=== PATIENT | male | born 1950 | race Caucasian/White ===

== ENCOUNTER 2017-11-14 14:53 | Emergency (ER) | payer OTHER ==
[~2017-11-14] VITALS: Ht 175.3 cm; Wt 51.0 kg
[~2017-11-14 14:53] MED LIST: ASCO500C PO; B COTAB3 PO; FOLI1; OMEG600C2 PO; TAB-TAB PO
[2017-11-14 15:22] VITALS: BP 149/67; PULSE 61; RESP 25; TEMP 96.7; O2SAT 100
[2017-11-14] MEDS ORDERED: SODIUM CHLORIDE 0.9% FLUSH 10 ML FLUSH IVF PRN (15:30)
--- NOTE | 2017-11-14 15:37 | PD ---
HPI Chief Complaint: Respiratory Symptoms Time Seen by Provider: 15:10 Travel History International Travel<30 days: No Contact w/Intl Traveler<30days: No Traveled to known affect area: No History of Present Illness HPI 67-year-old male patient presents emergency department via EMS for evaluation after having a syncopal episode shopping today at [id number]. EMS states witnesses describe the patient as becoming weak and sitting down on the ground, not falling. Patient does not remember the event at all. Patient denies any injuries or pain. Upon arrival of EMS patient denies any chest pain, shortness breath, lightheadedness, dizziness, headache, abdominal pain, nausea, vomiting, diarrhea. EMS had a very difficult time auscultating breath sounds. They gave the patient albuterol neb x 3 and 125mg Solu-Medrol on transport. Patient smokes a pack cigarettes a day and drinks approximately 7 beers a day. Patient denies any drug use. Patient states she has no major medical history does not take any daily medication. However he does not have a PCP and he has not been evaluated by a physician since 2009. Patient looks disheveled, unkempt, very thin with ribs visible through skin and hair matted to his head and yellow tint to his skin. Patient has no focal neurological deficit. PFSH Past Medical History Cancer: No Cardiovascular Problems: No Cirrhosis: Yes Diabetes: No Diminished Hearing: No Endocrine: No Gastrointestinal Disorders: Yes Genitourinary: No Hepatitis: No Hiatal Hernia: No Immune Disorder: No Implanted Vascular Access Dvce: No Musculoskeletal: No Neurologic: No Psychiatric: No Reproductive: No Respiratory: No Immunizations Current: No Thyroid Disease: No Past Surgical History Abdominal Surgery: No Cardiac Surgery: No Ear Surgery: No Endocrine Surgery: No Eye Surgery: No Genitourinary Surgery: No Gynecologic Surgery: No Oral Surgery: Yes (TONSILLECTOMY) Pacemaker: No Thoracic Surgery: No Tonsillectomy: Yes Other Surgery: Yes (PARACENTHESIS ) Social History Alcohol Use: Yes (2-3 BEERS A WEEK) Tobacco Use: No Substance Use: No Allergies-Medications (Allergen,Severity, Reaction): Coded Allergies: No Known Allergies (Unverified , 12/08/12) Reported Meds & Prescriptions Reported Meds & Active Scripts Active Reported Vitamin C (Ascorbic Acid) 500 Mg Cap 500 Mg PO DAILY Folate 1 Mg Tab (Folic Acid) 1 Mg Tab 1 Mg .XX B Complex (Vitamin B Complex) Tab 1 Cap PO DAILY Fish Oil ([facility]-3 Fatty Acids) 600 Mg Cap 600 Mg PO DAILY Multivitamin (Multivitamins) 1 Tab Tab 1 Tab PO DAILY Review of Systems Except as stated in HPI: all other systems reviewed are Neg Physical Exam Narrative GENERAL: Disheveled, unkempt, thin with ribs showing through skin and yellowing tint to the skin. Patient appears chronically ill. Patient's hair is matted to his head. No acute respiratory distress noted. SKIN: Bilateral lower extremities have thinning to the skin with extremely dry flaky skin noted. HEAD: Atraumatic. Normocephalic. EYES: Pupils equal and round. Pupils 3 mm and demonstrated PERRLA bilaterally. No injection or drainage. ENT: No nasal bleeding or discharge. Mucous membranes pink and dry. NECK: Trachea midline. No JVD. CARDIOVASCULAR: Regular rate and rhythm. No murmur appreciated. RESPIRATORY: No accessory muscle use. Breath sounds extremely diminished bilaterally. GASTROINTESTINAL: Abdomen soft, non-tender, nondistended. MUSCULOSKELETAL: No obvious deformities. No clubbing. No cyanosis. No edema. NEUROLOGICAL: Awake and alert. No obvious cranial nerve deficits. Motor grossly within normal limits. Normal speech. Data Data Last Documented VS Vital Signs Date Time Temp Pulse Resp B/P (MAP) Pulse Ox O2 Delivery O2 Flow Rate FiO2 11/14/17 19:01 92 20 115/59 (77) 95 Nasal Cannula 2.00 11/14/17 15:22 96.7 Orders Orders Electrocardiogram (11/14/17 15:22) Complete Blood Count With Diff (11/14/17 15:22) Comprehensive Metabolic Panel (11/14/17 15:22) Magnesium (Mg) (11/14/17 15:22) Ckmb (Isoenzyme) Profile (11/14/17 15:22) Troponin I (11/14/17 15:22) Urinalysis - C+S If Indicated (11/14/17 15:22) Chest, Single Ap (11/14/17 15:22) Ct Brain W/O Iv Contrast(Rout) (11/14/17 15:22) Ecg Monitoring (11/14/17 15:22) Iv Access Insert/Monitor (11/14/17 15:22) Oximetry (11/14/17 15:22) Sodium Chloride 0.9% Flush (Ns Flush) (11/14/17 15:30) Sodium Chlor 0.9% 1000 Ml Inj (Ns 1000 M (11/14/17 16:30) Potassium Chloride (Kcl) (11/14/17 16:30) Sodium Chlor 0.9% 1000 Ml Inj (Ns 1000 M (11/14/17 17:15) Labs Laboratory Tests Test 11/14/17 15:30 11/14/17 17:35 White Blood Count 9.1 TH/MM3 Red Blood Count 4.56 MIL/MM3 Hemoglobin 16.5 GM/DL Hematocrit 47.5 % Mean Corpuscular Volume 104.1 FL Mean Corpuscular Hemoglobin 36.3 PG Mean Corpuscular Hemoglobin Concent 34.8 % Red Cell Distribution Width 12.2 % Platelet Count 277 TH/MM3 Mean Platelet Volume 7.0 FL Neutrophils (%) (Auto) 84.3 % Lymphocytes (%) (Auto) 5.3 % Monocytes (%) (Auto) 9.9 % Eosinophils (%) (Auto) 0.1 % Basophils (%) (Auto) 0.4 % Neutrophils # (Auto) 7.7 TH/MM3 Lymphocytes # (Auto) 0.5 TH/MM3 Monocytes # (Auto) 0.9 TH/MM3 Eosinophils # (Auto) 0.0 TH/MM3 Basophils # (Auto) 0.0 TH/MM3 CBC Comment DIFF FINAL Differential Comment Blood Urea Nitrogen 8 MG/DL Creatinine 0.56 MG/DL Random Glucose 194 MG/DL Total Protein 8.2 GM/DL Albumin 4.0 GM/DL Calcium Level 8.7 MG/DL Magnesium Level 1.7 MG/DL Alkaline Phosphatase 104 U/L Aspartate Amino Transf (AST/SGOT) 37 U/L Alanine Aminotransferase (ALT/SGPT) 37 U/L Total Bilirubin 0.6 MG/DL Sodium Level 132 MEQ/L Potassium Level 3.2 MEQ/L Chloride Level 90 MEQ/L Carbon Dioxide Level 37.2 MEQ/L Anion Gap 5 MEQ/L Estimat Glomerular Filtration Rate 145 ML/MIN Total Creatine Kinase 75 U/L Troponin I LESS THAN 0.02 NG/ML Urine Color LIGHT-YELLOW Urine Turbidity CLEAR Urine pH 5.5 Urine Specific [place] 1.009 Urine Protein 30 mg/dL Urine Glucose (UA) 150 mg/dL Urine Ketones TRACE mg/dL Urine Occult Blood TRACE Urine Nitrite NEG Urine Bilirubin NEG Urine Urobilinogen LESS THAN 2.0 MG/DL Urine Leukocyte Esterase NEG Urine RBC 1 /hpf Urine WBC 1 /hpf Urine Hyaline Casts 1 /lpf Urine Mucus FEW /lpf Microscopic Urinalysis Comment CULT NOT INDICATED MDM Medical Decision Making Medical Screen Exam Complete: Yes Emergency Medical Condition: Yes Differential Diagnosis Differential diagnosis include but not limited to electrolyte abnormality, pneumonia, malignancy, coronary event, arrhythmia Narrative Course Patient placed on monitor and IV obtained. Blood work sent to the lab. CBC, CMP , Magnesium, Trop, CK-MB, UA ordered and pending. Chest x-ray ordered and pending. EKG ordered and interpreted. EKG shows sinus tachycardiac with HR 112. Chest x-ray shows moderate COPD with small bilateral effusions. Head CT shows no acute disease. CBC shows no acute abnormality. CMP shows sodium 132, potassium 3.2, chloride 90, glucose 194, creatinine 0.56, carbon dioxide 37.2. Mag 1.7 Trop less than 0.02 CK-MB is 75 UA 1 L normal saline bolus, 40 mEq KCl by mouth ordered. Patient remains tachycardic in the lower 100s. The waiting on the patient to void. 2nd Liter normal saline bolus ordered. Cardiac: NSR with HR 98 at this time. It was recommended that patient stay in the hospital for further evaluation and diagnostic work up due to his social risk factors of smoking and alcohol use and him not being followed by a PCP and his 1st syncopal episode. Risk factors discussed with patient and he still decided to sign out AMA. Patient given instructions to return to the emergency department with any worsening or emergent conditions or additional syncopal episodes. Diagnosis Primary Impression: Syncope Qualified Codes: R55 - Syncope and collapse Admitting Information Admitting Physician Requests: Kristen Rodgers Nov 14, 2017 15:37
[2017-11-14 15:49] LABS: AUTOMATED NEUTROPHIL # 7.7 TH/MM3 (1.8-7.7); BASOPHIL % 0.4 % (0.0-2.0); EOSINOPHIL % 0.1 % (0.0-4.0); HEMATOCRIT 47.5 % (39.0-51.0); HEMOGLOBIN 16.5 GM/DL (13.0-17.0); LYMPH % 5.3 % (9.0-44.0); LYMPHOCYTE # 0.5 TH/MM3 (1.0-4.8); MEAN CELL VOLUME 104.1 FL (80.0-100.0); MEAN CORPUSCULAR HEMOGLOBIN 36.3 PG (27.0-34.0); MEAN CORPUSCULAR HGB CONC 34.8 % (32.0-36.0); MONO % 9.9 % (0.0-8.0); MONOCYTE # 0.9 TH/MM3 (0-0.9); NEUT % 84.3 % (16.0-70.0); PLATELET COUNT 277 TH/MM3 (150-450); RED BLOOD COUNT 4.56 MIL/MM3 (4.50-5.90); RED CELL DISTRIBUTION WIDTH 12.2 % (11.6-17.2); WHITE BLOOD COUNT 9.1 TH/MM3 (4.0-11.0)
--- NOTE | 2017-11-14 16:09 | RADRPT ---
EXAM DATE/TIME: 11/14/2017 15:34 [facility] COMPARISON: No previous studies available for comparison. INDICATIONS : Shortness of breath. MEDICAL HISTORY : None. SURGICAL HISTORY : None. ENCOUNTER: Initial ACUITY: 1 day PAIN SCORE: 0/10 LOCATION: Bilateral chest FINDINGS: There are advanced COPD changes. There are minimal bilateral effusions. The heart is normal in size. The osseous structures are grossly intact. A CONCLUSION: 1. Moderate COPD with small bilateral effusions. Haile Londono MD on November 14, 2017 at 15:50 Board Certified Radiologist. This report was verified electronically.
[2017-11-14 16:11] LABS: ALT (GPT) 37 U/L (12-78); AST (GOT) 37 U/L (15-37); BICARBONATE 37.2 MEQ/L (21.0-32.0); BLOOD UREA NITROGEN 8 MG/DL (7-18); CALCIUM 8.7 MG/DL (8.5-10.1); CHLORIDE 90 MEQ/L (98-107); CREATININE 0.56 MG/DL (0.60-1.30); GLOMERULAR FILTRATION RATE 145 ML/MIN (>89); GLUCOSE,RANDOM 194 MG/DL (74-106); MAGNESIUM 1.7 MG/DL (1.5-2.5); SODIUM (NA) 132 MEQ/L (136-145)
--- NOTE | 2017-11-14 16:12 | RADRPT ---
EXAM DATE/TIME: 11/14/2017 15:53 [facility] COMPARISON: No previous studies available for comparison. INDICATIONS : Syncope. RADIATION DOSE: 37.41 CTDIvol (mGy) MEDICAL HISTORY : None SURGICAL HISTORY : None. ENCOUNTER: Initial ACUITY: 1 day PAIN SCALE: 0/10 LOCATION: cranial TECHNIQUE: Multiple contiguous axial images were obtained of the head. Using automated exposure control and adj ustment of the mA and/or kV according to patient size, radiation dose was kept as low as reasonably a chievable to obtain optimal diagnostic quality images. DICOM format image data is available electro nically for review and comparison. FINDINGS: CEREBRUM: The ventricles are normal for age. No evidence of midline shift, mass lesion, hemorrhage or acute in farction. No extra-axial fluid collections are seen. POSTERIOR FOSSA: The cerebellum and brainstem are intact. The 4th ventricle is midline. The cerebellopontine angle i s unremarkable. EXTRACRANIAL: The visualized portion of the orbits is intact. SKULL: The calvaria is intact. No evidence of skull fracture. CONCLUSION: No acute disease. Anuel Dueñas MD on November 14, 2017 at 16:09 Board Certified Radiologist. This report was verified electronically.
[2017-11-14 16:15] LABS: ALKALINE PHOSPHATASE 104 U/L (45-117); TOTAL BILIRUBIN ADULT 0.6 MG/DL (0.2-1.0); TOTAL PROTEIN 8.2 GM/DL (6.4-8.2); TROPONIN I LESS THAN 0.02 NG/ML (0.02-0.05)
[2017-11-14] MEDS ORDERED: POTASSIUM CHLORIDE 20 MEQ CONTROLLED RELEASE TAB PO ONE (16:30)
[2017-11-14] MEDS ORDERED: SODIUM CHLOR 0.9% 1000 ML INJ 1,000 ML IV ONE ×2 (16:30→17:15)
[2017-11-14 17:45] VITALS: BP 138/62; PULSE 103; RESP 15; O2SAT 99
[2017-11-14 18:29] LABS: BILIRUBIN, URINE NEG (NEG); BLOOD, URINE TRACE (NEG); GLUCOSE,URINE 150 mg/dL (NEG); HYALINE CAST, URINE 1 /lpf (RARE); KETONE, URINE TRACE mg/dL (NEG); MUCUS URINE FEW /lpf (OCC); NITRITE,URINE NEG (NEG); PH, URINE 5.5 (5.0-8.5); URINE COLOR LIGHT-YELLOW (YELLW/STRAW); URINE LEUKOCYTE ESTERASE NEG (NEG)
[2017-11-14 19:01] VITALS: BP 115/59; PULSE 92; RESP 20; O2SAT 95
--- NOTE | 2017-11-15 23:00 | EKG ---
Date Performed: 11/14/2017 Time Performed: 15:36:22 PTAGE: 67 years EKG: SINUS TACHYCARDIA POSSIBLE RIGHT ATRIAL ENLARGEMENT POSSIBLE LEFT ATRIAL ENLARGEMENT MARKED LEFT AXIS DEVIATION POSSIBLE RIGHT VENTRICULAR CONDUCTION DELAY ANTEROSEPTAL MYOCARDIAL INFARCTION A BNORMAL ECG PREVIOUS TRACING : 11/17/2012 13.00 Compared to prior tracing no significant change DOCTOR: Parish Agrawal Interpretating Date/Time 11/15/2017 22:58:45
== END 2017-11-14 19:44 | disposition left against medical advice (07) ==
LOC: NEPC 14:53
DX: R55 Syncope and collapse (principal); J44.9 Chronic obstructive pulmonary disease, unspecified; K74.60 Unspecified cirrhosis of liver; F17.210 Nicotine dependence, cigarettes, uncomplicated; J90 Pleural effusion, not elsewhere classified; K92.9 Disease of digestive system, unspecified; R00.0 Tachycardia, unspecified
CPT/HCPCS: 70450; 71045; 80053; 81001; 82550; 83735; 84484; 85025; 93005; 96360; 99285; J7030

== ENCOUNTER 2017-11-23 20:15 | Emergency (ER) | payer OTHER ==
[~2017-11-23] VITALS: Ht 177.8 cm; Wt 46.8 kg
[2017-11-23 20:23] VITALS: PULSE 88; RESP 18; TEMP 97.2
--- NOTE | 2017-11-23 20:36 | PD ---
HPI Chief Complaint: FOREHEAD LAC Time Seen by Provider: 20:31 Travel History International Travel<30 days: No Contact w/Intl Traveler<30days: No Traveled to known affect area: No History of Present Illness HPI WHILE SHOPPING HE TRIPPED AND FELL HITTING HIS FOREHEAD AND POSSIBLE LOC, PATIENT IS NOT TOO CLEAR ON WHAT OCCURRED AFTER HE HIT HIS HEAD. DENIES TAKING ANY BLOOD THINNERS PFSH Past Medical History Cancer: No Cardiovascular Problems: No Cirrhosis: Yes Diabetes: No Diminished Hearing: No Endocrine: No Gastrointestinal Disorders: Yes Genitourinary: No Hepatitis: No Hiatal Hernia: No Immune Disorder: No Implanted Vascular Access Dvce: No Musculoskeletal: No Neurologic: No Psychiatric: No Reproductive: No Respiratory: No Immunizations Current: No Thyroid Disease: No Past Surgical History Abdominal Surgery: No Cardiac Surgery: No Ear Surgery: No Endocrine Surgery: No Eye Surgery: No Genitourinary Surgery: No Gynecologic Surgery: No Oral Surgery: Yes (TONSILLECTOMY) Pacemaker: No Thoracic Surgery: No Tonsillectomy: Yes Other Surgery: Yes (PARACENTHESIS ) Social History Alcohol Use: Yes (2-3 BEERS A WEEK) Tobacco Use: Yes Substance Use: No Allergies-Medications (Allergen,Severity, Reaction): Coded Allergies: No Known Allergies (Unverified Adverse Reaction, Unknown, 11/23/17) Reported Meds & Prescriptions Reported Meds & Active Scripts Active Reported Vitamin C (Ascorbic Acid) 500 Mg Cap 500 Mg PO DAILY Folate 1 Mg Tab (Folic Acid) 1 Mg Tab 1 Mg .XX B Complex (Vitamin B Complex) Tab 1 Cap PO DAILY Fish Oil ([employer]-3 Fatty Acids) 600 Mg Cap 600 Mg PO DAILY Multivitamin (Multivitamins) 1 Tab Tab 1 Tab PO DAILY Review of Systems Skin: Positive Other (FOREHEAD LAC) Physical Exam Narrative GENERAL: SKIN: Warm and dry. HEAD: Atraumatic. Normocephalic. Y SHAPED FOREHEAD LAC 2.5CM EACH LENGTH.. EYES: Pupils equal and round. No scleral icterus. No injection or drainage. ENT: No nasal bleeding or discharge. Mucous membranes pink and moist. NECK: Trachea midline. No JVD. CARDIOVASCULAR: Regular rate and rhythm. RESPIRATORY: No accessory muscle use. Clear to auscultation. Breath sounds equal bilaterally. GASTROINTESTINAL: Abdomen soft, non-tender, nondistended. MUSCULOSKELETAL: Extremities without clubbing, cyanosis, or edema. No obvious deformities. NEUROLOGICAL: Awake and alert. No obvious cranial nerve deficits. Motor grossly within normal limits. Five out of 5 muscle strength in the arms and legs. Normal speech. PSYCHIATRIC: Appropriate mood and affect; insight and judgment normal. Data Data Last Documented VS Vital Signs Date Time Temp Pulse Resp B/P (MAP) Pulse Ox O2 Delivery O2 Flow Rate FiO2 11/23/17 20:23 97.[address] Brain W/O Iv Contrast(Rout) (11/23/17 20:38) Lidocaine 1% Inj (50 Ml) (Xylocaine 1% I (11/23/17 20:45) Lidocaine 1% Inj (Xylocaine 1% Inj) (11/23/17 20:45) MDM Medical Decision Making Medical Screen Exam Complete: Yes Emergency Medical Condition: Yes Medical Record Reviewed: Yes Differential Diagnosis ICH V SKULL FX V SCALP LAC Narrative Course CT NEG FOR ICH OR SKULL FX Procedures Procedure Narrative LACERATION LOCATION: [FOREHEAD] LENGTH: [7 CM TOTAL Y SHAPED 2.5CM/2.5CM/2CM] NUMBER OF STITCHES/KARL: [4 HORIZONTAL MATTRESS AND 2 SINGLE INTERRUPTED-] REPAIR: The area of the laceration was prepped with Betadine and sterilely draped. The laceration was infiltrated with [1% LIDOCAINE, 6 ML]. The wound was copiously irrigated and explored without evidence of foreign body, tendon injury or neurovascular injury. The wound was closed using [3-0 PROLENE]. This was a [SINGLE] layer repair. A sterile dressing was applied. The patient was advised to keep the dressing clean and dry. Patient tolerated the procedure well. Diagnosis Primary Impression: SCALP LACERATION S/P SUTURE REPAIR Patient Instructions: Laceration (ED) Additional Instructions: SEE YOUR DOCTOR OR RETURN IN 7 DAYS TO HAVE YOUR SUTURES REMOVED Disposition: 01 DISCHARGE HOME Condition: Stable Barrington Banks MD Nov 23, 2017 20:35
[2017-11-23 20:40] VITALS: BP 157/73; PULSE 84; RESP 18; O2SAT 97
[2017-11-23] MEDS ORDERED: LIDOCAINE HCL 1% 50 ML VIAL INFIL ONE (20:45)
[2017-11-23] MEDS ORDERED: LIDOCAINE HCL 1% 20 ML VIAL INFIL ONE (20:45)
[2017-11-23 21:50] VITALS: BP 159/70; PULSE 83; RESP 18; O2SAT 97
--- NOTE | 2017-11-23 22:08 | RADRPT ---
EXAM DATE/TIME: 11/23/2017 21:34 [facility] COMPARISON: No previous studies available for comparison. INDICATIONS : Fall. Forehead laceration. RADIATION DOSE: 63.63 CTDIvol (mGy) MEDICAL HISTORY : Cirrhosis. SURGICAL HISTORY : Tonsillectomy. ENCOUNTER: Initial ACUITY: 1 day PAIN SCALE: 3/10 LOCATION: Bilateral frontal TECHNIQUE: Multiple contiguous axial images were obtained of the head. Using automated exposure control and adj ustment of the mA and/or kV according to patient size, radiation dose was kept as low as reasonably a chievable to obtain optimal diagnostic quality images. DICOM format image data is available electro nically for review and comparison. FINDINGS: CEREBRUM: The ventricles are normal for age. No evidence of midline shift, mass lesion, hemorrhage or acute in farction. No extra-axial fluid collections are seen. POSTERIOR FOSSA: The cerebellum and brainstem are intact. The 4th ventricle is midline. The cerebellopontine angle i s unremarkable. EXTRACRANIAL: Contusion and gas seen in the soft tissues left frontal scalp. SKULL: The calvaria is intact. No evidence of skull fracture. CONCLUSION: No bleed or other acute intracranial abnormality. Left frontal scalp contusion/laceration. Basim Morataya MD on November 23, 2017 at 22:05 Board Certified Radiologist. This report was verified electronically.
[2017-11-23 22:13] VITALS: BP 147/62
== END 2017-11-23 22:23 | disposition home or self-care (01) ==
LOC: PHED 20:15
DX: S01.81XA Laceration without foreign body of other part of head, initial encounter (principal); W01.10XA Fall on same level from slipping, tripping and stumbling with subsequent striking against unspecified object, initial encounter; Z72.0 Tobacco use
CPT/HCPCS: 12014; 70450

== ENCOUNTER 2017-12-01 18:46 | Emergency (ER) | payer OTHER ==
[~2017-12-01] VITALS: Ht 177.8 cm; Wt 47.0 kg
[2017-12-01 19:15] VITALS: BP 146/67; PULSE 79; RESP 16; TEMP 97.3; O2SAT 94
--- NOTE | 2017-12-01 19:36 | PD ---
HPI Chief Complaint: Wound/Suture/Staple Re-Check Time Seen by Provider: 19:25 Travel History International Travel<30 days: No Contact w/Intl Traveler<30days: No Traveled to known affect area: No History of Present Illness HPI 67-year-old male here for suture removal to forehead laceration 8 days ago. He denies fever or chills. No drainage from the site. He has no medical complaint. PFSH Past Medical History Cancer: No Cardiovascular Problems: No Cirrhosis: Yes Diabetes: No Diminished Hearing: No Endocrine: No Gastrointestinal Disorders: Yes Genitourinary: No Hepatitis: No Hiatal Hernia: Yes Immune Disorder: No Implanted Vascular Access Dvce: No Medical other: Yes (LIVER CIRRHOSIS) Musculoskeletal: No Neurologic: No Psychiatric: No Reproductive: No Respiratory: No Immunizations Current: No Thyroid Disease: No Tetanus Vaccination: < 5 Years Influenza Vaccination: No ?: Not Past Surgical History Abdominal Surgery: No Cardiac Surgery: No Ear Surgery: No Endocrine Surgery: No Eye Surgery: No Genitourinary Surgery: No Gynecologic Surgery: No Oral Surgery: Yes (TONSILLECTOMY) Pacemaker: No Thoracic Surgery: No Tonsillectomy: Yes Other Surgery: Yes (PARACENTHESIS ) Social History Alcohol Use: Yes (2-3 BEERS A WEEK) Tobacco Use: Yes Substance Use: No Allergies-Medications (Allergen,Severity, Reaction): Coded Allergies: No Known Allergies (Unverified Adverse Reaction, Unknown, 11/23/17) Reported Meds & Prescriptions Reported Meds & Active Scripts Active No Active Prescriptions or Reported Medications Review of Systems Except as stated in HPI: all other systems reviewed are Neg General / Constitutional: No: Fever Eyes: No: Visual changes HENT: No: Headaches Cardiovascular: No: Chest Pain or Discomfort Respiratory: No: Shortness of Breath Gastrointestinal: No: Abdominal Pain Genitourinary: No: Dysuria Physical Exam Narrative GENERAL: Alert male. Disheveled appearance. SKIN: Warm and dry. Large scab to the left forehead with sutures present. no evidence of infection HEAD: Normocephalic. EYES: No scleral icterus. No injection or drainage. NECK: Supple, trachea midline. No JVD Data Data Last Documented VS Vital Signs Date Time Temp Pulse Resp B/P (MAP) Pulse Ox O2 Delivery O2 Flow Rate FiO2 12/01/17 19:15 97.3 79 16 146/67 (93) 94 [facility] Medical Decision Making Medical Screen Exam Complete: Yes Emergency Medical Condition: Yes Differential Diagnosis Suture removal, Wound recheck, wound infection Narrative Course 67-year-old male here for suture removal. The patient has a large scab to the forehead making suture visualization near impossible. One mattress suture was removed causing wound dehiscence and bleeding. The sutures are not ready to be removed today. He was instructed to return in one week Diagnosis Primary Impression: Visit for suture removal Referrals: Primary Care Physician Additional Instructions: Watch the area daily with soap and water. Apply thin layer of antibiotic ointment to the area. Fraternities one week for suture removal. Scripts No Active Prescriptions or Reported Meds Disposition: 01 DISCHARGE HOME Condition: Stable Siobhan Ogden Dec 01, 2017 19:36
== END 2017-12-01 19:55 | disposition home or self-care (01) ==
LOC: PHEFT 18:46
DX: S01.81XD Laceration without foreign body of other part of head, subsequent encounter (principal); K74.60 Unspecified cirrhosis of liver; Z72.0 Tobacco use; X58.XXXD Exposure to other specified factors, subsequent encounter
CPT/HCPCS: 99281

== ENCOUNTER 2017-12-07 19:04 | Emergency (ER) | payer OTHER ==
[~2017-12-07] VITALS: Ht 177.8 cm; Wt 46.2 kg
[2017-12-07 19:14] VITALS: BP 151/72; PULSE 99; RESP 18; TEMP 96.9; O2SAT 98
[2017-12-07 19:23] VITALS: BP 151/72; PULSE 99; RESP 16; TEMP 96.9; O2SAT 98
--- NOTE | 2017-12-07 19:41 | PD ---
HPI Chief Complaint: Laceration/Skin Injury Time Seen by Provider: 19:34 Travel History International Travel<30 days: No Contact w/Intl Traveler<30days: No Traveled to known affect area: No History of Present Illness HPI 67-year-old male presents emergency department for suture removal of his forehead. States that he was here approximately 6 days ago and the sutures were supposed to be removed but the wound opened. Patient was asked to come back today for removal. Patient denies any issues. Denies fever, chills. He has no other complaints today PFSH Past Medical History Cancer: No Cardiovascular Problems: No Cirrhosis: Yes Diabetes: No Diminished Hearing: No Endocrine: No Gastrointestinal Disorders: Yes Genitourinary: No Hepatitis: No Hiatal Hernia: Yes Immune Disorder: No Implanted Vascular Access Dvce: No Medical other: Yes (LIVER CIRRHOSIS) Musculoskeletal: No Neurologic: No Psychiatric: No Reproductive: No Respiratory: No Immunizations Current: No Thyroid Disease: No Tetanus Vaccination: Unknown Influenza Vaccination: No Past Surgical History Abdominal Surgery: No Cardiac Surgery: No Ear Surgery: No Endocrine Surgery: No Eye Surgery: No Genitourinary Surgery: No Gynecologic Surgery: No Oral Surgery: Yes (TONSILLECTOMY) Pacemaker: No Thoracic Surgery: No Tonsillectomy: Yes Other Surgery: Yes (PARACENTHESIS ) Social History Alcohol Use: Yes (2-3 BEERS A WEEK) Tobacco Use: Yes Substance Use: No Allergies-Medications (Allergen,Severity, Reaction): Coded Allergies: No Known Allergies (Unverified Adverse Reaction, Unknown, 11/23/17) Reported Meds & Prescriptions Reported Meds & Active Scripts Active No Active Prescriptions or Reported Medications Review of Systems Except as stated in HPI: all other systems reviewed are Neg Physical Exam Narrative GENERAL: Well-nourished, well-developed patient. SKIN: Focused skin assessment warm/dry. Forehead- scabs in place with 4 apparent sutures, no exudate, discharge, redness , swelling HEAD: Normocephalic. EYES: No scleral icterus. No injection or drainage. NECK: Supple, trachea midline. No JVD or lymphadenopathy. CARDIOVASCULAR: Regular rate and rhythm without murmurs, gallops, or rubs. RESPIRATORY: Breath sounds equal bilaterally. No accessory muscle use. GASTROINTESTINAL: Abdomen soft, non-tender, nondistended. BACK: Nontender without obvious deformity. No CVA tenderness. Data Data Last Documented VS Vital Signs Date Time Temp Pulse Resp B/P (MAP) Pulse Ox O2 Delivery O2 Flow Rate FiO2 12/07/17 20:16 12/07/17 19:23 96.9 99 16 98 Orders Orders Ed Discharge Order (12/07/17 20:07) MDM Medical Decision Making Medical Screen Exam Complete: Yes Emergency Medical Condition: Yes Differential Diagnosis Suture removal, cellulitis, erysipelas Narrative Course 67-year-old male presents emergency department for suture removal of his forehead. States that he was here approximately 6 days ago and the sutures were supposed to be removed but the wound opened. Patient was asked to come back today for removal. Patient denies any issues. Denies fever, chills. He has no other complaints today. Vital signs stable. Physical exam findings consistent with sutures in place on for head, No dehiscence of the wound site with suture removal. Patient advised to follow-up with his primary care physician Return for signs of infection or worsening of the site. Procedures Procedure Narrative Suture removal Diagnosis Primary Impression: Encounter for removal of sutures Referrals: [facility] Additional Instructions: Follow up with your primary care physician within 2-3 days. If your symptoms persist or worsen, return to the emergency department. Keep area clean and dry. You may bathe as normal. You may use [id number] triple antibiotic ointments for your injury daily. Change dressings daily. If he developed increased redness, swelling, or pain return to the emergency department. Scripts No Active Prescriptions or Reported Meds Disposition: 01 DISCHARGE HOME Condition: Stable Alejandrina Orozco Dec 07, 2017 19:41
== END 2017-12-07 20:17 | disposition home or self-care (01) ==
LOC: PHEFT 19:04
DX: Z48.02 Encounter for removal of sutures (principal)
CPT/HCPCS: 99281

== ENCOUNTER 2018-01-09 16:17 | Inpatient (IN) | payer OTHER, MEDICARE ==
[~2018-01-09] VITALS: Ht 177.8 cm; Wt 44.4 kg
[2018-01-09] VITALS (8 sets, daily range): BP systolic 112–128; BP diastolic 56–66; PULSE 96–109; RESP 14–22; TEMP 97.5; O2SAT 93–100
--- NOTE | 2018-01-09 16:41 | PD ---
HPI Chief Complaint: Altered Mental Status Time Seen by Provider: 16:34 Travel History International Travel<30 days: No Contact w/Intl Traveler<30days: No Traveled to known affect area: No History of Present Illness HPI 67-year-old male patient with history of alcohol use, liver disease, presents to the ER today more disoriented than usual, fell at the store today according to his brother. Patient is fairly thin and has been losing weight according to the brother. He currently is fairly disoriented, not able to tell me much about what happened. He states he feels fine. Modifying Factors: None Associated Signs & Symptoms: Fall, disorientation Risk Factors: Alcohol use, liver disease PFSH Past Medical History Cancer: No Cardiovascular Problems: No Cirrhosis: Yes Diabetes: No Diminished Hearing: No Endocrine: No Gastrointestinal Disorders: Yes Genitourinary: No Hepatitis: No Hiatal Hernia: Yes Immune Disorder: No Implanted Vascular Access Dvce: No Musculoskeletal: No Neurologic: No Psychiatric: No Reproductive: No Respiratory: No Immunizations Current: No Thyroid Disease: No Past Surgical History Abdominal Surgery: No Cardiac Surgery: No Ear Surgery: No Endocrine Surgery: No Eye Surgery: No Genitourinary Surgery: No Gynecologic Surgery: No Oral Surgery: Yes (TONSILLECTOMY) Pacemaker: No Thoracic Surgery: No Tonsillectomy: Yes Other Surgery: Yes (PARACENTHESIS ) Social History Alcohol Use: Yes (2-3 BEERS A WEEK) Tobacco Use: Yes Substance Use: No Allergies-Medications (Allergen,Severity, Reaction): Coded Allergies: No Known Allergies (Unverified Adverse Reaction, Unknown, 01/09/18) Reported Meds & Prescriptions Reported Meds & Active Scripts Active No Active Prescriptions or Reported Medications Review of Systems ROS Limitations: Altered Mental Status Physical Exam Narrative GENERAL: Well-developed elderly male patient currently in mild respiratory distress, awake, alert, disoriented. He appears fairly disheveled, hair appears to be matted with sticky substance. SKIN: Focused skin assessment warm/dry. HEAD: Atraumatic. Normocephalic. EYES: Pupils equal and round. No scleral icterus. No injection or drainage. ENT: No nasal bleeding or discharge. Mucous membranes pink and moist. NECK: Trachea midline. No JVD. Supple. CARDIOVASCULAR: Regular rate and rhythm. No murmur appreciated. RESPIRATORY: Moderate accessory muscle use. Clear to auscultation. Breath sounds equal bilaterally. GASTROINTESTINAL: Abdomen scaphoid, soft, non-tender, nondistended. Hepatic and splenic margins not palpable. MUSCULOSKELETAL: No obvious deformities. No clubbing. No cyanosis. No edema. NEUROLOGICAL: Awake and alert. No obvious cranial nerve deficits. Motor grossly within normal limits. Normal speech. PSYCHIATRIC: Appropriate mood and affect; insight and judgment normal. Data Data Last Documented VS Vital Signs Date Time Temp Pulse Resp B/P (MAP) Pulse Ox O2 Delivery O2 Flow Rate FiO2 01/09/18 18:06 99 20 115/56 (75) 99 Nasal Cannula 2.00 01/09/18 16:22 97.5 Orders Orders Complete Blood Count With Diff (01/09/18 16:34) Comprehensive Metabolic Panel (01/09/18 16:34) B-Type Natriuretic Peptide (01/09/18 16:34) Act Partial Throm Time (Ptt) (01/09/18 16:34) Prothrombin Time / Inr (Pt) (01/09/18 16:34) Ckmb (Isoenzyme) Profile (01/09/18 16:34) Troponin I (01/09/18 16:34) Arterial Blood Gas (Abg) (01/09/18 16:34) Urinalysis - C+S If Indicated (01/09/18 16:34) Blood Culture (01/09/18 16:34) Iv Access Insert/Monitor (01/09/18 16:34) Electrocardiogram (01/09/18 16:34) Ecg Monitoring (01/09/18 16:34) Oximetry (01/09/18 16:34) Oxygen Administration (01/09/18 16:34) Chest, Single Ap (01/09/18 16:34) Sodium Chloride 0.9% Flush (Ns Flush) (01/09/18 16:45) Ct Brain W/O Iv Contrast(Rout) (01/09/18 16:34) Alcohol (Ethanol) (01/09/18 16:46) Ammonia (01/09/18 16:46) Albuterol-Ipratropium Neb (Duoneb Neb) (01/09/18 17:15) Methylprednisolone So Succ Inj (Solumedr (01/09/18 17:45) CKMB (01/09/18 17:00) CKMB% (01/09/18 17:00) Sodium Chlor 0.9% 1000 Ml Inj (Ns 1000 M (01/09/18 18:00) Admit Order (Ed Use Only) (01/09/18 18:30) Labs Laboratory Tests Test 01/09/18 16:44 01/09/18 17:00 Blood Gas Puncture Site RT RADIAL Blood Gas Patient Temperature 98.6 Blood Gas HCO3 34 mmol/L Blood Gas Base Excess 7.2 mmol/L Blood Gas Oxygen Saturation 91 % Arterial Blood pH 7.29 Arterial Blood Partial Pressure CO2 72 mmHG Arterial Blood Partial Pressure O2 130 mmHG Arterial Blood Oxygen Content 20.7 Vol % Arterial Blood Carboxyhemoglobin 6.6 % Arterial Blood Methemoglobin 1.3 % Blood Gas Hemoglobin 16.1 G/DL Oxygen Delivery Device NASAL CANNULA Blood Gas Liter Flow 2 L/M White Blood Count 9.7 TH/MM3 Red Blood Count 5.03 MIL/MM3 Hemoglobin 16.9 GM/DL Hematocrit 50.3 % Mean Corpuscular Volume 100.0 FL Mean Corpuscular Hemoglobin 33.6 PG Mean Corpuscular Hemoglobin Concent 33.6 % Red Cell Distribution Width 12.3 % Platelet Count 234 TH/MM3 Mean Platelet Volume 7.3 FL Neutrophils (%) (Auto) 87.3 % Lymphocytes (%) (Auto) 4.1 % Monocytes (%) (Auto) 7.2 % Eosinophils (%) (Auto) 0.1 % Basophils (%) (Auto) 1.3 % Neutrophils # (Auto) 8.5 TH/MM3 Lymphocytes # (Auto) 0.4 TH/MM3 Monocytes # (Auto) 0.7 TH/MM3 Eosinophils # (Auto) 0.0 TH/MM3 Basophils # (Auto) 0.1 TH/MM3 CBC Comment DIFF FINAL Differential Comment Prothrombin Time 12.7 SEC Prothromb Time International Ratio 1.3 RATIO Activated Partial Thromboplast Time 22.9 SEC Blood Urea Nitrogen 14 MG/DL Creatinine 0.65 MG/DL Random Glucose 136 MG/DL Total Protein 8.7 GM/DL Albumin 3.8 GM/DL Calcium Level 9.1 MG/DL Alkaline Phosphatase 119 U/L Aspartate Amino Transf (AST/SGOT) 62 U/L Alanine Aminotransferase (ALT/SGPT) 52 U/L Total Bilirubin 0.8 MG/DL Sodium Level 125 MEQ/L Potassium Level 4.6 MEQ/L Chloride Level 86 MEQ/L Carbon Dioxide Level 26.2 MEQ/L Anion Gap 13 MEQ/L Estimat Glomerular Filtration Rate 122 ML/MIN Ammonia 21 MCMOL/L Total Creatine Kinase 124 U/L Creatine Kinase MB 5.0 NG/ML Troponin I LESS THAN 0.02 NG/ML B-Type Natriuretic Peptide 31 PG/ML Ethyl Alcohol Level LESS THAN 3 MG/DL MDM Medical Decision Making Medical Screen Exam Complete: Yes Emergency Medical Condition: Yes Medical Record Reviewed: Yes Interpretation(s) EKG shows sinus tachycardia rate of 100 bpm with no signs of acute ST elevations or depressions. Laboratory Tests Test 01/09/18 16:44 01/09/18 17:00 Blood Gas HCO3 34 mmol/L (22-26) Blood Gas Base Excess 7.2 mmol/L (-2-2) Arterial Blood pH 7.29 (7.380-7.420) Arterial Blood Partial Pressure CO2 72 mmHG (38-42) Arterial Blood Partial Pressure O2 130 mmHG (61-120) Arterial Blood Oxygen Content 20.7 Vol % (12.0-20.0) Arterial Blood Carboxyhemoglobin 6.6 % (0-4) Blood Gas Hemoglobin 16.1 G/DL (12.0-16.0) Neutrophils (%) (Auto) 87.3 % (16.0-70.0) Lymphocytes (%) (Auto) 4.1 % (9.0-44.0) Neutrophils # (Auto) 8.5 TH/MM3 (1.8-7.7) Lymphocytes # (Auto) 0.4 TH/MM3 (1.0-4.8) Prothrombin Time 12.7 SEC (9.8-11.6) Activated Partial Thromboplast Time 22.9 SEC (24.3-30.1) Random Glucose 136 MG/DL (74-106) Total Protein 8.7 GM/DL (6.4-8.2) Alkaline Phosphatase 119 U/L (45-117) Aspartate Amino Transf (AST/SGOT) 62 U/L (15-37) Sodium Level 125 MEQ/L (136-145) Chloride Level 86 MEQ/L (98-107) Creatine Kinase MB 5.0 NG/ML (0.5-3.6) Troponin I LESS THAN 0.02 NG/ML Last [address] 01/09/18 1704 Signed Impressions: Service Date/Time: January 17:06 - CONCLUSION: Normal examination. Cody Randhawa MD Chest X-Ray 01/09/18 1634 Signed Impressions: Service Date/Time: January 16:37 - CONCLUSION: Basically stable chest appearance with severe emphysema. Possible small effusions versus chronic blunting Basim Busch MD Differential Diagnosis Weight loss, shortness of breath, altered mental status: Dehydration versus sepsis versus acute intracranial processes versus pneumonia versus COPD exacerbation Narrative Course Patient was started on nebulizers and Solu-Medrol in the ER and was put on oxygen with improvement in saturations. His mentation improved in the ER. His ABG shows respiratory acidosis with CO2 of 70. CT the brain did not show any signs of acute intracranial processes. Patient did not have any other obvious injuries on exam. He also has a low sodium of 125 which could also be contributing to his mental status. IV fluids were initiated in the ER. It appears on conversation with his brother, who lives with him, that the patient has not been doing well at home, has been having some intermittent disorientation, and the brother has noticed a respiratory distress as well today. At this point, on reevaluation at 6 PM, his breathing is improved and his saturations are improved. My plan however with his current acute issues, will be to admit the patient for further treatment. Case was discussed with Dr. Goddard, who would like the patient to be admitted to ICU as a precaution especially with respiratory issues. He is thinking that he may need to put the patient on BiPAP as well if respiratory symptoms continue. Aggregate critical care time was 30 minutes. Time to perform other separately billable procedures was not included in the critical care time. My time did not include minutes spent treating any other patients simultaneously or on activities that did not directly contribute to the patient's treatment. The services I provided to this patient were to treat and/or prevent clinically significant deterioration that could result in: Worsening respiratory distress, respiratory failure, dysrhythmias, I provided critical care services requiring my management, as noted below: Chart data review, documentation time, medication orders and management, vital sign assessments/reviewing monitor data, ordering and reviewing lab tests, ordering and interpreting/reviewing x-rays and diagnostic studies, care of the patient and discussion of the patient with the admitting physicians. Diagnosis Primary Impression: Hypercapnia Additional Impressions: Altered mental status Hyponatremia Admitting Information Admitting Physician Requests: Admit Scripts No Active Prescriptions or Reported Meds El Jean-Baptiste MD Jan 09, 2018 16:41
[2018-01-09] MEDS ORDERED: SODIUM CHLORIDE 0.9% FLUSH 10 ML FLUSH IVF PRN (16:45)
--- NOTE | 2018-01-09 17:12 | RADRPT ---
EXAM DATE/TIME: 01/09/2018 16:37 [facility] COMPARISON: CHEST SINGLE AP, November 14, 2017, 15:34. INDICATIONS : Dizziness and short of breath. MEDICAL HISTORY : None. SURGICAL HISTORY : None. ENCOUNTER: Initial ACUITY: 1 day PAIN SCORE: 0/10 LOCATION: Bilateral chest FINDINGS: Lungs are hyperinflated without significant focal consolidation. There is blunting of the costophreni c angles which appears stable and slight scarring at the left lung base. Cardiomediastinal contours a re stable. CONCLUSION: Basically stable chest appearance with severe emphysema. Possible small effusions versus chronic blun ting Basim Busch MD on January 09, 2018 at 17:09 Board Certified Radiologist. This report was verified electronically.
[2018-01-09] MEDS ORDERED: RESP: ALBUTEROL 2.5 MG/IPRATROPIUM 0.5 MG NEB (SCH) INH ONE (17:15)
[2018-01-09 17:17] LABS: AUTOMATED NEUTROPHIL # 8.5 TH/MM3 (1.8-7.7); BASOPHIL # 0.1 TH/MM3 (0-0.2); BASOPHIL % 1.3 % (0.0-2.0); EOSINOPHIL % 0.1 % (0.0-4.0); HEMATOCRIT 50.3 % (39.0-51.0); HEMOGLOBIN 16.9 GM/DL (13.0-17.0); LYMPH % 4.1 % (9.0-44.0); LYMPHOCYTE # 0.4 TH/MM3 (1.0-4.8); MEAN CORPUSCULAR HEMOGLOBIN 33.6 PG (27.0-34.0); MEAN CORPUSCULAR HGB CONC 33.6 % (32.0-36.0); MEAN PLATELET VOLUME 7.3 FL (7.0-11.0); MONO % 7.2 % (0.0-8.0); MONOCYTE # 0.7 TH/MM3 (0-0.9); NEUT % 87.3 % (16.0-70.0); PLATELET COUNT 234 TH/MM3 (150-450); RED BLOOD COUNT 5.03 MIL/MM3 (4.50-5.90); RED CELL DISTRIBUTION WIDTH 12.3 % (11.6-17.2); WHITE BLOOD COUNT 9.7 TH/MM3 (4.0-11.0)
--- NOTE | 2018-01-09 17:18 | RADRPT ---
EXAM DATE/TIME: 01/09/2018 17:06 [facility] COMPARISON: CT BRAIN W/O CONTRAST, November 23, 2017, 21:34. INDICATIONS : Altered mental status. RADIATION DOSE: 62.94 CTDIvol (mGy) MEDICAL HISTORY : Cirrhosis. Hernia, hiatal. SURGICAL HISTORY : None. ENCOUNTER: Initial ACUITY: 1 day PAIN SCALE: 0/10 LOCATION: cranial TECHNIQUE: Multiple contiguous axial images were obtained of the head. Using automated exposure control and adj ustment of the mA and/or kV according to patient size, radiation dose was kept as low as reasonably a chievable to obtain optimal diagnostic quality images. DICOM format image data is available electro nically for review and comparison. FINDINGS: CEREBRUM: The ventricles are normal for age. No evidence of midline shift, mass lesion, hemorrhage or acute in farction. No extra-axial fluid collections are seen. POSTERIOR FOSSA: The cerebellum and brainstem are intact. The 4th ventricle is midline. The cerebellopontine angle i s unremarkable. EXTRACRANIAL: The visualized portion of the orbits is intact. SKULL: The calvaria is intact. No evidence of skull fracture. CONCLUSION: Normal examination. Cody Randhawa MD on January 09, 2018 at 17:17 Board Certified Radiologist. This report was verified electronically.
[2018-01-09 17:30] LABS: INTERNATIONAL NORMALIZED RATIO 1.3 RATIO; PROTHROMBIN TIME - PATIENT 12.7 SEC (9.8-11.6)
[2018-01-09 17:35] LABS: CHLORIDE 86 MEQ/L (98-107); SODIUM (NA) 125 MEQ/L (136-145)
[2018-01-09 17:40] LABS: ALBUMIN 3.8 GM/DL (3.4-5.0); CALCIUM 9.1 MG/DL (8.5-10.1); GLUCOSE,RANDOM 136 MG/DL (74-106)
[2018-01-09 17:41] LABS: BICARBONATE 26.2 MEQ/L (21.0-32.0); BLOOD UREA NITROGEN 14 MG/DL (7-18)
[2018-01-09 17:43] LABS: ALT (GPT) 52 U/L (12-78); AST (GOT) 62 U/L (15-37); CREATININE 0.65 MG/DL (0.60-1.30); GLOMERULAR FILTRATION RATE 122 ML/MIN (>89)
[2018-01-09 17:44] LABS: TOTAL BILIRUBIN ADULT 0.8 MG/DL (0.2-1.0)
[2018-01-09 17:45] LABS: ALKALINE PHOSPHATASE 119 U/L (45-117); TOTAL PROTEIN 8.7 GM/DL (6.4-8.2); TROPONIN I LESS THAN 0.02 NG/ML (0.02-0.05)
[2018-01-09] MEDS ORDERED: methylPREDNISolone SOD SUCC 125 MG/2 ML VIAL IV PUSH ONE (17:45)
[2018-01-09] MEDS ORDERED: SODIUM CHLOR 0.9% 1000 ML INJ 1,000 ML IV ONE (18:00)
[2018-01-09] MEDS ORDERED: LORazepam 2 MG TAB PO PRN (19:45)
[2018-01-09] MEDS ORDERED: LORazepam 1 MG TAB PO PRN (19:45)
[2018-01-09] MEDS ORDERED: LORazepam 2 MG/ML VIAL IV PUSH PRN ×4 (19:45)
[2018-01-09] MEDS ORDERED: FLUMAZENIL 0.5 MG/5 ML VIAL IV PUSH PRN (19:45)
--- NOTE | 2018-01-09 19:50 | HHI.HP ---
[facility] Primary Care Physician Admission Diagnosis Respiratory acidosis/altered mental status/hyponatremia Diagnoses: Chief Complaint: disorientation Travel History International Travel<30 Days: No Contact w/Intl Traveler <30 Da: No Traveled to Known Affected Are: No History of Present Illness 67-year-old white male being admitted for encephalopathy. History is limited as patient is a poor historian given his medical state, largely otherwise obtained from emergency room physician. Patient was in his usual state of health until within the past few days his brother thought he was getting more disoriented than usual. Patient himself says he tripped and fell at [facility] and that is the reason why he thinks he was brought to the emergency department. Upon arrival to the ER he was found to be confused and was labored respiratory efforts. He was given DuoNeb treatments and his respiratory distress had improved. Chest x-ray was obtained which I independently reviewed and shows no acute infiltrates. Patient had a blood gas done on 2 L which showed a pH of 7.29 and a CO2 of 70 with a bicarb of 34. Patient was also found to be hyponatremic at 125. He was given steroids and duonebs. Patient himself speaks with very poor confidence, says that he is short of breath intermittently. Denies any chest pain nausea vomiting fevers or chills or diarrhea. Review of Systems Except as stated in HPI: all other systems reviewed are Neg Past Family Social History Allergies: Coded Allergies: No Known Allergies (Unverified Adverse Reaction, Unknown, 01/09/18) Family History Patient unable to contribute due to medical condition Social History Lifelong smoking history, says he drinks 3-4 beers a day Physical Exam Vital Signs Vital Signs Date Time Temp Pulse Resp B/P (MAP) Pulse Ox O2 Delivery O2 Flow Rate FiO2 01/09/18 18:06 99 20 115/56 (75) 99 Nasal Cannula 2.00 01/09/18 17:01 102 22 128/57 (80) 99 Nasal Cannula 2.00 01/09/18 17:00 99 Nasal Cannula 2.00 01/09/18 16:35 113 3/1/18 16:22 97.5 109 16 128/66 (86) 93 Physical Exam VS: afebrile GENERAL: Patient seen in bed, awake, alert, no acute distress; thin for his habitus SKIN: Warm and dry. EYES: No scleral icterus. No injection or drainage. ENT: No nasal bleeding or discharge. Mucous membranes pink and moist. CARDIOVASCULAR: Regular rate and rhythm. no murmurs RESPIRATORY: No accessory muscle use. Clear to auscultation. Breath sounds equal bilaterally. GASTROINTESTINAL: Abdomen soft, non-tender, nondistended. Extremities: No clubbing, cyanosis, or edema. No obvious deformities. MUSCULOSKELETAL: grossly intact ROM with 5/5 strength in upper and lower extremities proximally; adequate muscle bulk and tone for age and habitus NEUROLOGICAL: Awake and alert. No obvious cranial nerve deficits. No facial droop nor slurred speech noted. No nuchal rigidity PSYCHIATRIC: Slowed responses yet awake, mood seems to be quite blunted, insight is questionable Laboratory Laboratory Tests Test 01/09/18 16:44 01/09/18 17:00 01/09/18 19:14 Blood Gas Puncture Site RT RADIAL RT BRACHIAL Blood Gas Patient Temperature 98.6 98.6 Blood Gas HCO3 34 33 Blood Gas Base Excess 7.2 6.7 Blood Gas Oxygen Saturation 91 92 Arterial Blood pH 7.29 7.29 Arterial Blood Partial Pressure CO2 72 70 Arterial Blood Partial Pressure O2 130 148 Arterial Blood Oxygen Content 20.7 20.2 Arterial Blood Carboxyhemoglobin 6.6 5.3 Arterial Blood Methemoglobin 1.3 1.5 Blood Gas Hemoglobin 16.1 15.4 Oxygen Delivery Device NASAL CANNULA NASAL CANNULA Blood Gas Liter Flow 2 2 White Blood Count 9.7 Red Blood Count 5.03 Hemoglobin 16.9 Hematocrit 50.3 Mean Corpuscular Volume 100.0 Mean Corpuscular Hemoglobin 33.6 Mean Corpuscular Hemoglobin Concent 33.6 Red Cell Distribution Width 12.3 Platelet Count 234 Mean Platelet Volume 7.3 Neutrophils (%) (Auto) 87.3 Lymphocytes (%) (Auto) 4.1 Monocytes (%) (Auto) 7.2 Eosinophils (%) (Auto) 0.1 Basophils (%) (Auto) 1.3 Neutrophils # (Auto) 8.5 Lymphocytes # (Auto) 0.4 Monocytes # (Auto) 0.7 Eosinophils # (Auto) 0.0 Basophils # (Auto) 0.1 CBC Comment DIFF FINAL Differential Comment Prothrombin Time 12.7 Prothromb Time International Ratio 1.3 Activated Partial Thromboplast Time 22.9 Blood Urea Nitrogen 14 Creatinine 0.65 Random Glucose 136 Total Protein 8.7 Albumin 3.8 Calcium Level 9.1 Alkaline Phosphatase 119 Aspartate Amino Transf (AST/SGOT) 62 Alanine Aminotransferase (ALT/SGPT) 52 Total Bilirubin 0.8 Sodium Level 125 Potassium Level 4.6 Chloride Level 86 Carbon Dioxide Level 26.2 Anion Gap 13 Estimat Glomerular Filtration Rate 122 Ammonia 21 Total Creatine Kinase 124 Creatine Kinase MB 5.0 Troponin I LESS THAN 0.02 B-Type Natriuretic Peptide 31 Ethyl Alcohol Level LESS THAN 3 Date/Time Source Procedure Growth Status 01/09/18 17:00 Blood Peripheral Aerobic Blood Culture Pending Received 01/09/18 17:00 Blood Peripheral Anaerobic Blood Culture Pending Received Result Diagram: 01/09/18 1700 01/09/18 1700 Imaging Last Impressions Head CT 01/09/18 1634 Signed Impressions: Service Date/Time: January 17:06 - CONCLUSION: Normal examination. Cody Randhawa MD Chest X-Ray 01/09/18 1634 Signed Impressions: Service Date/Time: January 16:37 - CONCLUSION: Basically stable chest appearance with severe emphysema. Possible small effusions versus chronic blunting MD Tu Colon VTE Risk Assessment Capruddy VTE Risk Assessment: Mod/High Risk (score >= 2) VTE Pharm Contraindication: High risk for bleeding Caprini Risk Assessment Model Point Value = 1 Point Value = 2 Point Value = 3 Point Value = 5 Age 41-60 Minor surgery BMI > 25 kg/m2 Swollen legs Varicose veins or History of unexplained or recurrent spontaneous Oral contraceptives or hormone replacement Sepsis (< 1 month) Serious lung disease, including pneumonia (< 1 month) Abnormal pulmonary function Acute myocardial infarction Congestive heart failure (< 1 month) History of inflammatory bowel disease Medical patient at bed rest Age 61-74 Arthroscopic surgery Major open surgery (> 45 min) Laparoscopic surgery (> 45 min) Malignancy Confined to bed (> 72 hours) Immobilizing plaster cast Central venous access Age >= 75 History of VTE Family history of VTE Factor V Leiden Prothrombin [id number] Lupus anticoagulant Anticardiolipin antibodies Elevated serum homocysteine Heparin-induced thrombocytopenia Other congenital or acquired thrombophilia Stroke (< 1 month) Elective arthroplasty Hip, pelvis, or leg fracture Acute spinal cord injury (< 1 month) Prophylaxis Regimen Total Risk Factor Score Risk Level Prophylaxis Regimen 0-1 Low Early ambulation 2 Moderate Order ONE of the following: *Sequential Compression Device (SCD) *Heparin 5000 units SQ BID 3-4 Higher Order ONE of the following medications: *Heparin 5000 units SQ TID *Enoxaparin/Lovenox 40 mg SQ daily (WT < 150 kg, CrCl > 30 mL/min) *Enoxaparin/Lovenox 30 mg SQ daily (WT < 150 kg, CrCl > 10-29 mL/min) *Enoxaparin/Lovenox 30 mg SQ BID (WT < 150 kg, CrCl > 30 mL/min) AND/OR *Sequential Compression Device (SCD) 5 or more Highest Order ONE of the following medications: *Heparin 5000 units SQ TID (Preferred with Epidurals) *Enoxaparin/Lovenox 40 mg SQ daily (WT < 150 kg, CrCl > 30 mL/min) *Enoxaparin/Lovenox 30 mg SQ daily (WT < 150 kg, CrCl > 10-29 mL/min) *Enoxaparin/Lovenox 30 mg SQ BID (WT < 150 kg, CrCl > 30 mL/min) AND *Sequential Compression Device (SCD) Assessment and Plan Assessment and Plan 67-year-old white male being admitted for encephalopathy. there is no robbie SOB on my exam nor wheezing. Will hold off on further duonebs or steroids at this time. Encephalopathy - unsure exactly what is patient's baseline mentation for patient - Workup shows what appears to be acute on chronic hyponatremia as well as respiratory acidosis which could also be chronic; CT head is negative and chest x-ray is negative for any signs of acute infection; - Fall precautions - ordering TSH, b12, phosp, and mg resp acidosis - repeat ABG to see if this more chronic vs acute in nature. DC O2 if sats 90% or higher Hyponatremia -Most likely secondary to beer potomania, fluid restriction -High-protein diet -trend in AM Blunted affect -worth a psychiatric consultation ETOH use - CIWA protocol/thiamine hepatic insufficiency - likely from ETOH w/ INR 1.3 SCDs Physician Certification 2 Midnight Certification Type: Admission for Inpatient Services Order for Inpatient Services The services are ordered in accordance with Medicare regulations or non- Medicare payer requirements, as applicable. In the case of services not specified as inpatient-only, they are appropriately provided as inpatient services in accordance with the 2-midnight benchmark. Estimated LOS (days): 2 2 days is the estimated time the patient will need to remain in the hospital, assuming treatment plan goals are met and no additional complications. Post-Hospital Plan: Not yet determined Willy Dotson MD Jan 09, 2018 19:50
[2018-01-09] MEDS ORDERED: RESP: ALBUTEROL 2.5 MG/IPRATROPIUM 0.5 MG NEB (PRN) NEB (20:00)
[2018-01-09 21:11] LABS: BILIRUBIN, URINE NEG (NEG); BLOOD, URINE TRACE (NEG); GLUCOSE,URINE NEG (NEG); KETONE, URINE 15 mg/dL (NEG); NITRITE,URINE NEG (NEG); PH, URINE 5.5 (5.0-8.5); URINE COLOR YELLOW (YELLW/STRAW); URINE LEUKOCYTE ESTERASE NEG (NEG)
[2018-01-09 21:17] LABS: RBC, URINE 0-3 /hpf (0-3); SQUAMOUS EPITHELIAL CELL URINE 0-5 /hpf (0-5); WBC, URINE 0-2 /hpf (0-5)
[2018-01-09] MEDS ORDERED: THIAMINE INJ 100 MG in SODIUM CHLORIDE 0.9% INJ 100 ML IV ONE (22:00)
[2018-01-10] VITALS (11 sets, daily range): BP systolic 92–112; BP diastolic 50–64; PULSE 79–105; RESP 16–20; TEMP 97.5–98.4; O2SAT 91–99
[2018-01-10] MEDS ORDERED: CHLORHEXIDINE GLUCONATE 2 % 1 PACK (2 CLOTHS)(extra cloths) TOPICAL PRN (01:30)
[2018-01-10] MEDS ORDERED: CHLORHEXIDINE GLUCONATE 2 % 1 PACK (2 CLOTHS)(taper/protocol) TOPICAL SCH (04:00)
[2018-01-10 06:43] LABS: BICARBONATE 35.7 MEQ/L (21.0-32.0); BLOOD UREA NITROGEN 10 MG/DL (7-18); CALCIUM 8.9 MG/DL (8.5-10.1); CHLORIDE 89 MEQ/L (98-107); CREATININE 0.48 MG/DL (0.60-1.30); GLOMERULAR FILTRATION RATE 173 ML/MIN (>89); GLUCOSE,RANDOM 113 MG/DL (74-106); MAGNESIUM 1.8 MG/DL (1.5-2.5); SODIUM (NA) 131 MEQ/L (136-145)
[2018-01-10 06:44] LABS: PHOSPHORUS 4.2 MG/DL (2.5-4.9)
--- NOTE | 2018-01-10 08:58 | EKG ---
Date Performed: 01/09/2018 Time Performed: 16:53:37 PTAGE: 67 years EKG: SINUS TACHYCARDIA RIGHT ATRIAL ENLARGEMENT MARKED LEFT AXIS DEVIATION SEPTAL MYOCARDIAL INF ARCTION ABNORMAL ECG PREVIOUS TRACING : 11/14/2017 15.36 Since the prior tracing, there has been no significant wayne DOCTOR: Honey Ferrell Interpretating Date/Time 01/10/2018 08:55:10
[2018-01-10] MEDS ORDERED: THIAMINE HCL 100 MG TAB PO SCH (09:00)
--- NOTE | 2018-01-10 11:56 | HHI.PR ---
Subjective Remarks Follow-up metabolic encephalopathy/respiratory acidosis 01/10/18-patient seen and examined, alert and oriented 2, denies any significant shortness of breath. Sodium improved Objective Vitals Vital Signs Date Time Temp Pulse Resp B/P (MAP) Pulse Ox O2 Delivery O2 Flow Rate FiO2 01/10/18 08:00 79 01/10/18 08:00 98.4 82 16 112/53 (72) 94 01/10/18 07:42 91 21 01/10/18 06:00 83 01/10/18 04:00 90 01/10/18 04:00 97.7 90 20 103/58 (73) 99 01/10/18 02:00 96 01/10/18 00:50 97.5 97 20 97/50 (66) 100 01/10/18 00:00 92 20 108/64 (79) 99 01/09/18 23:02 95 18 97 01/09/18 23:00 97 20 118/61 (80) 98 01/09/18 22:00 96 20 112/62 (79) 97 01/09/18 21:07 98 20 121/57 (78) 99 01/09/18 19:52 97.5 96 14 113/62 (79) 100 Nasal Cannula 2.00 01/09/18 19:15 99 Nasal Cannula 2.00 01/09/18 18:06 99 20 115/56 (75) 99 Nasal Cannula 2.00 01/09/18 17:01 102 22 128/57 (80) 99 Nasal Cannula 2.00 01/09/18 17:00 99 Nasal Cannula 2.00 01/09/18 16:35 113 01/09/18 16:22 97.5 109 16 128/66 (86) 93 I/O 01/09/18 01/09/18 01/09/18 01/10/18 01/10/18 01/10/18 06:59 14:59 22:59 06:59 14:59 22:59 Intake Total 50 ml Output Total 600 ml Balance -550 ml Intake Oral 50 ml Output Urine Total 600 ml Stool Total 0 ml # Voids 3 # Bowel Movements 0 Result Diagram: 01/09/18 1700 01/10/18 0550 Imaging Last Impressions Head CT 01/09/18 1634 Signed Impressions: Service Date/Time: January 17:06 - CONCLUSION: Normal examination. Cody Randhawa MD Chest X-Ray 01/09/18 1634 Signed Impressions: Service Date/Time: January 16:37 - CONCLUSION: Basically stable chest appearance with severe emphysema. Possible small effusions versus chronic blunting Basim Busch MD Objective Remarks GENERAL: NAD SKIN: Warm and dry. HEAD: Normocephalic. EYES: No scleral icterus. No injection or drainage. NECK: Supple, trachea midline. No JVD or lymphadenopathy. CARDIOVASCULAR: Regular rate and rhythm without murmurs, gallops, or rubs. RESPIRATORY: Breath sounds equal bilaterally. No accessory muscle use. GASTROINTESTINAL: Abdomen soft, non-tender, nondistended. MUSCULOSKELETAL: No cyanosis, or edema. BACK: Nontender without obvious deformity. No CVA tenderness. A/P Problem List: (1) Acute metabolic encephalopathy ICD Code: G93.41 - Metabolic encephalopathy (2) Acute respiratory acidosis ICD Code: E87.2 - Acidosis Assessment and Plan 67 years old man with Acute metabolic encephalopathy Head CT unremarkable Ammonia negative Check brain MRI to rule out CVA Acute respiratory acidosis Resolved Hyponatremia Likely 2/2 Beer [place] Improving H/o Of ETOH Rally Pack, CIWA protocol Blunted affect/depression with adjustment disorder Psychiatric consultation pending Hepatic insufficiency likely from ETOH w/ INR 1.3 Elevated TSH Check Free T4 and treat accordingly SCDs Transfer to med/surg Amaury Calderon MD Jan 10, 2018 11:56
--- NOTE | 2018-01-10 13:02 | PD.PSY.CON ---
Provisional Diagnosis Admission Date Jan 09, 2018 at 18:31 [place]. Delirium due to another medical condition History of Present Illness Service Psychiatry Consult Requested By critical care Reason for Consult Agitation, disorganization Primary Care Physician No Primary Care Physician HPI The patient is a 67-year-old white male being admitted for encephalopathy. History is limited as patient is a poor historian given his medical state, largely otherwise obtained from emergency room physician.Patient was in his usual state of health until within the past few days his brother thought he was getting more disoriented than usual. Patient himself says he tripped and fell at [facility] and that is the reason why he thinks he was brought to the emergency department. Upon arrival to the ER he was found to be confused and was labored respiratory efforts. He was given DuoNeb treatments and his respiratory distress had improved. Chest x-ray was obtained which I independently reviewed and shows no acute infiltrates. Patient had a blood gas done on 2 L which showed a pH of 7.29 and a CO2 of 70 with a bicarb of 34. Patient was also found to be hyponatremic at 125. He was given steroids and duonebs. Patient himself speaks with very poor confidence, says that he is short of breath intermittently. Denies any chest pain nausea vomiting fevers or chills or diarrhea. So to psychiatry due to agitation and disorganization. However in the psychiatric admission the patient is very sedated, known cooperative, unable to write any meaningful information due to the level of sedation. Past Family Social History Coded Allergies: No Known Allergies (Unverified Adverse Reaction, Unknown, 01/09/18) No Active Prescriptions or Reported Meds Current Medications Medications (Trade) Dose Ordered Sig/Kassandra Route Start Time Stop Time Status Last Admin (NS Flush) 2 ml UNSCH PRN IVF 01/09/18 16:45 01/10/18 09:01 (Vitamin B1) 100 mg DAILY PO 01/10/18 09:00 01/10/18 09:01 (Romazicon Inj) 0.2 mg Q1M PRN IV PUSH 01/09/18 19:45 (Ativan) 1 mg Q4H PRN PO 01/09/18 19:45 (Ativan Inj) 1 mg Q4H PRN IV PUSH 01/09/18 19:45 01/10/18 02:11 (Ativan) 2 mg Q2H PRN PO 01/09/18 19:45 (Ativan Inj) 2 mg Q2H PRN IV PUSH 01/09/18 19:45 (Ativan Inj) 2 mg Q1H PRN IV PUSH 01/09/18 19:45 (Ativan Inj) 2 mg Q15M PRN IV PUSH 01/09/18 19:45 (Duoneb Neb) 1 ampule Q6HR NEB PRN NEB 01/09/18 20:00 Miscellaneous Information Patient in critical care unit? Ass... [id number] .XX 01/10/18 01:30 01/10/18 01:30 (Chlorhexidine 2% Cloth) 3 pack DAILY@04 TOPICAL 01/10/18 04:00 01/14/18 04:01 01/10/18 04:00 (Chlorhexidine 2% Cloth) 3 pack UNSCH PRN TOPICAL 01/10/18 01:30 01/15/18 01:23 Physical Exam Vital Signs Vital Signs Date Time Temp Pulse Resp B/P (MAP) Pulse Ox O2 Delivery O2 Flow Rate FiO2 01/10/18 08:00 79 01/10/18 08:00 98.4 16 112/53 (72) 94 01/10/18 07:42 21 01/09/18 19:52 Nasal Cannula 2.00 I/O 01/10/18 01/10/18 01/11/18 08:00 16:00 00:00 Intake Total 50 ml Output Total 200 ml Balance -150 ml Lab Results Test 01/09/18 16:44 01/09/18 17:00 01/09/18 19:14 01/09/18 21:00 Blood Gas Puncture Site RT RADIAL RT BRACHIAL Blood Gas Patient Temperature 98.6 98.6 Blood Gas HCO3 34 mmol/L 33 mmol/L Blood Gas Base Excess 7.2 mmol/L 6.7 mmol/L Blood Gas Oxygen Saturation 91 % 92 % Arterial Blood pH 7.29 7.29 Arterial Blood Partial Pressure CO2 72 mmHG 70 mmHG Arterial Blood Partial Pressure O2 130 mmHG 148 mmHG Arterial Blood Oxygen Content 20.7 Vol % 20.2 Vol % Arterial Blood Carboxyhemoglobin 6.6 % 5.3 % Arterial Blood Methemoglobin 1.3 % 1.5 % Blood Gas Hemoglobin 16.1 G/DL 15.4 G/DL Oxygen Delivery Device NASAL CANNULA NASAL CANNULA Blood Gas Liter Flow 2 L/M 2 L/M White Blood Count 9.7 TH/MM3 Red Blood Count 5.03 MIL/MM3 Hemoglobin 16.9 GM/DL Hematocrit 50.3 % Mean Corpuscular Volume 100.0 FL Mean Corpuscular Hemoglobin 33.6 PG Mean Corpuscular Hemoglobin Concent 33.6 % Red Cell Distribution Width 12.3 % Platelet Count 234 TH/MM3 Mean Platelet Volume 7.3 FL Neutrophils (%) (Auto) 87.3 % Lymphocytes (%) (Auto) 4.1 % Monocytes (%) (Auto) 7.2 % Eosinophils (%) (Auto) 0.1 % Basophils (%) (Auto) 1.3 % Neutrophils # (Auto) 8.5 TH/MM3 Lymphocytes # (Auto) 0.4 TH/MM3 Monocytes # (Auto) 0.7 TH/MM3 Eosinophils # (Auto) 0.0 TH/MM3 Basophils # (Auto) 0.1 TH/MM3 CBC Comment DIFF FINAL Differential Comment Prothrombin Time 12.7 SEC Prothromb Time International Ratio 1.3 RATIO Activated Partial Thromboplast Time 22.9 SEC Blood Urea Nitrogen 14 MG/DL Creatinine 0.65 MG/DL Random Glucose 136 MG/DL Total Protein 8.7 GM/DL Albumin 3.8 GM/DL Calcium Level 9.1 MG/DL Alkaline Phosphatase 119 U/L Aspartate Amino Transf (AST/SGOT) 62 U/L Alanine Aminotransferase (ALT/SGPT) 52 U/L Total Bilirubin 0.8 MG/DL Sodium Level 125 MEQ/L Potassium Level 4.6 MEQ/L Chloride Level 86 MEQ/L Carbon Dioxide Level 26.2 MEQ/L Anion Gap 13 MEQ/L Estimat Glomerular Filtration Rate 122 ML/MIN Ammonia 21 MCMOL/L Total Creatine Kinase 124 U/L Creatine Kinase MB 5.0 NG/ML Troponin I LESS THAN 0.02 NG/ML B-Type Natriuretic Peptide 31 PG/ML Ethyl Alcohol Level LESS THAN 3 MG/DL Urine Color YELLOW Urine Turbidity CLEAR Urine pH 5.5 Urine Specific [place] GREATER/EQUAL 1.030 Urine Protein 30 mg/dL Urine Glucose (UA) NEG mg/dL Urine Ketones 15 mg/dL Urine Occult Blood TRACE Urine Nitrite NEG Urine Bilirubin NEG Urine Urobilinogen 0.2 MG/DL Urine Leukocyte Esterase NEG Urine RBC 0-3 /hpf Urine WBC 0-2 /hpf Urine Squamous Epithelial Cells 0-5 /hpf Urine Bacteria NONE /hpf Microscopic Urinalysis Comment CULT NOT INDICATED Test 01/10/18 01:20 01/10/18 05:50 Nasal Screen MRSA (PCR) MRSA NOT DETECTED Blood Urea Nitrogen 10 MG/DL Creatinine 0.48 MG/DL Random Glucose 113 MG/DL Calcium Level 8.9 MG/DL Phosphorus Level 4.2 MG/DL Magnesium Level 1.8 MG/DL Sodium Level 131 MEQ/L Potassium Level 5.0 MEQ/L Chloride Level 89 MEQ/L Carbon Dioxide Level 35.7 MEQ/L Anion Gap 6 MEQ/L Estimat Glomerular Filtration Rate 173 ML/MIN Vitamin B12 Level GREATER THAN 2000 PG/ML Thyroid Stimulating Hormone 3rd Gen 9.150 uIU/ML Date/Time Source Procedure Growth Status 01/09/18 17:00 Blood Peripheral Aerobic Blood Culture - Preliminary NO GROWTH IN 1 DAY Resulted 01/09/18 17:00 Blood Peripheral Anaerobic Blood Culture - Preliminary NO GROWTH IN 1 DAY Resulted Assessment & Plan Problem List: (1) Delirium due to another medical condition ICD Codes: F05 - Delirium due to known physiological condition Assessment & Plan: The patient is very sedated, with hypoactive delirium, he has been reportedly agitated, disorganized, but now he is unable to provide any meaningful information cooperate with a psychiatric evaluation. I will revisit the patient is a later time to complete the psychiatric assessment. Continue CIWa protocol. Haldol 2 mg IM every 8 hours when necessary aggressive behavior and agitation can be order. We'll follow-up. (2) Acute respiratory acidosis ICD Codes: E87.2 - Acidosis Assessment & Plan Estimated LOS: Nick Qiu MD Jan 10, 2018 13:02
[2018-01-10 13:15] LABS: FREE T3 1.46 PG/ML (2.18-3.98); FREE T4 0.9 NG/DL (0.76-1.46)
== END 2018-01-10 15:25 | disposition left against medical advice (07) | DRG 640 ==
LOC: PHED 16:17 → PHEDA 18:31 → HIME 01-10 01:05
PROVIDERS: ADMIT Hospitalist; ATTEND Hospitalist
DX: E87.1 Hypo-osmolality and hyponatremia (principal); G93.41 Metabolic encephalopathy; E87.2 Acidosis; F05 Delirium due to known physiological condition; Z68.1 Body mass index [BMI] 19.9 or less, adult; K74.60 Unspecified cirrhosis of liver; K70.40 Alcoholic hepatic failure without coma; R63.4 Abnormal weight loss; R06.03 Acute respiratory distress; R45.1 Restlessness and agitation; F17.210 Nicotine dependence, cigarettes, uncomplicated; Z91.81 History of falling
CPT/HCPCS: 36600; 70450; 71045; 80048; 80053; 80307; 81001; 82140; 82550; 82552; 82607; 82805; 83735; 83880; 84100; 84439; 84443; 84481; 84484; 85025; 85610; 85730; 87040; 87641; 93005; 96374; J2060; J2930; J3411; J7030

== ENCOUNTER 2018-01-19 12:04 | Observation (INO) | payer MEDICARE, OTHER ==
[2018-01-19] VITALS (8 sets, daily range): BP systolic 116–156; BP diastolic 57–77; PULSE 82–108; RESP 16–20; TEMP 97.4–97.7; O2SAT 96–100
[~2018-01-19] VITALS: Ht 177.8 cm; Wt 47.1 kg
[2018-01-19] MEDS ORDERED: SODIUM CHLOR 0.9% 1000 ML INJ 1,000 ML IV SCH (12:13)
[2018-01-19] MEDS ORDERED: SODIUM CHLORIDE 0.9% FLUSH 10 ML FLUSH IV FLUSH PRN ×2 (12:15→15:30)
--- NOTE | 2018-01-19 12:18 | PD ---
HPI Chief Complaint: Syncope Time Seen by Provider: 12:08 Travel History International Travel<30 days: No Contact w/Intl Traveler<30days: No Traveled to known affect area: No History of Present Illness HPI 67-year-old male brought in by ambulance after a witnessed syncopal episode at a gas station today. Patient is awake and alert, however he is a poor historian , and a lot of his history was obtained by reviewing past visits. According to previous charts, the patient has history of alcohol abuse with cirrhosis. He has been seen in the emergency department several times for syncopal episodes recently. He was recently admitted at the beginning of this month for respiratory acidosis and left AMA the next day. Patient tells me that he tripped and fell today. He denies losing consciousness. He denies head injury. He is denying pain anywhere. No head or neck pain. No chest pain or dyspnea. States that he had 1 alcoholic beverage today. PFSH Past Medical History Cancer: No Cardiovascular Problems: No Cirrhosis: Yes Diabetes: No Diminished Hearing: No Endocrine: No Gastrointestinal Disorders: Yes Genitourinary: No Hepatitis: No Hiatal Hernia: Yes Immune Disorder: No Implanted Vascular Access Dvce: No Musculoskeletal: No Neurologic: No Psychiatric: No Reproductive: No Respiratory: No Immunizations Current: No Thyroid Disease: No Past Surgical History Abdominal Surgery: Yes (hernia) Cardiac Surgery: No Ear Surgery: No Endocrine Surgery: No Eye Surgery: No Genitourinary Surgery: No Gynecologic Surgery: No Oral Surgery: Yes (TONSILLECTOMY) Pacemaker: No Thoracic Surgery: No Tonsillectomy: Yes Other Surgery: Yes (PARACENTHESIS ) Social History Alcohol Use: Yes (2-3 BEERS A WEEK) Tobacco Use: Yes Substance Use: No Allergies-Medications (Allergen,Severity, Reaction): Coded Allergies: No Known Allergies (Unverified Adverse Reaction, Unknown, 01/09/18) Reported Meds & Prescriptions Reported Meds & Active Scripts Active No Active Prescriptions or Reported Medications Review of Systems Except as stated in HPI: all other systems reviewed are Neg Physical Exam Narrative GENERAL: Well-developed, cachectic appearing, disheveled SKIN: Focused skin assessment warm/dry. HEAD: Atraumatic. Normocephalic. Matted hair with dirt throughout. EYES: Pupils equal and round. No scleral icterus. No injection or drainage. ENT: Mucous membranes pink and dry. NECK: Trachea midline. No JVD. No midline vertebral step-off or tenderness. No nuchal rigidity. CARDIOVASCULAR: Regular rate and rhythm. RESPIRATORY: No accessory muscle use. Poor air movement bilaterally with slight pursed lip breathing. GASTROINTESTINAL: Abdomen soft, non-tender, nondistended. MUSCULOSKELETAL: No obvious deformities. No clubbing. No cyanosis. No edema. NEUROLOGICAL: Awake and alert. No obvious cranial nerve deficits. Motor grossly within normal limits. Normal speech. PSYCHIATRIC: Appears somewhat confused/intoxicated. Data Data Last Documented VS Vital Signs Date Time Temp Pulse Resp B/P (MAP) Pulse Ox O2 Delivery O2 Flow Rate FiO2 01/19/18 14:44 98 16 121/62 (81) 100 Nasal Cannula 3.00 01/19/18 12:08 97.4 Orders Orders Complete Blood Count With Diff (01/19/18 12:13) Comprehensive Metabolic Panel (01/19/18 12:13) Lipase (01/19/18 12:13) Prothrombin Time / Inr (Pt) (01/19/18 12:13) Act Partial Throm Time (Ptt) (01/19/18 12:13) Iv Access Insert/Monitor (01/19/18 12:13) Ecg Monitoring (01/19/18 12:13) Oximetry (01/19/18 12:13) Sodium Chlor 0.9% 1000 Ml Inj (Ns 1000 M (01/19/18 12:13) Sodium Chloride 0.9% Flush (Ns Flush) (01/19/18 12:15) Electrocardiogram (01/19/18 12:13) Ct Brain W/O Iv Contrast(Rout) (01/19/18 ) Ammonia (01/19/18 12:13) Alcohol (Ethanol) (01/19/18 12:13) Chest, Single Ap (01/19/18 ) Arterial Blood Gas (Abg) (01/19/18 ) Albuterol-Ipratropium Neb (Duoneb Neb) (01/19/18 12:45) Labs Laboratory Tests Test 01/19/18 12:19 01/19/18 12:48 01/19/18 13:33 Blood Gas Puncture Site LT BRACHIAL Blood Gas Patient Temperature 98.6 Blood Gas HCO3 40 mmol/L Blood Gas Base Excess 14.2 mmol/L Blood Gas Oxygen Saturation 81 % Arterial Blood pH 7.42 Arterial Blood Partial Pressure CO2 62 mmHG Arterial Blood Partial Pressure O2 60 mmHG Arterial Blood Oxygen Content 17.1 Vol % Arterial Blood Carboxyhemoglobin 10.0 % Arterial Blood Methemoglobin 1.4 % Blood Gas Hemoglobin 15.0 G/DL Oxygen Delivery Device NONE Blood Gas Inspired Oxygen 21 % White Blood Count 6.9 TH/MM3 Red Blood Count 4.61 MIL/MM3 Hemoglobin 15.4 GM/DL Hematocrit 46.7 % Mean Corpuscular Volume 101.3 FL Mean Corpuscular Hemoglobin 33.3 PG Mean Corpuscular Hemoglobin Concent 32.9 % Red Cell Distribution Width 12.4 % Platelet Count 265 TH/MM3 Mean Platelet Volume 6.9 FL Neutrophils (%) (Auto) 83.6 % Lymphocytes (%) (Auto) 5.4 % Monocytes (%) (Auto) 8.0 % Eosinophils (%) (Auto) 0.1 % Basophils (%) (Auto) 2.9 % Neutrophils # (Auto) 5.8 TH/MM3 Lymphocytes # (Auto) 0.4 TH/MM3 Monocytes # (Auto) 0.6 TH/MM3 Eosinophils # (Auto) 0.0 TH/MM3 Basophils # (Auto) 0.2 TH/MM3 CBC Comment AUTO DIFF Differential Comment AUTO DIFF CONFIRMED Blood Urea Nitrogen 15 MG/DL Creatinine 0.47 MG/DL Random Glucose 130 MG/DL Total Protein 7.9 GM/DL Albumin 3.6 GM/DL Calcium Level 9.0 MG/DL Alkaline Phosphatase 116 U/L Aspartate Amino Transf (AST/SGOT) 52 U/L Alanine Aminotransferase (ALT/SGPT) 51 U/L Total Bilirubin 0.4 MG/DL Sodium Level 133 MEQ/L Potassium Level 3.5 MEQ/L Chloride Level 90 MEQ/L Carbon Dioxide Level 38.5 MEQ/L Anion Gap 5 MEQ/L Estimat Glomerular Filtration Rate 177 ML/MIN Ammonia LESS THAN 10 MCMOL/L Lipase 314 U/L Ethyl Alcohol Level LESS THAN 3 MG/DL Prothrombin Time 12.3 SEC Prothromb Time International Ratio 1.2 RATIO Activated Partial Thromboplast Time 24.3 SEC [facility] Medical Decision Making Medical Screen Exam Complete: Yes Emergency Medical Condition: Yes Medical Record Reviewed: Yes Interpretation(s) EKG: Sinus, rate 101, indeterminate axis, occasional supraventricular premature complexes, septal Q waves, unchanged from prior, no acute ischemic abnormality. Differential Diagnosis Syncope, dysrhythmia, metabolic abnormality, intracranial trauma, hypercarbia, encephalopathy. Narrative Course Initial vital signs show heart rate 108, blood pressure 156/74, pulse ox 90% on 2 L nasal cannula, oral temperature 97.4F. ABG on room air: PH 7.42, PCO2 62, PO2 60, bicarb 40. CBC: WBC 6.9, hemoglobin 15.4, hematocrit 46.7, platelets 265, MCV 101.3, neutrophils 84%. CMP is remarkable for sodium 133, chloride 90, bicarb 38.5, otherwise essentially unremarkable. Ammonia level is less than 10. Alcohol level is negative. Chest x-ray: COPD without evidence of acute process or significant change. Chronic blunting of costophrenic angles. CT head: No acute intracranial abnormalities. Patient's blood gas shows a respiratory acidosis with compensated metabolic alkalosis. Chart was reviewed from the patient's previous admission on 01/09/18 when he was admitted for respiratory acidosis. He was evaluated by psychiatry during that visit, however during their evaluation the patient was unable to be assessed secondary to his bizarre affect and unwilling to cooperate. He eventually left A. Patient is very disheveled. Previous chart shows that the patient has very poor living conditions, living with his brother. He does not have a primary care physician. Not only do I not believe that this patient is safe to discharge home at this time, but I believe he should be further evaluated for syncope, therefore he will be admitted for further treatment and evaluation. Case discussed with hospitalist Dr. Galvan who will admit the patient to his service. Diagnosis Primary Impression: Syncope Qualified Codes: R55 - Syncope and collapse Admitting Information Admitting Physician Requests: Observation Scripts No Active Prescriptions or Reported Meds Colin Williamson MD Jan 19, 2018 12:17
[2018-01-19] MEDS: RESP: ALBUTEROL 2.5 MG/IPRATROPIUM 0.5 MG NEB (SCH) INH (12:48)
--- NOTE | 2018-01-19 12:49 | RADRPT ---
EXAM DATE/TIME: 01/19/2018 12:29 [facility] COMPARISON: CHEST PA & LAT, November 17, 2012, 13:36. CHEST SINGLE AP, January 09, 2018, 16:37. INDICATIONS : Syncope MEDICAL HISTORY : None. SURGICAL HISTORY : None. ENCOUNTER: Initial ACUITY: 1 day PAIN SCORE: 0/10 LOCATION: Bilateral chest FINDINGS: The lungs are hyperinflated and demonstrate chronic interstitial changes. Costophrenic angles remain blunted. There is no evidence of consolidating airspace disease or significant congestion. Heart and mediastinal structures are stable. CONCLUSION: 1. COPD without evidence of acute process or significant change. 2. Chronic blunting of the costophrenic angles. Tariq Wheeler MD on January 19, 2018 at 12:46 Board Certified Radiologist. This report was verified electronically.
[2018-01-19 12:56] LABS: AUTOMATED NEUTROPHIL # 5.8 TH/MM3 (1.8-7.7); BASOPHIL # 0.2 TH/MM3 (0-0.2); BASOPHIL % 2.9 % (0.0-2.0); EOSINOPHIL % 0.1 % (0.0-4.0); HEMATOCRIT 46.7 % (39.0-51.0); HEMOGLOBIN 15.4 GM/DL (13.0-17.0); LYMPH % 5.4 % (9.0-44.0); LYMPHOCYTE # 0.4 TH/MM3 (1.0-4.8); MEAN CELL VOLUME 101.3 FL (80.0-100.0); MEAN CORPUSCULAR HEMOGLOBIN 33.3 PG (27.0-34.0); MEAN CORPUSCULAR HGB CONC 32.9 % (32.0-36.0); MEAN PLATELET VOLUME 6.9 FL (7.0-11.0); MONOCYTE # 0.6 TH/MM3 (0-0.9); NEUT % 83.6 % (16.0-70.0); PLATELET COUNT 265 TH/MM3 (150-450); RED BLOOD COUNT 4.61 MIL/MM3 (4.50-5.90); RED CELL DISTRIBUTION WIDTH 12.4 % (11.6-17.2); WHITE BLOOD COUNT 6.9 TH/MM3 (4.0-11.0)
--- NOTE | 2018-01-19 13:26 | RADRPT ---
EXAM DATE/TIME: 01/19/2018 13:14 [facility] COMPARISON: No previous studies available for comparison. INDICATIONS : Syncope. RADIATION DOSE: 61.40 CTDIvol (mGy) MEDICAL HISTORY : Hernia, hiatal. SURGICAL HISTORY : Tonsillectomy. ENCOUNTER: Initial ACUITY: 1 day PAIN SCALE: 0/10 LOCATION: cranial TECHNIQUE: Multiple contiguous axial images were obtained of the head. Using automated exposure control and adj ustment of the mA and/or kV according to patient size, radiation dose was kept as low as reasonably a chievable to obtain optimal diagnostic quality images. DICOM format image data is available electro nically for review and comparison. FINDINGS: CEREBRUM: The ventricles are normal for age. No evidence of midline shift, mass lesion, hemorrhage or acute in farction. No extra-axial fluid collections are seen. POSTERIOR FOSSA: The cerebellum and brainstem are intact. The 4th ventricle is midline. The cerebellopontine angle i s unremarkable. EXTRACRANIAL: The visualized portion of the orbits is intact. SKULL: The calvaria is intact. No evidence of skull fracture. CONCLUSION: 1. No acute intracranial abnormalities. Igor Lewis MD on January 19, 2018 at 13:22 Board Certified Radiologist. This report was verified electronically.
[2018-01-19 14:26] LABS: INTERNATIONAL NORMALIZED RATIO 1.2 RATIO; PROTHROMBIN TIME - PATIENT 12.3 SEC (9.8-11.6)
[2018-01-19 14:28] LABS: ALBUMIN 3.6 GM/DL (3.4-5.0); BLOOD UREA NITROGEN 15 MG/DL (7-18); CREATININE 0.47 MG/DL (0.60-1.30); GLOMERULAR FILTRATION RATE 177 ML/MIN (>89); GLUCOSE,RANDOM 130 MG/DL (74-106)
[2018-01-19 14:29] LABS: ALT (GPT) 51 U/L (12-78); AST (GOT) 52 U/L (15-37); BICARBONATE 38.5 MEQ/L (21.0-32.0); CHLORIDE 90 MEQ/L (98-107); SODIUM (NA) 133 MEQ/L (136-145)
[2018-01-19 14:40] LABS: TOTAL PROTEIN 7.9 GM/DL (6.4-8.2)
[2018-01-19 14:41] LABS: ALKALINE PHOSPHATASE 116 U/L (45-117); TOTAL BILIRUBIN ADULT 0.4 MG/DL (0.2-1.0)
[2018-01-19] MEDS ORDERED: ONDANSETRON HCL 4 MG/2 ML VIAL IVP PRN (15:30)
[2018-01-19] MEDS ORDERED: MAGNESIUM HYDROXIDE SUSP 30 ML CUP PO PRN (15:30)
[2018-01-19] MEDS ORDERED: NALOXONE HCL 0.4 MG/ML AMP IV PUSH PRN (15:30)
[2018-01-19] MEDS: SODIUM CHLOR 0.9% 1000 ML INJ 1,000 ML IV SCH (15:46)
--- NOTE | 2018-01-19 17:32 | HHI.HP ---
[facility] Primary Care Physician No Primary Care Physician Admission Diagnosis Syncope Diagnoses: Travel History International Travel<30 Days: No Contact w/Intl Traveler <30 Da: No Traveled to Known Affected Are: No History of Present Illness Mr. Lizarraga is a 67 year old male. He lives with his brother. He and his brother were shopping today and the patient reports that he lost consciousness. He has had syncopal episodes before approximately 2 times in the past year. Etiology is uncertain. No respiratory distress is present, however patient does have hypoxia based on ABG. COPD is likely present but not formally diagnosed. He has an extensive past history of smoking. COPD changes are seen on chest x-ray without evidence for pneumonia or pulmonary edema. He denies any chest pain. Currently she feels at baseline and denies any pain or headache. He has a history of going AMA, but says he's willing to stay during this visit for further workup. Review of Systems Constitutional: DENIES: Fatigue, Fever, Chills, Night Sweats Eyes: DENIES: Blurred vision, Diplopia, Eye inflammation, Eye pain Ears, nose, mouth, throat: DENIES: Tinnitus, Hearing loss, Vertigo, Nasal discharge Respiratory: DENIES: Apneas, Cough, Wheezing, Shortness of breath Cardiovascular: COMPLAINS OF: Syncope, DENIES: Chest pain, Palpitations Gastrointestinal: DENIES: Abdominal pain, Black stools, Bloody stools, Constipation Musculoskeletal: DENIES: Joint pain, Muscle aches, Stiffness, Joint Swelling, Back pain, Neck pain Integumentary: DENIES: Abnormal pigmentation, Nail changes, Pruritus, Rash Hematologic/lymphatic: DENIES: Bruising, Lymphadenopathy Immunologic/allergic: DENIES: Eczema, Urticaria Neurologic: DENIES: Abnormal gait, Headache, Paresthesias Psychiatric: DENIES: Anxiety, Confusion, Hallucinations Past Family Social History Past Medical History Cirrhosis Hiatal hernia Possible COPD Past Surgical History Hernia repair Tonsillectomy Paracentesis Reported Medications Reported Meds & Active Scripts Active No Active Prescriptions or Reported Medications Allergies: Coded Allergies: No Known Allergies (Unverified Adverse Reaction, Unknown, 01/09/18) Active Ordered Medications Administered Medications Medications (Trade) Dose Ordered Sig/Kassandra Route PRN Reason Start Time Stop Time Status Last Admin Dose Admin Sodium Chloride 1,000 ml @ 100 mls/hr Q10H IV 01/19/18 15:18 01/19/18 15:46 Social History Patient drinks 3-4 beers per week Active smoker No illicit drug abuse reported Physical Exam Vital Signs Vital Signs Date Time Temp Pulse Resp B/P (MAP) Pulse Ox O2 Delivery O2 Flow Rate FiO2 01/19/18 16:05 01/19/18 16:00 97.7 93 16 123/57 (79) 100 01/19/18 16:00 98 16 116/59 (78) 97 Nasal Cannula 3.00 01/19/18 14:44 98 16 121/62 (81) 100 Nasal Cannula 3.00 01/19/18 13:51 98 18 138/77 (97) 100 Nasal Cannula 3.00 01/19/18 13:18 90 20 120/64 (82) 100 Nasal Cannula 3.00 01/19/18 12:48 98 Nasal Cannula 3.00 01/19/18 12:23 Nasal Cannula 3.00 01/19/18 12:15 96 Room Air 01/19/18 12:08 97.4 108 20 156/74 (101) 98 Physical Exam GENERAL: NAD, A&Ox3 HEAD: Normocephalic. NECK: Supple, trachea midline. No lymphadenopathy. EYES: No scleral icterus. No injection or drainage. CARDIOVASCULAR: Regular rate and rhythm without murmurs, gallops, or rubs. RESPIRATORY: Breath sounds equal bilaterally. No accessory muscle use. GASTROINTESTINAL: Abdomen soft, non-tender, nondistended. MUSCULOSKELETAL: No cyanosis, or edema. SKIN: Warm and dry. NEURO: No focal neurological deficitis. Laboratory Laboratory Tests Test 01/19/18 12:19 01/19/18 12:48 01/19/18 13:33 Blood Gas Puncture Site LT BRACHIAL Blood Gas Patient Temperature 98.6 Blood Gas HCO3 40 Blood Gas Base Excess 14.2 Blood Gas Oxygen Saturation 81 Arterial Blood pH 7.42 Arterial Blood Partial Pressure CO2 62 Arterial Blood Partial Pressure O2 60 Arterial Blood Oxygen Content 17.1 Arterial Blood Carboxyhemoglobin 10.0 Arterial Blood Methemoglobin 1.4 Blood Gas Hemoglobin 15.0 Oxygen Delivery Device NONE Blood Gas Inspired Oxygen 21 White Blood Count 6.9 Red Blood Count 4.61 Hemoglobin 15.4 Hematocrit 46.7 Mean Corpuscular Volume 101.3 Mean Corpuscular Hemoglobin 33.3 Mean Corpuscular Hemoglobin Concent 32.9 Red Cell Distribution Width 12.4 Platelet Count 265 Mean Platelet Volume 6.9 Neutrophils (%) (Auto) 83.6 Lymphocytes (%) (Auto) 5.4 Monocytes (%) (Auto) 8.0 Eosinophils (%) (Auto) 0.1 Basophils (%) (Auto) 2.9 Neutrophils # (Auto) 5.8 Lymphocytes # (Auto) 0.4 Monocytes # (Auto) 0.6 Eosinophils # (Auto) 0.0 Basophils # (Auto) 0.2 CBC Comment AUTO DIFF Differential Comment AUTO DIFF CONFIRMED Blood Urea Nitrogen 15 Creatinine 0.47 Random Glucose 130 Total Protein 7.9 Albumin 3.6 Calcium Level 9.0 Alkaline Phosphatase 116 Aspartate Amino Transf (AST/SGOT) 52 Alanine Aminotransferase (ALT/SGPT) 51 Total Bilirubin 0.4 Sodium Level 133 Potassium Level 3.5 Chloride Level 90 Carbon Dioxide Level 38.5 Anion Gap 5 Estimat Glomerular Filtration Rate 177 Ammonia LESS THAN 10 Lipase 314 Ethyl Alcohol Level LESS THAN 3 Prothrombin Time 12.3 Prothromb Time International Ratio 1.2 Activated Partial Thromboplast Time 24.3 Result Diagram: 01/19/18 1248 01/19/18 1248 Caprini VTE Risk Assessment Caprini VTE Risk Assessment: No/Low Risk (score <= 1) Caprini Risk Assessment Model Point Value = 1 Point Value = 2 Point Value = 3 Point Value = 5 Age 41-60 Minor surgery BMI > 25 kg/m2 Swollen legs Varicose veins or History of unexplained or recurrent spontaneous Oral contraceptives or hormone replacement Sepsis (< 1 month) Serious lung disease, including pneumonia (< 1 month) Abnormal pulmonary function Acute myocardial infarction Congestive heart failure (< 1 month) History of inflammatory bowel disease Medical patient at bed rest Age 61-74 Arthroscopic surgery Major open surgery (> 45 min) Laparoscopic surgery (> 45 min) Malignancy Confined to bed (> 72 hours) Immobilizing plaster cast Central venous access Age >= 75 History of VTE Family history of VTE Factor V Leiden Prothrombin [id number] Lupus anticoagulant Anticardiolipin antibodies Elevated serum homocysteine Heparin-induced thrombocytopenia Other congenital or acquired thrombophilia Stroke (< 1 month) Elective arthroplasty Hip, pelvis, or leg fracture Acute spinal cord injury (< 1 month) Prophylaxis Regimen Total Risk Factor Score Risk Level Prophylaxis Regimen 0-1 Low Early ambulation 2 Moderate Order ONE of the following: *Sequential Compression Device (SCD) *Heparin 5000 units SQ BID 3-4 Higher Order ONE of the following medications: *Heparin 5000 units SQ TID *Enoxaparin/Lovenox 40 mg SQ daily (WT < 150 kg, CrCl > 30 mL/min) *Enoxaparin/Lovenox 30 mg SQ daily (WT < 150 kg, CrCl > 10-29 mL/min) *Enoxaparin/Lovenox 30 mg SQ BID (WT < 150 kg, CrCl > 30 mL/min) AND/OR *Sequential Compression Device (SCD) 5 or more Highest Order ONE of the following medications: *Heparin 5000 units SQ TID (Preferred with Epidurals) *Enoxaparin/Lovenox 40 mg SQ daily (WT < 150 kg, CrCl > 30 mL/min) *Enoxaparin/Lovenox 30 mg SQ daily (WT < 150 kg, CrCl > 10-29 mL/min) *Enoxaparin/Lovenox 30 mg SQ BID (WT < 150 kg, CrCl > 30 mL/min) AND *Sequential Compression Device (SCD) Assessment and Plan Problem List: (1) Syncope ICD Code: R55 - Syncope and collapse Status: Acute (2) Delirium due to another medical condition ICD Code: F05 - Delirium due to known physiological condition Assessment and Plan 67-year-old male admitted secondary to syncope Syncope Check carotid ultrasound Follow on telemetry Check cortisol level Check thyroid levels Orthostatic blood pressure checks Physical therapy evaluation in morning Hypoxia Suspected COPD Improved with oxygen No evidence of exacerbation Cirrhosis Hiatal hernia Continue baseline treatments DVT prophylaxis SCDs given recent fall Problem Qualifiers (1) Syncope: Qualified Codes: R55 - Syncope and collapse Haile Galvan MD Jan 19, 2018 17:32
[2018-01-19] MEDS: SODIUM CHLORIDE 0.9% FLUSH 10 ML FLUSH IV FLUSH SCH (21:00)
[2018-01-20] VITALS: BP 109/58; PULSE 72; RESP 18; TEMP 96.4; O2SAT 95
[2018-01-20] MEDS: SODIUM CHLOR 0.9% 1000 ML INJ 1,000 ML IV SCH ×2 (01:18→11:18)
[2018-01-20 07:50] VITALS: BP 100/55; PULSE 67; RESP 20; TEMP 97.1; O2SAT 93
--- NOTE | 2018-01-20 08:07 | RADRPT ---
EXAM DATE/TIME: 01/20/2018 07:39 [facility] COMPARISON: No previous studies available for comparison. INDICATIONS : Syncope. MEDICAL HISTORY : Syncope. Cirrhosis. SURGICAL HISTORY : Tonsillectomy. Hernia repair. Paracentesis. ENCOUNTER: Initial ACUITY: 1 day PAIN SCORE: 0/10 LOCATION: Bilateral neck PEAK SYSTOLIC VELOCITIES (cm/sec): ICA/CCA RATIO: Right: 0.9 Left: 1.2 ICA: Right: 58 Left: 90 CCA: Right: 68 Left: 77 ECA: Right: 70 Left: 67 VERTEBRAL: Right: 45 antegrade Left: 54 antegrade Elevated flow velocities and ICA/CCA ratios have been found to correlate with increased degrees of vessel stenosis, calculated as percentage of diameter relative to a normal segment of distal ICA/CCA FINDINGS: RIGHT CAROTID: Moderate calcified plaque throughout the carotid arteries. No significant stenosis is visualized. Th e waveforms are within normal limits. LEFT CAROTID: Moderate calcified plaque throughout the carotid arteries. No significant stenosis is visualized. Th e waveforms are within normal limits. VERTEBRAL ARTERIES: Antegrade flow is seen in both vertebral arteries. MISCELLANEOUS: None. CONCLUSION: 1. Moderate calcified plaque throughout the carotid arteries bilaterally without significant flow-pizano iting stenosis. 2. Antegrade vertebral artery flow bilaterally. Kun Zimmerman MD on January 20, 2018 at 8:01 Board Certified Radiologist. This report was verified electronically.
[2018-01-20 08:25] LABS: AUTOMATED NEUTROPHIL # 3.1 TH/MM3 (1.8-7.7); EOSINOPHIL % 0.7 % (0.0-4.0); HEMATOCRIT 43.8 % (39.0-51.0); HEMOGLOBIN 14.6 GM/DL (13.0-17.0); LYMPH % 21.4 % (9.0-44.0); LYMPHOCYTE # 1.1 TH/MM3 (1.0-4.8); MEAN CELL VOLUME 101.6 FL (80.0-100.0); MEAN CORPUSCULAR HEMOGLOBIN 33.8 PG (27.0-34.0); MEAN CORPUSCULAR HGB CONC 33.3 % (32.0-36.0); MEAN PLATELET VOLUME 7.1 FL (7.0-11.0); MONO % 13.7 % (0.0-8.0); MONOCYTE # 0.7 TH/MM3 (0-0.9); NEUT % 63.2 % (16.0-70.0); PLATELET COUNT 293 TH/MM3 (150-450); RED BLOOD COUNT 4.31 MIL/MM3 (4.50-5.90); RED CELL DISTRIBUTION WIDTH 12.6 % (11.6-17.2); WHITE BLOOD COUNT 4.9 TH/MM3 (4.0-11.0)
[2018-01-20 08:50] LABS: CHLORIDE 92 MEQ/L (98-107); SODIUM (NA) 136 MEQ/L (136-145)
[2018-01-20 08:54] LABS: CALCIUM 8.2 MG/DL (8.5-10.1)
[2018-01-20 08:55] LABS: ALBUMIN 2.9 GM/DL (3.4-5.0); BICARBONATE 38.7 MEQ/L (21.0-32.0); BLOOD UREA NITROGEN 7 MG/DL (7-18); GLUCOSE,RANDOM 87 MG/DL (74-106)
[2018-01-20 08:58] LABS: ALT (GPT) 40 U/L (12-78); AST (GOT) 36 U/L (15-37); CREATININE 0.39 MG/DL (0.60-1.30); GLOMERULAR FILTRATION RATE 220 ML/MIN (>89)
[2018-01-20 08:59] LABS: TOTAL BILIRUBIN ADULT 0.7 MG/DL (0.2-1.0); TOTAL PROTEIN 6.4 GM/DL (6.4-8.2)
[2018-01-20] MEDS: SODIUM CHLORIDE 0.9% FLUSH 10 ML FLUSH IV FLUSH SCH (09:00)
[2018-01-20 09:01] LABS: ALKALINE PHOSPHATASE 81 U/L (45-117)
[2018-01-20] MEDS ORDERED: POTASSIUM CHLORIDE 20 MEQ PWD PACKET PO ONE ×2 (10:00→14:00)
[2018-01-20 11:50] VITALS: BP_SYST 103; BP_SYST 88; BP_SYST 96; BP_DIAS 54; BP_DIAS 55; BP_DIAS 59; PULSE 80; RESP 20; TEMP 98.4; O2SAT 93
[2018-01-20 15:19] VITALS: O2SAT 95
[2018-01-20 15:50] VITALS: BP 119/59; PULSE 68; RESP 20; TEMP 99.4; O2SAT 95
[2018-01-20 16:16] LABS: FREE T3 1.61 PG/ML (2.18-3.98); THYROXINE (T4) 7.7 MCG/DL (4.5-12.1)
[2018-01-20] MEDS ORDERED: LEVO75TA3 PO (16:19)
--- NOTE | 2018-01-20 16:23 | HHI.DS ---
Discharge Summary Admission Date Jan 19, 2018 at 15:06 Discharge Date: Jan 20, 2018 Admitting Diagnosis Syncope (1) Syncope ICD Code: R55 - Syncope and collapse Diagnosis: Principal Status: Acute (2) Delirium due to another medical condition ICD Code: F05 - Delirium due to known physiological condition Diagnosis: Principal Procedures None Brief History - From Admission Mr. Lizarraga is a 67 year old male. He lives with his brother. He and his brother were shopping today and the patient reports that he lost consciousness. He has had syncopal episodes before approximately 2 times in the past year. Etiology is uncertain. No respiratory distress is present, however patient does have hypoxia based on ABG. COPD is likely present but not formally diagnosed. He has an extensive past history of smoking. COPD changes are seen on chest x-ray without evidence for pneumonia or pulmonary edema. He denies any chest pain. Currently she feels at baseline and denies any pain or headache. He has a history of going AMA, but says he's willing to stay during this visit for further workup. CBC/BMP: 01/20/18 0810 01/20/18 1120 Significant Findings Laboratory Tests Test 01/19/18 12:19 01/19/18 12:48 01/19/18 13:33 01/20/18 08:10 Blood Gas HCO3 40 mmol/L (22-26) Blood Gas Base Excess 14.2 mmol/L (-2-2) Blood Gas Oxygen Saturation 81 % (90-100) Arterial Blood Partial Pressure CO2 62 mmHG (38-42) Arterial Blood Partial Pressure O2 60 mmHG (61-120) Arterial Blood Carboxyhemoglobin 10.0 % (0-4) Mean Corpuscular Volume 101.3 FL (80.0-100.0) 101.6 FL (80.0-100.0) Mean Platelet Volume 6.9 FL (7.0-11.0) Neutrophils (%) (Auto) 83.6 % (16.0-70.0) Lymphocytes (%) (Auto) 5.4 % (9.0-44.0) Basophils (%) (Auto) 2.9 % (0.0-2.0) Lymphocytes # (Auto) 0.4 TH/MM3 (1.0-4.8) Creatinine 0.47 MG/DL (0.60-1.30) 0.39 MG/DL (0.60-1.30) Random Glucose 130 MG/DL (74-106) Aspartate Amino Transf (AST/SGOT) 52 U/L (15-37) Sodium Level 133 MEQ/L (136-145) Chloride Level 90 MEQ/L (98-107) 92 MEQ/L (98-107) Carbon Dioxide Level 38.5 MEQ/L (21.0-32.0) 38.7 MEQ/L (21.0-32.0) Ammonia LESS THAN 10 MCMOL/L Prothrombin Time 12.3 SEC (9.8-11.6) Red Blood Count 4.31 MIL/MM3 (4.50-5.90) Monocytes (%) (Auto) 13.7 % (0.0-8.0) Albumin 2.9 GM/DL (3.4-5.0) Calcium Level 8.2 MG/DL (8.5-10.1) Potassium Level 3.0 MEQ/L (3.5-5.1) Test 01/20/18 11:20 Potassium Level 3.4 MEQ/L (3.5-5.1) Free Triiodothyronine (T3) pg/dL 1.61 PG/ML (2.18-3.98) Thyroid Stimulating Hormone 3rd Gen 16.500 uIU/ML (0.358-3.740) Hospital Course Mr. Lizarraga is a 67 year old male. He was brought into the hospital secondary to a syncopal episode. He had loss of consciousness when he was shopping with his brother. He says that this has occurred previously 2 times within this year. Workup was largely negative. I did find that he has hypothyroidism and treatments are started. Additionally he has orthostatic hypotension. He is not on any blood pressure medications to contribute to this so counseling was provided on slow position changes. At this point patient has not demonstrated any symptoms of carotid artery stenosis abnormal cardiac rhythms for continuation of his hypoxia. He stable on room air. Stable with an ablation with physical therapy. Medically stable for discharge home today. Pt Condition on Discharge: Stable Discharge Disposition: Discharge Home Discharge Time: <= 30 minutes Discharge Instructions DIET: Follow Instructions for: As Tolerated, No Restrictions Activities you can perform: Regular-No Restrictions Other Activity Instructions: Caution with position changes Follow up Referrals: PCP Follow-up - 2 Weeks New Medications: Levothyroxine (Levothyroxine) 75 Mcg Tab 75 MCG PO DAILY for Thyroid, #30 TAB 0 Refills Haile Galvan MD Jan 20, 2018 16:23
[2018-01-20] MEDS ORDERED: LEVOTHYROXINE SODIUM 75 MCG TAB PO ONE (17:00)
--- NOTE | 2018-01-20 18:37 | EKG ---
Date Performed: 01/19/2018 Time Performed: 12:20:02 PTAGE: 67 years EKG: SINUS TACHYCARDIA WITH OCCASIONAL SUPRAVENTRICULAR PREMATURE COMPLEXES INDETERMINATE AXIS S EPTAL MYOCARDIAL INFARCTION ABNORMAL ECG PREVIOUS TRACING : 01/09/2018 16.53 Since the prior tracing, there has been no significant wayne DOCTOR: Sindi Cooper Interpretating Date/Time 01/20/2018 18:36:51
== END 2018-01-20 20:03 | disposition home or self-care (01) ==
LOC: PHED 12:04 → PHEDA 15:06 → PH3B 16:05
PROVIDERS: ADMIT Hospitalist; ATTEND Hospitalist
DX: R55 Syncope and collapse (principal); F05 Delirium due to known physiological condition; R00.0 Tachycardia, unspecified; R94.31 Abnormal electrocardiogram [ECG] [EKG]; R09.02 Hypoxemia; I95.1 Orthostatic hypotension; F10.10 Alcohol abuse, uncomplicated; J44.9 Chronic obstructive pulmonary disease, unspecified; E87.4 Mixed disorder of acid-base balance; E03.9 Hypothyroidism, unspecified; K74.60 Unspecified cirrhosis of liver; K44.9 Diaphragmatic hernia without obstruction or gangrene; F17.200 Nicotine dependence, unspecified, uncomplicated; W01.0XXA Fall on same level from slipping, tripping and stumbling without subsequent striking against object, initial encounter
CPT/HCPCS: 36600; 70450; 71045; 80053; 80307; 82140; 82533; 82805; 83690; 84132; 84436; 84443; 84481; 85025; 85610; 85730; 93005; 93880; 94640; 94664; 96360; 96361; 97162; 99285; G0378; G8987; G8988; J7030

== ENCOUNTER 2018-01-31 17:07 | Emergency (ER) | payer OTHER ==
[~2018-01-31] VITALS: Ht 175.3 cm; Wt 65.0 kg
[~2018-01-31 17:07] MED LIST changes: -ASCO500C PO; -B COTAB3 PO; -FOLI1; +LEVO75TA3 PO; -OMEG600C2 PO; -TAB-TAB PO
[2018-01-31 17:31] VITALS: BP_SYST 127; BP_SYST 150; BP_DIAS 63; BP_DIAS 90; PULSE 104; PULSE 78; RESP 16; TEMP 98.3; O2SAT 96
[2018-01-31 21:34] VITALS: BP 134/60; PULSE 91; RESP 20; TEMP 98; O2SAT 94
--- NOTE | 2018-01-31 22:25 | PD ---
HPI Chief Complaint: Syncope/Near-Syncope Time Seen by Provider: 22:20 Travel History International Travel<30 days: No Contact w/Intl Traveler<30days: No Traveled to known affect area: No History of Present Illness HPI Patient denies that he passed out, he states that he just fell down while walking on his hallway. Patient states that he did not call 911 and that it was his roommate that did that. Patient otherwise feels fine. No repeat activity while here in the department No known drug allergy Past medical history significant for tonsillectomy, hiatal hernia, alcohol use with liver disease, and cirrhosis PFS Past Medical History Cancer: No Cardiovascular Problems: No Cirrhosis: Yes Diabetes: No Diminished Hearing: No Endocrine: No Gastrointestinal Disorders: Yes Genitourinary: No Hepatitis: No Hiatal Hernia: Yes Immune Disorder: No Implanted Vascular Access Dvce: No Medical other: Yes (LIVER CIRRHOSIS) Musculoskeletal: No Neurologic: No Psychiatric: No Reproductive: No Respiratory: No Immunizations Current: No Thyroid Disease: No Tetanus Vaccination: Unknown Influenza Vaccination: No Past Surgical History Surgical History: No Previous Surgery Abdominal Surgery: Yes (hernia) Cardiac Surgery: No Ear Surgery: No Endocrine Surgery: No Eye Surgery: No Genitourinary Surgery: No Gynecologic Surgery: No Oral Surgery: Yes (TONSILLECTOMY) Pacemaker: No Thoracic Surgery: No Tonsillectomy: Yes Other Surgery: Yes (PARACENTHESIS ) Social History Alcohol Use: Yes (4-6 BEERS A DAY) Tobacco Use: Yes (1-9 CIGARETTES DAILY) Substance Use: Yes Allergies-Medications (Allergen,Severity, Reaction): Coded Allergies: No Known Allergies (Unverified Adverse Reaction, Unknown, 01/31/18) Reported Meds & Prescriptions Reported Meds & Active Scripts Active Levothyroxine (Levothyroxine Sodium) 75 Mcg Tab 75 Mcg PO DAILY Review of Systems Except as stated in HPI: all other systems reviewed are Neg Physical Exam Narrative GENERAL: SKIN: Warm and dry. HEAD: Atraumatic. Normocephalic. EYES: Pupils equal and round. No scleral icterus. No injection or drainage. ENT: No nasal bleeding or discharge. Mucous membranes pink and moist. NECK: Trachea midline. No JVD. CARDIOVASCULAR: Regular rate and rhythm. RESPIRATORY: No accessory muscle use. Clear to auscultation. Breath sounds equal bilaterally. GASTROINTESTINAL: Abdomen soft, non-tender, nondistended. MUSCULOSKELETAL: Extremities without clubbing, cyanosis, or edema. No obvious deformities. NEUROLOGICAL: Awake and alert. No obvious cranial nerve deficits. Motor grossly within normal limits. Five out of 5 muscle strength in the arms and legs. Normal speech. PSYCHIATRIC: Appropriate mood and affect; insight and judgment normal. Data Data Last Documented VS Vital Signs Date Time Temp Pulse Resp B/P (MAP) Pulse Ox O2 Delivery O2 Flow Rate FiO2 01/31/18 21:34 98.0 91 20 134/60 (84) 94 Room Air Orders Orders Ct Brain W/O Iv Contrast(Rout) (01/31/18 22:20) MDM Medical Decision Making Medical Screen Exam Complete: Yes Emergency Medical Condition: Yes Medical Record Reviewed: Yes Differential Diagnosis Hypoglycemia versus intracranial hemorrhage versus subdural hemorrhage versus epidural versus possible seizure with history Narrative Course Patient's glucose was within normal limits CT head was negative for intracranial hemorrhage, skull fracture, subdural hematoma or epidural hematoma. Patient was ambulatory without assistance on his own. Patient was also a and O 4 Diagnosis Primary Impression: Medical clear Patient Instructions: General Instructions Disposition: 01 DISCHARGE HOME Condition: Stable Barrington Banks MD Jan 31, 2018 22:25
--- NOTE | 2018-02-01 | RADRPT ---
EXAM DATE/TIME: 01/31/2018 22:55 [facility] COMPARISON: CT BRAIN W/O CONTRAST, January 19, 2018, 13:14. INDICATIONS : Altered mental status. RADIATION DOSE: 38.83 CTDIvol (mGy) MEDICAL HISTORY : Cirrhosis. SURGICAL HISTORY : Hiatal hernia repair ENCOUNTER: Initial ACUITY: 1 day PAIN SCALE: 0/10 LOCATION: cranial TECHNIQUE: Multiple contiguous axial images were obtained of the head. Using automated exposure control and adj ustment of the mA and/or kV according to patient size, radiation dose was kept as low as reasonably a chievable to obtain optimal diagnostic quality images. DICOM format image data is available electro nically for review and comparison. FINDINGS: CEREBRUM: The ventricles are normal for age. No evidence of midline shift, mass lesion, hemorrhage or acute in farction. No extra-axial fluid collections are seen. POSTERIOR FOSSA: The cerebellum and brainstem are intact. The 4th ventricle is midline. The cerebellopontine angle i s unremarkable. EXTRACRANIAL: The visualized portion of the orbits is intact. SKULL: The calvaria is intact. No evidence of skull fracture. CONCLUSION: Study remains unremarkable. Rik Villarreal MD on January 31, 2018 at 23:58 Board Certified Radiologist. This report was verified electronically.
[2018-02-01 02:56] LABS: AUTOMATED NEUTROPHIL # 6.5 TH/MM3 (1.8-7.7); BASOPHIL # 0.1 TH/MM3 (0-0.2); BASOPHIL % 0.7 % (0.0-2.0); EOSINOPHIL % 0.1 % (0.0-4.0); HEMATOCRIT 48.3 % (39.0-51.0); HEMOGLOBIN 16.7 GM/DL (13.0-17.0); LYMPH % 18.1 % (9.0-44.0); LYMPHOCYTE # 1.7 TH/MM3 (1.0-4.8); MEAN CELL VOLUME 102.8 FL (80.0-100.0); MEAN CORPUSCULAR HEMOGLOBIN 35.6 PG (27.0-34.0); MEAN CORPUSCULAR HGB CONC 34.6 % (32.0-36.0); MONO % 12.1 % (0.0-8.0); MONOCYTE # 1.1 TH/MM3 (0-0.9); PLATELET COUNT 348 TH/MM3 (150-450); RED CELL DISTRIBUTION WIDTH 13.2 % (11.6-17.2); WHITE BLOOD COUNT 9.4 TH/MM3 (4.0-11.0)
--- NOTE | 2018-02-05 23:58 | PD ---
Physical Exam Date Seen by Provider: Feb 01, 2018 Time Seen by Provider: 02:12 Narrative Patient is a 67-year-old male seen in the d-pod and discharged after a CAT scan of his head ruled out any cerebral pathology. When he was placed in a wheelchair to the waiting room apparently stood up to walk to the bathroom and was found face down near the bathroom apneic . Pt was turned over and BVM started at which point the patient then pinked up > he had been somewhat ashen and blue lipped prior to BVM ventilation , then he was brought into the main Echo 60 room where he was awake but staring off at ceiling No tonic clonic activeity , vitals where within normal limits , His pressure was normal heart rate was normal > He had urinated his pants, at some point prior to arrival in Exam room .. He was on a non rebreather and satting at 100% . he then rapidly regained normal mentation. There was no tonic-clonic activity. there was no signs of cardiac arrhythmia on the monitor. all his vitals were within normal limits, BP was 109/70 o2 sat 100% oxygen saturation. I asked him about the event he was somewhat vague and still seemed possibly postictal IV is placed labs are drawn patient was left on the nonrebreather. After a short time the patient insisted he wanted to leave. I explained to him that he had an syncopal event in waiting area and that was very dangerous to leave until we fully worked him up, I said dangerous to leave it could occur again. He refused to let us draw blood, We had gotten a CBC out of him but had to redraw for the chemistry to look at his troponin his electrolytes and CPK to look for seizure activity, patient was told it was dangerous to leave as he had passed out and could have been a life-threatening event. He insisted he is leaving and began cursing staff and signed AMA papers and left in spite of the awareness that the event he had in the waiting room could have been life- threatening and it could recur. patient signed AMA and leaves,. patient was placed in a wheelchair and wheelchair out to cab . And left AMA Data Data Orders Orders Ct Brain W/O Iv Contrast(Rout) (01/31/18 22:20) Ed Discharge Order (02/01/18 00:20) Complete Blood Count With Diff (3/24/18 02:18) Labs Laboratory Tests Test 02/01/18 02:10 White Blood Count 9.4 TH/MM3 Red Blood Count 4.70 MIL/MM3 Hemoglobin 16.7 GM/DL Hematocrit 48.3 % Mean Corpuscular Volume 102.8 FL Mean Corpuscular Hemoglobin 35.6 PG Mean Corpuscular Hemoglobin Concent 34.6 % Red Cell Distribution Width 13.2 % Platelet Count 348 TH/MM3 Mean Platelet Volume 8.0 FL Neutrophils (%) (Auto) 69.0 % Lymphocytes (%) (Auto) 18.1 % Monocytes (%) (Auto) 12.1 % Eosinophils (%) (Auto) 0.1 % Basophils (%) (Auto) 0.7 % Neutrophils # (Auto) 6.5 TH/MM3 Lymphocytes # (Auto) 1.7 TH/MM3 Monocytes # (Auto) 1.1 TH/MM3 Eosinophils # (Auto) 0.0 TH/MM3 Basophils # (Auto) 0.1 TH/MM3 CBC Comment DIFF FINAL Differential Comment [facility] Supervised Visit with JET: No Diagnosis Primary Impression: Syncope and collapse Patient Instructions: General Instructions, Syncope (ED) Departure Forms: Tests/Procedures Disposition: 07 AGAINST MEDICAL ADVICE Condition: Stable Sidney Navarro MD Feb 05, 2018 23:58
== END 2018-02-01 03:29 | disposition left against medical advice (07) ==
LOC: NEPD 17:07 → NEPE 02-01 03:29
DX: R55 Syncope and collapse (principal); K74.60 Unspecified cirrhosis of liver; F17.210 Nicotine dependence, cigarettes, uncomplicated; F19.10 Other psychoactive substance abuse, uncomplicated; Z53.20 Procedure and treatment not carried out because of patient's decision for unspecified reasons
CPT/HCPCS: 70450; 85025; 99284

== ENCOUNTER 2018-02-01 04:48 | Inpatient (IN) | payer OTHER, MEDICAID, MEDICARE ==
[~2018-02-01] VITALS: Ht 182.9 cm; Wt 65.5 kg
[2018-02-01] VITALS (31 sets, daily range): BP systolic 62–141; BP diastolic 39–78; PULSE 72–104; RESP 1–24; TEMP 91.2–99.2; O2SAT 92–100
[2018-02-01] MEDS ORDERED: DOPamine 800 MG/500 ML INJ 500 ML IV ONE (05:00)
--- NOTE | 2018-02-01 05:10 | PD ---
HPI Chief Complaint: arrest Time Seen by Provider: 04:53 Travel History International Travel<30 days: No Contact w/Intl Traveler<30days: No Traveled to known affect area: No History of Present Illness HPI 67-year-old male presents to the emergency department by EMS transport with cardiac arrest with return of spontaneous circulation. According to advertising representative report patient had reportedly just been released from the hospital was riding home in a cab after the form setter/driver released team he walked towards his home and then collapsed landing against the wheel of his truck. Reportedly there was no injury according to paramedics. Upon their arrival patient was slumped against the tire of a truck. Patient was unresponsive found to be pulseless without spontaneous respirations was immediately placed in supine position resuscitative measures were initiated patient was intubated IV access was obtained he was placed on hall monitor and found to be and asystole patient received epinephrine 1 amp IV and then converted to a narrow complex tachycardia PEA received an additional dose of 1 amp of epinephrine and then in the ambulance converted to sinus tachycardia with a pulse no spontaneous respirations. Patient reportedly had just been seen in the hospital at [facility] for possible syncopal episode and failure to thrive. Paramedics report that earlier in the evening family had called to have the patient transported to the hospital for failure to thrive and patient refused transport but later in the evening did accept transport to the hospital when his roommate called. Patient was recently hospitalized 01/19/18 for syncope and collapse as well as delirium due to known psychological deposition as well as alcohol use and COPD patient was identified to have hypothyroidism during that visit and was started on levothyroxine 75 mcg daily as a prescription. Patient was discharged 01/20/18. Patient here is unable to provide any history and there is no family available. Review of medical records from 01/31/18 identifies patient did have imaging study of the brain which revealed no acute abnormality patient was medically cleared and allowed to be discharged home. However patient reportedly collapsed in waiting room and was immediately reassessed for syncopal episode but subsequently signed out AGAINST MEDICAL ADVICE and left the hospital reportedly in a taxi. [facility] Past Medical History Narrative Medical COPD syncope failure to thrive alcoholism hypothyroidism Cancer: No Cardiovascular Problems: No Cirrhosis: Yes Diabetes: No Diminished Hearing: No Endocrine: No Gastrointestinal Disorders: Yes Genitourinary: No Hepatitis: No Hiatal Hernia: Yes Immune Disorder: No Implanted Vascular Access Dvce: No Musculoskeletal: No Neurologic: No Psychiatric: No Reproductive: No Respiratory: No Immunizations Current: No Thyroid Disease: No Past Surgical History Abdominal Surgery: Yes (hernia) Cardiac Surgery: No Ear Surgery: No Endocrine Surgery: No Eye Surgery: No Genitourinary Surgery: No Gynecologic Surgery: No Oral Surgery: Yes (TONSILLECTOMY) Pacemaker: No Thoracic Surgery: No Tonsillectomy: Yes Other Surgery: Yes (PARACENTHESIS ) Social History Alcohol Use: Yes (4-6 BEERS A DAY) Tobacco Use: Yes (1-9 CIGARETTES DAILY) Substance Use: Yes Allergies-Medications (Allergen,Severity, Reaction): Coded Allergies: No Known Allergies (Unverified Adverse Reaction, Unknown, 01/31/18) Reported Meds & Prescriptions Reported Meds & Active Scripts Active Levothyroxine (Levothyroxine Sodium) 75 Mcg Tab 75 Mcg PO DAILY Review of Systems ROS Limitations: Clinical Condition, Intubated, Unresponsive Physical Exam Exam Limitations: Clinical Condition Narrative GENERAL: Emaciated male unresponsive with no spontaneous respirations and palpable pulse GCS 3 SKIN: Warm and dry. HEAD: Normocephalic. EYES: No scleral icterus. No injection or drainage. Pupils midline 3mm and nonreactive bilaterally NECK: Supple, trachea midline. No JVD or lymphadenopathy. Cervical collar applied. CARDIOVASCULAR: Increased regular rate and rhythm without murmurs, gallops, or rubs. RESPIRATORY: Breath sounds equal bilaterally with ambit assisted ventilations only GASTROINTESTINAL: Abdomen soft, , nondistended. MUSCULOSKELETAL: No cyanosis, or edema. Abrasion to left forearm. Data Data Last Documented VS Vital Signs Date Time Temp Pulse Resp B/P (MAP) Pulse Ox O2 Delivery O2 Flow Rate FiO2 02/01/18 05:15 72 24 99/66 (77) 95 Ventilator 02/01/18 05:00 100 Orders Orders Electrocardiogram (02/01/18 04:53) Complete Blood Count With Diff (02/01/18 04:53) Comprehensive Metabolic Panel (02/01/18 04:53) Magnesium (Mg) (02/01/18 04:53) Ckmb (Isoenzyme) Profile (02/01/18 04:53) Troponin I (02/01/18 04:53) Act Partial Throm Time (Ptt) (02/01/18 04:53) Prothrombin Time / Inr (Pt) (02/01/18 04:53) Urinalysis - C+S If Indicated (02/01/18 04:53) Chest, Single Ap (02/01/18 04:53) Ct Brain W/O Iv Contrast(Rout) (02/01/18 04:53) Blood Glucose (02/01/18 04:53) Ecg Monitoring (02/01/18 04:53) Iv Access Insert/Monitor (02/01/18 04:53) Oximetry (02/01/18 04:53) Sodium Chloride 0.9% Flush (Ns Flush) (02/01/18 05:00) Ammonia (02/01/18 04:53) Lactic Acid (02/01/18 04:53) Arterial Blood Gas (Abg) (02/01/18 ) Resp Ventilation- Volume (02/01/18 ) Ct Cerv Spine W/O Contrast (02/01/18 ) Apply Cervical Collar (02/01/18 04:59) Drug Screen, Random Urine (02/01/18 05:10) Admit Order (Ed Use Only) (02/01/18 ) Hand Coremaker / Telemetry RADHA.Q8H (02/01/18 05:13) Diet Npo (02/01/18 Breakfast) Activity Bed Rest (02/01/18 05:13) Notify Dr: Other (02/01/18 05:13) CKMB (02/01/18 05:00) CKMB% (02/01/18 05:00) Labs Laboratory Tests Test 02/01/18 05:00 White Blood Count 8.9 TH/MM3 Red Blood Count 4.65 MIL/MM3 Hemoglobin 15.5 GM/DL Hematocrit 47.9 % Mean Corpuscular Volume 103.1 FL Mean Corpuscular Hemoglobin 33.3 PG Mean Corpuscular Hemoglobin Concent 32.4 % Red Cell Distribution Width 12.6 % Platelet Count 336 TH/MM3 Mean Platelet Volume 7.5 FL Neutrophils (%) (Auto) 68.6 % Lymphocytes (%) (Auto) 21.2 % Monocytes (%) (Auto) 9.5 % Eosinophils (%) (Auto) 0.1 % Basophils (%) (Auto) 0.6 % Neutrophils # (Auto) 6.1 TH/MM3 Lymphocytes # (Auto) 1.9 TH/MM3 Monocytes # (Auto) 0.8 TH/MM3 Eosinophils # (Auto) 0.0 TH/MM3 Basophils # (Auto) 0.1 TH/MM3 CBC Comment DIFF FINAL Differential Comment Prothrombin Time 13.4 SEC Prothromb Time International Ratio 1.3 RATIO Activated Partial Thromboplast Time 25.9 SEC Blood Urea Nitrogen 11 MG/DL Creatinine 0.81 MG/DL Random Glucose 100 MG/DL Total Protein 7.0 GM/DL Albumin 3.2 GM/DL Calcium Level 8.8 MG/DL Magnesium Level 2.2 MG/DL Alkaline Phosphatase 115 U/L Aspartate Amino Transf (AST/SGOT) 93 U/L Alanine Aminotransferase (ALT/SGPT) 82 U/L Total Bilirubin 0.5 MG/DL Sodium Level 138 MEQ/L Potassium Level 2.8 MEQ/L Chloride Level 94 MEQ/L Carbon Dioxide Level 32.0 MEQ/L Anion Gap 12 MEQ/L Estimat Glomerular Filtration Rate 94 ML/MIN Lactic Acid Level 9.2 mmol/L Total Creatine Kinase 116 U/L Creatine Kinase MB 7.0 NG/ML Troponin I LESS THAN 0.02 NG/ML MDM Medical Decision Making Medical Screen Exam Complete: Yes Emergency Medical Condition: Yes Medical Record Reviewed: Yes Interpretation(s) CBC & BMP Diagram 02/01/18 05:00 Total Protein 7.0, Albumin 3.2 L, Calcium Level 8.8, Magnesium Level 2.2, Alkaline Phosphatase 115, Aspartate Amino Transf (AST/SGOT) 93 H, Alanine Aminotransferase (ALT/SGPT) 82 H, Total Bilirubin 0.5 abg: ac/100/15/500/5 pH 7.26 with PCO2 of 66 PO2 of 547 with O2 sat of 93/ carboxyhemoglobin 5.1 bicarb is 28 base excess 1.9 EKG: sinus tachycardia left axis deviation QRS septally age-indeterminate Differential Diagnosis Cardiopulmonary arrest, arrhythmia, electrolyte disturbance, seizure, closed head injury, septic shock, ACS, IN, PE, cervical spine fracture, cord injury, hypovolemic shock Narrative Course 67-year-old male status post cardiopulmonary arrest with return of spontaneous circulation unresponsive; patient recently seen and evaluated and left AMA was found after witnessed collapse in front of his home. Patient was found unresponsive and in asystole resuscitative measures were initiated and patient achieved epinephrine rhythm change to PEA with narrow complex tachycardia and additional dose of epinephrine was administered and patient resumed palpable pulse and blood pressure without spontaneous respirations. Upon arrival to the emergency department patient continued to have palpable pulses carotid radial and femoral no spontaneous respirations blood pressure in stable range and ongoing resuscitative measures were initiated. Patient given volume replacement identified to have electrolyte disturbance with hypokalemia potassium replacement and respiratory acidosis by ABG ongoing ventilatory support. Central line placed Patient on review of recent evaluation medical records concerning for possible seizure therefore administered fosphenytoin and in view of soft tissue/ cutaneous injury received tetanus booster and Ancef. Patient's case discussed with food service team member who has agreed to accept patient for admission Critical Care Narrative Aggregate critical care time was 40 minutes. Time to perform other separately billable procedures was not included in the critical care time. My time did not include minutes spent treating any other patients simultaneously or on activities that did not directly contribute to the patient's treatment. The services I provided to this patient were to treat and/or prevent clinically significant deterioration that could result in: Cardiopulmonary arrest, hypovolemic shock neurogenic shock septic shock I provided critical care services requiring my management, as noted below: Chart data review, documentation time, medication orders and management, vital sign assessments/reviewing monitor data, ordering and reviewing lab tests, ordering and interpreting/reviewing x-rays and diagnostic studies, care of the patient and discussion of the patient with the admitting physicians. Procedures Procedure Narrative CENTRAL VENOUS LINE: The site was prepped with Betadine and sterilely draped. It was infiltrated with 1% lidocaine plain. The deep vein was cannulated using normal Seldinger technique. A triple lumen central line was placed in the right femoral vein site and secured with simple interrupted suture. The site was sterilely dressed. The patient tolerated the procedure well. Physician Communication Physician Communication patient discussed with Dr August, food service team member --will accept patient for admission Diagnosis Primary Impression: Cardiopulmonary arrest with successful resuscitation Additional Impressions: Acute metabolic encephalopathy Hypokalemia Lactic acidosis Admitting Information Admitting Physician Requests: Admit Jennifer Tenorio MD Feb 01, 2018 05:10
[2018-02-01 05:49] LABS: AUTOMATED NEUTROPHIL # 6.1 TH/MM3 (1.8-7.7); BASOPHIL # 0.1 TH/MM3 (0-0.2); BASOPHIL % 0.6 % (0.0-2.0); EOSINOPHIL % 0.1 % (0.0-4.0); HEMATOCRIT 47.9 % (39.0-51.0); HEMOGLOBIN 15.5 GM/DL (13.0-17.0); LYMPH % 21.2 % (9.0-44.0); LYMPHOCYTE # 1.9 TH/MM3 (1.0-4.8); MEAN CELL VOLUME 103.1 FL (80.0-100.0); MEAN CORPUSCULAR HEMOGLOBIN 33.3 PG (27.0-34.0); MEAN CORPUSCULAR HGB CONC 32.4 % (32.0-36.0); MEAN PLATELET VOLUME 7.5 FL (7.0-11.0); MONO % 9.5 % (0.0-8.0); MONOCYTE # 0.8 TH/MM3 (0-0.9); NEUT % 68.6 % (16.0-70.0); PLATELET COUNT 336 TH/MM3 (150-450); RED BLOOD COUNT 4.65 MIL/MM3 (4.50-5.90); RED CELL DISTRIBUTION WIDTH 12.6 % (11.6-17.2); WHITE BLOOD COUNT 8.9 TH/MM3 (4.0-11.0)
--- NOTE | 2018-02-01 05:54 | PD ---
Physical Exam Date Seen by Provider: Feb 01, 2018 Time Seen by Provider: 02:15 Narrative Patient is a 7-year-old male seen in the deep and discharged after a CAT scan of his head ruled out any pathology. Wheelchair to the waiting room apparently stood up to walk to the bathroom and was found face down near the bathroom apneic and was turned over and BVM patient then pinked up he had been somewhat ashen and blue lipped and then he was brought into the echo 60 room where he was awake but staring pressure was normal heart rate was normal he had urinated his pants satting 100% he was on a nonrebreather and rapidly regained normal mentation. There was no tonic-clonic activity there was no signs of cardiac arrhythmia on the monitor all his vitals were within normal limits BP was 109/ 70 100% oxygen saturation. I asked him about the event he was somewhat vague and still seemed possibly postictal IV is placed labs are drawn patient was left on the nonrebreather. After a short time the patient insisted he wanted to leave. I explained to him that he had an syncopal event in waiting area and that was very dangerous to leave until we fully worked him up, I said dangerous to leave it could occur again. He refused to let us draw blood, We had gotten a CBC out of him but had to redraw for the chemistry to look at his troponin his electrolytes and CPK to look for seizure activity, patient was told it was dangerous to leave as he had passed out and could have been a life- threatening event. He insisted he is leaving and began cursing staff and signed AMA papers and left in spite of the awareness that the event he had in the waiting room could have been life-threatening and it could recur. patient signed AMA and leaves,. patient was placed in a wheelchair and wheelchair out to cab . And left AMA Data Data Last Documented VS Vital Signs Date Time Temp Pulse Resp B/P (MAP) Pulse Ox O2 Delivery O2 Flow Rate FiO2 02/01/18 05:15 72 24 99/66 (77) 95 Ventilator 02/01/18 05:00 100 Orders Orders Electrocardiogram (02/01/18 04:53) Complete Blood Count With Diff (02/01/18 04:53) Comprehensive Metabolic Panel (02/01/18 04:53) Magnesium (Mg) (02/01/18 04:53) Ckmb (Isoenzyme) Profile (02/01/18 04:53) Troponin I (02/01/18 04:53) Act Partial Throm Time (Ptt) (02/01/18 04:53) Prothrombin Time / Inr (Pt) (02/01/18 04:53) Urinalysis - C+S If Indicated (02/01/18 04:53) Chest, Single Ap (02/01/18 04:53) Ct Brain W/O Iv Contrast(Rout) (02/01/18 04:53) Blood Glucose (02/01/18 04:53) Ecg Monitoring (02/01/18 04:53) Iv Access Insert/Monitor (02/01/18 04:53) Oximetry (02/01/18 04:53) Sodium Chloride 0.9% Flush (Ns Flush) (02/01/18 05:00) Ammonia (02/01/18 04:53) Lactic Acid (02/01/18 04:53) Arterial Blood Gas (Abg) (02/01/18 ) Resp Ventilation- Volume (02/01/18 ) Ct Cerv Spine W/O Contrast (02/01/18 ) Apply Cervical Collar (02/01/18 04:59) Drug Screen, Random Urine (02/01/18 05:10) Admit Order (Ed Use Only) (02/01/18 ) Personal Vehicle Advisor / Telemetry RADHA.Q8H (02/01/18 05:13) Diet Npo (02/01/18 Breakfast) Activity Bed Rest (02/01/18 05:13) Notify Dr: Other (02/01/18 05:13) CKMB (02/01/18 05:00) CKMB% (02/01/18 05:00) Labs Laboratory Tests Test 02/01/18 05:00 White Blood Count 8.9 TH/MM3 Red Blood Count 4.65 MIL/MM3 Hemoglobin 15.5 GM/DL Hematocrit 47.9 % Mean Corpuscular Volume 103.1 FL Mean Corpuscular Hemoglobin 33.3 PG Mean Corpuscular Hemoglobin Concent 32.4 % Red Cell Distribution Width 12.6 % Platelet Count 336 TH/MM3 Mean Platelet Volume 7.5 FL Neutrophils (%) (Auto) 68.6 % Lymphocytes (%) (Auto) 21.2 % Monocytes (%) (Auto) 9.5 % Eosinophils (%) (Auto) 0.1 % Basophils (%) (Auto) 0.6 % Neutrophils # (Auto) 6.1 TH/MM3 Lymphocytes # (Auto) 1.9 TH/MM3 Monocytes # (Auto) 0.8 TH/MM3 Eosinophils # (Auto) 0.0 TH/MM3 Basophils # (Auto) 0.1 TH/MM3 CBC Comment DIFF FINAL Differential Comment Prothrombin Time 13.4 SEC Prothromb Time International Ratio 1.3 RATIO Activated Partial Thromboplast Time 25.9 SEC Blood Urea Nitrogen 11 MG/DL Creatinine 0.81 MG/DL Random Glucose 100 MG/DL Total Protein 7.0 GM/DL Albumin 3.2 GM/DL Calcium Level 8.8 MG/DL Magnesium Level 2.2 MG/DL Alkaline Phosphatase 115 U/L Aspartate Amino Transf (AST/SGOT) 93 U/L Alanine Aminotransferase (ALT/SGPT) 82 U/L Total Bilirubin 0.5 MG/DL Sodium Level 138 MEQ/L Potassium Level 2.8 MEQ/L Chloride Level 94 MEQ/L Carbon Dioxide Level 32.0 MEQ/L Anion Gap 12 MEQ/L Estimat Glomerular Filtration Rate 94 ML/MIN Lactic Acid Level 9.2 mmol/L Total Creatine Kinase 116 U/L Creatine Kinase MB 7.0 NG/ML Troponin I LESS THAN 0.02 NG/ML MDM Supervised Visit with JET: No Diagnosis Primary Impression: Left against medical advice Additional Impression: Syncope and collapse Disposition: 07 AGAINST MEDICAL ADVICE Sidney Navarro MD Feb 01, 2018 05:54
--- NOTE | 2018-02-01 05:55 | RADRPT ---
EXAM DATE/TIME: 02/01/2018 05:04 [facility] COMPARISON: CT THORAX W CONTRAST, November 28, 2012, 13:21. CHEST SINGLE AP, January 19, 2018, 12:29. INDICATIONS : Palpitations. MEDICAL HISTORY : Non-responsive SURGICAL HISTORY : Non-responsive ENCOUNTER: Initial ACUITY: 1 day PAIN SCORE: Non-responsive. LOCATION: Bilateral chest FINDINGS: A single AP supine portable view of the chest was obtained and demonstrates interval intubation with the endotracheal tube tip approximately 5 cm above the ben. There are no confluent infiltrates or effusions. The lungs remain hyperinflated. The heart size is within normal limits with no perihilar e edu. The bony thorax is intact. Overlying retrocardiac leads are present. CONCLUSION : 1. Interval intubation 2. Hyperinflation of lungs. Rik Villarreal MD on February 01, 2018 at 5:50 Board Certified Radiologist. This report was verified electronically.
[2018-02-01 05:58] LABS: CHLORIDE 94 MEQ/L (98-107); SODIUM (NA) 138 MEQ/L (136-145)
[2018-02-01 06:00] LABS: ALBUMIN 3.2 GM/DL (3.4-5.0); BLOOD UREA NITROGEN 11 MG/DL (7-18); CALCIUM 8.8 MG/DL (8.5-10.1); GLUCOSE,RANDOM 100 MG/DL (74-106); INTERNATIONAL NORMALIZED RATIO 1.3 RATIO; MAGNESIUM 2.2 MG/DL (1.5-2.5); PROTHROMBIN TIME - PATIENT 13.4 SEC (9.8-11.6)
[2018-02-01] MEDS ORDERED: TERBUTALINE INJ 1 MG/ML AMP SQ PRN ×2 (06:00)
[2018-02-01] MEDS ORDERED: NOREPINEPHRINE-DEXTROSE DRIP 250 ML IV PRN (06:00)
[2018-02-01] MEDS ORDERED: DOPamine 800 MG/500 ML INJ 500 ML IV PRN (06:00)
[2018-02-01] MEDS ORDERED: SODIUM CHLOR 0.9% 1000 ML INJ 1,000 ML IV ONE (06:00)
[2018-02-01] MEDS ORDERED: NOREPINEPHRINE 4 MG/4 ML AMP ONE (06:02)
[2018-02-01 06:04] LABS: ALT (GPT) 82 U/L (12-78); AST (GOT) 93 U/L (15-37); CREATININE 0.81 MG/DL (0.60-1.30); GLOMERULAR FILTRATION RATE 94 ML/MIN (>89)
[2018-02-01 06:08] LABS: ALKALINE PHOSPHATASE 115 U/L (45-117); TOTAL BILIRUBIN ADULT 0.5 MG/DL (0.2-1.0); TROPONIN I LESS THAN 0.02 NG/ML (0.02-0.05)
[2018-02-01] MEDS: NOREPINEPHRINE 4 MG/D5W 250 ML IV PRN ×3 (06:35→18:13)
--- NOTE | 2018-02-01 07:52 | RADRPT ---
EXAM DATE/TIME: 02/01/2018 07:28 [facility] COMPARISON: CT BRAIN W/O CONTRAST, January 31, 2018, 22:55. INDICATIONS : Fall from cardiac arrest. RADIATION DOSE: 66.46 CTDIvol (mGy) ; Tabletop CT Head MEDICAL HISTORY : Cirrhosis. ETOH SURGICAL HISTORY : Tonsillectomy. Hernia, paracentesis ENCOUNTER: Initial ACUITY: 1 day PAIN SCALE: Non-responsive LOCATION: cranial TECHNIQUE: Multiple contiguous axial images were obtained of the head. Using automated exposure control and adj ustment of the mA and/or kV according to patient size, radiation dose was kept as low as reasonably a chievable to obtain optimal diagnostic quality images. DICOM format image data is available electro nically for review and comparison. FINDINGS: CEREBRUM: The ventricles are normal for age. No evidence of midline shift, mass lesion, hemorrhage or acute in farction. No extra-axial fluid collections are seen. POSTERIOR FOSSA: The cerebellum and brainstem are intact. The 4th ventricle is midline. The cerebellopontine angle i s unremarkable. EXTRACRANIAL: The visualized portion of the orbits is intact. SKULL: The calvaria is intact. No evidence of skull fracture. CONCLUSION: No acute disease. Anuel Dueñas MD on February 01, 2018 at 7:49 Board Certified Radiologist. This report was verified electronically.
[2018-02-01] MEDS ORDERED: FOSPHENYTOIN INJ 1,000 MGPE in SODIUM CHLORIDE 0.9% INJ 50 ML IV ONE (08:00)
--- NOTE | 2018-02-01 08:00 | RADRPT ---
EXAM DATE/TIME: 02/01/2018 07:28 [facility] COMPARISON: No previous studies available for comparison. INDICATIONS : Fall from cardiac arrest. RADIATION DOSE: 26.64 CTDIvol (mGy) MEDICAL HISTORY : Cirrhosis. ETOH SURGICAL HISTORY : Tonsillectomy. Hernia, paracentesis ENCOUNTER: Initial ACUITY: 1 day PAIN SCALE: Non-responsive LOCATION: neck TECHNIQUE: Volumetric scanning of the cervical spine was performed. Multiplanar reconstructions in the sagittal, coronal and oblique axial planes were performed. Using automated exposure control and adjustment o f the mA and/or kV according to patient size, radiation dose was kept as low as reasonably achievable to obtain optimal diagnostic quality images. DICOM format image data is available electronically f or review and comparison. FINDINGS: There is no acute fracture or prevertebral soft tissue swelling. Cervical spondylosis is noted at all levels. The bony relationship and alignment between C1 and C2 is well maintained. No spinal stenosis is noted. No focal disc herniation is noted. Mild bilateral foraminal narrowing is noted at C3-4 and C4-5 and mild left neural foraminal narrowing is noted at C6-7. Mild scoliosis is noted. Biapical em physema and fibrotic scarring are noted. CONCLUSION: 1. No acute fracture or prevertebral soft tissue swelling. 2. Diffuse cervical spondylosis. 3. Mild bilateral foraminal narrowing at C3-4 and C4-5 and mild left neural foraminal narrowing at C6 -7. 4. Mild scoliosis. 5. Biapical emphysema and fibrotic scarring are noted. Anuel Dueñas MD on February 01, 2018 at 7:50 Board Certified Radiologist. This report was verified electronically.
[2018-02-01] MEDS ORDERED: ceFAZolin 2 GM PREMIX 50 ML IV ONE (08:15)
[2018-02-01] MEDS ORDERED: TETANUS/DIPHTHERIA TOXOID ADULT 0.5 ML VIAL IM ONE (08:15)
[2018-02-01 08:58] LABS: BILIRUBIN, URINE NEG (NEG); BLOOD, URINE MOD (NEG); GLUCOSE,URINE NEG (NEG); KETONE, URINE TRACE mg/dL (NEG); NITRITE,URINE NEG (NEG); URINE COLOR YELLOW (YELLW/STRAW); URINE LEUKOCYTE ESTERASE NEG (NEG)
[2018-02-01] MEDS: POTASSIUM CHLOR 20 MEQ PREMIX 100 ML IV SCH ×2 (08:58→11:03)
[2018-02-01 09:09] LABS: RBC, URINE 15-19 /hpf (0-3)
[2018-02-01 09:10] LABS: AMORPHOUS SEDIMENT, URINE MOD
[2018-02-01 09:56] LABS: LACTIC ACID SEPSIS PROTOCOL 3.2 mmol/L (0.4-2.0)
[2018-02-01] MEDS ORDERED: LABETALOL HCL 100 MG/20 ML VIAL IV PUSH PRN (11:00)
[2018-02-01] MEDS ORDERED: POTASSIUM CHLORIDE 25 MEQ EFFERVESCENT TAB PO PRN (11:00)
[2018-02-01] MEDS ORDERED: POTASSIUM CHLOR 40 MEQ PREMIX 100 ML IV PRN (11:00)
[2018-02-01] MEDS ORDERED: POTASSIUM PHOSPHATE MONOBASIC 500 MG TAB PO/TUBE PRN (11:00)
[2018-02-01] MEDS ORDERED: MAGNESIUM SULFATE INJ 4 GM in SODIUM CHLORIDE 0.9% INJ 92 ML IV PRN (11:00)
[2018-02-01] MEDS ORDERED: SODIUM PHOSPHATE INJ 30 MMOL in SODIUM CHLOR 0.9% 250 ML INJ 240 ML IV PRN (11:00)
[2018-02-01] MEDS ORDERED: MISCELLANEOUS NURSING INFORMATION XX SCH (11:00)
[2018-02-01] MEDS ORDERED: MAGNESIUM OXIDE 400 MG TAB PO PRN (11:00)
[2018-02-01] MEDS ORDERED: POTASSIUM PHOSPHATE MONOBASIC 500 MG TAB PO PRN (11:00)
[2018-02-01] MEDS ORDERED: POTASSIUM CHLOR 20 MEQ PREMIX 100 ML IV PRN (11:00)
[2018-02-01] MEDS ORDERED: ONDANSETRON HCL 4 MG/2 ML VIAL IV PUSH PRN (11:00)
[2018-02-01] MEDS ORDERED: hydrALAZINE HCL 20 MG/ML VIAL IV PUSH PRN (11:00)
[2018-02-01] MEDS ORDERED: MAGNESIUM SULFATE INJ 2 GM in SODIUM CHLORIDE 0.9% INJ 96 ML IV PRN (11:00)
[2018-02-01] MEDS ORDERED: POTASSIUM PHOSPHATE INJ 30 MMOL in SODIUM CHLOR 0.9% 250 ML INJ 250 ML IV PRN (11:00)
[2018-02-01] MEDS ORDERED: CHLORHEXIDINE GLUCONATE 2 % 1 PACK (2 CLOTHS) TOP PRN (11:00)
[2018-02-01] MEDS ORDERED: levETIRAcetam INJ 100 ML IV ONE (11:15)
--- NOTE | 2018-02-01 11:34 | HHI.HP ---
[facility] Service Critical Care Medicine Primary Care Physician No Primary Care Physician Admission Diagnosis Post cardiac arrest; coma; arrhythmia; COPD Diagnosis: Chief Complaint: [id number] cardiac arrest Travel History International Travel<30 Days: No Contact w/Intl Traveler <30 Da: No Traveled to Known Affected Are: No History of Present Illness This is 67yM with history per prior records of cirrhosis who presented to the ED with [id number] PEA arrest. Per our documentation, He was seen on complaining of syncope and had a negative head CT at that time. He was discharged home. He represented 02/01 to [facility] with similar complaints of syncope , however the patient himself denied any complaints. In the waiting room, reports state he became unresponsive and cyanotic and was resuscitated with bag- valve-mask. He regained consciousness and refused additional care, signing out AMA before any work-up could be done. Per EMS report, when he was in the cab on the way home, he became unresponsive. presenting rhythm was PEA. ROSC was successfully obtained and he was stabilized in the [facility] ED before being transferred to [facility]. I evaluated the patient immediately upon arrival to the ICU. He is comatose and intubated, and no information can be obtained from him. He is on levophed at 15mcg/min. His pupils are 4mm, sluggishly reactive with roving eye movements. He is extensor posturing in the upper extremities and flexor posturing in the lower extremities. he has +cough but negative gag. + corneals. No additional information is obtainable from the patient and ROS is unobtainable. Laboratory evidence from PO demonstrates lactate of 9, trop 0.02, sodium 138, K 2.8, ammonia 46. Review of Systems ROS Limitations: Clinical Condition, Intubated, Altered Mental Status, Unresponsive Past Family Social History Allergies: Coded Allergies: No Known Allergies (Unverified Adverse Reaction, Unknown, 01/31/18) Past Medical History unobtainable from the patient. per prior records: cirrhosis chronic hyponatremia hypothyroidism Past Surgical History unobtainable from the patient. per prior hospital records: tonsillectomy inguinal hernia repair. Reported Medications unobtainable from the patient. per prior hospital records: Reported Meds & Active Scripts Active Levothyroxine (Levothyroxine Sodium) 75 Mcg Tab 75 Mcg PO DAILY Active Ordered Medications See MAR Family History unobtainable from the patient due to his clinical condition. Social History unobtainable from the patient. per prior hospital records: + etoh 4-6 beers/day + tob 9 cigarettes/day. Physical Exam Vital Signs Vital Signs Date Time Temp Pulse Resp B/P (MAP) Pulse Ox O2 Delivery O2 Flow Rate FiO2 02/01/18 10:18 100 60 02/01/18 09:44 02/01/18 09:32 100 Ventilator 60 02/01/18 09:31 80 106/62 (77) 100 Ventilator 60 02/01/18 08:28 74 108/42 (64) 100 Ventilator 60 02/01/18 08:28 95.5 74 108/43 (64) 100 Ventilator 60 02/01/18 07:53 95.5 98 91/72 (78) 92 Ventilator 60 02/01/18 06:45 91.2 02/01/18 06:35 102 94/73 02/01/18 06:35 102 24 94/73 (80) 95 Ventilator 02/01/18 06:31 105 94/73 02/01/18 06:15 104 24 87/63 (71) 95 Ventilator 02/01/18 06:08 91.2 02/01/18 06:00 94 24 62/50 (54) 94 Ventilator 02/01/18 06:00 24 95 Ventilator 02/01/18 05:45 96 100 02/01/18 05:43 80 24 79/39 (52) 93 Ventilator 02/01/18 05:43 80 79/39 02/01/18 05:30 74 24 99/58 (72) 94 Ventilator 02/01/18 05:15 72 24 99/66 (77) 95 Ventilator 02/01/18 05:00 86 24 109/57 (74) 94 Ventilator 02/01/18 05:00 93 100 02/01/18 04:48 93 127/62 (83) 98 Physical Exam gen: cachetic male, lying in bed, intubated, comatose, appears much older than stated age heent: nc. at. pupils 4mm, slugishly reactive, roving eye movements. inappropriate doll's eyes reflex. mucous membranes moist. neck: trachea midline. neck veins flat. chest: equal chest rise. prvc. 40% fio2. peep 5. spo2 100% cv: normal rate, regular rhythm. norepinephrine at 15 mcg/min abd: scaphoid. soft, nontender, nondistended. no guarding. extr: no peripheral edema. distal pulses 2+. neuro: RASS -5. GCS 4/5 (extensor uppers, flexor lowers) (E1V1M2/3). pupils as above. extensor posturing of the upper extremities. flexor posturing of the lower extremities. +corneals. - gag. + cough. inappropriate doll's eyes reflex. Upgoing Babinski. Bedside critical care echo: grossly preserved biventricular function. decompressed RV. some suggestion in poor subcostal views of tricuspid regurgitation and aortic insufficiency, but difficult to discern based on poor quality study. no pericardial effusion. IVC 1.5cm with minimal respiratory variation. Laboratory Laboratory Tests Test 02/01/18 05:00 02/01/18 05:30 02/01/18 06:00 02/01/18 07:56 White Blood Count 8.9 Red Blood Count 4.65 Hemoglobin 15.5 Hematocrit 47.9 Mean Corpuscular Volume 103.1 Mean Corpuscular Hemoglobin 33.3 Mean Corpuscular Hemoglobin Concent 32.4 Red Cell Distribution Width 12.6 Platelet Count 336 Mean Platelet Volume 7.5 Neutrophils (%) (Auto) 68.6 Lymphocytes (%) (Auto) 21.2 Monocytes (%) (Auto) 9.5 Eosinophils (%) (Auto) 0.1 Basophils (%) (Auto) 0.6 Neutrophils # (Auto) 6.1 Lymphocytes # (Auto) 1.9 Monocytes # (Auto) 0.8 Eosinophils # (Auto) 0.0 Basophils # (Auto) 0.1 CBC Comment DIFF FINAL Differential Comment Prothrombin Time 13.4 Prothromb Time International Ratio 1.3 Activated Partial Thromboplast Time 25.9 Blood Urea Nitrogen 11 Creatinine 0.81 Random Glucose 100 Total Protein 7.0 Albumin 3.2 Calcium Level 8.8 Magnesium Level 2.2 Alkaline Phosphatase 115 Aspartate Amino Transf (AST/SGOT) 93 Alanine Aminotransferase (ALT/SGPT) 82 Total Bilirubin 0.5 Sodium Level 138 Potassium Level 2.8 Chloride Level 94 Carbon Dioxide Level 32.0 Anion Gap 12 Estimat Glomerular Filtration Rate 94 Lactic Acid Level 9.2 Total Creatine Kinase 116 Creatine Kinase MB 7.0 Troponin I LESS THAN 0.02 Blood Gas Puncture Site LT BRACHIAL LT FEMORAL Blood Gas Patient Temperature 98.6 96.0 Blood Gas HCO3 28 30 Blood Gas Base Excess 1.9 4.3 Blood Gas Oxygen Saturation 93 96 Arterial Blood pH 7.26 7.33 Arterial Blood Partial Pressure CO2 66 57 Arterial Blood Partial Pressure O2 547 290 Arterial Blood Oxygen Content 21.1 19.5 Arterial Blood Carboxyhemoglobin 5.1 2.5 Arterial Blood Methemoglobin 1.5 1.5 Blood Gas Hemoglobin 15.0 14.0 Oxygen Delivery Device VENTILATOR VENTILATOR Blood Gas Ventilator Setting AC/15/500/PEEP 5 AC 24/ 500/5PEEP Blood Gas Inspired Oxygen 100 60 Ammonia 46 Test 02/01/18 08:40 Urine Collection Type CLEAN CATCH Urine Color YELLOW Urine Turbidity SL CLOUDY Urine pH 6.0 Urine Specific [place] GREATER/EQUAL 1.030 Urine Protein 300 OR GREATER Urine Glucose (UA) NEG Urine Ketones TRACE Urine Occult Blood MOD Urine Nitrite NEG Urine Bilirubin NEG Urine Urobilinogen 1.0 Urine Leukocyte Esterase NEG Urine RBC 15-19 Urine WBC 3-5 Urine Squamous Epithelial Cells 6-8 Urine Amorphous Sediment MOD Urine Fine Granular Casts 3-5 Urine Oval Fat Bodies Microscopic Urinalysis Comment CULT NOT INDICATED Urine Collection Time 08:40 Lactic Acid Level 3.2 Urine Opiates Screen NEG Urine Barbiturates Screen NEG Urine Amphetamines Screen NEG Urine Benzodiazepines Screen NEG Urine Cocaine Screen NEG Urine Cannabinoids Screen NEG Result Diagram: 02/01/18 0500 02/01/18 0500 Caprini VTE Risk Assessment Caprini VTE Risk Assessment: Mod/High Risk (score >= 2) Caprini Risk Assessment Model Point Value = 1 Point Value = 2 Point Value = 3 Point Value = 5 Age 41-60 Minor surgery BMI > 25 kg/m2 Swollen legs Varicose veins or History of unexplained or recurrent spontaneous Oral contraceptives or hormone replacement Sepsis (< 1 month) Serious lung disease, including pneumonia (< 1 month) Abnormal pulmonary function Acute myocardial infarction Congestive heart failure (< 1 month) History of inflammatory bowel disease Medical patient at bed rest Age 61-74 Arthroscopic surgery Major open surgery (> 45 min) Laparoscopic surgery (> 45 min) Malignancy Confined to bed (> 72 hours) Immobilizing plaster cast Central venous access Age >= 75 History of VTE Family history of VTE Factor V Leiden Prothrombin [id number] Lupus anticoagulant Anticardiolipin antibodies Elevated serum homocysteine Heparin-induced thrombocytopenia Other congenital or acquired thrombophilia Stroke (< 1 month) Elective arthroplasty Hip, pelvis, or leg fracture Acute spinal cord injury (< 1 month) Prophylaxis Regimen Total Risk Factor Score Risk Level Prophylaxis Regimen 0-1 Low Early ambulation 2 Moderate Order ONE of the following: *Sequential Compression Device (SCD) *Heparin 5000 units SQ BID 3-4 Higher Order ONE of the following medications: *Heparin 5000 units SQ TID *Enoxaparin/Lovenox 40 mg SQ daily (WT < 150 kg, CrCl > 30 mL/min) *Enoxaparin/Lovenox 30 mg SQ daily (WT < 150 kg, CrCl > 10-29 mL/min) *Enoxaparin/Lovenox 30 mg SQ BID (WT < 150 kg, CrCl > 30 mL/min) AND/OR *Sequential Compression Device (SCD) 5 or more Highest Order ONE of the following medications: *Heparin 5000 units SQ TID (Preferred with Epidurals) *Enoxaparin/Lovenox 40 mg SQ daily (WT < 150 kg, CrCl > 30 mL/min) *Enoxaparin/Lovenox 30 mg SQ daily (WT < 150 kg, CrCl > 10-29 mL/min) *Enoxaparin/Lovenox 30 mg SQ BID (WT < 150 kg, CrCl > 30 mL/min) AND *Sequential Compression Device (SCD) Assessment and Plan Assessment and Plan Assessment: 67yM with cirrhosis and recent multiple complaints of syncope presents after leaving AMA from a syncopal episode and found in [id number] PEA arrest. Unfortunately, the patient is out of the 6 hour window for therapeutic hypothermia at the time of my evaluation, immediately upon arrival to the ICU, so we will not pursue this. Will prevent hyperthermia. Troponins are negative x 1, and this does not appear ACS in origin and much more like electrophysiologic vs. neurogenic/epileptic cause of syncope. Will obtain EEG/ MRI. continue to wean vasopressors for cardiogenic shock post-arrest. remains very critically ill. Neuro: Hypoxic Ischemic Encephalopathy Recurrent Syncope - frequent neuro checks - avoid sedatives - avoid hyperthermia - out of window for therapeutic hypothermia. - EEG - keppra load with 1gm and 500mg iv q12h. - MRI brain - 2d echo - keep on telemetry. Resp: Acute hypoxic and hypercarbic respiratory failure - wean fio2 for goal spo2 > 90% - no weaning of mechanical ventilation until mental status improves - vent bundle - hob elevated - nebs - serial ABG CV: Cardiogenic Shock Recurrent Syncope Out of hospital PEA arrest - wean levophed for goal map > 65 mmHg - close uop monitoring - trend lactates - trend abg - 2d echo - low suspicion for ACS - trend cardiac enzymes - will not anticoagulate unless troponins are uptrending or other signs of ACS. 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 very critically ill. Will ask palliative care to consult: likely overall poor prognosis given chronic medical problems and likely anoxic brain injury Critical care time: 80 minutes, exclusive of separately billable procedures. Code Status Full Code Curtis Anderson MD Feb 01, 2018 11:34
[2018-02-01] MEDS: SODIUM CHLOR 0.9% 1000 ML INJ 1,000 ML IV SCH ×2 (11:51→23:55)
[2018-02-01] MEDS: INSULIN NovoLIN REGULAR SUPPLEMENTAL SCALE SQ SCH ×2 (12:00→17:55)
[2018-02-01] MEDS: ENOXAPARIN SODIUM 40 MG/0.4 ML SYRINGE SQ SCH (12:05)
[2018-02-01] MEDS ORDERED: ALBUMIN 5% INJ 250 ML IV ONE ×2 (12:09→12:15)
[2018-02-01] MEDS ORDERED: MULTIVITAMIN INJ 10 ML, THIAMINE INJ 100 MG, FOLIC ACID INJ 1 MG in SODIUM CHLOR 0.45% ... IV ONE (13:00)
[2018-02-01] MEDS: LACTULOSE SYRUP 20 GM/30 ML CUP PO SCH ×3 (14:24→21:06)
[2018-02-01] MEDS: RESP: ALBUTEROL 2.5 MG/IPRATROPIUM 0.5 MG NEB (SCH) INH ×2 (15:03→20:46)
[2018-02-01 15:57] LABS: TROPONIN I 0.24 NG/ML (0.02-0.05)
--- NOTE | 2018-02-01 16:43 | PD.PROCEDR ---
Procedure Note Procedure Procedure: Arterial Line Placement Right radial arterial line Diagnosis: Cardiogenic shock Indications: Need for beat to beat hemodynamic monitoring Consent: Emergent Description of the Procedure: The right wrist was prepped and draped sterilely. 1% lidocaine was used for local anesthesia. The pulse was located and a needle was advanced into the artery. A 20 gauge, 12 cm catheter was advanced into the artery using a modified Seldinger technique. The catheter was sutured to the skin and a sterile dressing was applied. The catheter was connected to a pressure transducer and an arterial waveform was noted. There were no immediate complications noted. There was minimal EBL. I personally performed the procedure. Curtis Anderson MD Feb 01, 2018 16:43
[2018-02-01] MEDS ORDERED: HEPARIN-D5W 25,000 U/250 ML 250 ML IV PRN (16:45)
--- NOTE | 2018-02-01 17:06 | ECHRPT ---
Indication: CHEST PAIN CONCLUSIONS The left ventricular systolic function is hyperdynamic with an estimated ejection fraction in the ra nge of 65- 70%. Normal left ventricular size. Wall thickness is normal. No regional wall motion abnormalities are present. Mild thickening of the mitral valve leaflets. Moderate mitral annular calcification. DifFuse calcification of the aortic valve. Moderate aortic valve regurgitation. There is trace tricuspid valve regurgitation. The estimated pulmonary arterial pressure is 33 mmHg. Trivial pulmonary valve regurgitation. BP: 132 / 50 HR: Rhythm: Sinus Technical Quality:Fair FINDINGS LEFT VENTRICLE The left ventricular systolic function is hyperdynamic with an estimated ejection fraction in the ra nge of 65- 70%. Normal left ventricular size. Wall thickness is normal. No regional wall motion abnormalities are present. RIGHT VENTRICLE Normal right ventricular size and systolic function. LEFT ATRIUM The left atrial size is normal. RIGHT ATRIUM The right atrial size is normal. ATRIAL SEPTUM Normal atrial septal thickness without atrial level shunting by limited color doppler interrogation. AORTA The aortic root and proximal ascending aorta are normal in size on limited imaging. MITRAL VALVE Mild thickening of the mitral valve leaflets. Moderate mitral annular calcification. AORTIC VALVE Trileaflet aortic valve. Diffuse calcification of the aortic valve. Moderat aortic valve regurgitation. TRICUSPID VALVE Structurally normal tricuspid valve. There is trace tricuspid valve regurgitation. The estimated pulmonary arterial pressure is 33 mmHg. PULMONARY VALVE Trivial pulmonary valve regurgitation. VESSELS The inferior vena cava is normal in size. PERICARDIUM No pericardial effusion. Fracisco Rawls MD (Electronically Signed) Final Date:01 February 2018 17:04
[2018-02-01 18:18] LABS: INTERNATIONAL NORMALIZED RATIO 1.4 RATIO; PROTHROMBIN TIME - PATIENT 13.7 SEC (9.8-11.6)
[2018-02-01 18:34] LABS: BICARBONATE 27.8 MEQ/L (21.0-32.0); CALCIUM 7.9 MG/DL (8.5-10.1); CREATININE 0.77 MG/DL (0.60-1.30)
--- NOTE | 2018-02-01 19:30 | EKG ---
Date Performed: 02/01/2018 Time Performed: 05:05:02 PTAGE: 67 years EKG: Sinus rhythm RIGHT ATRIAL ENLARGEMENT POSSIBLE LEFT ATRIAL ENLARGEMENT MARKED LEFT AXIS DEVIATION SEPTAL MYOCARDI AL INFARCTION ABNORMAL ECG Since the PREVIOUS TRACING , no significant change noted PREVIOUS TRACIN01/19/2018 12.20 DOCTOR: Salomon Johnson Interpretating Date/Time 02/01/2018 19:28:35
--- NOTE | 2018-02-01 19:50 | MG ---
cc: Joon Duran MD DATE OF EE02/01/2018 REQUESTING PHYSICIAN: Dr. Duran An EEG was obtained on this 67-year-old patient who is intubated. Syncope workup. Limited EEG because of artifact. Nonetheless, there appears to be a mixture of beta rhythms with some theta activity. There was a lack of more distinct alpha rhythms. Intermittently, there are delta rhythms bilaterally. Photic stimulation disclosed no change. INTERPRETATION: Limited EEG study showing some intermixed slowing suggesting a moderately severe diffuse disturbance of cerebral function. No ictal abnormality. Joon Duran MD OFC/cc , 07:10 PM , 07:49 PM
[2018-02-01] MEDS: FAMOTIDINE 20 MG/2 ML VIAL IV PUSH SCH (21:06)
[2018-02-01] MEDS: CHLORHEXIDINE 0.12% (ORAL KIT) 15 ML CUP MT SCH (21:06)
[2018-02-02] VITALS (27 sets, daily range): BP systolic 106–144; BP diastolic 46–63; PULSE 92–106; RESP 19; TEMP 98.1–99.4; O2SAT 100
[2018-02-02] MEDS: levETIRAcetam INJ 500 MG in SODIUM CHLORIDE 0.9% INJ 100 ML IV SCH ×3 (00:06→23:32)
[2018-02-02] MEDS: THIAMINE INJ 100 MG in SODIUM CHLORIDE 0.9% INJ 100 ML IV SCH (03:10)
[2018-02-02] MEDS: CHLORHEXIDINE GLUCONATE 2 % 1 PACK (2 CLOTHS) TOP SCH (03:11)
[2018-02-02] MEDS: RESP: ALBUTEROL 2.5 MG/IPRATROPIUM 0.5 MG NEB (SCH) INH ×4 (03:23→20:25)
[2018-02-02] MEDS: LEVOTHYROXINE SODIUM 75 MCG TAB PO SCH (05:34)
[2018-02-02] MEDS: INSULIN NovoLIN REGULAR SUPPLEMENTAL SCALE SQ SCH ×5 (05:36→23:35)
[2018-02-02 06:01] LABS: HEMATOCRIT 37.8 % (39.0-51.0); HEMOGLOBIN 12.6 GM/DL (13.0-17.0); MEAN CORPUSCULAR HEMOGLOBIN 34.1 PG (27.0-34.0); MEAN CORPUSCULAR HGB CONC 33.4 % (32.0-36.0); MEAN PLATELET VOLUME 7.5 FL (7.0-11.0); PLATELET COUNT 225 TH/MM3 (150-450); RED BLOOD COUNT 3.71 MIL/MM3 (4.50-5.90); RED CELL DISTRIBUTION WIDTH 12.9 % (11.6-17.2); WHITE BLOOD COUNT 12.9 TH/MM3 (4.0-11.0)
[2018-02-02 06:39] LABS: ALBUMIN 2.7 GM/DL (3.4-5.0); AST (GOT) 180 U/L (15-37); BICARBONATE 32.5 MEQ/L (21.0-32.0); BLOOD UREA NITROGEN 14 MG/DL (7-18); CALCIUM 8.2 MG/DL (8.5-10.1); CHLORIDE 99 MEQ/L (98-107); CREATININE 0.61 MG/DL (0.60-1.30); GLOMERULAR FILTRATION RATE 131 ML/MIN (>89); GLUCOSE,RANDOM 117 MG/DL (74-106); SODIUM (NA) 139 MEQ/L (136-145)
[2018-02-02 06:41] LABS: ALT (GPT) 87 U/L (12-78)
[2018-02-02 06:43] LABS: ALKALINE PHOSPHATASE 78 U/L (45-117); TOTAL BILIRUBIN ADULT 0.4 MG/DL (0.2-1.0); TOTAL PROTEIN 5.8 GM/DL (6.4-8.2)
[2018-02-02] MEDS: POTASSIUM CHLOR 20 MEQ PREMIX 100 ML IV PRN ×2 (08:38→12:07)
[2018-02-02] MEDS: LACTULOSE SYRUP 20 GM/30 ML CUP PO SCH ×4 (08:38→21:02)
[2018-02-02] MEDS: FAMOTIDINE 20 MG/2 ML VIAL IV PUSH SCH ×2 (08:38→21:02)
[2018-02-02] MEDS: SODIUM CHLORIDE 0.9% FLUSH 10 ML FLUSH IVF PRN (08:38)
[2018-02-02] MEDS: MULTIVITAMIN TAB PO SCH (08:39)
[2018-02-02] MEDS: CHLORHEXIDINE 0.12% (ORAL KIT) 15 ML CUP MT SCH ×2 (08:39→21:02)
[2018-02-02 10:34] LABS: TROPONIN I 0.14 NG/ML (0.02-0.05)
[2018-02-02] MEDS: SODIUM CHLOR 0.9% 1000 ML INJ 1,000 ML IV SCH ×2 (11:50→23:34)
--- NOTE | 2018-02-02 12:01 | RADRPT ---
EXAM DATE/TIME: 02/02/2018 10:53 [facility] COMPARISON: CT BRAIN W/O CONTRAST, February 01, 2018, 7:28. INDICATIONS : Anoxic brain injury. MEDICAL HISTORY : Chronic obstructive pulmonary disease. Cirrhosis. SURGICAL HISTORY : Tonsillectomy. Inguinal hernia repair. ENCOUNTER: Initial ACUITY: 1 day PAIN SCORE: 0/10 LOCATION: cranial TECHNIQUE: Multiplanar, multisequence MRI of the brain was performed without contrast. FINDINGS: CEREBRUM: The ventricles are normal for age. No evidence of midline shift, mass lesion, hemorrhage or acute in farction. No extraaxial fluid collections are seen. The pituitary gland and suprasellar cistern are normal in configuration. WHITE MATTER: No significant signal abnormalities are seen in the white matter. POSTERIOR FOSSA: The cerebellum and brainstem are intact. The 4th ventricle is midline. The cerebellopontine angle is unremarkable. The cerebellar tonsils are normal in position. DIFFUSION IMAGING: No focal areas of restricted diffusion are seen. No evidence of acute infarction. EXTRACRANIAL: The visualized portions of the orbits are unremarkable. Mucosal thickening is noted involving the lydia ateral ethmoid and sphenoid sinuses. 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 CONCLUSION: No acute intracranial abnormality. Mild mucosal thickening involving bilateral ethmoid and sphenoid s inuses. 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 Anuel Dueñas MD on February 02, 2018 at 11:52 Board Certified Radiologist. This report was verified electronically.
[2018-02-02] MEDS: ENOXAPARIN SODIUM 40 MG/0.4 ML SYRINGE SQ SCH (12:05)
--- NOTE | 2018-02-02 17:25 | HHI.CCPN ---
Subjective Remarks/Hospital Course Hospital Course: This is 67yM with history per prior records of cirrhosis who presented to the [facility] with [id number] PEA arrest. Per our documentation, He was seen on complaining of syncope and had a negative head CT at that time. He was discharged home. He represented 02/01 to [facility] with similar complaints of syncope , however the patient himself denied any complaints. In the waiting room, reports state he became unresponsive and cyanotic and was resuscitated with bag- valve-mask. He regained consciousness and refused additional care, signing out AMA before any work-up could be done. Per EMS report, when he was in the cab on the way home, he became unresponsive. presenting rhythm was PEA. ROSC was successfully obtained and he was stabilized in the [facility] ED before being transferred to [facility]. I evaluated the patient immediately upon arrival to the ICU. He is comatose and intubated, and no information can be obtained from him. He is on levophed at 15mcg/min. His pupils are 4mm, sluggishly reactive with roving eye movements. He is extensor posturing in the upper extremities and flexor posturing in the lower extremities. he has +cough but negative gag. + corneals. No additional information is obtainable from the patient and ROS is unobtainable. Laboratory evidence from PO demonstrates lactate of 9, trop 0.02, sodium 138, K 2.8, ammonia 46. Subjective: 02/02: no significant improvements. GCS remains 4 despite off sedation x 24h. trops downtrending, likely secondary to CPR and not primary ACS. MRI today without overt evidence of anoxia. remains critically ill and comatose. Objective Vital Signs Date Time Temp Pulse Resp B/P (MAP) Pulse Ox O2 Delivery O2 Flow Rate FiO2 02/02/18 16:30 100 40 02/02/18 06:00 97 02/02/18 04:00 98.1 128/58 (81) 130/54 (79) 02/02/18 00:00 19 02/01/18 09:32 Ventilator Intake and Output 02/02/18 02/02/18 02/03/18 08:00 16:00 00:00 Intake Total 3261.2 ml Output Total 325 ml Balance 2936.2 ml Result Diagram: 02/02/18 0541 02/02/18 0541 Other Results Laboratory Tests Test 02/02/18 05:24 Blood Gas Puncture Site ART LINE Blood Gas Patient Temperature 98.6 Blood Gas HCO3 31 mmol/L (22-26) Blood Gas Base Excess 5.9 mmol/L (-2-2) Blood Gas Oxygen Saturation 97 % (90-100) Arterial Blood pH 7.36 (7.380-7.420) Arterial Blood Partial Pressure CO2 56 mmHg (38-42) Arterial Blood Partial Pressure O2 136 mmHg (61-120) Arterial Blood Oxygen Content 17.4 Vol % (12.0-20.0) Arterial Blood Carboxyhemoglobin 0.7 % (0-4) Arterial Blood Methemoglobin 1.4 % (0-2) Blood Gas Hemoglobin 12.6 G/DL (12.0-16.0) Oxygen Delivery Device VENT Blood Gas Ventilator Setting SEE COMMENTS Blood Gas Inspired Oxygen 40 % Objective Remarks gen: cachetic male, lying in bed, intubated, comatose, appears much older than stated age heent: nc. at. pupils 4mm, slugishly reactive, roving eye movements. inappropriate doll's eyes reflex. mucous membranes moist. neck: trachea midline. neck veins flat. chest: equal chest rise. prvc. 40% fio2. peep 5. spo2 100% cv: normal rate, regular rhythm. abd: scaphoid. soft, nontender, nondistended. no guarding. extr: no peripheral edema. distal pulses 2+. neuro: RASS -5. GCS 4 (E1V1M2). pupils as above. +corneals. - gag. + cough. inappropriate doll's eyes reflex. Upgoing Babinski. A/P Assessment and Plan Assessment: 67yM with cirrhosis and recent multiple complaints of syncope presents after leaving AMA from a syncopal episode and found in [id number] PEA arrest. Unfortunately, the patient is out of the 6 hour window for therapeutic hypothermia at the time of my evaluation, immediately upon arrival to the ICU. Will prevent hyperthermia. remains critically ill. prealbumin is 9 on admission: very cachectic likely secondary to chronic etoh use. remain off sedatives and watch neuro exam. supportive care. unlikely to have favorable prognosis. Neuro: Hypoxic Ischemic Encephalopathy Recurrent Syncope - frequent neuro checks - avoid sedatives - avoid hyperthermia - out of window for therapeutic hypothermia. - EEG: genrealized slowing 02/01. - keppra 500mg iv q12h. - MRI brain: no abnormalities 02/02 - 2d echo 02/01: moderate aortic regurgitation. EF 60%. - keep on telemetry. Resp: Acute hypoxic and hypercarbic respiratory failure - wean fio2 for goal spo2 > 90% - no weaning of mechanical ventilation until mental status improves - vent bundle - hob elevated - nebs - serial ABG CV: Cardiogenic Shock Recurrent Syncope Out of hospital PEA arrest - wean levophed for goal map > 65 mmHg - close uop monitoring - trend lactates - trend abg - low suspicion for ACS - cardiac enzymes downtrending. Renal: - continue reed - strict i/o's FEN/GI: Cirrhosis Failure to thrive severe hypokalemia Acute protein calorie malnutrition - severe Hyperammonemia - likely cause of poor nutrition is etoh - trend pre-Ab qweek. - aggressive K replacement - NGT and tube feeds. 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 very critically ill. Will ask palliative care to consult: likely overall poor prognosis given chronic medical problems and likely anoxic brain injury Critical care time: 33 minutes, exclusive of separately billable procedures. Curtis Anderson MD Feb 02, 2018 17:25
[2018-02-03] VITALS (33 sets, daily range): BP systolic 49–131; BP diastolic 32–67; PULSE 97–140; RESP 15; TEMP 98.9–101.8; O2SAT 80–100
[2018-02-03] MEDS: THIAMINE INJ 100 MG in SODIUM CHLORIDE 0.9% INJ 100 ML IV SCH (02:57)
[2018-02-03] MEDS: CHLORHEXIDINE GLUCONATE 2 % 1 PACK (2 CLOTHS) TOP SCH (02:57)
[2018-02-03] MEDS: RESP: ALBUTEROL 2.5 MG/IPRATROPIUM 0.5 MG NEB (SCH) INH ×4 (03:16→20:51)
[2018-02-03 05:42] LABS: ALBUMIN 2.4 GM/DL (3.4-5.0); AST (GOT) 196 U/L (15-37); BICARBONATE 33.2 MEQ/L (21.0-32.0); BLOOD UREA NITROGEN 11 MG/DL (7-18); CALCIUM 8.4 MG/DL (8.5-10.1); CHLORIDE 104 MEQ/L (98-107); CREATININE 0.43 MG/DL (0.60-1.30); GLOMERULAR FILTRATION RATE 196 ML/MIN (>89); GLUCOSE,RANDOM 146 MG/DL (74-106); SODIUM (NA) 142 MEQ/L (136-145)
[2018-02-03 05:47] LABS: ALKALINE PHOSPHATASE 106 U/L (45-117); ALT (GPT) 107 U/L (12-78); TOTAL BILIRUBIN ADULT 0.4 MG/DL (0.2-1.0); TOTAL PROTEIN 5.6 GM/DL (6.4-8.2)
[2018-02-03] MEDS: INSULIN NovoLIN REGULAR SUPPLEMENTAL SCALE SQ SCH ×3 (06:00→18:00)
[2018-02-03] MEDS: LEVOTHYROXINE SODIUM 75 MCG TAB PO SCH (06:01)
[2018-02-03 06:49] LABS: HEMATOCRIT 36.6 % (39.0-51.0); HEMOGLOBIN 12.2 GM/DL (13.0-17.0); MEAN CELL VOLUME 101.7 FL (80.0-100.0); MEAN CORPUSCULAR HGB CONC 33.4 % (32.0-36.0); MEAN PLATELET VOLUME 7.9 FL (7.0-11.0); PLATELET COUNT 179 TH/MM3 (150-450); RED BLOOD COUNT 3.59 MIL/MM3 (4.50-5.90); RED CELL DISTRIBUTION WIDTH 13.3 % (11.6-17.2); WHITE BLOOD COUNT 13.1 TH/MM3 (4.0-11.0)
[2018-02-03] MEDS: CHLORHEXIDINE 0.12% (ORAL KIT) 15 ML CUP MT SCH ×2 (08:00→21:15)
[2018-02-03] MEDS: MULTIVITAMIN TAB PO SCH (08:55)
[2018-02-03] MEDS: FAMOTIDINE 20 MG/2 ML VIAL IV PUSH SCH (08:55)
[2018-02-03] MEDS: LACTULOSE SYRUP 20 GM/30 ML CUP PO SCH ×4 (09:00→21:16)
[2018-02-03] MEDS: levETIRAcetam INJ 500 MG in SODIUM CHLORIDE 0.9% INJ 100 ML IV SCH ×2 (11:00→21:16)
--- NOTE | 2018-02-03 11:04 | PD.CONS ---
Consult Service Palliative Care . Consult Requested By Dr. Anderson . Primary Care Physician No Primary Care Physician Reason for Consultation a. To assist with evaluation and management of symptoms including: Encephalopathy, dyspnea, debility b. To assist medical decision maker(s) with: better understanding of current medical conditions; weighing benefits/burdens of medical treatment options; making medical treatment decisions. (Tamica Akbar) HPI History of Present Illness Mr. Lizarraga is a 67-year-old male who presented to [facility] ED on 2017 via EMS status post cardiac arrest with ROSC. Apparently the patient had been seen in the ED the night before and was discharged after a CAT scan of his head ruled out any pathology. While he was sitting in a wheelchair in the ED waiting for a taxi, the patient stood up to walk to the bathroom and was found face down near the bathroom, apneic and dusky; patient's color improved after BVM. Mr. Lizarraga was taken to echo positive to be reevaluated. He was alert, oxygen saturation 100% on nonrebreather. Patient had urinated his pants. There was no tonic-clonic activity, no signs of cardiac arrhythmia on monitor and the patient was hemodynamically stable. After a short period of time, the patient insisted he was leaving; he began cursing at the staff and signed out AGAINST MEDICAL ADVICE despite awareness that the medical team was concerned that he may have had a life threatening event requiring further evaluation. According to the yard cleaner report, the patient took a cab home after leaving the ED. As he was walking towards his house he collapsed against the wheel of his truck. When EMS arrived, the patient was found unresponsive and in asystole. Resuscitative measures were initiated; patient received 2 amp of epinephrine in route to the hospital. Upon arrival to the emergency department patient continued to have palpable carotid, radial and femoral pulses but no spontaneous respirations; blood pressure was stable and ongoing resuscitative measures were initiated. Mr. Lizarraga was recently hospitalized overnight on 01/19/18 for a syncopal episode as well as delirium; patient was diagnosed with hypothyroidism during this hospitalization and was started on levothyroxine. Review of medical records on 01/31/2018 shows the patient had a CT of the brain which revealed no acute abnormalities. Additional diagnostic findings: * Vital signs: Pulse 93, respirations 24, blood pressure 109/57, oxygen saturation 93% on 100% FiO2 via mechanical vent. * WBC: 8.9, hemoglobin 15.5, hematocrit 47.9, platelets 336, neutrophils 68.6% * Sodium: 138, potassium 2.8, chloride 94, carbon dioxide 32.0, glucose 100, calcium 8.8, magnesium 2.2 * PT: 11, creatinine 0.81, GFR 94 * Lactic acid: 9.2 * Total bilirubin: 0.5, AST 93, ALT 82, alkaline phosphatase 115 * Ammonia: 46 * CK-MB: 7.0 * Troponin: <0.02 * Total protein: 7.0, albumin 3.2 * PT: 13.4, INR 1.3, APTT 25.9 * Toxicology screening was negative * Blood culture negative today * Urinalysis normal * Chest x-ray showed no confluent infiltrates or effusions. The lungs remain hyperinflated. The heart size is within normal limits with no perihilar edema the bony thorax is intact. * CT brain revealed no acute disease. * CT cervical spine revealed no acute fracture or pre-vertebral soft tissue swelling. Patient was stabilized in the [place] emergency room before being transferred to [facility] for admission to critical care services. Upon arrival to the [facility], the patient is intubated on Levophed at 15mcg/min. his pupils were 4 mm , sluggishly reactive with roving eye movements. He had extensor posturing in the upper extremities and flexor posturing in the lower extremities. Patient had positive corneal reflex, + cough, but no gag reflex. Unfortunately, the 6 hour window for therapeutic hypothermia had passed at the time of evaluation. Troponins were negative 1. EEG on 02/01/18 revealed generalized slowing; echocardiogram showed moderate aortic regurgitation and EF of 60%. Patient has made no significant improvement. On 02/02/18, GCS was still 4 despite being off sedation for 24 hours. Troponins trending downward. MRI of the brain showed no acute intracranial abnormalities, no overt evidence of anoxia. Palliative Care was consulted to assist with symptom management and to discuss with the family the benefits and burdens of his current illnesses and the options regarding future care. . (Tamica Akbar) Review of Systems ROS Limitations: Clinical Condition, Intubated, Altered Mental Status Respiratory: COMPLAINS OF: Shortness of breath Cardiovascular: COMPLAINS OF: Syncope (Tamica Akbar) Past Family Social History Coded Allergies: No Known Allergies (Unverified Adverse Reaction, Unknown, 01/31/18) Past Medical History Cirrhosis Chronic hyponatremia Hypothyroidism COPD Past Surgical History Tonsillectomy Hiatal hernia repair Paracentesis . Reported Medications Levothyroxine (Levothyroxine Sodium) 75 Mcg Tab 75 Mcg PO DAILY . Current Medications Medications (Trade) Dose Ordered Sig/Kassandra Route Start Time Stop Time Status Last Admin (NS Flush) 2 ml UNSCH PRN IVF 02/01/18 05:00 02/02/18 08:38 (Brethine Inj) 1 mg UNSCH PRN SQ 02/01/18 06:00 (Brethine Inj) 1 mg UNSCH PRN SQ 02/01/18 06:00 Norepinephrine Bitartrate 250 ml @ 7.5 mls/hr TITRATE PRN IV 02/01/18 06:15 02/01/18 18:13 (Trandate Inj) 20 mg Q15M PRN IV PUSH 02/01/18 11:00 (Apresoline Inj) 10 mg Q30M PRN IV PUSH 02/01/18 11:00 (Peridex 0.12% Liq) 15 ml BID@08,20 MT 02/01/18 20:00 02/03/18 08:00 Potassium Chloride 100 ml @ 50 mls/hr Q2H PRN IV 02/01/18 11:00 Potassium Chloride 100 ml @ 50 mls/hr Q2H PRN IV 02/01/18 11:00 (K-Lyte Cl Eff) 50 meq UNSCH PRN PO 02/01/18 11:00 Potassium Chloride 100 ml @ 25 mls/hr UNSCH PRN IV 02/01/18 11:00 02/02/18 23:59 Potassium Chloride 100 ml @ 50 mls/hr Q2H PRN IV 02/01/18 11:00 02/02/18 12:07 Magnesium Sulfate 4 gm/Sodium Chloride 100 ml @ 50 mls/hr UNSCH PRN IV 02/01/18 11:00 (Mag-Ox) 800 mg UNSCH PRN PO 02/01/18 11:00 Magnesium Sulfate 2 gm/Sodium Chloride 100 ml @ 50 mls/hr UNSCH PRN IV 02/01/18 11:00 (K-Phos) 2,000 mg Q4H PRN PO 02/01/18 11:00 Sodium Phosphate 30 mmol/Sodium Chloride 250 ml @ 42 mls/hr UNSCH PRN IV 02/01/18 11:00 (K-Phos) 2,000 mg UNSCH PRN PO/TUBE 02/01/18 11:00 Potassium Phosphate 30 mmol/ Sodium Chloride 260 ml @ 42 mls/hr UNSCH PRN IV 02/01/18 11:00 (D50w (Vial) Inj) 25 ml UNSCH PRN IV PUSH 02/01/18 11:00 (NovoLIN R SUPPLEMENTAL SCALE) 1 Q6HR SQ 02/01/18 12:00 (Duoneb Neb) 1 ampule Q6HR NEB INH 02/01/18 16:00 02/03/18 07:35 (Duoneb Neb) 1 ampule Q2HR NEB PRN INH 02/01/18 11:00 Sodium Chloride 1,000 ml @ 84 mls/hr [id number] IV 02/01/18 12:00 02/02/18 23:34 (Pepcid Inj) 20 mg Q12HR IV PUSH 02/01/18 21:00 02/03/18 08:55 (Zofran Inj) 4 mg Q6H PRN IV PUSH 02/01/18 11:00 (Lovenox Inj) 40 mg Q24H SQ 02/01/18 12:00 02/02/18 12:05 Miscellaneous Information 1 Q361D XX 02/01/18 11:00 (Chlorhexidine 2% Cloth) 3 pack Taper DAILY@04 TOP 02/02/18 04:00 01/29/19 03:59 02/03/18 02:57 (Chlorhexidine 2% Cloth) 3 pack UNSCH PRN TOP 02/01/18 11:00 (Synthroid) 75 mcg DAILY@0600 PO 02/02/18 06:00 02/03/18 06:01 Levetriacetam 500 mg/Sodium Chloride 105 ml @ 420 mls/hr Q12H IV 02/01/18 23:00 02/02/18 23:32 (Vitamin B1) 100 mg DAILY PO 02/05/18 09:00 (Theragran) 1 tab DAILY PO 02/02/18 09:00 02/03/18 08:55 (Lactulose Liq) 30 ml QID PO 02/01/18 13:00 02/02/18 21:02 . Family History Pending conversations with patient's family. . Substance Use Tobacco: Active smoker, 1-9 cigarettes daily. Alcohol: Drinks 4-6 beers daily Prescription med abuse: None unknown Illicits: None unknown . Psychosocial History Patient lives with his brother. He lost his sister approximately 5 years ago due to complications related to COPD. He has 2 adult daughters. Spiritual/Cultural Factors Sikh honorio . (Tamica Akbar) Health Care Surrogate(s): Per [place] statutes, in the absence of written advanced directives healthcare proxy decision making would fall to the patient's 2 adult daughters. . Documented care wishes: No written advanced directives have been completed. . Today's verbally stated goals: Patient is critically ill, intubated on mechanical ventilation. He is unable to participate in establishment of medical treatment goals. . Family/friends goals: Pending conversation with patient's family. . Ethical and Legal Issues No known ethical or legal issues impacting care at this time. . (Tamica Akbar) Physical Exam Vital Signs Date Time Temp Pulse Resp B/P (MAP) Pulse Ox O2 Delivery O2 Flow Rate FiO2 02/03/18 08:00 40 02/03/18 08:00 97 02/03/18 08:00 99.0 98 15 117/59 (78) 100 02/03/18 07:36 100 30 02/03/18 06:00 98 02/03/18 04:00 40 02/03/18 04:00 99.7 97 114/57 (76) 100 02/03/18 04:00 97 02/03/18 03:16 100 40 02/03/18 02:00 101 02/03/18 00:00 40 02/03/18 00:00 98.9 97 105/56 (72) 100 02/03/18 00:00 97 02/02/18 23:50 100 40 02/02/18 22:00 96 02/02/18 22:00 96 116/57 (76) 100 Arterial Line 02/02/18 20:27 100 40 02/02/18 20:00 40 02/02/18 20:00 93 02/02/18 20:00 98.3 93 106/59 (75) 100 138/48 (78) 02/02/18 19:00 93 02/02/18 18:00 92 02/02/18 17:00 92 02/02/18 16:30 100 40 02/02/18 16:00 40 02/02/18 16:00 98.5 92 116/60 (78) 100 128/46 (73) 02/02/18 16:00 92 02/02/18 15:00 101 02/02/18 14:00 98 02/02/18 13:09 100 40 02/02/18 13:00 93 02/02/18 12:00 95 02/02/18 12:00 98.7 95 120/59 (79) 100 128/46 (73) 02/02/18 12:00 40 02/02/18 10:56 100 40 02/02/18 10:00 95 Exam CONSTITUTIONAL/GENERAL: Patient is a frail, elderly male patient currently intubated on mechanical ventilation. TUBES/LINES/DRAINS: PIV 2, right femoral CVL, ETT, OGT SKIN: No jaundice, rashes, or lesions. Ecchymoses on upper extremities. Tegaderm on left upper extremity, possible skin tear. Skin temperature appropriate. Not diaphoretic. HEAD: Atraumatic. Normocephalic. EYES: Pupils equal and round, sluggish. Extraocular motions intact. No scleral icterus. No injection or drainage. Fundi not examined. ENT: Unable to assess hearing. Nose without bleeding or purulent drainage. NECK: Trachea midline. CARDIOVASCULAR: Regular rate and rhythm without murmurs, gallops, or rubs. No JVD. Peripheral pulses symmetric. RESPIRATORY/CHEST: Intubated on mechanical ventilator. FiO2 40%; PEEP 5 GASTROINTESTINAL: Abdomen soft, flat. Bowel sounds present. GENITOURINARY: Without palpable bladder distension. Trujillo catheter in place. MUSCULOSKELETAL: Extremities without clubbing, cyanosis, or edema. LYMPHATICS: No palpable cervical or supraclavicular adenopathy. NEUROLOGICAL: + Corneal reflex. Opens eyes spontaneously. Withdrew left lower extremity to deep tactile stimuli. PSYCHIATRIC: Unable to assess secondary to clinical condition. . . (Tamica Akbar) Diagnostic Tests Laboratory Laboratory Tests Test 02/01/18 05:00 02/01/18 05:30 02/01/18 06:00 02/01/18 07:56 White Blood Count 8.9 TH/MM3 (4.0-11.0) Red Blood Count 4.65 MIL/MM3 (4.50-5.90) Hemoglobin 15.5 GM/DL (13.0-17.0) Hematocrit 47.9 % (39.0-51.0) Mean Corpuscular Volume 103.1 FL (80.0-100.0) Mean Corpuscular Hemoglobin 33.3 PG (27.0-34.0) Mean Corpuscular Hemoglobin Concent 32.4 % (32.0-36.0) Red Cell Distribution Width 12.6 % (11.6-17.2) Platelet Count 336 TH/MM3 (150-450) Mean Platelet Volume 7.5 FL (7.0-11.0) Neutrophils (%) (Auto) 68.6 % (16.0-70.0) Lymphocytes (%) (Auto) 21.2 % (9.0-44.0) Monocytes (%) (Auto) 9.5 % (0.0-8.0) Eosinophils (%) (Auto) 0.1 % (0.0-4.0) Basophils (%) (Auto) 0.6 % (0.0-2.0) Neutrophils # (Auto) 6.1 TH/MM3 (1.8-7.7) Lymphocytes # (Auto) 1.9 TH/MM3 (1.0-4.8) Monocytes # (Auto) 0.8 TH/MM3 (0-0.9) Eosinophils # (Auto) 0.0 TH/MM3 (0-0.4) Basophils # (Auto) 0.1 TH/MM3 (0-0.2) CBC Comment DIFF FINAL Differential Comment Prothrombin Time 13.4 SEC (9.8-11.6) Prothromb Time International Ratio 1.3 RATIO Activated Partial Thromboplast Time 25.9 SEC (24.3-30.1) Blood Urea Nitrogen 11 MG/DL (7-18) Creatinine 0.81 MG/DL (0.60-1.30) Random Glucose 100 MG/DL (74-106) Total Protein 7.0 GM/DL (6.4-8.2) Albumin 3.2 GM/DL (3.4-5.0) Calcium Level 8.8 MG/DL (8.5-10.1) Magnesium Level 2.2 MG/DL (1.5-2.5) Alkaline Phosphatase 115 U/L (45-117) Aspartate Amino Transf (AST/SGOT) 93 U/L (15-37) Alanine Aminotransferase (ALT/SGPT) 82 U/L (12-78) Total Bilirubin 0.5 MG/DL (0.2-1.0) Sodium Level 138 MEQ/L (136-145) Potassium Level 2.8 MEQ/L (3.5-5.1) Chloride Level 94 MEQ/L (98-107) Carbon Dioxide Level 32.0 MEQ/L (21.0-32.0) Anion Gap 12 MEQ/L (5-15) Estimat Glomerular Filtration Rate 94 ML/MIN (>89) Lactic Acid Level 9.2 mmol/L (0.4-2.0) Total Creatine Kinase 116 U/L (39-308) Creatine Kinase MB 7.0 NG/ML (0.5-3.6) Troponin I LESS THAN 0.02 NG/ML Blood Gas Puncture Site LT BRACHIAL LT FEMORAL Blood Gas Patient Temperature 98.6 96.0 Blood Gas HCO3 28 mmol/L (22-26) 30 mmol/L (22-26) Blood Gas Base Excess 1.9 mmol/L (-2-2) 4.3 mmol/L (-2-2) Blood Gas Oxygen Saturation 93 % (90-100) 96 % (90-100) Arterial Blood pH 7.26 (7.380-7.420) 7.33 (7.380-7.420) Arterial Blood Partial Pressure CO2 66 mmHG (38-42) 57 mmHG (38-42) Arterial Blood Partial Pressure O2 547 mmHG (61-120) 290 mmHG (61-120) Arterial Blood Oxygen Content 21.1 Vol % (12.0-20.0) 19.5 Vol % (12.0-20.0) Arterial Blood Carboxyhemoglobin 5.1 % (0-4) 2.5 % (0-4) Arterial Blood Methemoglobin 1.5 % (0-2) 1.5 % (0-2) Blood Gas Hemoglobin 15.0 G/DL (12.0-16.0) 14.0 G/DL (12.0-16.0) Oxygen Delivery Device VENTILATOR VENTILATOR Blood Gas Ventilator Setting AC/15/500/PEEP 5 AC 24/ 500/5PEEP Blood Gas Inspired Oxygen 100 % 60 % Ammonia 46 MCMOL/L (11-32) Test 02/01/18 08:40 02/01/18 11:42 02/01/18 12:14 02/01/18 14:30 Urine Collection Type CLEAN CATCH Urine Color YELLOW (YELLW/STRAW) Urine Turbidity SL CLOUDY (CLEAR) Urine pH 6.0 (5.0-8.5) Urine Specific [place] GREATER/EQUAL 1.030 Urine Protein 300 OR GREATER mg/dL Urine Glucose (UA) NEG mg/dL (NEG) Urine Ketones TRACE mg/dL (NEG) Urine Occult Blood MOD (NEG) Urine Nitrite NEG (NEG) Urine Bilirubin NEG (NEG) Urine Urobilinogen 1.0 MG/DL (LESS THAN Urine Leukocyte Esterase NEG (NEG) Urine RBC 15-19 /hpf (0-3) Urine WBC 3-5 /hpf (0-5) Urine Squamous Epithelial Cells 6-8 /hpf (0-5) Urine Amorphous Sediment MOD Urine Fine Granular Casts 3-5 /lpf (NONE) Urine Oval Fat Bodies (NONE) Microscopic Urinalysis Comment CULT NOT INDICATED Urine Collection Time 08:40 Lactic Acid Level 3.2 mmol/L (0.4-2.0) 1.6 mmol/L (0.4-2.0) Urine Opiates Screen NEG (NEG) Urine Barbiturates Screen NEG (NEG) Urine Amphetamines Screen NEG (NEG) Urine Benzodiazepines Screen NEG (NEG) Urine Cocaine Screen NEG (NEG) Urine Cannabinoids Screen NEG (NEG) Nasal Screen MRSA (PCR) MRSA NOT DETECTED (NOT Blood Urea Nitrogen 16 MG/DL (7-18) Creatinine 0.77 MG/DL (0.60-1.30) Random Glucose 129 MG/DL (74-106) Calcium Level 7.9 MG/DL (8.5-10.1) Sodium Level 140 MEQ/L (136-145) Potassium Level 4.1 MEQ/L (3.5-5.1) Chloride Level 100 MEQ/L (98-107) Carbon Dioxide Level 27.8 MEQ/L (21.0-32.0) Anion Gap 12 MEQ/L (5-15) Estimat Glomerular Filtration Rate 100 ML/MIN (>89) Gamma Glutamyl Transpeptidase 52 U/L (15-85) Total Creatine Kinase 1224 U/L (39-308) Creatine Kinase MB 17.0 NG/ML (0.5-3.6) Creatine Kinase MB % 1.4 % (0.0-4.0) Troponin I 0.24 NG/ML (0.02-0.05) Prealbumin 9 MG/DL (20-40) Test 02/01/18 15:30 02/02/18 00:08 02/02/18 03:21 02/02/18 05:24 Prothrombin Time 13.7 SEC (9.8-11.6) Prothromb Time International Ratio 1.4 RATIO Activated Partial Thromboplast Time 31.8 SEC (24.3-30.1) 41.1 SEC (24.3-30.1) Troponin I 0.19 NG/ML (0.02-0.05) 0.18 NG/ML (0.02-0.05) Blood Gas Puncture Site ART LINE Blood Gas Patient Temperature 98.6 Blood Gas HCO3 31 mmol/L (22-26) Blood Gas Base Excess 5.9 mmol/L (-2-2) Blood Gas Oxygen Saturation 97 % (90-100) Arterial Blood pH 7.36 (7.380-7.420) Arterial Blood Partial Pressure CO2 56 mmHg (38-42) Arterial Blood Partial Pressure O2 136 mmHg (61-120) Arterial Blood Oxygen Content 17.4 Vol % (12.0-20.0) Arterial Blood Carboxyhemoglobin 0.7 % (0-4) Arterial Blood Methemoglobin 1.4 % (0-2) Blood Gas Hemoglobin 12.6 G/DL (12.0-16.0) Oxygen Delivery Device VENT Blood Gas Ventilator Setting SEE COMMENTS Blood Gas Inspired Oxygen 40 % Test 02/02/18 05:41 02/02/18 07:33 02/02/18 18:45 02/03/18 04:50 White Blood Count 12.9 TH/MM3 (4.0-11.0) 13.1 TH/MM3 (4.0-11.0) Red Blood Count 3.71 MIL/MM3 (4.50-5.90) 3.59 MIL/MM3 (4.50-5.90) Hemoglobin 12.6 GM/DL (13.0-17.0) 12.2 GM/DL (13.0-17.0) Hematocrit 37.8 % (39.0-51.0) 36.6 % (39.0-51.0) Mean Corpuscular Volume 102.0 FL (80.0-100.0) 101.7 FL (80.0-100.0) Mean Corpuscular Hemoglobin 34.1 PG (27.0-34.0) 34.0 PG (27.0-34.0) Mean Corpuscular Hemoglobin Concent 33.4 % (32.0-36.0) 33.4 % (32.0-36.0) Red Cell Distribution Width 12.9 % (11.6-17.2) 13.3 % (11.6-17.2) Platelet Count 225 TH/MM3 (150-450) 179 TH/MM3 (150-450) Mean Platelet Volume 7.5 FL (7.0-11.0) 7.9 FL (7.0-11.0) Activated Partial Thromboplast Time 51.1 SEC (24.3-30.1) 32.8 SEC (24.3-30.1) Blood Urea Nitrogen 14 MG/DL (7-18) 11 MG/DL (7-18) Creatinine 0.61 MG/DL (0.60-1.30) 0.43 MG/DL (0.60-1.30) Random Glucose 117 MG/DL (74-106) 146 MG/DL (74-106) Total Protein 5.8 GM/DL (6.4-8.2) 5.6 GM/DL (6.4-8.2) Albumin 2.7 GM/DL (3.4-5.0) 2.4 GM/DL (3.4-5.0) Calcium Level 8.2 MG/DL (8.5-10.1) 8.4 MG/DL (8.5-10.1) Alkaline Phosphatase 78 U/L (45-117) 106 U/L (45-117) Aspartate Amino Transf (AST/SGOT) 180 U/L (15-37) 196 U/L (15-37) Alanine Aminotransferase (ALT/SGPT) 87 U/L (12-78) 107 U/L (12-78) Total Bilirubin 0.4 MG/DL (0.2-1.0) 0.4 MG/DL (0.2-1.0) Sodium Level 139 MEQ/L (136-145) 142 MEQ/L (136-145) Potassium Level 3.4 MEQ/L (3.5-5.1) 3.4 MEQ/L (3.5-5.1) 3.5 MEQ/L (3.5-5.1) Chloride Level 99 MEQ/L (98-107) 104 MEQ/L (98-107) Carbon Dioxide Level 32.5 MEQ/L (21.0-32.0) 33.2 MEQ/L (21.0-32.0) Anion Gap 8 MEQ/L (5-15) 5 MEQ/L (5-15) Estimat Glomerular Filtration Rate 131 ML/MIN (>89) 196 ML/MIN (>89) Gamma Glutamyl Transpeptidase 46 U/L (15-85) Ammonia 18 MCMOL/L (11-32) 13 MCMOL/L (11-32) Troponin I 0.14 NG/ML (0.02-0.05) Test 02/03/18 07:55 Potassium Level 3.7 MEQ/L (3.5-5.1) . (Tamica Akbar) Result Diagram: 02/03/18 0450 02/03/18 0755 Microbiology Microbiology Date/Time Source Procedure Growth Status 02/01/18 10:45 Blood Peripheral Aerobic Blood Culture - Preliminary NO GROWTH IN 1 DAY Resulted 02/01/18 10:45 Blood Peripheral Anaerobic Blood Culture - Preliminary NO GROWTH IN 1 DAY Resulted . Imaging Last 72 hours Impressions Brain MRI 02/02/18 0000 Signed Impressions: Service Date/Time: Friday, February 02, 2018 10:53 - CONCLUSION: No acute intracranial abnormality. Mild mucosal thickening involving bilateral ethmoid and sphenoid sinuses. 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 Anuel Dueñas MD Head CT 02/01/18452 Signed Impressions: Service Date/Time: Thursday, February 01, 2018 07:28 - CONCLUSION: No acute disease. Anuel Dueñas MD Chest X-Ray 02/01/18452 Signed Impressions: Service Date/Time: Thursday, February 01, 2018 05:04 - CONCLUSION: Cervical Spine CT 02/01/18 0000 Signed Impressions: Service Date/Time: Thursday, February 01, 2018 07:28 - CONCLUSION: 1. No acute fracture or prevertebral soft tissue swelling. 2. Diffuse cervical spondylosis. 3. Mild bilateral foraminal narrowing at C3-4 and C4-5 and mild left neural foraminal narrowing at C6-7. 4. Mild scoliosis. 5. Biapical emphysema and fibrotic scarring are noted. Anuel Dueñas MD . Procedures 02/01/18: Right femoral CVL placed 02/01/18: Intubation 02/01/18: Right radial arterial line placement . (Tamica Akbar) Patient/Family Conference Present at Family Conference: Spoke to patient's daughter, Ambar, via telephone. Message left for a second daughter (Malia) on her voicemail. Tentative family meeting scheduled for tomorrow 02/04/18 at 4 PM. . Family Conference Location: Telephone Issues Discussed: * Palliative care role, purpose, approach * Palliative care contact information provided . (Tamica Akbar) Assessment and Plan Disease Oriented Problem List: (1) Hypoxic ischemic encephalopathy (2) Acute respiratory failure with hypoxia and hypercarbia (3) Cardiogenic shock (4) PEA (Pulseless electrical activity) (5) Cirrhosis (6) Failure to thrive in adult (7) Hyperammonemia (8) Coagulopathy (9) Hypothyroidism Symptom Scale: Pertinent Non-Medical Issues Psychosocial: Spiritual: Sikh honorio Legal: Ethical issues impacting care: Important Contacts Malia Baires, daughter: [phone] Ambar Lizarraga, daughter: [phone] Code Status: Full Code Plan * FULL CODE * Decision-making: Per [place] statutes, in the absence of written advanced directives healthcare proxy decision making falls to the patient's 2 adult daughters * GOALS REMAIN AGGRESSIVE-pending conversation with patient's family. * Palliative care spoke to patient's daughter, Ambar, via telephone. Message left for a second daughter (Malia) on her voicemail. Tentative family meeting scheduled for tomorrow 02/04/18 at 4 PM. * Discussed patient with nurse (Jackeline) and Dr. Varela. * Palliative care contact information provided to the patient's daughters. * Symptom management: = Encephalopathy: Sedation was discontinued >24 hours ago-patient remains minimally responsive s/p cardiac arrest. MRI of the brain on 02/01/18 showed no acute intracranial. abnormalities, no overt evidence of anoxia. EEG shows generalized slowing. We will continue to monitor. * Palliative care will continue to follow this patient throughout his hospitalization to establish trust, assist with symptom management and clarification of medical treatment goals. . (Tamica Akbar) Thank you for the opportunity to participate in the care of Mr. Lizarraga. . (Tamica Akbar) Collaborating MD Comments To help prompt me to consider important information that might be impacting today's encounter and assessment, information from prior notes written by myself or my colleagues may have been "brought forward" into today's note. My signature on this note, however, is an attestation that I personally performed the exam, history, and/or decision-making noted today, and, unless otherwise indicated, the interactions with patient, family, and staff as well as the review of records all occurred today. I also attest that the listed assessment and stated plan reflect my best clinical judgment today based on the combination of historical information, prior notes, and today's exam/ interactions. When time spent is documented, it refers only to time spent today by the signer, or if indicated, combined time spent today by collaborating physician/nurse practitioner. . (Tamica Akbar) Collaborating MD Comments Chart reviewed. Case discussed with palliative care [facility]. Above [facility] note reviewed and I concur. . (Amor Galloway MD) Tamica Akbar Feb 03, 2018 11:01 Amor Galloway MD Feb 16, 2018 14:41
[2018-02-03] MEDS: ENOXAPARIN SODIUM 40 MG/0.4 ML SYRINGE SQ SCH (12:00)
--- NOTE | 2018-02-03 15:21 | HHI.CCPN ---
Subjective Remarks/Hospital Course Hospital Course: This is 67yM with history per prior records of cirrhosis who presented to the [facility] with [id number] PEA arrest. Per our documentation, He was seen on complaining of syncope and had a negative head CT at that time. He was discharged home. He represented 02/01 to [facility] with similar complaints of syncope , however the patient himself denied any complaints. In the waiting room, reports state he became unresponsive and cyanotic and was resuscitated with bag- valve-mask. He regained consciousness and refused additional care, signing out AMA before any work-up could be done. Per EMS report, when he was in the cab on the way home, he became unresponsive. presenting rhythm was PEA. ROSC was successfully obtained and he was stabilized in the [facility] ED before being transferred to [facility]. I evaluated the patient immediately upon arrival to the ICU. He is comatose and intubated, and no information can be obtained from him. He is on levophed at 15mcg/min. His pupils are 4mm, sluggishly reactive with roving eye movements. He is extensor posturing in the upper extremities and flexor posturing in the lower extremities. he has +cough but negative gag. + corneals. No additional information is obtainable from the patient and ROS is unobtainable. Laboratory evidence from [facility] demonstrates lactate of 9, trop 0.02, sodium 138, K 2.8, ammonia 46. Subjective: 02/02: no significant improvements. GCS remains 4 despite off sedation x 24h. trops downtrending, likely secondary to CPR and not primary ACS. MRI today without overt evidence of anoxia. remains critically ill and comatose. 02/03: Opens eyes today to persistent stimulation. Appears to track do not follow commands. MRI done yesterday no acute findings. Too weak to attempt spontaneous breathing trial or extubation Objective Vital Signs Date Time Temp Pulse Resp B/P (MAP) Pulse Ox O2 Delivery O2 Flow Rate FiO2 02/03/18 14:44 96 30 02/03/18 14:00 111 02/03/18 12:00 99.3 15 127/66 (86) 02/01/18 09:32 Ventilator Intake and Output 02/03/18 02/03/18 02/04/18 08:00 16:00 00:00 Intake Total 1272 ml Output Total 625 ml Balance 647 ml Result Diagram: 02/03/18 0450 02/03/18 0755 Objective Remarks gen: cachetic male, lying in bed, intubated, comatose, appears much older than stated age heent: nc. at. pupils 4mm, sluggishly reactive, opens eyes intermittently tracking neck: trachea midline. neck veins flat. chest: equal chest rise. prvc. 40% fio2. peep 5. spo2 100% cv: normal rate, regular rhythm. abd: scaphoid. soft, nontender, nondistended. no guarding. extr: no peripheral edema. distal pulses 2+. neuro: Pupils as above. +corneals. Opens eyes to stimulation appears to be slightly tracking. Intermittently moves right lower extremity Urinary Catheter: Yes Assessment to: Continue A/P Assessment and Plan Assessment: 67yM with cirrhosis and recent multiple complaints of syncope presents after leaving AMA from a syncopal episode and found in [id number] PEA arrest. Unfortunately, the patient is out of the 6 hour window for therapeutic hypothermia at the time of Dr. nAderson's evaluation, immediately upon arrival to the ICU. Will prevent hyperthermia. remains critically ill. prealbumin is 9 on admission: very cachectic likely secondary to chronic etoh use. remain off sedatives and watch neuro exam. supportive care. unlikely to have favorable prognosis. Neuro: Hypoxic Ischemic Encephalopathy Recurrent Syncope - frequent neuro checks - avoid sedatives - avoid hyperthermia - out of window for therapeutic hypothermia. - EEG: generalized slowing 02/01. - keppra 500mg iv q12h. - MRI brain: no abnormalities 02/02 - 2d echo 02/01: moderate aortic regurgitation. EF 60%. Resp: Acute hypoxic and hypercarbic respiratory failure - wean fio2 for goal spo2 > 90% - SBT not tolerated due to low tidal volumes, unable to extubate due to severe encephalopathy - vent bundle, hob elevated, nebs - serial ABG CV: Cardiogenic Shock Recurrent Syncope Out of hospital PEA arrest - wean levophed for goal map > 65 mmHg - close uop monitoring - trend lactates, trend abg - low suspicion for ACS - cardiac enzymes downtrending. Renal: - continue reed - strict i/o's FEN/GI: Cirrhosis Failure to thrive severe hypokalemia Acute protein calorie malnutrition - severe Hyperammonemia - likely cause of poor nutrition is etoh - trend pre-Ab qweek. - aggressive K replacement - NGT and tube feeds. 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 very critically ill. Palliative care to consulted, very slight improvement in neuro exam. Recommend waiting another 24-48 hours to see whether there is any further improvement Critical care time: 33 minutes, exclusive of separately billable procedures. Yue Stallworth MD Feb 03, 2018 15:21
[2018-02-03] MEDS ORDERED: NOREPINEPHRINE 4 MG/4 ML AMP ONE (18:14)
[2018-02-03] MEDS ORDERED: SODIUM CHLOR 0.9% 1000 ML INJ 1,000 ML IV ONE (18:30)
[2018-02-03] MEDS ORDERED: TERBUTALINE INJ 1 MG/ML AMP SQ PRN (18:30)
[2018-02-03] MEDS: PHENYLEPHRINE INJ 40 MG in DEXTROSE 5% IN WATE 500 ML INJ 496 ML IV PRN ×2 (18:33)
--- NOTE | 2018-02-03 18:56 | HHI.HCPN ---
One of the patient's daughters arrived in the [facility] while I was there. She was informed by the nurse that patient was listed as NO CODE. The daughter became very upset and indicated that she never agreed to that order. I reviewed the clinical notes. The two daughters should be equal proxy decision makers. There is a family meeting scheduled for tomorrow. I have changed code status back to FULL CODE pending this family meeting. Amor Galloway MD Feb 03, 2018 18:56
[2018-02-03] MEDS ORDERED: NOREPINEPHRINE 4 MG/D5W 250 ML IV PRN (20:00)
[2018-02-03] MEDS ORDERED: fentaNYL 2,500 MCG/NS 250 ML IV PRN (20:00)
[2018-02-03] MEDS ORDERED: Vancomycin Consult Pharmacy 1 EA OTHER SCH (20:30)
--- NOTE | 2018-02-03 21:10 | RADRPT ---
EXAM DATE/TIME: 02/03/2018 20:28 [facility] COMPARISON: CHEST SINGLE AP, February 01, 2018, 5:04. INDICATIONS : Shortness of breath. Evaluate for pneumonia. MEDICAL HISTORY : Chronic obstructive pulmonary disease. Cirrhosis. SURGICAL HISTORY : Tonsillectomy. Inguinal hernia repair. ENCOUNTER: Initial ACUITY: 1 day PAIN SCORE: Non-responsive. LOCATION: Bilateral chest FINDINGS: Endotracheal tube in good position. NG tube in the stomach with side-port at the GE junction. Increas ing basilar airspace disease since February 01 with bilateral effusions the right and left. CONCLUSION: 1. Increasing basilar airspace disease and pleural effusions, right greater than left since January 28. Placement of NG tube. Endotracheal tube unchanged. Igor Lewis MD on February 03, 2018 at 21:05 Board Certified Radiologist. This report was verified electronically.
[2018-02-03] MEDS: PIPERACIL-TAZO 3.375 GM PREMIX 50 ML IV SCH (21:15)
[2018-02-03] MEDS: FAMOTIDINE 20 MG TAB PO SCH (21:16)
[2018-02-03] MEDS: SODIUM CHLOR 0.9% 1000 ML INJ 1,000 ML IV SCH (21:18)
[2018-02-03 22:15] LABS: AMORPHOUS SEDIMENT, URINE RARE; BACTERIA, URINE FEW /hpf; BILIRUBIN, URINE NEG (NEG); BLOOD, URINE MOD (NEG); GLUCOSE,URINE NEG (NEG); HYALINE CAST, URINE 21 /lpf (RARE); KETONE, URINE NEG (NEG); MUCUS URINE MANY /lpf (OCC); NITRITE,URINE NEG (NEG); PH, URINE 5.5 (5.0-8.5); SQUAMOUS EPITHELIAL CELL URINE 1 /hpf (0-5); URINE COLOR YELLOW (YELLW/STRAW); URINE LEUKOCYTE ESTERASE MOD (NEG)
[2018-02-03] MEDS: VANCOMYCIN 1,000 MG/NS 250 ML IV SCH ×2 (22:17)
[2018-02-03] MEDS ORDERED: LACTATED RINGER'S 1000 ML INJ 1,000 ML IV ONE (22:30)
[2018-02-03] MEDS: NOREPINEPHRINE 4 MG/D5W 250 ML IV PRN (22:40)
[2018-02-04] VITALS (18 sets, daily range): BP systolic 87–134; BP diastolic 53–62; PULSE 87–113; RESP 15–16; TEMP 97.8–98.2; O2SAT 94–100
[2018-02-04] MEDS: RESP: ALBUTEROL 2.5 MG/IPRATROPIUM 0.5 MG NEB (SCH) INH ×4 (02:13→20:12)
[2018-02-04] MEDS: CHLORHEXIDINE GLUCONATE 2 % 1 PACK (2 CLOTHS) TOP SCH (03:19)
[2018-02-04] MEDS: PIPERACIL-TAZO 3.375 GM PREMIX 50 ML IV SCH ×4 (03:19→20:45)
[2018-02-04] MEDS: NOREPINEPHRINE 4 MG/D5W 250 ML IV PRN ×4 (03:20→22:25)
[2018-02-04] MEDS: PHENYLEPHRINE INJ 40 MG in DEXTROSE 5% IN WATE 500 ML INJ 496 ML IV PRN ×6 (03:20→20:34)
[2018-02-04 05:03] LABS: HEMATOCRIT 37.7 % (39.0-51.0); HEMOGLOBIN 12.7 GM/DL (13.0-17.0); MEAN CELL VOLUME 102.7 FL (80.0-100.0); MEAN CORPUSCULAR HEMOGLOBIN 34.5 PG (27.0-34.0); MEAN CORPUSCULAR HGB CONC 33.6 % (32.0-36.0); MEAN PLATELET VOLUME 8.3 FL (7.0-11.0); PLATELET COUNT 126 TH/MM3 (150-450); RED BLOOD COUNT 3.67 MIL/MM3 (4.50-5.90); RED CELL DISTRIBUTION WIDTH 13.1 % (11.6-17.2); WHITE BLOOD COUNT 4.4 TH/MM3 (4.0-11.0)
[2018-02-04 05:36] LABS: ALBUMIN 1.8 GM/DL (3.4-5.0); AST (GOT) 118 U/L (15-37); BICARBONATE 30.4 MEQ/L (21.0-32.0); BLOOD UREA NITROGEN 18 MG/DL (7-18); CALCIUM 7.9 MG/DL (8.5-10.1); CHLORIDE 102 MEQ/L (98-107); GLOMERULAR FILTRATION RATE 96 ML/MIN (>89); GLUCOSE,RANDOM 106 MG/DL (74-106); SODIUM (NA) 139 MEQ/L (136-145)
[2018-02-04 05:37] LABS: ALT (GPT) 85 U/L (12-78)
[2018-02-04 05:39] LABS: ALKALINE PHOSPHATASE 72 U/L (45-117); TOTAL BILIRUBIN ADULT 0.7 MG/DL (0.2-1.0); TOTAL PROTEIN 4.7 GM/DL (6.4-8.2)
[2018-02-04] MEDS: INSULIN NovoLIN REGULAR SUPPLEMENTAL SCALE SQ SCH ×5 (06:00→22:25)
[2018-02-04] MEDS: LEVOTHYROXINE SODIUM 75 MCG TAB PO SCH (06:17)
[2018-02-04] MEDS ORDERED: ROCURONIUM INJ 50 MG/5 ML VIAL ONE (08:34)
[2018-02-04] MEDS: VANCOMYCIN 1,000 MG/NS 250 ML IV SCH ×4 (09:00→20:45)
--- NOTE | 2018-02-04 09:31 | PD.PROCEDR ---
Central Line Procedure REASON FOR PROCEDURE Central venous access PROCEDURE PERFORMED Central line placement: Left subclavian central line placement CONSENT Informed consent for procedure was obtained and time our performed. The risks and benefits of the procedure were discussed to include but limited to bleeding , clot formation, infection, and even . ANESTHESIA Local injection of 1% Lidocaine DESCRIPTION OF THE PROCEDURE The patient was placed in supine, mild Trendelenburg position. The area was exposed and cleansed with ChloraPrep, times two. Large sterile drape was used to cover the patient, with the site exposed, under sterile conditions including cap, face mask, sterile gown, and sterile gloves. On single attempt, the introducer needle was inserted with negative pressure in syringe and venous flash was obtained. The guide wire was then advanced without any restriction and the needle was removed. The dilator was used without any complications. Using Seldinger technique the 20 cm 7f triple lumen catheter was advanced over the guide wire to a depth of 17 centimeters. The guide wire was removed. All ports were aspirated with dark venous blood return and flushed easily with sterile saline. All ports were capped. Antibiotic disc was placed around central line at puncture site. The central line was secured to the skin with two interrupted 2.0 silk sutures. The area was bandaged with sterile see- through central line bandage. A StatLock was not used due to septic shock and diaphoretic skin COMPLICATIONS: No apparent complications ESTIMATED BLOOD LOSS: Less than 1 cc. Yue Stallworth MD Feb 04, 2018 09:31
--- NOTE | 2018-02-04 09:33 | PD.PROCEDR ---
Procedure Note Procedure REASON FOR PROCEDURE Invasive BP monitoring, septic shock PROCEDURE PERFORMED Left femoral art line placement CONSENT Emergency procedure ANESTHESIA Local injection of 1% Lidocaine DESCRIPTION OF THE PROCEDURE The patient was placed in supine, position. The area was exposed and cleansed with ChloraPrep, times two. Large sterile drape was used to cover the patient, with the site exposed, under sterile conditions the introducer needle was inserted and arterial flash was obtained. The guide wire was then advanced without any restriction and the needle was removed. Using Seldinger technique the arterial catheter was advanced over the guide wire. The guide wire was removed. Good arterial wave form obtained. Antibiotic disc was placed around puncture site. The arterial line was secured to the skin with one interrupted 2.0 silk sutures. The area was bandaged with sterile see-through dressing. COMPLICATIONS: No apparent complications Yue Stallworth MD Feb 04, 2018 09:32
[2018-02-04] MEDS: FAMOTIDINE 20 MG TAB PO SCH ×2 (09:57→20:45)
[2018-02-04] MEDS: LACTULOSE SYRUP 20 GM/30 ML CUP PO SCH ×4 (09:57→20:35)
[2018-02-04] MEDS: MULTIVITAMIN TAB PO SCH (09:57)
[2018-02-04] MEDS: levETIRAcetam INJ 500 MG in SODIUM CHLORIDE 0.9% INJ 100 ML IV SCH ×2 (09:58→22:24)
[2018-02-04] MEDS: CHLORHEXIDINE 0.12% (ORAL KIT) 15 ML CUP MT SCH ×2 (10:08→19:35)
--- NOTE | 2018-02-04 10:17 | HHI.CCPN ---
Subjective Remarks/Hospital Course Hospital Course: This is 67yM with history per prior records of cirrhosis who presented to the [facility] ED with [id number] PEA arrest. Per our documentation, He was seen on complaining of syncope and had a negative head CT at that time. He was discharged home. He represented 02/01 to [facility] with similar complaints of syncope , however the patient himself denied any complaints. In the waiting room, reports state he became unresponsive and cyanotic and was resuscitated with bag- valve-mask. He regained consciousness and refused additional care, signing out AMA before any work-up could be done. Per EMS report, when he was in the cab on the way home, he became unresponsive. presenting rhythm was PEA. ROSC was successfully obtained and he was stabilized in the [facility] ED before being transferred to [facility]. I evaluated the patient immediately upon arrival to the ICU. He is comatose and intubated, and no information can be obtained from him. He is on levophed at 15mcg/min. His pupils are 4mm, sluggishly reactive with roving eye movements. He is extensor posturing in the upper extremities and flexor posturing in the lower extremities. he has +cough but negative gag. + corneals. No additional information is obtainable from the patient and ROS is unobtainable. Laboratory evidence from [facility] demonstrates lactate of 9, trop 0.02, sodium 138, K 2.8, ammonia 46. Subjective: 02/02: no significant improvements. GCS remains 4 despite off sedation x 24h. trops downtrending, likely secondary to CPR and not primary ACS. MRI today without overt evidence of anoxia. remains critically ill and comatose. 02/03: Opens eyes today to persistent stimulation. Appears to track do not follow commands. MRI done yesterday no acute findings. Too weak to attempt spontaneous breathing trial or extubation 02/04: Developed severe septic shock yesterday evening. Was placed on Levophed maxed to 20 mcg/min, Aniceto-Synephrine was also added currently at 120 mcg/min. initially was DNR per palliative care, but the daughter rescinded it later. Currently patient remains unresponsive. Source of sepsis appears to be right lower lobe pneumonia, I have placed a new left subclavian central line will discontinue the right femoral central line Objective Vital Signs Date Time Temp Pulse Resp B/P (MAP) Pulse Ox O2 Delivery O2 Flow Rate FiO2 02/04/18 09:57 91 104/44 02/04/18 09:21 100 50 02/04/18 04:00 98.2 02/04/18 00:00 15 02/01/18 09:32 Ventilator Intake and Output 02/04/18 02/04/18 02/05/18 08:00 16:00 00:00 Intake Total 1722 ml Output Total 600 ml Balance 1122 ml Result Diagram: 02/04/18 0445 02/04/18 0445 Other Results Laboratory Tests Test 02/04/18 09:24 Blood Gas Puncture Site ART LINE Blood Gas Patient Temperature 98.6 Blood Gas HCO3 26 mmol/L (22-26) Blood Gas Base Excess -0.3 mmol/L (-2-2) Blood Gas Oxygen Saturation 92 % (90-100) Arterial Blood pH 7.23 (7.380-7.420) Arterial Blood Partial Pressure CO2 65 mmHg (38-42) Arterial Blood Partial Pressure O2 76 mmHg (61-120) Arterial Blood Oxygen Content 15.9 Vol % (12.0-20.0) Arterial Blood Carboxyhemoglobin 1.0 % (0-4) Arterial Blood Methemoglobin 1.4 % (0-2) Blood Gas Hemoglobin 12.4 G/DL (12.0-16.0) Oxygen Delivery Device VENTILATOR Blood Gas Ventilator Setting VC 500, 15 Blood Gas Inspired Oxygen 50 % Objective Remarks gen: cachetic male, lying in bed, intubated, comatose, appears older than stated age, very critical heent: nc. at. pupils 4mm, sluggishly reactive, not opening eyes neck: trachea midline. neck veins flat. chest: equal chest rise. prvc. 50% fio2. peep 5. Air entry diminished right base cv: normal rate, regular rhythm. No murmurs. In severe shock on Levophed and Aniceto-Synephrine abd: scaphoid. soft, nontender, nondistended. no guarding. extr: no peripheral edema. distal pulses 2+. neuro: Pupils as above. +corneals. Slightly grimaces to pain but no eye opening. Unable to get any withdrawal to pain today Urinary Catheter: Yes Assessment to: Continue Vascular Central Line Catheter: Yes Assessment to: Continue A/P Assessment and Plan Assessment: 67yM with cirrhosis and recent multiple complaints of syncope presents after leaving AMA from a syncopal episode and found in [id number] PEA arrest. Unfortunately, the patient was out of the 6 hour window for therapeutic hypothermia at the time of Dr. Anderson's evaluation. Will prevent hyperthermia. remains critically ill. prealbumin is 9 on admission: very cachectic likely secondary to chronic etoh use. remain off sedatives and watch neuro exam. supportive care. unlikely to have favorable prognosis. Neuro: Hypoxic Ischemic Encephalopathy Recurrent Syncope - frequent neuro checks - avoid sedatives, use low-dose fentanyl for ventilator synchrony - avoid hyperthermia - out of window for therapeutic hypothermia. - EEG: generalized slowing 02/01. - keppra 500mg iv q12h. - MRI brain: no abnormalities 02/02 - Persistent encephalopathy may be secondary to anoxia and now with a metabolic component Resp: Acute hypoxic and hypercarbic respiratory failure Right lower lobe pneumonia - wean fio2 for goal spo2 > 90% - SBT not tolerated due to low tidal volumes, severe encephalopathy - vent bundle, hob elevated, nebs - serial ABG -Sputum culture, started on vancomycin and Zosyn yesterday CV: Cardiogenic, septic Shock Lactic acidosis Recurrent Syncope Out of hospital PEA arrest -Currently on Levophed and Aniceto-Synephrine to keep map above 65 -Continue IV fluids received multiple boluses yesterday - 2d echo 02/01: moderate aortic regurgitation. EF 60%. - close uop monitoring, trend lactates, trend abg - low suspicion for ACS - cardiac enzymes downtrending. - Shock appears to be septic and cardiogenic Renal: - continue reed - strict i/o's FEN/GI: Cirrhosis Failure to thrive severe hypokalemia Acute protein calorie malnutrition - severe Hyperammonemia - likely cause of poor nutrition is etoh - trend pre-Ab qweek. - aggressive K replacement - NGT and tube feeds. 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 very critically ill. Palliative care following. Now with profound septic shock. Prognosis very poor due to multiorgan involvement and failure, family wants aggressive care and full code at this time Critical care time: 35 minutes, exclusive of separately billable procedures. Yue Stallworth MD Feb 04, 2018 10:17
--- NOTE | 2018-02-04 10:23 | RADRPT ---
EXAM DATE/TIME: 02/04/2018 09:43 [facility] COMPARISON: No previous studies available for comparison. INDICATIONS : Central line placement. MEDICAL HISTORY : Chronic obstructive pulmonary disease. Cirrhosis. SURGICAL HISTORY : Tonsillectomy. inguinal hernia repair. ENCOUNTER: Initial ACUITY: 4 - 6 days PAIN SCORE: Non-responsive. LOCATION: Bilateral chest FINDINGS: Left central line has been placed with tip in superior vena cava. No pneumothorax. Bilateral mostly b asilar airspace disease, right greater than left with small effusions. No pneumothorax. CONCLUSION: 1. Bilateral mostly basilar airspace disease, right greater than left with small effusions. 2. Left central line in superior vena cava without pneumothorax. Igor Lewis MD on February 04, 2018 at 10:17 Board Certified Radiologist. This report was verified electronically.
[2018-02-04] MEDS: ENOXAPARIN SODIUM 40 MG/0.4 ML SYRINGE SQ SCH (12:00)
[2018-02-04] MEDS: SODIUM CHLOR 0.9% 1000 ML INJ 1,000 ML IV SCH ×2 (13:50→22:25)
--- NOTE | 2018-02-04 15:48 | HHI.HCPN ---
Reason for visit a. To assist with evaluation and management of symptoms including: Encephalopathy, dyspnea, debility b. To assist medical decision maker(s) with: better understanding of current medical conditions; weighing benefits/burdens of medical treatment options; making medical treatment decisions. Subjective/Interval History Mr. Lizarraga is a 67-year-old male with cirrhosis and multiple, recent complaints of syncope who presented to [facility] ED after leaving AMA from a syncopal episode and found an out of hospital PEA arrest. Unfortunately, the patient was out of the 6 hour window for therapeutic hypothermia at the time of Dr. Anderson's evaluation.Follow-up visit for symptom management and clarification of medical treatment goals. Patient remains critically ill and intubated on mechanical ventilation. He developed septic shock last night. Patient was placed on Levophed maxed to 20 mcg/min, Aniceto-Synephrine was also added. Possible source of infection: = Follow-up chest x-ray this morning showing bilateral mostly basilar airspace disease, right greater than left with small effusions = Sputum culture from 02/03/2018: + Gram-negative froilan = Blood culture from 02/03/18: + E. coli. Right femoral central line was discontinued; Dr. Stallworth placed a new left subclavian central line. Patient remains nonresponsive off sedation. He does not arouse to verbal stimuli or withdraw to noxious stimuli today. . Family/friend interactions Met with patient's daughters (Ambar and Malia) at bedside and inpatient conference room. We discussed patient's hospital course as well as his worsening condition today i.e. septic shock. Patient's daughters verbalized frustration stating that "everyone just wants to tell us he's . We need to give him a chance." Questions answered to the best of my ability. Active listening provided. . Advance Directives Advance Directive Specifics Health Care Surrogate(s): Per [place] statutes, in the absence of written advanced directives healthcare proxy decision making would fall to the patient's 2 adult daughters. . Documented care wishes: No written advanced directives have been completed. . Objective Vital Signs Date Time Temp Pulse Resp B/P (MAP) Pulse Ox O2 Delivery O2 Flow Rate FiO2 02/04/18 14:00 93 02/04/18 12:03 95 50 02/04/18 12:00 98.2 89 16 101/56 (71) 96 107/54 (71) 02/04/18 12:00 50 02/04/18 12:00 87 02/04/18 10:00 92 02/04/18 09:57 91 104/44 02/04/18 09:21 100 50 02/04/18 08:00 97 02/04/18 08:00 98.1 97 16 97/58 (71) 95 02/04/18 08:00 50 02/04/18 07:13 98 103/54 02/04/18 06:00 99 02/04/18 06:00 99 106/51 02/04/18 06:00 99 106/51 02/04/18 04:58 93 72/44 02/04/18 04:58 93 72/44 02/04/18 04:00 50 02/04/18 04:00 99 87/54 02/04/18 04:00 99 87/54 02/04/18 04:00 98.2 99 87/54 (65) 95 02/04/18 04:00 100 02/04/18 03:20 101 71/46 02/04/18 03:20 101 71/46 02/04/18 02:00 104 02/04/18 02:00 104 89/51 02/04/18 02:00 104 89/51 02/04/18 00:48 95 50 02/04/18 00:46 94 50 02/04/18 00:00 113 02/04/18 00:00 50 02/04/18 00:00 98.2 113 15 101/53 (69) 96 02/04/18 00:00 113 101/53 02/04/18 00:00 113 101/53 18 23:00 115 107/57 18 23:00 115 107/57 18 22:40 115 88/52 18 22:00 115 02/03/18 22:00 115 96/50 02/03/18 21:00 120 89/54 18 20:49 100 50 18 20:45 119 90/51 18 20:30 121 86/50 18 20:15 122 82/53 18 20:00 123 02/03/18 20:00 101.8 123 15 84/51 (62) 100 02/03/18 20:00 50 02/03/18 20:00 123 84/51 02/03/18 19:45 124 78/46 02/03/18 19:30 127 91/53 02/03/18 19:15 126 81/51 02/03/18 19:00 131 84/46 02/03/18 18:33 137 83/46 02/03/18 18:00 111 02/03/18 16:30 140 124/59 (80) 80 02/03/18 16:15 140 120/61 (80) 81 02/03/18 16:00 99.1 140 15 49/32 (38) 100 02/03/18 16:00 138 111/65 (80) 84 02/03/18 16:00 50 02/03/18 16:00 111 Intake & Output 02/04/18 02/04/18 07:00 19:00 Intake Total 3877 ml 1935 ml Output Total 600 ml Balance 3277 ml 1935 ml Intake IV Total 3205 ml 1935 ml Tube Feeding 672 ml Output Urine Total 600 ml # Bowel Movements 0 . Physical Exam CONSTITUTIONAL/GENERAL: Patient is a frail, elderly male patient currently intubated on mechanical ventilation. TUBES/LINES/DRAINS: PIV 2, CVL, arterial line, ETT, OGT SKIN: No jaundice, rashes, or lesions. Ecchymoses on upper extremities. Tegaderm on left upper extremity, possible skin tear. Skin temperature appropriate. Not diaphoretic. HEAD: Atraumatic. Normocephalic. EYES: Pupils equal and round, sluggish. Extraocular motions intact. + Scleral edema no injection or drainage. Fundi not examined. ENT: Unable to assess hearing. Nose without bleeding or purulent drainage. What appears to be dried blood around mouth NECK: Trachea midline. CARDIOVASCULAR: Regular rate and rhythm without murmurs, gallops, or rubs. No JVD. Peripheral pulses symmetric. RESPIRATORY/CHEST: Intubated on mechanical ventilator. Coarse air exchange GASTROINTESTINAL: Abdomen soft, flat. Bowel sounds present. GENITOURINARY: Without palpable bladder distension. Trujillo catheter in place. MUSCULOSKELETAL: Extremities without clubbing, cyanosis. + Edema in upper and lower extremities bilaterally LYMPHATICS: No palpable cervical or supraclavicular adenopathy. NEUROLOGICAL: Does not arouse to verbal stimuli; does not withdraw to noxious stimuli. PSYCHIATRIC: Unable to assess secondary to clinical condition. . . Diagnostic Tests Laboratory Laboratory Tests Test 02/02/18 00:08 02/02/18 03:21 02/02/18 05:24 02/02/18 05:41 Activated Partial Thromboplast Time 41.1 SEC (24.3-30.1) 51.1 SEC (24.3-30.1) Troponin I 0.19 NG/ML (0.02-0.05) 0.18 NG/ML (0.02-0.05) Blood Gas Puncture Site ART LINE Blood Gas Patient Temperature 98.6 Blood Gas HCO3 31 mmol/L (22-26) Blood Gas Base Excess 5.9 mmol/L (-2-2) Blood Gas Oxygen Saturation 97 % (90-100) Arterial Blood pH 7.36 (7.380-7.420) Arterial Blood Partial Pressure CO2 56 mmHg (38-42) Arterial Blood Partial Pressure O2 136 mmHg (61-120) Arterial Blood Oxygen Content 17.4 Vol % (12.0-20.0) Arterial Blood Carboxyhemoglobin 0.7 % (0-4) Arterial Blood Methemoglobin 1.4 % (0-2) Blood Gas Hemoglobin 12.6 G/DL (12.0-16.0) Oxygen Delivery Device VENT Blood Gas Ventilator Setting SEE COMMENTS Blood Gas Inspired Oxygen 40 % White Blood Count 12.9 TH/MM3 (4.0-11.0) Red Blood Count 3.71 MIL/MM3 (4.50-5.90) Hemoglobin 12.6 GM/DL (13.0-17.0) Hematocrit 37.8 % (39.0-51.0) Mean Corpuscular Volume 102.0 FL (80.0-100.0) Mean Corpuscular Hemoglobin 34.1 PG (27.0-34.0) Mean Corpuscular Hemoglobin Concent 33.4 % (32.0-36.0) Red Cell Distribution Width 12.9 % (11.6-17.2) Platelet Count 225 TH/MM3 (150-450) Mean Platelet Volume 7.5 FL (7.0-11.0) Blood Urea Nitrogen 14 MG/DL (7-18) Creatinine 0.61 MG/DL (0.60-1.30) Random Glucose 117 MG/DL (74-106) Total Protein 5.8 GM/DL (6.4-8.2) Albumin 2.7 GM/DL (3.4-5.0) Calcium Level 8.2 MG/DL (8.5-10.1) Alkaline Phosphatase 78 U/L (45-117) Aspartate Amino Transf (AST/SGOT) 180 U/L (15-37) Alanine Aminotransferase (ALT/SGPT) 87 U/L (12-78) Total Bilirubin 0.4 MG/DL (0.2-1.0) Sodium Level 139 MEQ/L (136-145) Potassium Level 3.4 MEQ/L (3.5-5.1) Chloride Level 99 MEQ/L (98-107) Carbon Dioxide Level 32.5 MEQ/L (21.0-32.0) Anion Gap 8 MEQ/L (5-15) Estimat Glomerular Filtration Rate 131 ML/MIN (>89) Test 02/02/18 07:33 02/02/18 18:45 02/03/18 04:50 02/03/18 07:55 Gamma Glutamyl Transpeptidase 46 U/L (15-85) Ammonia 18 MCMOL/L (11-32) 13 MCMOL/L (11-32) Troponin I 0.14 NG/ML (0.02-0.05) Potassium Level 3.4 MEQ/L (3.5-5.1) 3.5 MEQ/L (3.5-5.1) 3.7 MEQ/L (3.5-5.1) White Blood Count 13.1 TH/MM3 (4.0-11.0) Red Blood Count 3.59 MIL/MM3 (4.50-5.90) Hemoglobin 12.2 GM/DL (13.0-17.0) Hematocrit 36.6 % (39.0-51.0) Mean Corpuscular Volume 101.7 FL (80.0-100.0) Mean Corpuscular Hemoglobin 34.0 PG (27.0-34.0) Mean Corpuscular Hemoglobin Concent 33.4 % (32.0-36.0) Red Cell Distribution Width 13.3 % (11.6-17.2) Platelet Count 179 TH/MM3 (150-450) Mean Platelet Volume 7.9 FL (7.0-11.0) Activated Partial Thromboplast Time 32.8 SEC (24.3-30.1) Blood Urea Nitrogen 11 MG/DL (7-18) Creatinine 0.43 MG/DL (0.60-1.30) Random Glucose 146 MG/DL (74-106) Total Protein 5.6 GM/DL (6.4-8.2) Albumin 2.4 GM/DL (3.4-5.0) Calcium Level 8.4 MG/DL (8.5-10.1) Alkaline Phosphatase 106 U/L (45-117) Aspartate Amino Transf (AST/SGOT) 196 U/L (15-37) Alanine Aminotransferase (ALT/SGPT) 107 U/L (12-78) Total Bilirubin 0.4 MG/DL (0.2-1.0) Sodium Level 142 MEQ/L (136-145) Chloride Level 104 MEQ/L (98-107) Carbon Dioxide Level 33.2 MEQ/L (21.0-32.0) Anion Gap 5 MEQ/L (5-15) Estimat Glomerular Filtration Rate 196 ML/MIN (>89) Test 02/03/18 20:55 02/03/18 21:10 02/04/18 04:45 02/04/18 09:24 Urine Color YELLOW (YELLW/STRAW) Urine Turbidity CLOUDY (CLEAR) Urine pH 5.5 (5.0-8.5) Urine Specific [place] 1.019 (1.002-1.035) Urine Protein 100 mg/dL (NEG-TRACE) Urine Glucose (UA) NEG mg/dL (NEG) Urine Ketones NEG mg/dL (NEG) Urine Occult Blood MOD (NEG) Urine Nitrite NEG (NEG) Urine Bilirubin NEG (NEG) Urine Urobilinogen 2.0 MG/DL (LESS THAN Urine Leukocyte Esterase MOD (NEG) Urine RBC 59 /hpf (0-3) Urine WBC 13 /hpf (0-5) Urine Squamous Epithelial Cells 1 /hpf (0-5) Urine Amorphous Sediment RARE Urine Bacteria FEW /hpf (NONE) Urine Hyaline Casts 21 /lpf (RARE) Urine Mucus MANY /lpf (OCC) Microscopic Urinalysis Comment CATH-CULTURE IND Lactic Acid Level 4.1 mmol/L (0.4-2.0) White Blood Count 4.4 TH/MM3 (4.0-11.0) Red Blood Count 3.67 MIL/MM3 (4.50-5.90) Hemoglobin 12.7 GM/DL (13.0-17.0) Hematocrit 37.7 % (39.0-51.0) Mean Corpuscular Volume 102.7 FL (80.0-100.0) Mean Corpuscular Hemoglobin 34.5 PG (27.0-34.0) Mean Corpuscular Hemoglobin Concent 33.6 % (32.0-36.0) Red Cell Distribution Width 13.1 % (11.6-17.2) Platelet Count 126 TH/MM3 (150-450) Mean Platelet Volume 8.3 FL (7.0-11.0) Blood Urea Nitrogen 18 MG/DL (7-18) Creatinine 0.80 MG/DL (0.60-1.30) Random Glucose 106 MG/DL (74-106) Total Protein 4.7 GM/DL (6.4-8.2) Albumin 1.8 GM/DL (3.4-5.0) Calcium Level 7.9 MG/DL (8.5-10.1) Alkaline Phosphatase 72 U/L (45-117) Aspartate Amino Transf (AST/SGOT) 118 U/L (15-37) Alanine Aminotransferase (ALT/SGPT) 85 U/L (12-78) Total Bilirubin 0.7 MG/DL (0.2-1.0) Sodium Level 139 MEQ/L (136-145) Potassium Level 3.2 MEQ/L (3.5-5.1) Chloride Level 102 MEQ/L (98-107) Carbon Dioxide Level 30.4 MEQ/L (21.0-32.0) Anion Gap 7 MEQ/L (5-15) Estimat Glomerular Filtration Rate 96 ML/MIN (>89) Ammonia 13 MCMOL/L (11-32) Blood Gas Puncture Site ART LINE Blood Gas Patient Temperature 98.6 Blood Gas HCO3 26 mmol/L (22-26) Blood Gas Base Excess -0.3 mmol/L (-2-2) Blood Gas Oxygen Saturation 92 % (90-100) Arterial Blood pH 7.23 (7.380-7.420) Arterial Blood Partial Pressure CO2 65 mmHg (38-42) Arterial Blood Partial Pressure O2 76 mmHg (61-120) Arterial Blood Oxygen Content 15.9 Vol % (12.0-20.0) Arterial Blood Carboxyhemoglobin 1.0 % (0-4) Arterial Blood Methemoglobin 1.4 % (0-2) Blood Gas Hemoglobin 12.4 G/DL (12.0-16.0) Oxygen Delivery Device VENTILATOR Blood Gas Ventilator Setting VC 500, 15 Blood Gas Inspired Oxygen 50 % . Result Diagram: 02/04/18 0445 02/04/18 0445 Microbiology Microbiology Date/Time Source Procedure Growth Status 02/03/18 21:10 Blood Peripheral Aerobic Blood Culture - Preliminary NO GROWTH IN 1 DAY Resulted 02/03/18 21:10 Anaerobic Blood Culture - Preliminary Escherichia Coli Resulted 02/03/18 21:00 Blood Peripheral Aerobic Blood Culture - Preliminary NO GROWTH IN 1 DAY Resulted 02/03/18 21:00 Blood Peripheral Anaerobic Blood Culture - Preliminary NO GROWTH IN 1 DAY Resulted 02/03/18 20:55 Sputum Endotracheal Gram Stain - Final Resulted 02/03/18 20:55 Sputum Culture - Preliminary Gram Negative Froilan Resulted 02/03/18 20:55 Urine Catheterized Urine Urine Culture - Preliminary NO GROWTH IN 24 HOURS. Resulted . Imaging Last 72 hours Impressions Chest X-Ray 02/04/18 0000 Signed Impressions: Service Date/Time: Sunday, February 04, 2018 09:43 - CONCLUSION: 1. Bilateral mostly basilar airspace disease, right greater than left with small effusions. 2. Left central line in superior vena cava without pneumothorax. Igor Lewis MD Chest X-Ray 02/03/18 0000 Signed Impressions: Service Date/Time: Saturday, February 03, 2018 20:28 - CONCLUSION: 1. Increasing basilar airspace disease and pleural effusions, right greater than left since January 28. Placement of NG tube. Endotracheal tube unchanged. Igor Lewis MD Brain MRI 02/02/18 0000 Signed Impressions: Service Date/Time: Friday, February 02, 2018 10:53 - CONCLUSION: No acute intracranial abnormality. Mild mucosal thickening involving bilateral ethmoid and sphenoid sinuses. 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 Anuel Dueñas MD . Procedures 02/01/18: Right femoral CVL placed 02/01/18: Intubation 02/01/18: Right radial arterial line placement 02/04/18: Left subclavian central line placement 02/04/18: Left femoral arterial line placement . Assessment and Plan Disease Oriented Problem List: (1) Hypoxic ischemic encephalopathy (2) Acute respiratory failure with hypoxia and hypercarbia (3) Cardiogenic shock (4) PEA (Pulseless electrical activity) (5) Cirrhosis (6) Failure to thrive in adult (7) Hyperammonemia (8) Coagulopathy (9) Hypothyroidism Symptom Scale: Pertinent Non-Medical Issues Psychosocial: Spiritual: Buddhism honorio Legal: Ethical issues impacting care: Important Contacts Malia Baires, daughter: [phone] Ambar Lizarraga, daughter: [phone] Prognosis Patient is a 67 yo male s/p out of hospital PEA arrest Code Status: Full Code Plan * FULL CODE * Decision-making: Per [place] statutes, in the absence of written advanced directives healthcare proxy decision making falls to the patient's 2 adult daughters * GOALS REMAIN AGGRESSIVE * Met with patient's daughters (Ambar and Malia) at bedside and inpatient conference room. We discussed patient's hospital course as well as his worsening condition today i.e. septic shock. Patient's daughters verbalized frustration stating that "everyone just wants to tell us he's . We need to give him a chance." Questions answered to the best of my ability. Active listening provided. * Discussed patient with nurse (Maddie) and Dr. Varela. * Symptom management: = Encephalopathy: Sedation was discontinued >24 hours ago-patient remains minimally responsive s/p cardiac arrest. MRI of the brain on 02/01/18 showed no acute intracranial. abnormalities, no overt evidence of anoxia. EEG shows generalized slowing. We will continue to monitor. * Palliative care will continue to follow this patient throughout his hospitalization to establish trust, assist with symptom management and clarification of medical treatment goals. . Attestation To help prompt me to consider important information that might be impacting today's encounter and assessment, information from prior notes written by myself or my colleagues may have been "brought forward" into today's note. My signature on this note, however, is an attestation that I personally performed the exam, history, and/or decision-making noted today, and, unless otherwise indicated, the interactions with patient, family, and staff as well as the review of records all occurred today. I also attest that the listed assessment and stated plan reflect my best clinical judgment today based on the combination of historical information, prior notes, and today's exam/ interactions. When time spent is documented, it refers only to time spent today by the signer, or if indicated, combined time spent today by collaborating physician/nurse practitioner. . Tamica Akbar Feb 04, 2018 15:48
[2018-02-04] MEDS: POTASSIUM CHLOR 40 MEQ PREMIX 100 ML IV PRN (17:34)
[2018-02-04] MEDS ORDERED: PHARMACY ORDERED LAB ONE (20:45)
[2018-02-05] VITALS (21 sets, daily range): BP systolic 102–134; BP diastolic 38–69; PULSE 100–119; RESP 16; TEMP 98–98.5; O2SAT 93–100
[2018-02-05] MEDS: PIPERACIL-TAZO 3.375 GM PREMIX 50 ML IV SCH ×3 (01:14→15:36)
[2018-02-05] MEDS: CHLORHEXIDINE GLUCONATE 2 % 1 PACK (2 CLOTHS) TOP SCH (01:14)
[2018-02-05] MEDS: PHENYLEPHRINE INJ 40 MG in DEXTROSE 5% IN WATE 500 ML INJ 496 ML IV PRN ×6 (02:31→17:43)
[2018-02-05] MEDS: NOREPINEPHRINE 4 MG/D5W 250 ML IV PRN ×5 (02:31→23:19)
[2018-02-05] MEDS: RESP: ALBUTEROL 2.5 MG/IPRATROPIUM 0.5 MG NEB (SCH) INH ×3 (04:00→14:22)
[2018-02-05 05:19] LABS: HEMATOCRIT 35.9 % (39.0-51.0); HEMOGLOBIN 12.1 GM/DL (13.0-17.0); MEAN CELL VOLUME 102.6 FL (80.0-100.0); MEAN CORPUSCULAR HEMOGLOBIN 34.5 PG (27.0-34.0); MEAN CORPUSCULAR HGB CONC 33.7 % (32.0-36.0); MEAN PLATELET VOLUME 8.7 FL (7.0-11.0); PLATELET COUNT 118 TH/MM3 (150-450); RED CELL DISTRIBUTION WIDTH 13.1 % (11.6-17.2); WHITE BLOOD COUNT 20.8 TH/MM3 (4.0-11.0)
[2018-02-05] MEDS: INSULIN NovoLIN REGULAR SUPPLEMENTAL SCALE SQ SCH ×3 (05:31→16:54)
[2018-02-05] MEDS: LEVOTHYROXINE SODIUM 75 MCG TAB PO SCH ×2 (05:32→07:36)
[2018-02-05 05:45] LABS: ALBUMIN 1.7 GM/DL (3.4-5.0); ALT (GPT) 105 U/L (12-78); AST (GOT) 152 U/L (15-37); BLOOD UREA NITROGEN 23 MG/DL (7-18); CHLORIDE 98 MEQ/L (98-107); CREATININE 0.98 MG/DL (0.60-1.30); GLOMERULAR FILTRATION RATE 76 ML/MIN (>89); GLUCOSE,RANDOM 108 MG/DL (74-106); SODIUM (NA) 134 MEQ/L (136-145)
[2018-02-05 05:47] LABS: ALKALINE PHOSPHATASE 114 U/L (45-117); TOTAL BILIRUBIN ADULT 0.8 MG/DL (0.2-1.0)
[2018-02-05] MEDS: FAMOTIDINE 20 MG TAB PO SCH (07:37)
[2018-02-05] MEDS: CHLORHEXIDINE 0.12% (ORAL KIT) 15 ML CUP MT SCH ×2 (07:37→20:54)
[2018-02-05] MEDS: THIAMINE HCL 100 MG TAB PO SCH (07:37)
[2018-02-05] MEDS: MULTIVITAMIN TAB PO SCH (07:37)
[2018-02-05] MEDS: VANCOMYCIN 1,000 MG/NS 250 ML IV SCH ×2 (07:37)
[2018-02-05] MEDS: LACTULOSE SYRUP 20 GM/30 ML CUP PO SCH ×4 (07:38→20:53)
--- NOTE | 2018-02-05 10:37 | RADRPT ---
EXAM DATE/TIME: 02/05/2018 10:08 [facility] COMPARISON: No previous studies available for comparison. INDICATIONS : Vomiting. MEDICAL HISTORY : Chronic obstructive pulmonary disease. Cirrhosis. SURGICAL HISTORY : Tonsillectomy. Inguinal hernia repair. ENCOUNTER: Subsequent ACUITY: 1 month PAIN SCORE: Non-responsive. LOCATION: Bilateral Abdomen FINDINGS: Supine view of the abdomen was performed. There is an NG tube in the stomach. There is no significant dilatation of the large or small bowel. There are some air-filled loops of colon which are nondilate d. There is some stool in the rectum. There is diffuse degenerative changes of the lumbar spine. Ther e are parenchymal changes in the right lower lung.. CONCLUSION: 1. Nonspecific bowel gas pattern with no abnormal dilatation of the large or small bowel. 2. NG tube in the stomach. Justin Jorgensen MD on February 05, 2018 at 10:34 Board Certified Radiologist. This report was verified electronically.
[2018-02-05] MEDS: levETIRAcetam INJ 500 MG in SODIUM CHLORIDE 0.9% INJ 100 ML IV SCH ×2 (10:58→23:19)
[2018-02-05] MEDS: SODIUM CHLOR 0.9% 1000 ML INJ 1,000 ML IV SCH ×2 (10:59→23:19)
[2018-02-05] MEDS: ENOXAPARIN SODIUM 40 MG/0.4 ML SYRINGE SQ SCH (10:59)
--- NOTE | 2018-02-05 15:49 | HHI.HCPN ---
Reason for visit a. To assist with evaluation and management of symptoms including: Encephalopathy, dyspnea, debility b. To assist medical decision maker(s) with: better understanding of current medical conditions; weighing benefits/burdens of medical treatment options; making medical treatment decisions. Subjective/Interval History Mr. Lizarraga is a 67-year-old male with cirrhosis and multiple, recent complaints of syncope who presented to [facility] ED after leaving [facility] from a syncopal episode and found an out of hospital PEA arrest. Unfortunately, the patient was out of the 6 hour window for therapeutic hypothermia at the time of Dr. Anderson's evaluation. Follow-up visit for symptom management and clarification of medical treatment goals. Patient remains critically ill and intubated on mechanical ventilation. He developed septic shock earlier this week and was placed on Levophed maxed to 20 mcg/minute and Aniceto-Synephrine at 130 mcg/minute. Attempting to titrate downward today, currently on Levophed 12mcg and Aniceto-Synephrine 100mcg. = Follow-up chest x-ray on 02/04/2018 bilateral mostly basilar airspace disease, right greater than left with small effusions = Sputum culture from 02/03/2018: + Gram-negative froilan = Blood culture from 02/03/18: + E. coli. Afebrile. WBC trending upward at 20.8; platelets 118 KUB today secondary to vomiting showed a nonspecific bowel gas pattern with no abnormal dilatation of the large or small bowel. Patient is slightly more alert today. Patient opened eyes to verbal stimuli and moved bilateral lower extremities to light touch. . Family/friend interactions Attempted to call patient's daughterAmbar. Message left on voicemail. . Advance Directives Advance Directive Specifics Health Care Surrogate(s): Per [place] statutes, in the absence of written advanced directives healthcare proxy decision making would fall to the patient's 2 adult daughters. . Documented care wishes: No written advanced directives have been completed. . Significant change in goals: Ongoing aggressive goals. . Objective Vital Signs Date Time Temp Pulse Resp B/P (MAP) Pulse Ox O2 Delivery O2 Flow Rate FiO2 02/05/18 14:24 93 40 02/05/18 13:24 40 02/05/18 13:24 96 40 02/05/18 12:03 107 104/42 02/05/18 12:00 113 02/05/18 12:00 40 02/05/18 12:00 98.3 107 109/55 (73) 98 102/41 (61) 02/05/18 11:27 98 40 02/05/18 10:00 107 02/05/18 09:26 109 114/47 02/05/18 09:26 106 110/45 02/05/18 08:00 98.2 110 16 119/58 (78) 99 107/44 (65) 02/05/18 08:00 110 02/05/18 08:00 40 02/05/18 07:43 98 40 02/05/18 07:38 109 109/45 02/05/18 06:00 109 02/05/18 06:00 109 110/46 02/05/18 06:00 109 110/46 02/05/18 04:44 98 50 02/05/18 04:00 50 02/05/18 04:00 98.3 118 16 134/67 (89) 100 132/53 (79) 02/05/18 04:00 118 02/05/18 04:00 118 132/53 02/05/18 04:00 118 132/53 02/05/18 03:00 111 125/52 02/05/18 03:00 111 125/52 02/05/18 02:31 114 137/56 02/05/18 02:31 112 132/54 02/05/18 02:00 108 02/05/18 02:00 108 117/48 02/05/18 02:00 108 117/48 02/05/18 01:15 99 50 02/05/18 00:00 114 02/05/18 00:00 98.5 114 16 126/57 (80) 99 122/52 (75) 02/05/18 00:00 50 02/05/18 00:00 114 122/52 02/05/18 00:00 114 122/52 02/04/18 22:45 105 124/52 02/04/18 22:25 106 133/54 02/04/18 22:00 109 02/04/18 22:00 109 127/53 02/04/18 22:00 109 127/53 02/04/18 20:34 107 119/52 02/04/18 20:12 100 50 3/27/18 20:00 103 02/04/18 20:00 50 02/04/18 20:00 103 129/54 02/04/18 20:00 103 129/54 02/04/18 20:00 98.0 103 16 134/62 (86) 98 129/54 (79) 02/04/18 18:04 99 88/40 02/04/18 18:00 99 02/04/18 16:15 98 50 02/04/18 16:00 96 02/04/18 16:00 50 02/04/18 16:00 97.8 94 114/58 (76) 98 124/59 (80) Intake & Output 02/05/18 02/05/18 07:00 19:00 Intake Total 2695 ml 1298 ml Output Total 1150 ml Balance 1545 ml 1298 ml Intake IV Total 2255 ml 1298 ml Tube Feeding 440 ml Output Urine Total 350 ml Gastric Drainage Total 800 ml # Bowel Movements 5 . Physical Exam CONSTITUTIONAL/GENERAL: Patient is a frail, elderly male patient currently intubated on mechanical ventilation. TUBES/LINES/DRAINS: PIV 2, CVL, arterial line, ETT, OGT SKIN: No jaundice, rashes, or lesions. Ecchymoses on upper extremities. Tegaderm on left upper extremity, possible skin tear. Skin temperature appropriate. Not diaphoretic. HEAD: Atraumatic. Normocephalic. EYES: Pupils equal and round, sluggish. Extraocular motions intact. + Scleral edema no injection or drainage. Fundi not examined. ENT: Unable to assess hearing. Nose without bleeding or purulent drainage. NECK: Trachea midline. CARDIOVASCULAR: Regular rate and rhythm without murmurs, gallops, or rubs. No JVD. Peripheral pulses symmetric. RESPIRATORY/CHEST: Intubated on mechanical ventilator. Coarse air exchange GASTROINTESTINAL: Abdomen soft, flat. Bowel sounds present. GENITOURINARY: Without palpable bladder distension. Trujillo catheter in place. MUSCULOSKELETAL: Extremities without clubbing, cyanosis. + Edema in upper and lower extremities bilaterally LYMPHATICS: No palpable cervical or supraclavicular adenopathy. NEUROLOGICAL: Arouses to verbal stimuli; moves bilateral lower extremities to light touch. PSYCHIATRIC: Unable to assess secondary to clinical condition. . . Diagnostic Tests Laboratory Laboratory Tests Test 02/02/18 18:45 02/03/18 04:50 02/03/18 07:55 02/03/18 20:55 Potassium Level 3.4 MEQ/L (3.5-5.1) 3.5 MEQ/L (3.5-5.1) 3.7 MEQ/L (3.5-5.1) White Blood Count 13.1 TH/MM3 (4.0-11.0) Red Blood Count 3.59 MIL/MM3 (4.50-5.90) Hemoglobin 12.2 GM/DL (13.0-17.0) Hematocrit 36.6 % (39.0-51.0) Mean Corpuscular Volume 101.7 FL (80.0-100.0) Mean Corpuscular Hemoglobin 34.0 PG (27.0-34.0) Mean Corpuscular Hemoglobin Concent 33.4 % (32.0-36.0) Red Cell Distribution Width 13.3 % (11.6-17.2) Platelet Count 179 TH/MM3 (150-450) Mean Platelet Volume 7.9 FL (7.0-11.0) Activated Partial Thromboplast Time 32.8 SEC (24.3-30.1) Blood Urea Nitrogen 11 MG/DL (7-18) Creatinine 0.43 MG/DL (0.60-1.30) Random Glucose 146 MG/DL (74-106) Total Protein 5.6 GM/DL (6.4-8.2) Albumin 2.4 GM/DL (3.4-5.0) Calcium Level 8.4 MG/DL (8.5-10.1) Alkaline Phosphatase 106 U/L (45-117) Aspartate Amino Transf (AST/SGOT) 196 U/L (15-37) Alanine Aminotransferase (ALT/SGPT) 107 U/L (12-78) Total Bilirubin 0.4 MG/DL (0.2-1.0) Sodium Level 142 MEQ/L (136-145) Chloride Level 104 MEQ/L (98-107) Carbon Dioxide Level 33.2 MEQ/L (21.0-32.0) Anion Gap 5 MEQ/L (5-15) Estimat Glomerular Filtration Rate 196 ML/MIN (>89) Ammonia 13 MCMOL/L (11-32) Urine Color YELLOW (YELLW/STRAW) Urine Turbidity CLOUDY (CLEAR) Urine pH 5.5 (5.0-8.5) Urine Specific [place] 1.019 (1.002-1.035) Urine Protein 100 mg/dL (NEG-TRACE) Urine Glucose (UA) NEG mg/dL (NEG) Urine Ketones NEG mg/dL (NEG) Urine Occult Blood MOD (NEG) Urine Nitrite NEG (NEG) Urine Bilirubin NEG (NEG) Urine Urobilinogen 2.0 MG/DL (LESS THAN Urine Leukocyte Esterase MOD (NEG) Urine RBC 59 /hpf (0-3) Urine WBC 13 /hpf (0-5) Urine Squamous Epithelial Cells 1 /hpf (0-5) Urine Amorphous Sediment RARE Urine Bacteria FEW /hpf (NONE) Urine Hyaline Casts 21 /lpf (RARE) Urine Mucus MANY /lpf (OCC) Microscopic Urinalysis Comment CATH-CULTURE IND Test 02/03/18 21:10 02/04/18 04:45 02/04/18 09:24 02/04/18 20:25 Lactic Acid Level 4.1 mmol/L (0.4-2.0) White Blood Count 4.4 TH/MM3 (4.0-11.0) Red Blood Count 3.67 MIL/MM3 (4.50-5.90) Hemoglobin 12.7 GM/DL (13.0-17.0) Hematocrit 37.7 % (39.0-51.0) Mean Corpuscular Volume 102.7 FL (80.0-100.0) Mean Corpuscular Hemoglobin 34.5 PG (27.0-34.0) Mean Corpuscular Hemoglobin Concent 33.6 % (32.0-36.0) Red Cell Distribution Width 13.1 % (11.6-17.2) Platelet Count 126 TH/MM3 (150-450) Mean Platelet Volume 8.3 FL (7.0-11.0) Blood Urea Nitrogen 18 MG/DL (7-18) Creatinine 0.80 MG/DL (0.60-1.30) Random Glucose 106 MG/DL (74-106) Total Protein 4.7 GM/DL (6.4-8.2) Albumin 1.8 GM/DL (3.4-5.0) Calcium Level 7.9 MG/DL (8.5-10.1) Alkaline Phosphatase 72 U/L (45-117) Aspartate Amino Transf (AST/SGOT) 118 U/L (15-37) Alanine Aminotransferase (ALT/SGPT) 85 U/L (12-78) Total Bilirubin 0.7 MG/DL (0.2-1.0) Sodium Level 139 MEQ/L (136-145) Potassium Level 3.2 MEQ/L (3.5-5.1) Chloride Level 102 MEQ/L (98-107) Carbon Dioxide Level 30.4 MEQ/L (21.0-32.0) Anion Gap 7 MEQ/L (5-15) Estimat Glomerular Filtration Rate 96 ML/MIN (>89) Ammonia 13 MCMOL/L (11-32) Blood Gas Puncture Site ART LINE Blood Gas Patient Temperature 98.6 Blood Gas HCO3 26 mmol/L (22-26) Blood Gas Base Excess -0.3 mmol/L (-2-2) Blood Gas Oxygen Saturation 92 % (90-100) Arterial Blood pH 7.23 (7.380-7.420) Arterial Blood Partial Pressure CO2 65 mmHg (38-42) Arterial Blood Partial Pressure O2 76 mmHg (61-120) Arterial Blood Oxygen Content 15.9 Vol % (12.0-20.0) Arterial Blood Carboxyhemoglobin 1.0 % (0-4) Arterial Blood Methemoglobin 1.4 % (0-2) Blood Gas Hemoglobin 12.4 G/DL (12.0-16.0) Oxygen Delivery Device VENTILATOR Blood Gas Ventilator Setting VC 500, 15 Blood Gas Inspired Oxygen 50 % Vancomycin Level Trough 17.5 MCG/ML (5.0-10.0) Test 02/05/18 04:45 White Blood Count 20.8 TH/MM3 (4.0-11.0) Red Blood Count 3.50 MIL/MM3 (4.50-5.90) Hemoglobin 12.1 GM/DL (13.0-17.0) Hematocrit 35.9 % (39.0-51.0) Mean Corpuscular Volume 102.6 FL (80.0-100.0) Mean Corpuscular Hemoglobin 34.5 PG (27.0-34.0) Mean Corpuscular Hemoglobin Concent 33.7 % (32.0-36.0) Red Cell Distribution Width 13.1 % (11.6-17.2) Platelet Count 118 TH/MM3 (150-450) Mean Platelet Volume 8.7 FL (7.0-11.0) Blood Urea Nitrogen 23 MG/DL (7-18) Creatinine 0.98 MG/DL (0.60-1.30) Random Glucose 108 MG/DL (74-106) Total Protein 5.0 GM/DL (6.4-8.2) Albumin 1.7 GM/DL (3.4-5.0) Calcium Level 8.0 MG/DL (8.5-10.1) Alkaline Phosphatase 114 U/L (45-117) Aspartate Amino Transf (AST/SGOT) 152 U/L (15-37) Alanine Aminotransferase (ALT/SGPT) 105 U/L (12-78) Total Bilirubin 0.8 MG/DL (0.2-1.0) Sodium Level 134 MEQ/L (136-145) Potassium Level 4.0 MEQ/L (3.5-5.1) Chloride Level 98 MEQ/L (98-107) Carbon Dioxide Level 28.0 MEQ/L (21.0-32.0) Anion Gap 8 MEQ/L (5-15) Estimat Glomerular Filtration Rate 76 ML/MIN (>89) Ammonia 17 MCMOL/L (11-32) . Result Diagram: 02/05/18 0445 02/05/18 0445 Microbiology Microbiology Date/Time Source Procedure Growth Status 02/03/18 21:10 Blood Peripheral Aerobic Blood Culture - Preliminary NO GROWTH IN 2 DAYS Resulted 02/03/18 21:10 Anaerobic Blood Culture - Preliminary Escherichia Coli Resulted 02/03/18 21:00 Blood Peripheral Aerobic Blood Culture - Preliminary NO GROWTH IN 2 DAYS Resulted 02/03/18 21:00 Blood Peripheral Anaerobic Blood Culture - Preliminary NO GROWTH IN 2 DAYS Resulted 02/03/18 20:55 Sputum Endotracheal Gram Stain - Final Resulted 02/03/18 20:55 Sputum Culture - Preliminary Gram Negative Froilan Resulted 02/03/18 20:55 Urine Catheterized Urine Urine Culture - Final NO GROWTH IN 48 HOURS. Complete . Imaging Last 72 hours Impressions Abdomen X-Ray 02/05/18 0000 Signed Impressions: Service Date/Time: Monday, February 05, 2018 10:08 - CONCLUSION: 1. Nonspecific bowel gas pattern with no abnormal dilatation of the large or small bowel. 2. NG tube in the stomach. Justin Jorgensen MD Chest X-Ray 02/04/18 0000 Signed Impressions: Service Date/Time: Sunday, February 04, 2018 09:43 - CONCLUSION: 1. Bilateral mostly basilar airspace disease, right greater than left with small effusions. 2. Left central line in superior vena cava without pneumothorax. Igor Lewis MD Chest X-Ray 02/03/18 0000 Signed Impressions: Service Date/Time: Saturday, February 03, 2018 20:28 - CONCLUSION: 1. Increasing basilar airspace disease and pleural effusions, right greater than left since January 28. Placement of NG tube. Endotracheal tube unchanged. Igor Lewis MD . Procedures 02/01/18: Right femoral CVL placed 02/01/18: Intubation 02/01/18: Right radial arterial line placement 02/04/18: Left subclavian central line placement 02/04/18: Left femoral arterial line placement . Assessment and Plan Disease Oriented Problem List: (1) Hypoxic ischemic encephalopathy (2) Acute respiratory failure with hypoxia and hypercarbia (3) Cardiogenic shock (4) PEA (Pulseless electrical activity) (5) Cirrhosis (6) Failure to thrive in adult (7) Hyperammonemia (8) Coagulopathy (9) Hypothyroidism Symptom Scale: Pertinent Non-Medical Issues Psychosocial: Patient is originally from [place]. He met his ex- in [facility] which is where he had his 2 daughters. They returned to [place] for approximately 10 years and then moved back to [place] again. Patient is . He currently lives with his brother. He lost his sister approximately 5 years ago due to complications related to COPD Spiritual: [employer] honorio Legal: Per [place] statutes, in the absence of written advanced directives healthcare proxy decision making falls to the patient's 2 daughters Ethical issues impacting care: No known ethical issues impacting care at this time. . Important Contacts Malia Baires, daughter: [phone] Ambar Lizarraga, daughter: [phone] Prognosis Patient is a 67 yo male s/p out of hospital PEA arrest Code Status: Full Code Plan * FULL CODE * Decision-making: Per [place] statutes, in the absence of written advanced directives healthcare proxy decision making falls to the patient's 2 adult daughters * GOALS REMAIN AGGRESSIVE * Met with patient's daughters (Ambar and Malia) at bedside and inpatient conference room. We discussed patient's hospital course as well as his worsening condition today i.e. septic shock. Patient's daughters verbalized frustration stating that "everyone just wants to tell us he's . We need to give him a chance." * Discussed patient with nurse (Maddie) * Crtt consult placed per daughter's request. * Symptom management: = Encephalopathy: Sedation was discontinued >24 hours ago-patient remains minimally responsive s/p cardiac arrest. MRI of the brain on 02/01/18 showed no acute intracranial. abnormalities, no overt evidence of anoxia. EEG shows generalized slowing. Improving. Arouses to verbal stimuli; moves bilateral lower extremities to light touch. We will continue to monitor. * Palliative care will continue to follow this patient throughout his hospitalization to establish trust, assist with symptom management and clarification of medical treatment goals. . Attestation To help prompt me to consider important information that might be impacting today's encounter and assessment, information from prior notes written by myself or my colleagues may have been "brought forward" into today's note. My signature on this note, however, is an attestation that I personally performed the exam, history, and/or decision-making noted today, and, unless otherwise indicated, the interactions with patient, family, and staff as well as the review of records all occurred today. I also attest that the listed assessment and stated plan reflect my best clinical judgment today based on the combination of historical information, prior notes, and today's exam/ interactions. When time spent is documented, it refers only to time spent today by the signer, or if indicated, combined time spent today by collaborating physician/nurse practitioner. . Tamica Akbar Feb 05, 2018 15:49
[2018-02-05] MEDS ORDERED: ASP: Path resistant to other antimicrobials, culture proven PRN (16:15)
[2018-02-05] MEDS ORDERED: MISCELLANEOUS PHARMACY INFORMATION XX PRN (16:15)
[2018-02-05] MEDS ORDERED: PIPERACIL-TAZO 4.5 GM PREMIX 100 ML IV SCH (16:15)
--- NOTE | 2018-02-05 16:19 | HHI.CCPN ---
Subjective Remarks/Hospital Course Hospital Course: This is 67yM with history per prior records of cirrhosis who presented to the [facility] with [id number] PEA arrest. Per our documentation, He was seen on complaining of syncope and had a negative head CT at that time. He was discharged home. He represented 02/01 to [facility] with similar complaints of syncope , however the patient himself denied any complaints. In the waiting room, reports state he became unresponsive and cyanotic and was resuscitated with bag- valve-mask. He regained consciousness and refused additional care, signing out AMA before any work-up could be done. Per EMS report, when he was in the cab on the way home, he became unresponsive. presenting rhythm was PEA. ROSC was successfully obtained and he was stabilized in the [facility] before being transferred to [facility]. I evaluated the patient immediately upon arrival to the ICU. He is comatose and intubated, and no information can be obtained from him. He is on levophed at 15mcg/min. His pupils are 4mm, sluggishly reactive with roving eye movements. He is extensor posturing in the upper extremities and flexor posturing in the lower extremities. he has +cough but negative gag. + corneals. No additional information is obtainable from the patient and ROS is unobtainable. Laboratory evidence from [facility] demonstrates lactate of 9, trop 0.02, sodium 138, K 2.8, ammonia 46. Subjective: 02/02: no significant improvements. GCS remains 4 despite off sedation x 24h. trops downtrending, likely secondary to CPR and not primary ACS. MRI today without overt evidence of anoxia. remains critically ill and comatose. 02/03: Opens eyes today to persistent stimulation. Appears to track do not follow commands. MRI done yesterday no acute findings. Too weak to attempt spontaneous breathing trial or extubation 02/04: Developed severe septic shock yesterday evening. Was placed on Levophed maxed to 20 mcg/min, Aniceto-Synephrine was also added currently at 120 mcg/min. initially was DNR per palliative care, but the daughter rescinded it later. Currently patient remains unresponsive. Source of sepsis appears to be right lower lobe pneumonia, I have placed a new left subclavian central line will discontinue the right femoral central line 02/05: Remains in severe septic shock. Sputum culture with gram-negative rods, blood culture with E. coli. Will change to meropenem to cover for ESBL E. coli , currently on Zosyn. Also start stress dose steroids Objective Vital Signs Date Time Temp Pulse Resp B/P (MAP) Pulse Ox O2 Delivery O2 Flow Rate FiO2 02/05/18 16:00 40 02/05/18 16:00 105 02/05/18 14:24 93 02/05/18 12:03 104/42 02/05/18 12:00 98.3 02/05/18 08:00 16 02/01/18 09:32 Ventilator Intake and Output 02/05/18 02/05/18 02/06/18 08:00 16:00 00:00 Intake Total 790 ml 1048 ml Output Total 1150 ml Balance -360 ml 1048 ml Result Diagram: 02/05/18 0445 02/05/18 0445 Other Results Microbiology Date/Time Source Procedure Growth Status 02/03/18 20:55 Urine Catheterized Urine Urine Culture - Final NO GROWTH IN 48 HOURS. Complete Objective Remarks gen: cachetic male, lying in bed, intubated, encephalopathy, appears older than stated age, very critical heent: nc. at. pupils 4mm, sluggishly reactive, partial eye opening neck: trachea midline. neck veins flat. chest: equal chest rise. prvc. 50% fio2. peep 5. Air entry diminished right base cv: normal rate, regular rhythm. No murmurs. In severe shock on Levophed and Aniceto-Synephrine abd: scaphoid. soft, nontender, nondistended. no guarding. extr: no peripheral edema. distal pulses 2+. neuro: Pupils as above. +corneals. Slightly grimaces to pain partial eye opening. Slight delayed withdrawal to pain 4 A/P Assessment and Plan Assessment: 67yM with cirrhosis and recent multiple complaints of syncope presents after leaving AMA from a syncopal episode and found in [id number] PEA arrest. Unfortunately, the patient was out of the 6 hour window for therapeutic hypothermia at the time of Dr. Anderson's evaluation. Will prevent hyperthermia. remains critically ill. prealbumin is 9 on admission: very cachectic likely secondary to chronic etoh use. remain off sedatives and watch neuro exam. supportive care. unlikely to have favorable prognosis. Neuro: Hypoxic Ischemic Encephalopathy Metabolic encephalopathy secondary to sepsis Recurrent Syncope - frequent neuro checks - Use sedation only for ventilatory synchrony - avoid hyperthermia - out of window for therapeutic hypothermia. - EEG: generalized slowing 02/01. - keppra 500mg iv q12h. - MRI brain: no abnormalities 02/02 - Persistent encephalopathy may be secondary to anoxia and now with a metabolic component Resp: Acute hypoxic and hypercarbic respiratory failure Right lower lobe pneumonia/E COli in sputum - wean fio2 for goal spo2 > 90% - SBT without extubation due to severe encephalopathy - vent bundle, hob elevated, nebs - serial ABG -Sputum culture, started on vancomycin and Zosyn 02/03. Change to Meropenem to cover ESBL E coli CV: Septic Shock Lactic acidosis Recurrent Syncope Out of hospital PEA arrest -Currently on Levophed and Aniceto-Synephrine to keep map above 65 -Continue IV fluids resuscitation - 2d echo 02/01: moderate aortic regurgitation. EF 60%. - close uop monitoring, trend lactates, trend abg - low suspicion for ACS - cardiac enzymes downtrending. - Shock appears to be septic and cardiogenic - Start stress dose steroids Renal: - continue reed - strict i/o's FEN/GI: Cirrhosis Failure to thrive severe hypokalemia Acute protein calorie malnutrition - severe Hyperammonemia - likely cause of poor nutrition is etoh - trend pre-Ab qweek. - aggressive K replacement - NGT and tube feeds. - iv thiamine and MVI - lactulose and daily ammonia checks - ICU electrolyte protocol - Daily CMP - Add Reglan Heme/ID: Septic shock/. E. coli bacteremia Gram-negative pneumonia Coagulopathy secondary to end-stage liver disease - Discontinue vancomycin and Zosyn - Start meropenem to cover for probable ESBL E. coli (septic shock not improving after 48 hours of Zosyn, white count worsening) - Sputum culture GNR, blood culture E. coli - INR 1.3 which is stable from prior admissions, likely secondary to cirrhosis Endocrine: Hypothyroidism Hyperglycemia of critical illness - SSI, med scale, q6h - home Synthroid - Stress dose steroids as above Prophylaxis: - SCDs - iv pepcid - lovenox sq Lines: - right radial art line 02/01-was dcd, placed new left femoral art line today - right femoral cvl 02/01-DC 02/04/18, New left subclavian central line placed - reed Dispo: remain in ICU. very critically ill. Palliative care following. Now with profound septic shock. Prognosis very poor due to multiorgan involvement and failure, family wants aggressive care and full code at this time Critical care time: 35 minutes, exclusive of separately billable procedures. Yue Stallworth MD Feb 05, 2018 16:19
[2018-02-05] MEDS: METOCLOPRAMIDE HCL 10 MG/2 ML VIAL IV PUSH SCH (17:12)
[2018-02-05] MEDS: HYDROCORTISONE SOD SUCCINATE 100 MG VIAL IV SCH (17:42)
[2018-02-05] MEDS: MEROPENEM INJ 1,000 MG in SODIUM CHLORIDE 0.9% INJ 100 ML IV SCH (18:00)
[2018-02-05] MEDS: RESP: ALBUTEROL 2.5 MG/IPRATROPIUM 0.5 MG NEB (PRN) INH (20:14)
[2018-02-05] MEDS: SODIUM CHLORIDE 0.9% FLUSH 10 ML FLUSH IVF PRN (20:53)
[2018-02-06] VITALS (23 sets, daily range): BP systolic 87–148; BP diastolic 40–72; PULSE 70–98; RESP 14–15; TEMP 97.6–98; O2SAT 96–100
[2018-02-06] MEDS: HYDROCORTISONE SOD SUCCINATE 100 MG VIAL IV SCH ×3 (02:33→17:18)
[2018-02-06] MEDS: METOCLOPRAMIDE HCL 10 MG/2 ML VIAL IV PUSH SCH ×3 (02:34→17:19)
[2018-02-06] MEDS: CHLORHEXIDINE GLUCONATE 2 % 1 PACK (2 CLOTHS) TOP SCH (02:34)
[2018-02-06] MEDS: MEROPENEM INJ 1,000 MG in SODIUM CHLORIDE 0.9% INJ 100 ML IV SCH ×3 (02:45→17:29)
[2018-02-06 04:06] LABS: HEMATOCRIT 32.6 % (39.0-51.0); HEMOGLOBIN 11.1 GM/DL (13.0-17.0); MEAN CELL VOLUME 100.6 FL (80.0-100.0); MEAN CORPUSCULAR HEMOGLOBIN 34.2 PG (27.0-34.0); MEAN CORPUSCULAR HGB CONC 34.1 % (32.0-36.0); MEAN PLATELET VOLUME 8.4 FL (7.0-11.0); PLATELET COUNT 105 TH/MM3 (150-450); RED BLOOD COUNT 3.24 MIL/MM3 (4.50-5.90); RED CELL DISTRIBUTION WIDTH 12.7 % (11.6-17.2); WHITE BLOOD COUNT 23.6 TH/MM3 (4.0-11.0)
[2018-02-06 04:30] LABS: ALBUMIN 1.5 GM/DL (3.4-5.0); ALT (GPT) 99 U/L (12-78); AST (GOT) 103 U/L (15-37); BICARBONATE 28.6 MEQ/L (21.0-32.0); BLOOD UREA NITROGEN 20 MG/DL (7-18); CALCIUM 8.2 MG/DL (8.5-10.1); CHLORIDE 100 MEQ/L (98-107); CREATININE 0.69 MG/DL (0.60-1.30); GLOMERULAR FILTRATION RATE 114 ML/MIN (>89); GLUCOSE,RANDOM 85 MG/DL (74-106); MAGNESIUM 1.3 MG/DL (1.5-2.5); SODIUM (NA) 137 MEQ/L (136-145)
[2018-02-06 04:32] LABS: ALKALINE PHOSPHATASE 138 U/L (45-117); TOTAL BILIRUBIN ADULT 0.8 MG/DL (0.2-1.0); TOTAL PROTEIN 4.5 GM/DL (6.4-8.2)
--- NOTE | 2018-02-06 04:52 | RADRPT ---
EXAM DATE/TIME: 02/06/2018 03:18 [place] COMPARISON: CHEST SINGLE AP, February 04, 2018, 9:43. INDICATIONS : Shortness of breath, possible pulmonary disease. MEDICAL HISTORY : Chronic obstructive pulmonary disease. Cirrhosis. SURGICAL HISTORY : Tonsillectomy. Inguinal hernia repair. ENCOUNTER: Subsequent ACUITY: 1 week PAIN SCORE: Non-responsive. LOCATION: Bilateral chest FINDINGS: A single view of the chest demonstrates minimal interstitial changes predominantly in the right lung. Small bilateral pleural effusions and bibasilar densities. Nasogastric tube and left subclavian cent ral line in stable position. Osseous structures are intact. CONCLUSION: Slight improvement of right lung density with probable small pleural effusions. Amaury Francisco MD on February 06, 2018 at 4:49 Board Certified Radiologist. This report was verified electronically.
[2018-02-06] MEDS: NOREPINEPHRINE 4 MG/D5W 250 ML IV PRN ×3 (05:54→19:37)
[2018-02-06] MEDS: POTASSIUM CHLOR 40 MEQ PREMIX 100 ML IV PRN ×2 (05:54→09:20)
[2018-02-06] MEDS: INSULIN NovoLIN REGULAR SUPPLEMENTAL SCALE SQ SCH ×4 (05:55→17:17)
[2018-02-06 07:22] LABS: BANDS 16 % (0-6); DOHLE BODIES PRESENT (NONE SEEN); MONOCYTES 4 % (0-8); NEUTROPHIL # MANUAL DIFF 22.7 TH/MM3 (1.8-7.7); POLYS (SEG NEUTROPHILS) 80 % (16-70)
[2018-02-06 07:23] LABS: TOXIC GRANULATION 1+ (NORMAL)
[2018-02-06] MEDS: LACTULOSE SYRUP 20 GM/30 ML CUP PO SCH ×4 (08:12→20:46)
[2018-02-06] MEDS: CHLORHEXIDINE 0.12% (ORAL KIT) 15 ML CUP MT SCH ×2 (08:12→20:46)
[2018-02-06] MEDS: THIAMINE HCL 100 MG TAB PO SCH (08:12)
[2018-02-06] MEDS: MULTIVITAMIN TAB PO SCH (08:12)
[2018-02-06] MEDS: ENOXAPARIN SODIUM 40 MG/0.4 ML SYRINGE SQ SCH (10:25)
[2018-02-06] MEDS: levETIRAcetam INJ 500 MG in SODIUM CHLORIDE 0.9% INJ 100 ML IV SCH (12:05)
--- NOTE | 2018-02-06 13:48 | HHI.HCPN ---
Reason for visit a. To assist with evaluation and management of symptoms including: Encephalopathy, dyspnea, debility b. To assist medical decision maker(s) with: better understanding of current medical conditions; weighing benefits/burdens of medical treatment options; making medical treatment decisions. Subjective/Interval History Mr. Lizarraga is a 67-year-old male with cirrhosis and multiple, recent complaints of syncope who presented to [facility] ED after leaving AMA from a syncopal episode and found an out of hospital PEA arrest. Unfortunately, the patient was out of the 6 hour window for therapeutic hypothermia at the time of Dr. Anderson's evaluation. Follow-up visit for symptom management and clarification of medical treatment goals. Patient remains critically ill and intubated on mechanical ventilation; he is tolerating CPAP trials this morning. Weaned off Aniceto-Synephrine; Levophed at 7 mcg/minute. Afebrile; WBC: 23.6; platelets decreased to 105 = Follow-up chest x-ray this morning 02/06/2018 showed slight improvement of right lung density with probable small pleural effusions. = Sputum culture from 02/03/2018: + Gram-negative mary = Blood culture from 02/03/18: + E. coli. = Wound consult pending KUB secondary to emesis yesterday 02/05/18 showed a nonspecific bowel gas pattern with no abnormal dilatation of the large or small bowel. Patient remains NPO; NGT to LIWS with dark greenish drainage. Patient is slightly more alert today. Patient opened eyes to verbal stimuli, wiggles toes on command, attempts to squeeze my hand. . Family/friend interactions Spoke to patient's daughter, Malia, via telephone. Hospital course was reviewed and an update was provided on the patient's current clinical condition. She feels her father is "doing great, maybe better than before." I explained that while the patient has shown improvement in some areas, he remains critically ill with multiorgan involvement. Family desires ongoing aggressive care; patient remains a FULL CODE. . Advance Directives Advance Directive Specifics Health Care Surrogate(s): Per [place] statutes, in the absence of written advanced directives healthcare proxy decision making would fall to the patient's 2 adult daughters. . Documented care wishes: No written advanced directives have been completed. . Objective Vital Signs Date Time Temp Pulse Resp B/P (MAP) Pulse Ox O2 Delivery O2 Flow Rate FiO2 02/06/18 12:00 97.8 90 15 113/59 (77) 100 120/53 (75) 02/06/18 12:00 90 02/06/18 12:00 40 02/06/18 11:38 100 40 02/06/18 10:00 95 02/06/18 08:00 90 02/06/18 08:00 40 02/06/18 08:00 98.0 90 14 133/65 (87) 100 146/59 (88) 02/06/18 07:54 40 02/06/18 07:54 99 40 02/06/18 06:00 92 02/06/18 06:00 92 119/56 (77) 99 122/53 (76) 02/06/18 05:54 90 110/47 02/06/18 05:00 91 02/06/18 05:00 91 125/55 (78) 99 123/47 (72) 02/06/18 04:07 98 40 02/06/18 04:00 40 02/06/18 04:00 91 02/06/18 04:00 98.0 91 91/50 (64) 97 88/41 (57) 02/06/18 03:00 91 02/06/18 02:23 98 40 02/06/18 02:00 95 02/06/18 00:00 98 02/06/18 00:00 40 02/06/18 00:00 97.8 98 89/50 (63) 96 87/46 (60) 02/05/18 23:19 101 107/48 02/05/18 23:00 101 117/69 (85) 100 114/51 (72) 02/05/18 23:00 101 02/05/18 22:00 100 02/05/18 22:00 100 111/67 (82) 96 114/52 (72) 02/05/18 21:00 106 127/66 (86) 98 108/44 (65) 02/05/18 21:00 106 02/05/18 20:00 102 02/05/18 20:00 98.0 102 118/64 (82) 99 107/45 (65) 02/05/18 20:00 40 02/05/18 19:46 98 40 02/05/18 19:00 105 124/64 02/05/18 18:00 119 02/05/18 17:43 109 116/43 02/05/18 17:43 109 116/43 02/05/18 16:00 98.3 105 112/57 (75) 93 104/38 (60) 02/05/18 16:00 40 02/05/18 16:00 105 02/05/18 14:24 93 40 02/05/18 14:00 106 Intake & Output 02/06/18 02/06/18 07:00 19:00 Intake Total 2140 ml 100 ml Output Total 1025 ml Balance 1115 ml 100 ml Intake IV Total 2020 ml 100 ml Tube Feeding 0 ml Tube Irrigant 120 ml Output Urine Total 1025 ml # Bowel Movements 2 . Physical Exam CONSTITUTIONAL/GENERAL: Patient is a frail, elderly male patient currently intubated on mechanical ventilation. TUBES/LINES/DRAINS: PIV 2, CVL, arterial line, ETT, NGT, rectal tube, [place] SKIN: No jaundice, rashes, or lesions. Ecchymoses on upper extremities. Tegaderm on left upper extremity, possible skin tear. Skin temperature appropriate. Not diaphoretic. HEAD: Atraumatic. Normocephalic. EYES: Pupils equal and round, sluggish. Extraocular motions intact. No injection or drainage. Fundi not examined. ENT: Hearing appears normal. Nose without bleeding or purulent drainage. NECK: Trachea midline. CARDIOVASCULAR: Regular rate and rhythm without murmurs, gallops, or rubs. No JVD. Peripheral pulses symmetric. RESPIRATORY/CHEST: Intubated on mechanical ventilator, tolerating CPAP trials on exam GASTROINTESTINAL: Abdomen soft, flat. Bowel sounds present. GENITOURINARY: Without palpable bladder distension. [place] catheter in place. MUSCULOSKELETAL: Extremities without clubbing, cyanosis. + Edema in upper and lower extremities bilaterally, upper extremities weeping. LYMPHATICS: No palpable cervical or supraclavicular adenopathy. NEUROLOGICAL: Arouses to verbal stimuli, wiggles toes to command, attempts to squeeze examiner's hand on command PSYCHIATRIC: No apparent anxiety/agitation noted .. . Diagnostic Tests Laboratory Laboratory Tests Test 02/03/18 20:55 02/03/18 21:10 02/04/18 04:45 02/04/18 09:24 Urine Color YELLOW (YELLW/STRAW) Urine Turbidity CLOUDY (CLEAR) Urine pH 5.5 (5.0-8.5) Urine Specific [place] 1.019 (1.002-1.035) Urine Protein 100 mg/dL (NEG-TRACE) Urine Glucose (UA) NEG mg/dL (NEG) Urine Ketones NEG mg/dL (NEG) Urine Occult Blood MOD (NEG) Urine Nitrite NEG (NEG) Urine Bilirubin NEG (NEG) Urine Urobilinogen 2.0 MG/DL (LESS THAN Urine Leukocyte Esterase MOD (NEG) Urine RBC 59 /hpf (0-3) Urine WBC 13 /hpf (0-5) Urine Squamous Epithelial Cells 1 /hpf (0-5) Urine Amorphous Sediment RARE Urine Bacteria FEW /hpf (NONE) Urine Hyaline Casts 21 /lpf (RARE) Urine Mucus MANY /lpf (OCC) Microscopic Urinalysis Comment CATH-CULTURE IND Lactic Acid Level 4.1 mmol/L (0.4-2.0) White Blood Count 4.4 TH/MM3 (4.0-11.0) Red Blood Count 3.67 MIL/MM3 (4.50-5.90) Hemoglobin 12.7 GM/DL (13.0-17.0) Hematocrit 37.7 % (39.0-51.0) Mean Corpuscular Volume 102.7 FL (80.0-100.0) Mean Corpuscular Hemoglobin 34.5 PG (27.0-34.0) Mean Corpuscular Hemoglobin Concent 33.6 % (32.0-36.0) Red Cell Distribution Width 13.1 % (11.6-17.2) Platelet Count 126 TH/MM3 (150-450) Mean Platelet Volume 8.3 FL (7.0-11.0) Blood Urea Nitrogen 18 MG/DL (7-18) Creatinine 0.80 MG/DL (0.60-1.30) Random Glucose 106 MG/DL (74-106) Total Protein 4.7 GM/DL (6.4-8.2) Albumin 1.8 GM/DL (3.4-5.0) Calcium Level 7.9 MG/DL (8.5-10.1) Alkaline Phosphatase 72 U/L (45-117) Aspartate Amino Transf (AST/SGOT) 118 U/L (15-37) Alanine Aminotransferase (ALT/SGPT) 85 U/L (12-78) Total Bilirubin 0.7 MG/DL (0.2-1.0) Sodium Level 139 MEQ/L (136-145) Potassium Level 3.2 MEQ/L (3.5-5.1) Chloride Level 102 MEQ/L (98-107) Carbon Dioxide Level 30.4 MEQ/L (21.0-32.0) Anion Gap 7 MEQ/L (5-15) Estimat Glomerular Filtration Rate 96 ML/MIN (>89) Ammonia 13 MCMOL/L (11-32) Blood Gas Puncture Site ART LINE Blood Gas Patient Temperature 98.6 Blood Gas HCO3 26 mmol/L (22-26) Blood Gas Base Excess -0.3 mmol/L (-2-2) Blood Gas Oxygen Saturation 92 % (90-100) Arterial Blood pH 7.23 (7.380-7.420) Arterial Blood Partial Pressure CO2 65 mmHg (38-42) Arterial Blood Partial Pressure O2 76 mmHg (61-120) Arterial Blood Oxygen Content 15.9 Vol % (12.0-20.0) Arterial Blood Carboxyhemoglobin 1.0 % (0-4) Arterial Blood Methemoglobin 1.4 % (0-2) Blood Gas Hemoglobin 12.4 G/DL (12.0-16.0) Oxygen Delivery Device VENTILATOR Blood Gas Ventilator Setting VC 500, 15 Blood Gas Inspired Oxygen 50 % Test 02/04/18 20:25 02/05/18 04:45 02/06/18 03:55 Vancomycin Level Trough 17.5 MCG/ML (5.0-10.0) White Blood Count 20.8 TH/MM3 (4.0-11.0) 23.6 TH/MM3 (4.0-11.0) Red Blood Count 3.50 MIL/MM3 (4.50-5.90) 3.24 MIL/MM3 (4.50-5.90) Hemoglobin 12.1 GM/DL (13.0-17.0) 11.1 GM/DL (13.0-17.0) Hematocrit 35.9 % (39.0-51.0) 32.6 % (39.0-51.0) Mean Corpuscular Volume 102.6 FL (80.0-100.0) 100.6 FL (80.0-100.0) Mean Corpuscular Hemoglobin 34.5 PG (27.0-34.0) 34.2 PG (27.0-34.0) Mean Corpuscular Hemoglobin Concent 33.7 % (32.0-36.0) 34.1 % (32.0-36.0) Red Cell Distribution Width 13.1 % (11.6-17.2) 12.7 % (11.6-17.2) Platelet Count 118 TH/MM3 (150-450) 105 TH/MM3 (150-450) Mean Platelet Volume 8.7 FL (7.0-11.0) 8.4 FL (7.0-11.0) Blood Urea Nitrogen 23 MG/DL (7-18) 20 MG/DL (7-18) Creatinine 0.98 MG/DL (0.60-1.30) 0.69 MG/DL (0.60-1.30) Random Glucose 108 MG/DL (74-106) 85 MG/DL (74-106) Total Protein 5.0 GM/DL (6.4-8.2) 4.5 GM/DL (6.4-8.2) Albumin 1.7 GM/DL (3.4-5.0) 1.5 GM/DL (3.4-5.0) Calcium Level 8.0 MG/DL (8.5-10.1) 8.2 MG/DL (8.5-10.1) Alkaline Phosphatase 114 U/L (45-117) 138 U/L (45-117) Aspartate Amino Transf (AST/SGOT) 152 U/L (15-37) 103 U/L (15-37) Alanine Aminotransferase (ALT/SGPT) 105 U/L (12-78) 99 U/L (12-78) Total Bilirubin 0.8 MG/DL (0.2-1.0) 0.8 MG/DL (0.2-1.0) Sodium Level 134 MEQ/L (136-145) 137 MEQ/L (136-145) Potassium Level 4.0 MEQ/L (3.5-5.1) 3.2 MEQ/L (3.5-5.1) Chloride Level 98 MEQ/L (98-107) 100 MEQ/L (98-107) Carbon Dioxide Level 28.0 MEQ/L (21.0-32.0) 28.6 MEQ/L (21.0-32.0) Anion Gap 8 MEQ/L (5-15) 8 MEQ/L (5-15) Estimat Glomerular Filtration Rate 76 ML/MIN (>89) 114 ML/MIN (>89) Ammonia 17 MCMOL/L (11-32) 17 MCMOL/L (11-32) CBC Comment AUTO DIFF Differential Total Cells Counted 100 Neutrophils % (Manual) 80 % (16-70) Band Neutrophils % 16 % (0-6) Monocytes % 4 % (0-8) Neutrophils # (Manual) 22.7 TH/MM3 (1.8-7.7) Differential Comment FINAL DIFF MANUAL Toxic Granulation 1+ (NORMAL) Dohle Bodies PRESENT (NONE SEEN) Platelet Estimate LOW (NORMAL) Platelet Morphology Comment NORMAL (NORMAL) Magnesium Level 1.3 MG/DL (1.5-2.5) . Result Diagram: 02/06/18 0355 02/06/18 0355 Microbiology Microbiology Date/Time Source Procedure Growth Status 02/03/18 21:10 Blood Peripheral Aerobic Blood Culture - Preliminary NO GROWTH IN 3 DAYS Resulted 02/03/18 21:10 Anaerobic Blood Culture - Final Escherichia Coli Resulted 02/03/18 21:00 Blood Peripheral Aerobic Blood Culture - Preliminary NO GROWTH IN 3 DAYS Resulted 02/03/18 21:00 Blood Peripheral Anaerobic Blood Culture - Preliminary NO GROWTH IN 3 DAYS Resulted 02/03/18 20:55 Sputum Endotracheal Gram Stain - Final Complete 02/03/18 20:55 Sputum Endotracheal Sputum Culture - Final Complete 02/03/18 20:55 Urine Catheterized Urine Urine Culture - Final NO GROWTH IN 48 HOURS. Complete . Imaging Last 72 hours Impressions Chest X-Ray 02/06/18 0600 Signed Impressions: Service Date/Time: January 03:18 - CONCLUSION: Slight improvement of right lung density with probable small pleural effusions. Amaury Francisco MD Abdomen X-Ray 02/05/18 0000 Signed Impressions: Service Date/Time: Monday, February 05, 2018 10:08 - CONCLUSION: 1. Nonspecific bowel gas pattern with no abnormal dilatation of the large or small bowel. 2. NG tube in the stomach. Justin Jorgensen MD Chest X-Ray 02/04/18 0000 Signed Impressions: Service Date/Time: Sunday, February 04, 2018 09:43 - CONCLUSION: 1. Bilateral mostly basilar airspace disease, right greater than left with small effusions. 2. Left central line in superior vena cava without pneumothorax. Igor Lewis MD . Procedures 02/01/18: Right femoral CVL placed 02/01/18: Intubation 02/01/18: Right radial arterial line placement 02/04/18: Left subclavian central line placement 02/04/18: Left femoral arterial line placement . Assessment and Plan Disease Oriented Problem List: (1) Hypoxic ischemic encephalopathy (2) Acute respiratory failure with hypoxia and hypercarbia (3) Cardiogenic shock (4) PEA (Pulseless electrical activity) (5) Cirrhosis (6) Failure to thrive in adult (7) Hyperammonemia (8) Coagulopathy (9) Hypothyroidism Symptom Scale: Pertinent Non-Medical Issues Psychosocial: Patient is originally from [place]. He met his ex- in [facility] which is where he had his 2 daughters. They returned to [place] for approximately 10 years and then moved back to [place] again. Patient is . He currently lives with his brother. He lost his sister approximately 5 years ago due to complications related to COPD Spiritual: [employer] Legal: Per [place] statutes, in the absence of written advanced directives healthcare proxy decision making falls to the patient's 2 daughters Ethical issues impacting care: No known ethical issues impacting care at this time. . Important Contacts Malia Baires, daughter: [phone] Ambar Lizarraga, daughter: [phone] Prognosis Patient is a 67 yo male s/p out of hospital PEA arrest Code Status: Full Code Plan * FULL CODE * Decision-making: Per [place] statutes, in the absence of written advanced directives healthcare proxy decision making falls to the patient's 2 adult daughters * GOALS REMAIN AGGRESSIVE * Spoke to patient's daughter, Malia, via telephone. Hospital course was reviewed and an update was provided on the patient's current clinical condition. She feels her father is "doing great, maybe better than before." I explained that while the patient has shown improvement in some areas, he remains critically ill with multiorgan involvement. Family desires ongoing aggressive care; patient remains a FULL CODE. * Discussed patient with nurse ([place]) * Symptom management: = Encephalopathy: Off sedation. Patient had been minimally responsive status post out of hospital cardiac arrest, now showing slow improvement. Opening eyes to verbal stimuli; wiggling toes and attempting to squeeze examiner's hand on command. MRI of the brain on 02/01/18 showed no acute intracranial. abnormalities, no overt evidence of anoxia. EEG shows generalized slowing. We will continue to monitor. = Dyspnea: Patient remains intubated on mechanical ventilation, tolerating CPAP trials today. Follow-up chest x-ray this morning 02/06/2018 showed slight improvement of right lung density with probable small pleural effusions. Sputum culture from 02/03/2018: + Gram-negative mary = Debility: Patient has been hospitalized twice during 01/2018, having frequent episodes of syncope. Patient family reports an acute decline with > 25 + weight loss reported in the past year. Multiple areas of impaired skin integrity, wound consult pending. Would recommend getting physical therapy involved when the patient is stable. * Palliative care will continue to follow this patient throughout his hospitalization to establish trust, assist with symptom management and clarification of medical treatment goals. . Attestation To help prompt me to consider important information that might be impacting today's encounter and assessment, information from prior notes written by myself or my colleagues may have been "brought forward" into today's note. My signature on this note, however, is an attestation that I personally performed the exam, history, and/or decision-making noted today, and, unless otherwise indicated, the interactions with patient, family, and staff as well as the review of records all occurred today. I also attest that the listed assessment and stated plan reflect my best clinical judgment today based on the combination of historical information, prior notes, and today's exam/ interactions. When time spent is documented, it refers only to time spent today by the signer, or if indicated, combined time spent today by collaborating physician/nurse practitioner. . Tamica Akbar Feb 06, 2018 13:48
--- NOTE | 2018-02-06 15:51 | PD.WCN.NOT ---
Wound Consult Description: Consult for Pressure Related Skin Issue to buttocks per Dr August Communicated with: JOSE CARLOS Townsend Dr paged X2 for recommendations and findings; never received call back. Recommendation: Plastics consult for debridement of NECROTIC UNSTAGABLE SACRAL PRESSURE INJURY if a surgical candidate. STRICT 2 HOUR TURNS from LEFT to RIGHT sides only Use ULTRASORB disposable underpads for moisture DO NOT USE CLOTH PADS UNDER PATIENTS ON LOW AIR LOSS MATTRESS (KIKI) 1. Apply Santyl nickel thickness to MAXORB II and place over unstagable pressure injury on sacrum DAILY 2. Skin prep periwound (surrounding tissue) 3. Secure with bordered gauze dressing To skin tear on left forearm: 1. Leave Versatel contact layer dressing in place for 7 days. 2. Change 4x4's and ABD pads daily and PRN for saturation. 3. Secure with rolled gauze and tape. Leave ecchymosis on right upper back and left knee open to air. May apply skin prep BID to keep dry. Leave dried blood on upper lip open to air. Continue to float heels off mattress surface with blue heel raiser boots. Additional Information: Patient seen on [facility] for wound evaluation of sacrum and left arm skin tear. Patient was positioned to his left side for assessment. Hydrocolloid dressing was removed to reveal an unstageable pressure injury over the sacrum measuring 7cm x 9cm x 100% black leathery necrotic tissue. Periwound is noted with non blanching erythema and skin tears with partial thickness skin loss. There is no odor and no active drainage noted to this wound. Wound was left open to air, cloth underpad was removed and patient was positioned to his right side with 2 staggered ultrasorb breathable pads left in place for moisture underneath lower back, buttocks, and upper thighs. Left ar skin tear was cleansed with NS and gauze. Versatel contact layer was placed and covered with 4x4's and ABD pad secured with rolled gauze and tape. Versatel contact layer may remain in place for up to 7 days with cover dressings changed as needed. Left knee ecchymosis was visualized with a transparent film dressing that was left in place. Foam adhesive dressing was removed from right side upper back ecchymosis and left open to air. Bilateral heels are blanching erythema noted in blue heel raiser boots. Upper lip is noted with a adherent dried blood and left open to air. Zarina Barksdale [facility] Feb 06, 2018 15:51
[2018-02-06] MEDS: SODIUM CHLOR 0.9% 1000 ML INJ 1,000 ML IV SCH (17:27)
[2018-02-06] MEDS ORDERED: ALBUMIN 25% INJ 100 ML IV ONE (20:15)
[2018-02-06] MEDS ORDERED: FUROSEMIDE 40 MG/4 ML VIAL IV PUSH ONE (20:15)
[2018-02-06 20:16] LABS: MAGNESIUM 1.6 MG/DL (1.5-2.5)
--- NOTE | 2018-02-06 20:25 | HHI.CCPN ---
Subjective Remarks/Hospital Course Hospital Course: This is 67yM with history per prior records of cirrhosis who presented to the [facility] with [id number] PEA arrest. Per our documentation, He was seen on complaining of syncope and had a negative head CT at that time. He was discharged home. He represented 02/01 to [facility] with similar complaints of syncope , however the patient himself denied any complaints. In the waiting room, reports state he became unresponsive and cyanotic and was resuscitated with bag- valve-mask. He regained consciousness and refused additional care, signing out AMA before any work-up could be done. Per EMS report, when he was in the cab on the way home, he became unresponsive. presenting rhythm was PEA. ROSC was successfully obtained and he was stabilized in the [facility] ED before being transferred to [facility]. I evaluated the patient immediately upon arrival to the ICU. He is comatose and intubated, and no information can be obtained from him. He is on levophed at 15mcg/min. His pupils are 4mm, sluggishly reactive with roving eye movements. He is extensor posturing in the upper extremities and flexor posturing in the lower extremities. he has +cough but negative gag. + corneals. No additional information is obtainable from the patient and ROS is unobtainable. Laboratory evidence from [facility] demonstrates lactate of 9, trop 0.02, sodium 138, K 2.8, ammonia 46. Subjective: 02/02: no significant improvements. GCS remains 4 despite off sedation x 24h. trops downtrending, likely secondary to CPR and not primary ACS. MRI today without overt evidence of anoxia. remains critically ill and comatose. 02/03: Opens eyes today to persistent stimulation. Appears to track do not follow commands. MRI done yesterday no acute findings. Too weak to attempt spontaneous breathing trial or extubation 02/04: Developed severe septic shock yesterday evening. Was placed on Levophed maxed to 20 mcg/min, Aniceto-Synephrine was also added currently at 120 mcg/min. initially was DNR per palliative care, but the daughter rescinded it later. Currently patient remains unresponsive. Source of sepsis appears to be right lower lobe pneumonia, I have placed a new left subclavian central line will discontinue the right femoral central line 02/05: Remains in severe septic shock. Sputum culture with gram-negative rods, blood culture with E. coli. Will change to meropenem to cover for ESBL E. coli , currently on Zosyn. Also start stress dose steroids 02/06: remains in shock on vasopressors. sputum culture with pansensitive e. coli , but wbc uptrending and in shock despite meropenem. awake and following commands, although very encephalopathic. Objective Vital Signs Date Time Temp Pulse Resp B/P (MAP) Pulse Ox O2 Delivery O2 Flow Rate FiO2 02/06/18 19:37 83 117/79 02/06/18 19:19 96 40 02/06/18 16:00 97.7 02/06/18 12:00 15 Intake and Output 02/06/18 02/06/18 02/07/18 08:00 16:00 00:00 Intake Total 470 ml 500 ml 100 ml Output Total 1025 ml 1150 ml Balance -555 ml 500 ml -1050 ml Result Diagram: 02/06/18 0355 02/06/18 1935 Other Results Microbiology Date/Time Source Procedure Growth Status 02/03/18 20:55 Sputum Endotracheal Gram Stain - Final Complete 02/03/18 20:55 Sputum Endotracheal Sputum Culture - Final Complete 02/03/18 20:55 Urine Catheterized Urine Urine Culture - Final NO GROWTH IN 48 HOURS. Complete Objective Remarks gen: cachetic male, lying in bed, intubated, encephalopathy, appears older than stated age, very critical heent: nc. at. pupils 4mm, sluggishly reactive, partial eye opening neck: trachea midline. JVD 2 cm above clavicle. chest: equal chest rise. prvc. 40% fio2. peep 5. cv: normal rate, regular rhythm. remains in shock on levophed at 12 mcg/min. abd: scaphoid. soft, nontender, nondistended. no guarding. extr: no peripheral edema. distal pulses 2+. neuro: Pupils as above. +corneals. RASS -2 off all sedation. weakly follows commands x 4. A/P Assessment and Plan Assessment: 67yM with cirrhosis and recent multiple complaints of syncope presents after leaving AMA from a syncopal episode and found in [id number] PEA arrest. very cachectic likely secondary to chronic etoh use. remain off sedatives and watch neuro exam. remains in shock. will obtain gallbladder ultrasound to r/o acalculus cholecystitis. continue meropenem for another 24h before narrowing spectrum, given that patient is off pathway. very critically ill and unlikely to have favorable outcome. Neuro: Hypoxic Ischemic Encephalopathy Metabolic encephalopathy secondary to sepsis Recurrent Syncope - frequent neuro checks - Use sedation only for ventilatory synchrony - avoid hyperthermia - EEG: generalized slowing 02/01. - keppra 500mg iv q12h. - MRI brain: no abnormalities 02/02 - Persistent encephalopathy may be secondary to anoxia and now with a metabolic component Resp: Acute hypoxic and hypercarbic respiratory failure Right lower lobe pneumonia/E Coli in sputum - wean fio2 for goal spo2 > 90% - SBT without extubation due to severe encephalopathy - vent bundle, hob elevated, nebs - serial ABG -Sputum culture, started on vancomycin and Zosyn 02/03. Change to Meropenem to cover ESBL E coli. CV: Septic Shock Lactic acidosis Recurrent Syncope Out of hospital PEA arrest -Currently on Levophed to keep map above 65 d/c ivf. start lasix. appears to be volume overloaded despite shock. - 2d echo 02/01: moderate aortic regurgitation. EF 60%. - close uop monitoring, trend lactates, trend abg - low suspicion for ACS - cardiac enzymes downtrending. - Start stress dose steroids Renal: - continue reed - strict i/o's FEN/GI: Cirrhosis Failure to thrive severe hypokalemia Acute protein calorie malnutrition - severe Hyperammonemia - likely cause of poor nutrition is etoh - trend pre-Ab qweek. - aggressive K replacement - NGT and tube feeds. - iv thiamine and MVI - lactulose and daily ammonia checks - ICU electrolyte protocol - Daily CMP - Reglan Heme/ID: Septic shock/. E. coli bacteremia Gram-negative pneumonia Coagulopathy secondary to end-stage liver disease - continue meropenem. e.coli is pansensitive, but given poor clinical response, will give an additional 24h of meropenem before narrowing spectrum. - Sputum culture GNR, blood culture E. coli - INR 1.3 which is stable from prior admissions, likely secondary to cirrhosis Endocrine: Hypothyroidism Hyperglycemia of critical illness - SSI, med scale, q6h - home Synthroid - Stress dose steroids as above Prophylaxis: - SCDs - iv pepcid - lovenox sq Lines: - right radial art line 02/01-was dcd, placed new left femoral art line today - right femoral cvl 02/01-DC 02/04/18, New left subclavian central line placed - reed Dispo: remain in ICU. very critically ill. Palliative care following. Now with profound septic shock. Prognosis very poor due to multiorgan involvement and failure, family wants aggressive care and full code at this time Critical care time: 31 minutes, exclusive of separately billable procedures. Curtis Anderson MD Feb 06, 2018 20:25
--- NOTE | 2018-02-06 22:35 | RADRPT ---
EXAM DATE/TIME: 02/06/2018 21:47 [facility] COMPARISON: No previous studies available for comparison. INDICATIONS : Abnormal labs. MEDICAL HISTORY : Chronic obstructive pulmonary disease. Hypothyroidism. Cirrhosis. Syncope. ETOH abuse. Measles. Blood transfusion. SURGICAL HISTORY : Tonsillectomy. Hiatal hernia repair. Paracentesis. ENCOUNTER: Initial ACUITY: 1 day PAIN SCORE: Nonresponsive. LOCATION: Right upper quadrant MEASUREMENTS: LIVER: 14.4 cm length COMMON DUCT: 4 mm RIGHT KIDNEY: 12.5 x 6.6 x 4.9 cm FINDINGS: LIVER: Liver echotexture appears coarse without focal lesions. There is a mild amount of free fluid in the r ight upper quadrant. COMMON DUCT: No intraluminal mass or stone visualized. GALLBLADDER: No gallstones are seen. The gallbladder wall is mildly thickened at 4 mm. PANCREAS: The visualized portions are within normal limits. RIGHT KIDNEY: No evidence of hydronephrosis, stone, or mass. CONCLUSION: 1. Diffusely coarsened echotexture to the liver likely from underlying diffuse hepatic disease. 2. Mild ascites likely from the hepatic disease. 3. Mild thickening of the gallbladder without stones. This can be seen with hepatic disease. Basim Keene MD on February 06, 2018 at 22:31 Board Certified Radiologist. This report was verified electronically.
[2018-02-07] VITALS (21 sets, daily range): BP systolic 102–206; BP diastolic 46–181; PULSE 66–101; RESP 13–17; TEMP 97.2–98.1; O2SAT 83–100
[2018-02-07] MEDS: levETIRAcetam INJ 500 MG in SODIUM CHLORIDE 0.9% INJ 100 ML IV SCH ×3 (00:09→21:07)
[2018-02-07] MEDS: HYDROCORTISONE SOD SUCCINATE 100 MG VIAL IV SCH ×3 (01:54→17:48)
[2018-02-07] MEDS: METOCLOPRAMIDE HCL 10 MG/2 ML VIAL IV PUSH SCH ×3 (01:55→17:47)
[2018-02-07] MEDS: MEROPENEM INJ 1,000 MG in SODIUM CHLORIDE 0.9% INJ 100 ML IV SCH ×3 (01:55→17:48)
[2018-02-07] MEDS: NOREPINEPHRINE 4 MG/D5W 250 ML IV PRN ×2 (02:07→11:06)
[2018-02-07] MEDS: CHLORHEXIDINE GLUCONATE 2 % 1 PACK (2 CLOTHS) TOP SCH (03:58)
[2018-02-07] MEDS: INSULIN NovoLIN REGULAR SUPPLEMENTAL SCALE SQ SCH ×4 (05:10→17:46)
[2018-02-07] MEDS: LEVOTHYROXINE SODIUM 75 MCG TAB PO SCH (05:10)
[2018-02-07 05:23] LABS: HEMATOCRIT 31.9 % (39.0-51.0); MEAN CELL VOLUME 98.8 FL (80.0-100.0); MEAN CORPUSCULAR HEMOGLOBIN 34.2 PG (27.0-34.0); MEAN CORPUSCULAR HGB CONC 34.6 % (32.0-36.0); MEAN PLATELET VOLUME 9.1 FL (7.0-11.0); PLATELET COUNT 111 TH/MM3 (150-450); RED BLOOD COUNT 3.23 MIL/MM3 (4.50-5.90); RED CELL DISTRIBUTION WIDTH 12.9 % (11.6-17.2); WHITE BLOOD COUNT 23.1 TH/MM3 (4.0-11.0)
[2018-02-07 06:03] LABS: ALBUMIN 1.9 GM/DL (3.4-5.0); ALKALINE PHOSPHATASE 285 U/L (45-117); ALT (GPT) 83 U/L (12-78); AST (GOT) 61 U/L (15-37); BICARBONATE 30.3 MEQ/L (21.0-32.0); BLOOD UREA NITROGEN 23 MG/DL (7-18); CALCIUM 8.8 MG/DL (8.5-10.1); CHLORIDE 102 MEQ/L (98-107); CREATININE 0.69 MG/DL (0.60-1.30); GLOMERULAR FILTRATION RATE 114 ML/MIN (>89); GLUCOSE,RANDOM 104 MG/DL (74-106); SODIUM (NA) 141 MEQ/L (136-145); TOTAL BILIRUBIN ADULT 0.8 MG/DL (0.2-1.0); TOTAL PROTEIN 4.9 GM/DL (6.4-8.2)
[2018-02-07] MEDS: LACTULOSE SYRUP 20 GM/30 ML CUP PO SCH (08:01)
[2018-02-07] MEDS: MULTIVITAMIN TAB PO SCH (08:01)
[2018-02-07] MEDS: THIAMINE HCL 100 MG TAB PO SCH (08:01)
[2018-02-07] MEDS: CHLORHEXIDINE 0.12% (ORAL KIT) 15 ML CUP MT SCH ×2 (08:02→21:08)
[2018-02-07] MEDS: POTASSIUM CHLOR 40 MEQ PREMIX 100 ML IV PRN ×4 (08:02→23:18)
[2018-02-07] MEDS ORDERED: FUROSEMIDE 40 MG/4 ML VIAL IV PUSH ONE (10:30)
[2018-02-07] MEDS ORDERED: ALBUMIN 25% INJ 100 ML IV ONE (10:30)
[2018-02-07] MEDS ORDERED: DIATRIZOATE MEGLUM/DIATRIZOATE SOD 9 ML CUP PO ONE (10:30)
[2018-02-07] MEDS ORDERED: POTASSIUM CHLORIDE 25 MEQ EFFERVESCENT TAB PO ONE (10:30)
[2018-02-07] MEDS: MIDODRINE 5 MG TAB PO SCH ×2 (10:43→17:48)
[2018-02-07] MEDS: ENOXAPARIN SODIUM 40 MG/0.4 ML SYRINGE SQ SCH (12:19)
--- NOTE | 2018-02-07 15:56 | HHI.HCPN ---
Reason for visit a. To assist with evaluation and management of symptoms including: Encephalopathy, dyspnea, debility b. To assist medical decision maker(s) with: better understanding of current medical conditions; weighing benefits/burdens of medical treatment options; making medical treatment decisions. Subjective/Interval History Mr. Lizarraga is a 67-year-old male with cirrhosis and multiple, recent complaints of syncope who presented to [place] ED after leaving [place] from a syncopal episode and found an out of hospital PEA arrest. Unfortunately, the patient was out of the 6 hour window for therapeutic hypothermia at the time of Dr. Anderson's evaluation. Follow-up visit for symptom management and clarification of medical treatment goals. Patient in septic shock, intubated on mechanical ventilation. Tolerating CPAP trails for > 5 hours today. Ongoing pressor support, Levophed 6mcg/min. WBC remains elevated at 23.1 despite meropenem to cover ESBL E. coli. Wound care following patient secondary to necrotic unstageable sacral pressure injury; plastic surgery consulted for possible debridement. = Follow-up chest x-ray this morning 02/06/2018 showed slight improvement of right lung density with probable small pleural effusions. = Sputum culture from 02/03/2018: GNR; follow-up culture pending = Blood culture from 02/03/18 for E. coli; follow-up culture pending Patient intermittently follows simple commands but remains encephalopathic overall. EEG on 02/02/18 showing generalized slowing; MRI showed no abnormalities. Patient remains critically ill with poor prognosis due to ongoing complications- septic shock, nonhealing wounds, multiorgan dysfunction. Family desires ongoing aggressive care; patient remains a FULL CODE. [facility] for [facility] in the future. . Family/friend interactions Reviewed hospitalization course with daughter via telephone, update provided on the patient's clinical condition. Patient remains high risk for continued complications and decline. Daughter expressing ongoing aggressive goals. She indicates she is tired of people being negative about her dad and states " Everyone said he was gonna , but look at him now. He's gonna be okay." . Advance Directives Advance Directive Specifics Health Care Surrogate(s): Per [place] statutes, in the absence of written advanced directives healthcare proxy decision making would fall to the patient's 2 adult daughters. . Documented care wishes: No written advanced directives have been completed. . Objective Vital Signs Date Time Temp Pulse Resp B/P (MAP) Pulse Ox O2 Delivery O2 Flow Rate FiO2 02/07/18 12:00 97.6 78 13 120/66 (84) 83 150/69 (96) 02/07/18 12:00 40 02/07/18 11:06 83 149/65 02/07/18 10:19 40 02/07/18 10:19 100 40 02/07/18 09:39 100 40 02/07/18 08:00 40 02/07/18 06:00 66 02/07/18 04:30 100 40 02/07/18 04:00 79 02/07/18 04:00 40 02/07/18 04:00 98.1 79 17 135/59 (84) 100 154/63 (93) 02/07/18 02:07 72 120/40 02/07/18 02:00 72 02/07/18 00:00 97.8 70 16 102/54 (70) 100 104/46 (65) 02/07/18 00:00 40 02/07/18 00:00 77 02/06/18 23:57 99 40 02/06/18 23:55 69 123/41 02/06/18 23:00 70 115/58 (77) 99 121/45 (70) 02/06/18 23:00 70 02/06/18 22:00 80 95/50 (65) 100 99/40 (59) 02/06/18 22:00 80 02/06/18 21:00 86 02/06/18 21:00 86 134/59 (84) 99 132/44 (73) 02/06/18 20:00 40 02/06/18 20:00 85 02/06/18 20:00 97.6 85 148/72 (97) 100 127/60 (82) 02/06/18 19:37 83 117/79 02/06/18 19:19 96 40 02/06/18 18:00 84 02/06/18 16:00 77 02/06/18 16:00 97.7 77 107/57 (74) 99 87/56 (66) 02/06/18 16:00 40 02/06/18 15:31 100 40 Intake & Output 02/07/18 02/07/18 07:00 19:00 Intake Total 661 ml Output Total 3200 ml Balance -2539 ml Intake IV Total 541 ml Tube Feeding 0 ml Tube Irrigant 120 ml Output Urine Total 3000 ml Stool Total 200 ml . Physical Exam CONSTITUTIONAL/GENERAL: Patient is a frail, elderly male patient currently intubated on mechanical ventilation. TUBES/LINES/DRAINS: PIV 2, CVL, arterial line, ETT, NGT, rectal tube, [place] SKIN: No jaundice, rashes, or lesions. Ecchymoses on upper extremities. Skin temperature appropriate. Not diaphoretic. HEAD: Atraumatic. Normocephalic. EYES: Pupils equal and round, reactive Extraocular motions intact. No injection or drainage. Fundi not examined. ENT: Hearing appears normal. Nose without bleeding or purulent drainage. NECK: Trachea midline. CARDIOVASCULAR: Regular rate and rhythm without murmurs, gallops, or rubs. No JVD. Peripheral pulses symmetric. RESPIRATORY/CHEST: Intubated on mechanical ventilator, tolerating CPAP trials today GASTROINTESTINAL: Abdomen soft, flat. Bowel sounds present. GENITOURINARY: Without palpable bladder distension. [place] catheter in place. MUSCULOSKELETAL: Extremities without clubbing, cyanosis. + Edema in upper and lower extremities bilaterally, upper extremities improving LYMPHATICS: No palpable cervical or supraclavicular adenopathy. NEUROLOGICAL: Encephalopathic. Arouses to verbal stimuli. Intermittently follows simple commands. PSYCHIATRIC: No apparent anxiety/agitation noted .. . Diagnostic Tests Laboratory Laboratory Tests Test 02/04/18 20:25 02/05/18 04:45 02/06/18 03:55 02/06/18 19:35 Vancomycin Level Trough 17.5 MCG/ML (5.0-10.0) White Blood Count 20.8 TH/MM3 (4.0-11.0) 23.6 TH/MM3 (4.0-11.0) Red Blood Count 3.50 MIL/MM3 (4.50-5.90) 3.24 MIL/MM3 (4.50-5.90) Hemoglobin 12.1 GM/DL (13.0-17.0) 11.1 GM/DL (13.0-17.0) Hematocrit 35.9 % (39.0-51.0) 32.6 % (39.0-51.0) Mean Corpuscular Volume 102.6 FL (80.0-100.0) 100.6 FL (80.0-100.0) Mean Corpuscular Hemoglobin 34.5 PG (27.0-34.0) 34.2 PG (27.0-34.0) Mean Corpuscular Hemoglobin Concent 33.7 % (32.0-36.0) 34.1 % (32.0-36.0) Red Cell Distribution Width 13.1 % (11.6-17.2) 12.7 % (11.6-17.2) Platelet Count 118 TH/MM3 (150-450) 105 TH/MM3 (150-450) Mean Platelet Volume 8.7 FL (7.0-11.0) 8.4 FL (7.0-11.0) Blood Urea Nitrogen 23 MG/DL (7-18) 20 MG/DL (7-18) Creatinine 0.98 MG/DL (0.60-1.30) 0.69 MG/DL (0.60-1.30) Random Glucose 108 MG/DL (74-106) 85 MG/DL (74-106) Total Protein 5.0 GM/DL (6.4-8.2) 4.5 GM/DL (6.4-8.2) Albumin 1.7 GM/DL (3.4-5.0) 1.5 GM/DL (3.4-5.0) Calcium Level 8.0 MG/DL (8.5-10.1) 8.2 MG/DL (8.5-10.1) Alkaline Phosphatase 114 U/L (45-117) 138 U/L (45-117) Aspartate Amino Transf (AST/SGOT) 152 U/L (15-37) 103 U/L (15-37) Alanine Aminotransferase (ALT/SGPT) 105 U/L (12-78) 99 U/L (12-78) Total Bilirubin 0.8 MG/DL (0.2-1.0) 0.8 MG/DL (0.2-1.0) Sodium Level 134 MEQ/L (136-145) 137 MEQ/L (136-145) Potassium Level 4.0 MEQ/L (3.5-5.1) 3.2 MEQ/L (3.5-5.1) 3.7 MEQ/L (3.5-5.1) Chloride Level 98 MEQ/L (98-107) 100 MEQ/L (98-107) Carbon Dioxide Level 28.0 MEQ/L (21.0-32.0) 28.6 MEQ/L (21.0-32.0) Anion Gap 8 MEQ/L (5-15) 8 MEQ/L (5-15) Estimat Glomerular Filtration Rate 76 ML/MIN (>89) 114 ML/MIN (>89) Ammonia 17 MCMOL/L (11-32) 17 MCMOL/L (11-32) CBC Comment AUTO DIFF Differential Total Cells Counted 100 Neutrophils % (Manual) 80 % (16-70) Band Neutrophils % 16 % (0-6) Monocytes % 4 % (0-8) Neutrophils # (Manual) 22.7 TH/MM3 (1.8-7.7) Differential Comment FINAL DIFF MANUAL Toxic Granulation 1+ (NORMAL) Dohle Bodies PRESENT (NONE SEEN) Platelet Estimate LOW (NORMAL) Platelet Morphology Comment NORMAL (NORMAL) Magnesium Level 1.3 MG/DL (1.5-2.5) 1.6 MG/DL (1.5-2.5) Test 02/07/18 05:00 02/07/18 10:45 White Blood Count 23.1 TH/MM3 (4.0-11.0) Red Blood Count 3.23 MIL/MM3 (4.50-5.90) Hemoglobin 11.0 GM/DL (13.0-17.0) Hematocrit 31.9 % (39.0-51.0) Mean Corpuscular Volume 98.8 FL (80.0-100.0) Mean Corpuscular Hemoglobin 34.2 PG (27.0-34.0) Mean Corpuscular Hemoglobin Concent 34.6 % (32.0-36.0) Red Cell Distribution Width 12.9 % (11.6-17.2) Platelet Count 111 TH/MM3 (150-450) Mean Platelet Volume 9.1 FL (7.0-11.0) Blood Urea Nitrogen 23 MG/DL (7-18) Creatinine 0.69 MG/DL (0.60-1.30) Random Glucose 104 MG/DL (74-106) Total Protein 4.9 GM/DL (6.4-8.2) Albumin 1.9 GM/DL (3.4-5.0) Calcium Level 8.8 MG/DL (8.5-10.1) Alkaline Phosphatase 285 U/L (45-117) Aspartate Amino Transf (AST/SGOT) 61 U/L (15-37) Alanine Aminotransferase (ALT/SGPT) 83 U/L (12-78) Total Bilirubin 0.8 MG/DL (0.2-1.0) Sodium Level 141 MEQ/L (136-145) Potassium Level 2.6 MEQ/L (3.5-5.1) Chloride Level 102 MEQ/L (98-107) Carbon Dioxide Level 30.3 MEQ/L (21.0-32.0) Anion Gap 9 MEQ/L (5-15) Estimat Glomerular Filtration Rate 114 ML/MIN (>89) Result Diagram: 02/07/18 0500 02/07/18 0500 Microbiology Microbiology Date/Time Source Procedure Growth Status 02/07/18 01:16 Blood Peripheral Aerobic Blood Culture Pending Received 02/07/18 01:16 Blood Peripheral Anaerobic Blood Culture Pending Received 02/07/18 01:10 Blood Peripheral Aerobic Blood Culture Pending Received 02/07/18 01:10 Blood Peripheral Anaerobic Blood Culture Pending Received 02/07/18 10:45 Sputum Endotracheal Gram Stain Pending Received 02/07/18 10:45 Sputum Endotracheal Sputum Culture Pending Received . Imaging Last 72 hours Impressions Chest X-Ray 02/06/18 0600 Signed Impressions: Service Date/Time: January 03:18 - CONCLUSION: Slight improvement of right lung density with probable small pleural effusions. Amaury Francisco MD Gall Bladder Ultrasound 02/06/18 0000 Signed Impressions: Service Date/Time: January 21:47 - CONCLUSION: 1. Diffusely coarsened echotexture to the liver likely from underlying diffuse hepatic disease. 2. Mild ascites likely from the hepatic disease. 3. Mild thickening of the gallbladder without stones. This can be seen with hepatic disease. Basim Keene MD Abdomen X-Ray 02/05/18 0000 Signed Impressions: Service Date/Time: Monday, February 05, 2018 10:08 - CONCLUSION: 1. Nonspecific bowel gas pattern with no abnormal dilatation of the large or small bowel. 2. NG tube in the stomach. Justin Jorgensen MD . Procedures 02/01/18: Right femoral CVL placed 02/01/18: Intubation 02/01/18: Right radial arterial line placement 02/04/18: Left subclavian central line placement 02/04/18: Left femoral arterial line placement . Assessment and Plan Disease Oriented Problem List: (1) Hypoxic ischemic encephalopathy (2) Acute respiratory failure with hypoxia and hypercarbia (3) Cardiogenic shock (4) PEA (Pulseless electrical activity) (5) Cirrhosis (6) Failure to thrive in adult (7) Hyperammonemia (8) Coagulopathy (9) Hypothyroidism Symptom Scale: Pertinent Non-Medical Issues Psychosocial: Patient is originally from [place]. He met his ex- in [facility] which is where he had his 2 daughters. They returned to [place] for approximately 10 years and then moved back to [place] again. Patient is . He currently lives with his brother. He lost his sister approximately 5 years ago due to complications related to COPD Spiritual: [employer] Legal: Per [place] statutes, in the absence of written advanced directives healthcare proxy decision making falls to the patient's 2 daughters Ethical issues impacting care: No known ethical issues impacting care at this time. . Important Contacts Malia Baires, daughter: [phone] Ambar Lizarraga, daughter: [phone] Prognosis Patient is a 67 yo male s/p out of hospital PEA arrest Code Status: Full Code Plan * FULL CODE * Decision-making: Per [place] statutes, in the absence of written advanced directives healthcare proxy decision making falls to the patient's 2 adult daughters * GOALS REMAIN AGGRESSIVE * Patient remains critically ill with poor prognosis due to ongoing complications-septic shock, nonhealing wounds, multiorgan dysfunction. Family desires ongoing aggressive care; patient remains a FULL CODE. [facility] for [facility] in the future. * Discussed patient with nurse (Cary) as well as spice grinder, Dr. Johnston. * Symptom management: = Encephalopathy: Off sedation. Patient had been minimally responsive status post out of hospital cardiac arrest, now showing slow improvement. Opening eyes to verbal stimuli; wiggling toes and attempting to squeeze examiner's hand on command. MRI of the brain on 02/01/18 showed no acute intracranial. abnormalities, no overt evidence of anoxia. EEG shows generalized slowing. We will continue to monitor. = Dyspnea: Patient remains intubated on mechanical ventilation, tolerating CPAP trials today. Follow-up chest x-ray this morning 02/06/2018 showed slight improvement of right lung density with probable small pleural effusions. Sputum culture from 02/03/2018 with GNR; follow-up ending = Debility: Patient has been hospitalized twice during 01/2018, having frequent episodes of syncope. Patient family reports an acute decline with > 25 + weight loss reported in the past year. Multiple areas of impaired skin integrity, wound consult pending. Would recommend getting physical therapy involved when the patient is stable; [facility] * Palliative care will continue to follow this patient throughout his hospitalization to establish trust, assist with symptom management and clarification of medical treatment goals. . Attestation To help prompt me to consider important information that might be impacting today's encounter and assessment, information from prior notes written by myself or my colleagues may have been "brought forward" into today's note. My signature on this note, however, is an attestation that I personally performed the exam, history, and/or decision-making noted today, and, unless otherwise indicated, the interactions with patient, family, and staff as well as the review of records all occurred today. I also attest that the listed assessment and stated plan reflect my best clinical judgment today based on the combination of historical information, prior notes, and today's exam/ interactions. When time spent is documented, it refers only to time spent today by the signer, or if indicated, combined time spent today by collaborating physician/nurse practitioner. . Tamica Akbar Feb 07, 2018 15:56
[2018-02-07] MEDS ORDERED: IOHEXOL 350 MG/ML 10 ML VIAL (for RAD DIAG) IVCONTRAST ONE (16:12)
--- NOTE | 2018-02-07 16:16 | RADRPT ---
EXAM DATE/TIME: 02/07/2018 15:56 [facility] COMPARISON: CT ABDOMEN & PELVIS W CONTRAST, November 28, 2012, 13:21. INDICATIONS : Patient with cirrhosis status post cardiac arrest IV CONTRAST: 90 cc Omnipaque 350 (iohexol) IV ; Cumulative dose for multiple exams. ORAL CONTRAST: No oral contrast ingested. RADIATION DOSE: 9.67 CTDIvol (mGy) ; Combined studies MEDICAL HISTORY : Cirrhosis. Hernia SURGICAL HISTORY : Tonsillectomy. ENCOUNTER: Initial ACUITY: 1 day PAIN SCALE: Non-responsive LOCATION: Abdomen TECHNIQUE: Volumetric scanning of the abdomen and pelvis was performed. Using automated exposure control and ad justment of the mA and/or kV according to patient size, radiation dose was kept as low as reasonably achievable to obtain optimal diagnostic quality images. DICOM format image data is available electro nically for review and comparison. FINDINGS: LOWER LUNGS: Dense consolidation is present in both lung bases with small amount pleural fluid. Small calcified pl eural plaques are again noted. LIVER: Homogeneous density without lesion. There is no dilation of the biliary tree. No calcified gallston es. SPLEEN: Normal size without lesion. PANCREAS: Within normal limits. KIDNEYS: Normal in size and shape. There is no mass, stone or hydronephrosis. ADRENAL GLANDS: Within normal limits. VASCULAR: There is no aortic aneurysm. BOWEL/MESENTERY: There is diffuse anasarca and a parasitic fluid throughout the abdomen and pelvis. The stomach, small bowel, and colon demonstrate no acute abnormality. There is no free intraperitoneal air or fluid. ABDOMINAL WALL: Within normal limits. RETROPERITONEUM: There is no lymphadenopathy. BLADDER: No wall thickening or mass. REPRODUCTIVE: Within normal limits. INGUINAL: There is no lymphadenopathy or hernia. MUSCULOSKELETAL: Within normal limits for patient age. CONCLUSION: 1. Diffuse severe anasarca with fluid density throughout the subcutaneous and intra-abdominal fat and apparent ascites. 2. Dense consolidation in both lung bases with small amounts of pleural fluid. Rik Villarreal MD on February 07, 2018 at 16:11 Board Certified Radiologist. This report was verified electronically.
--- NOTE | 2018-02-07 16:19 | RADRPT ---
EXAM DATE/TIME: 02/07/2018 15:56 [facility] COMPARISON: CT THORAX W CONTRAST, November 28, 2012, 13:21. INDICATIONS : Post cardiac arrest IV CONTRAST: 90 cc Omnipaque 350 (iohexol) IV ; Cumulative dose for multiple exams. RADIATION DOSE: 9.67 CTDIvol (mGy) ; Combined studies MEDICAL HISTORY : Cirrhosis. Hernia SURGICAL HISTORY : Tonsillectomy. ENCOUNTER: Initial ACUITY: 1 day PAIN SCALE: Non-responsive LOCATION: chest TECHNIQUE: Volumetric scanning of the chest was performed. Using automated exposure control and adjustment of t he mA and/or kV according to patient size, radiation dose was kept as low as reasonably achievable to obtain optimal diagnostic quality images. DICOM format image data is available electronically for review and comparison. Follow-up recommendations for detected pulmonary nodules are based at a minimum on nodule size and pa tient risk factors according to Fleischner Society Guidelines. FINDINGS: LUNGS: Dense consolidation is now noted in the right lower lobe with air bronchograms. There is consolidativ e opacity in the left lower lobe as well which appears to represent an area of rounded atelectasis wi th mild surrounding infiltrate. There is underlying emphysema with hyperinflation. There is a new 1 c m noncalcified nodule in the right upper lobe on image #10. PLEURA: Small pleural fluid collections are present. MEDIASTINUM: The heart and great vessels demonstrate no acute abnormality. There is no mediastinal or hilar lymph adenopathy. An endotracheal tube and nasogastric tube are present. There are coronary artery calcific ations. Heart size is within normal limits. AXILLAE: Within normal limits. No lymphadenopathy. SKELETAL: Within normal limits for patient age. MISCELLANEOUS: Diffuse anasarca is noted with fluid density throughout the subcutaneous fat in upper abdomen. The vi sualized upper abdominal organs demonstrate no acute abnormality. CONCLUSION: 1. Diffuse anasarca. 2. Dense consolidation right lower lobe with air bronchograms which could represent aspiration pneumo ronny. 3. Small area of consolidative opacity in the left lower lobe which appears to represent a previously noted area of rounded atelectasis mild surrounding infiltrate. 4. Small pleural fluid collections are present. 5. Underlying emphysema. 6. 1 cm noncalcified pulmonary nodule now noted in the right upper lobe which is new from the prior s tudy. A three-month followup noncontrast chest CT is recommended. Rik Villarreal MD on February 07, 2018 at 16:15 Board Certified Radiologist. This report was verified electronically.
--- NOTE | 2018-02-07 18:12 | HHI.CCPN ---
Subjective Remarks/Hospital Course Hospital Course: This is 67yM with history per prior records of cirrhosis who presented to [facility] with [id number] PEA arrest. Per our documentation, He was seen on complaining of syncope and had a negative head CT at that time. He was discharged home. He represented 02/01 to [facility] with similar complaints of syncope , however the patient himself denied any complaints. In the waiting room, reports state he became unresponsive and cyanotic and was resuscitated with bag- valve-mask. He regained consciousness and refused additional care, signing out AMA before any work-up could be done. Per EMS report, when he was in the cab on the way home, he became unresponsive. presenting rhythm was PEA. ROSC was successfully obtained and he was stabilized in the [facility] before being transferred to [facility]. I evaluated the patient immediately upon arrival to the ICU. He is comatose and intubated, and no information can be obtained from him. He is on levophed at 15mcg/min. His pupils are 4mm, sluggishly reactive with roving eye movements. He is extensor posturing in the upper extremities and flexor posturing in the lower extremities. he has +cough but negative gag. + corneals. No additional information is obtainable from the patient and ROS is unobtainable. Laboratory evidence from [facility] demonstrates lactate of 9, trop 0.02, sodium 138, K 2.8, ammonia 46. Subjective: 02/02: no significant improvements. GCS remains 4 despite off sedation x 24h. trops downtrending, likely secondary to CPR and not primary ACS. MRI today without overt evidence of anoxia. remains critically ill and comatose. 02/03: Opens eyes today to persistent stimulation. Appears to track do not follow commands. MRI done yesterday no acute findings. Too weak to attempt spontaneous breathing trial or extubation 02/04: Developed severe septic shock yesterday evening. Was placed on Levophed maxed to 20 mcg/min, Aniceto-Synephrine was also added currently at 120 mcg/min. initially was DNR per palliative care, but the daughter rescinded it later. Currently patient remains unresponsive. Source of sepsis appears to be right lower lobe pneumonia, I have placed a new left subclavian central line will discontinue the right femoral central line 02/05: Remains in severe septic shock. Sputum culture with gram-negative rods, blood culture with E. coli. Will change to meropenem to cover for ESBL E. coli , currently on Zosyn. Also start stress dose steroids 02/06: remains in shock on vasopressors. sputum culture with pansensitive e. coli , but wbc uptrending and in shock despite meropenem. awake and following commands, although very encephalopathic. 02/07: remains on vasopressors. wbc elevated. procalcitonin elevated as well. sputum culture with rare yeasts on gram stain. CT chest/abd/pelvis ordered to eval for other sources of infection: dense RLL consolidation c/w pneumonia. will likely need to bronch and get diagnostic BAL since prior micro have been unable to identify specific organism. Objective Vital Signs Date Time Temp Pulse Resp B/P (MAP) Pulse Ox O2 Delivery O2 Flow Rate FiO2 02/07/18 17:00 97.4 86 121/60 (80) 98 206/181 (189) 02/07/18 16:53 40 02/07/18 12:00 13 Intake and Output 02/07/18 02/07/18 02/07/18 07:59 15:59 23:59 Intake Total 225 ml Output Total 3200 ml 3100 ml Balance -2975 ml -3100 ml Result Diagram: 02/07/18 0500 02/07/18 0500 Objective Remarks gen: cachetic male, lying in bed, intubated, encephalopathy, appears older than stated age, very critical heent: nc. at. pupils 4mm, sluggishly reactive, partial eye opening neck: trachea midline. JVD 2 cm above clavicle. chest: equal chest rise. prvc. 40% fio2. peep 5. cv: normal rate, regular rhythm. remains in shock on levophed abd: scaphoid. soft, nontender, nondistended. no guarding. extr: no peripheral edema. distal pulses 2+. neuro: Pupils as above. +corneals. RASS -2 off all sedation. weakly follows commands x 4. A/P Assessment and Plan Assessment: 67yM with cirrhosis and recent multiple complaints of syncope presents after leaving AMA from a syncopal episode and found in [id number] PEA arrest. very cachectic likely secondary to chronic etoh use. remain off sedatives and watch neuro exam. remains in shock. CT chest/abd/pelvis with only RLL pneumonia. sputum culture with rare yeast: will await speciation. plan on diagnostic bronch with BAL tomorrow. Will keep meropenem since patient is afebrile until we have better culture data. although not improving, he is also not declining and not spiking fevers, so unlikely to require re-broadening at this point of his abx. If he clinically declines, would broaden his abx to Vanc , Cefepime, Flagyl and Diflucan. remains critically ill and off pathway, not improving as we would expect. Neuro: Hypoxic Ischemic Encephalopathy Metabolic encephalopathy secondary to sepsis Recurrent Syncope - frequent neuro checks - Use sedation only for ventilatory synchrony - avoid hyperthermia - EEG: generalized slowing 02/01. - keppra 500mg iv q12h. - MRI brain: no abnormalities 02/02 - Persistent encephalopathy may be secondary to anoxia and now with a metabolic component Resp: Acute hypoxic and hypercarbic respiratory failure Right lower lobe pneumonia/E Coli in sputum - wean fio2 for goal spo2 > 90% - SBT without extubation due to severe encephalopathy - vent bundle, hob elevated, nebs - serial ABG -Sputum culture, started on vancomycin and Zosyn 02/03. Change to Meropenem empirically. CV: Septic Shock Lactic acidosis Recurrent Syncope Out of hospital PEA arrest -Currently on Levophed to keep map above 65 d/c ivf. start lasix. appears to be volume overloaded despite shock. - 2d echo 02/01: moderate aortic regurgitation. EF 60%. - close uop monitoring, trend lactates, trend abg - low suspicion for ACS - cardiac enzymes downtrending. - stress dose steroids Renal: - continue reed - strict i/o's FEN/GI: Cirrhosis Failure to thrive severe hypokalemia Acute protein calorie malnutrition - severe Hyperammonemia - likely cause of poor nutrition is etoh - trend pre-Ab qweek. - aggressive K replacement - NGT and tube feeds. - iv thiamine and MVI - lactulose and daily ammonia checks - ICU electrolyte protocol - Daily CMP - Reglan Heme/ID: Septic shock/. E. coli bacteremia Gram-negative pneumonia Coagulopathy secondary to end-stage liver disease - continue meropenem. e.coli is pansensitive, but given poor clinical response, will give an additional 24h of meropenem before narrowing spectrum. - Sputum culture GNR, blood culture E. coli - INR 1.3 which is stable from prior admissions, likely secondary to cirrhosis Endocrine: Hypothyroidism Hyperglycemia of critical illness - SSI, med scale, q6h - home Synthroid - Stress dose steroids as above Prophylaxis: - SCDs - iv pepcid - lovenox sq Lines: - right radial art line 02/01-was dcd, placed new left femoral art line today - right femoral cvl 02/01-DC 02/04/18, New left subclavian central line placed - reed Dispo: remain in ICU. very critically ill. Palliative care following. Now with profound septic shock. Prognosis very poor due to multiorgan involvement and failure, family wants aggressive care and full code at this time Critical care time: 35 minutes, exclusive of separately billable procedures. Curtis Anderson MD Feb 07, 2018 18:11
[2018-02-07] MEDS: RESP: ALBUTEROL 2.5 MG/IPRATROPIUM 0.5 MG NEB (PRN) INH (19:25)
[2018-02-07 20:29] LABS: MAGNESIUM 1.5 MG/DL (1.5-2.5)
[2018-02-07] MEDS: SODIUM CHLORIDE 0.9% FLUSH 10 ML FLUSH IVF PRN (21:07)
[2018-02-08] VITALS (21 sets, daily range): BP systolic 110–152; BP diastolic 55–78; PULSE 79–101; RESP 22; TEMP 97.2–97.9; O2SAT 85–100
[2018-02-08] MEDS: HYDROCORTISONE SOD SUCCINATE 100 MG VIAL IV SCH ×3 (02:01→17:52)
[2018-02-08] MEDS: MEROPENEM INJ 1,000 MG in SODIUM CHLORIDE 0.9% INJ 100 ML IV SCH ×3 (02:02→17:54)
[2018-02-08] MEDS: METOCLOPRAMIDE HCL 10 MG/2 ML VIAL IV PUSH SCH ×3 (02:02→17:53)
[2018-02-08] MEDS: MIDODRINE 5 MG TAB PO SCH ×3 (02:02→17:54)
[2018-02-08] MEDS: MAGNESIUM SULFATE 1 GM PREMIX 100 ML IV SCH ×2 (02:30→03:18)
[2018-02-08] MEDS: CHLORHEXIDINE GLUCONATE 2 % 1 PACK (2 CLOTHS) TOP SCH (03:18)
[2018-02-08] MEDS: LEVOTHYROXINE SODIUM 75 MCG TAB PO SCH (05:13)
[2018-02-08 05:32] LABS: HEMOGLOBIN 11.9 GM/DL (13.0-17.0); MEAN CELL VOLUME 99.7 FL (80.0-100.0); MEAN CORPUSCULAR HEMOGLOBIN 33.8 PG (27.0-34.0); MEAN CORPUSCULAR HGB CONC 33.9 % (32.0-36.0); MEAN PLATELET VOLUME 9.2 FL (7.0-11.0); PLATELET COUNT 103 TH/MM3 (150-450); RED BLOOD COUNT 3.51 MIL/MM3 (4.50-5.90); RED CELL DISTRIBUTION WIDTH 13.1 % (11.6-17.2); WHITE BLOOD COUNT 13.8 TH/MM3 (4.0-11.0)
[2018-02-08 06:00] LABS: ALBUMIN 2.3 GM/DL (3.4-5.0); AST (GOT) 65 U/L (15-37); BICARBONATE 30.4 MEQ/L (21.0-32.0); BLOOD UREA NITROGEN 28 MG/DL (7-18); CALCIUM 8.6 MG/DL (8.5-10.1); CHLORIDE 101 MEQ/L (98-107); CREATININE 0.62 MG/DL (0.60-1.30); GLOMERULAR FILTRATION RATE 129 ML/MIN (>89); GLUCOSE,RANDOM 99 MG/DL (74-106); SODIUM (NA) 139 MEQ/L (136-145)
[2018-02-08] MEDS: INSULIN NovoLIN REGULAR SUPPLEMENTAL SCALE SQ SCH ×5 (06:00→23:12)
[2018-02-08 06:02] LABS: ALT (GPT) 87 U/L (12-78)
[2018-02-08 06:03] LABS: ALKALINE PHOSPHATASE 410 U/L (45-117); TOTAL BILIRUBIN ADULT 0.7 MG/DL (0.2-1.0); TOTAL PROTEIN 5.4 GM/DL (6.4-8.2)
[2018-02-08] MEDS: CHLORHEXIDINE 0.12% (ORAL KIT) 15 ML CUP MT SCH ×2 (08:00→20:45)
[2018-02-08] MEDS: THIAMINE HCL 100 MG TAB PO SCH (09:13)
[2018-02-08] MEDS: MULTIVITAMIN TAB PO SCH (09:20)
[2018-02-08] MEDS: levETIRAcetam INJ 500 MG in SODIUM CHLORIDE 0.9% INJ 100 ML IV SCH ×2 (11:00→23:07)
[2018-02-08] MEDS: ENOXAPARIN SODIUM 40 MG/0.4 ML SYRINGE SQ SCH (11:42)
--- NOTE | 2018-02-08 15:52 | HHI.CCPN ---
Subjective Remarks/Hospital Course Hospital Course: This is 67yM with history per prior records of cirrhosis who presented to the [facility] with [id number] PEA arrest. Per our documentation, He was seen on complaining of syncope and had a negative head CT at that time. He was discharged home. He represented 02/01 to [facility] with similar complaints of syncope , however the patient himself denied any complaints. In the waiting room, reports state he became unresponsive and cyanotic and was resuscitated with bag- valve-mask. He regained consciousness and refused additional care, signing out AMA before any work-up could be done. Per EMS report, when he was in the cab on the way home, he became unresponsive. presenting rhythm was PEA. ROSC was successfully obtained and he was stabilized in the [facility] ED before being transferred to [facility]. I evaluated the patient immediately upon arrival to the ICU. He is comatose and intubated, and no information can be obtained from him. He is on levophed at 15mcg/min. His pupils are 4mm, sluggishly reactive with roving eye movements. He is extensor posturing in the upper extremities and flexor posturing in the lower extremities. he has +cough but negative gag. + corneals. No additional information is obtainable from the patient and ROS is unobtainable. Laboratory evidence from [facility] demonstrates lactate of 9, trop 0.02, sodium 138, K 2.8, ammonia 46. Subjective: 02/02: no significant improvements. GCS remains 4 despite off sedation x 24h. trops downtrending, likely secondary to CPR and not primary ACS. MRI today without overt evidence of anoxia. remains critically ill and comatose. 02/03: Opens eyes today to persistent stimulation. Appears to track do not follow commands. MRI done yesterday no acute findings. Too weak to attempt spontaneous breathing trial or extubation 02/04: Developed severe septic shock yesterday evening. Was placed on Levophed maxed to 20 mcg/min, Aniceto-Synephrine was also added currently at 120 mcg/min. initially was DNR per palliative care, but the daughter rescinded it later. Currently patient remains unresponsive. Source of sepsis appears to be right lower lobe pneumonia, I have placed a new left subclavian central line will discontinue the right femoral central line 02/05: Remains in severe septic shock. Sputum culture with gram-negative rods, blood culture with E. coli. Will change to meropenem to cover for ESBL E. coli , currently on Zosyn. Also start stress dose steroids 02/06: remains in shock on vasopressors. sputum culture with pansensitive e. coli , but wbc uptrending and in shock despite meropenem. awake and following commands, although very encephalopathic. 02/07: remains on vasopressors. wbc elevated. procalcitonin elevated as well. sputum culture with rare yeasts on gram stain. CT chest/abd/pelvis ordered to eval for other sources of infection: dense RLL consolidation c/w pneumonia. will likely need to bronch and get diagnostic BAL since prior micro have been unable to identify specific organism. 02/08: sputum still growing GNR. wbc dowtrending, however today, and he continues to remain afebrile. still no real improvements in mental status. Objective Vital Signs Date Time Temp Pulse Resp B/P (MAP) Pulse Ox O2 Delivery O2 Flow Rate FiO2 02/08/18 15:23 100 40 02/08/18 14:01 90 02/08/18 12:00 97.9 22 129/78 (95) 146/66 (92) Intake and Output 02/08/18 02/08/18 02/08/18 07:59 15:59 23:59 Intake Total 650 ml Output Total 1350 ml Balance -700 ml Result Diagram: 02/08/18 0400 02/08/18 0400 Objective Remarks gen: cachetic male, lying in bed, intubated, encephalopathy, appears older than stated age, very critical heent: nc. at. pupils 4mm, sluggishly reactive, partial eye opening neck: trachea midline. JVD 2 cm above clavicle. chest: equal chest rise. prvc. 40% fio2. peep 5. cv: normal rate, regular rhythm. remains in shock on levophed abd: scaphoid. soft, nontender, nondistended. no guarding. extr: no peripheral edema. distal pulses 2+. neuro: Pupils as above. +corneals. RASS -2 off all sedation. weakly follows commands x 4. A/P Assessment and Plan Assessment: 67yM with cirrhosis and recent multiple complaints of syncope presents after leaving AMA from a syncopal episode and found in [id number] PEA arrest. very cachectic likely secondary to chronic etoh use. remain off sedatives and watch neuro exam. remains in shock. CT chest/abd/pelvis with only RLL pneumonia. sputum culture with rare yeast: will await speciation. plan on diagnostic bronch with BAL tomorrow. Will keep meropenem since patient is afebrile until we have better culture data. although not improving, he is also not declining and not spiking fevers, so unlikely to require re-broadening at this point of his abx. If he clinically declines, would broaden his abx to Vanc , Cefepime, Flagyl and Diflucan. remains critically ill and off pathway, not improving as we would expect. Neuro: Hypoxic Ischemic Encephalopathy Metabolic encephalopathy secondary to sepsis Recurrent Syncope - frequent neuro checks - Use sedation only for ventilatory synchrony - avoid hyperthermia - EEG: generalized slowing 02/01. - keppra 500mg iv q12h. - MRI brain: no abnormalities 02/02 - Persistent encephalopathy may be secondary to anoxia and now with a metabolic component Resp: Acute hypoxic and hypercarbic respiratory failure Right lower lobe pneumonia/E Coli in sputum - wean fio2 for goal spo2 > 90% - SBT without extubation due to severe encephalopathy - vent bundle, hob elevated, nebs - serial ABG -Sputum culture, started on vancomycin and Zosyn 02/03. Changed to Meropenem empirically. CV: Septic Shock Lactic acidosis Recurrent Syncope Out of hospital PEA arrest -Currently on Levophed to keep map above 65 d/c ivf. start lasix. appears to be volume overloaded despite shock. - 2d echo 02/01: moderate aortic regurgitation. EF 60%. - close uop monitoring, trend lactates, trend abg - low suspicion for ACS - cardiac enzymes downtrending. - stress dose steroids Renal: - continue reed - strict i/o's FEN/GI: Cirrhosis Failure to thrive severe hypokalemia Acute protein calorie malnutrition - severe and worsening. Hyperammonemia Elevated alk phos - likely cause of poor nutrition is etoh - trend pre-Ab qweek: worsening. - aggressive K replacement - NGT and tube feeds. - iv thiamine and MVI - lactulose and daily ammonia checks - ICU electrolyte protocol - Daily CMP - Reglan unclear etiology of alk phos elevation: liver u/s negative. ct c/a/p negative. Heme/ID: Septic shock/. E. coli bacteremia Gram-negative pneumonia Coagulopathy secondary to end-stage liver disease - continue meropenem. e.coli is pansensitive, but given poor clinical response, will continue. wbc downtrending. sputum culture now growing same e.coli. - Sputum culture GNR, blood culture E. coli - INR 1.3 which is stable from prior admissions, likely secondary to cirrhosis Endocrine: Hypothyroidism Hyperglycemia of critical illness - SSI, med scale, q6h - home Synthroid - Stress dose steroids as above Prophylaxis: - SCDs - iv pepcid - lovenox sq Lines: - right radial art line 02/01-was dcd, placed new left femoral art line today - right femoral cvl 02/01-DC 02/04/18, New left subclavian central line placed - reed Dispo: remain in ICU. very critically ill. Palliative care following. Now with profound septic shock. Prognosis very poor due to multiorgan involvement and failure, family wants aggressive care and full code at this time Curtis Anderson MD Feb 08, 2018 15:52
[2018-02-08] MEDS: DEXTROSE 50% IN WATER 50 ML VIAL(D50) IV PUSH PRN ×2 (23:12→23:39)
[2018-02-09] VITALS (17 sets, daily range): BP systolic 0–160; BP diastolic 0–76; PULSE 81–105; RESP 16; TEMP 97.6–98.2; O2SAT 95–100
[2018-02-09] MEDS: HYDROCORTISONE SOD SUCCINATE 100 MG VIAL IV SCH ×3 (02:15→16:38)
[2018-02-09] MEDS: MEROPENEM INJ 1,000 MG in SODIUM CHLORIDE 0.9% INJ 100 ML IV SCH ×2 (02:16→10:18)
[2018-02-09] MEDS: MIDODRINE 5 MG TAB PO SCH ×2 (02:16→10:18)
[2018-02-09] MEDS: METOCLOPRAMIDE HCL 10 MG/2 ML VIAL IV PUSH SCH ×3 (02:16→16:38)
[2018-02-09] MEDS: CHLORHEXIDINE GLUCONATE 2 % 1 PACK (2 CLOTHS) TOP SCH (04:00)
[2018-02-09] MEDS: LEVOTHYROXINE SODIUM 75 MCG TAB PO SCH (05:43)
[2018-02-09] MEDS: DEXTROSE 50% IN WATER 50 ML VIAL(D50) IV PUSH PRN (05:43)
[2018-02-09] MEDS: INSULIN NovoLIN REGULAR SUPPLEMENTAL SCALE SQ SCH ×3 (05:44→17:12)
[2018-02-09] MEDS: MULTIVITAMIN TAB PO SCH (07:52)
[2018-02-09] MEDS: THIAMINE HCL 100 MG TAB PO SCH (07:52)
[2018-02-09] MEDS: CHLORHEXIDINE 0.12% (ORAL KIT) 15 ML CUP MT SCH ×2 (07:53→20:00)
[2018-02-09] MEDS: levETIRAcetam INJ 500 MG in SODIUM CHLORIDE 0.9% INJ 100 ML IV SCH (11:00)
[2018-02-09] MEDS: ENOXAPARIN SODIUM 40 MG/0.4 ML SYRINGE SQ SCH (12:46)
--- NOTE | 2018-02-09 12:46 | HHI.CCPN ---
Subjective Remarks/Hospital Course DUPLICATE NOTE Objective Vital Signs Date Time Temp Pulse Resp B/P (MAP) Pulse Ox O2 Delivery O2 Flow Rate FiO2 02/09/18 12:13 97 40 02/09/18 12:00 97.6 85 118/56 (76) 0/0 (0) 02/09/18 04:00 16 Intake and Output 02/09/18 02/09/18 02/10/18 08:00 16:00 00:00 Intake Total 321 ml Output Total 600 ml Balance -279 ml Result Diagram: 02/08/180 02/08/180 Yue Stallworth MD Feb 09, 2018 12:46
--- NOTE | 2018-02-09 13:01 | HHI.CCPN ---
Subjective Remarks/Hospital Course Hospital Course: This is 67yM with history per prior records of cirrhosis who presented to the [facility] with [id number] PEA arrest. Per our documentation, He was seen on complaining of syncope and had a negative head CT at that time. He was discharged home. He represented 02/01 to [facility] with similar complaints of syncope , however the patient himself denied any complaints. In the waiting room, reports state he became unresponsive and cyanotic and was resuscitated with bag- valve-mask. He regained consciousness and refused additional care, signing out AMA before any work-up could be done. Per EMS report, when he was in the cab on the way home, he became unresponsive. presenting rhythm was PEA. ROSC was successfully obtained and he was stabilized in the [facility] ED before being transferred to [facility]. I evaluated the patient immediately upon arrival to the ICU. He is comatose and intubated, and no information can be obtained from him. He is on levophed at 15mcg/min. His pupils are 4mm, sluggishly reactive with roving eye movements. He is extensor posturing in the upper extremities and flexor posturing in the lower extremities. he has +cough but negative gag. + corneals. No additional information is obtainable from the patient and ROS is unobtainable. Laboratory evidence from [facility] demonstrates lactate of 9, trop 0.02, sodium 138, K 2.8, ammonia 46. Subjective: 02/02: no significant improvements. GCS remains 4 despite off sedation x 24h. trops downtrending, likely secondary to CPR and not primary ACS. MRI today without overt evidence of anoxia. remains critically ill and comatose. 02/03: Opens eyes today to persistent stimulation. Appears to track do not follow commands. MRI done yesterday no acute findings. Too weak to attempt spontaneous breathing trial or extubation 02/04: Developed severe septic shock yesterday evening. Was placed on Levophed maxed to 20 mcg/min, Aniceto-Synephrine was also added currently at 120 mcg/min. initially was DNR per palliative care, but the daughter rescinded it later. Currently patient remains unresponsive. Source of sepsis appears to be right lower lobe pneumonia, I have placed a new left subclavian central line will discontinue the right femoral central line 02/05: Remains in severe septic shock. Sputum culture with gram-negative rods, blood culture with E. coli. Will change to meropenem to cover for ESBL E. coli , currently on Zosyn. Also start stress dose steroids 02/06: remains in shock on vasopressors. sputum culture with pansensitive e. coli , but wbc uptrending and in shock despite meropenem. awake and following commands, although very encephalopathic. 02/07: remains on vasopressors. wbc elevated. procalcitonin elevated as well. sputum culture with rare yeasts on gram stain. CT chest/abd/pelvis ordered to eval for other sources of infection: dense RLL consolidation c/w pneumonia. will likely need to bronch and get diagnostic BAL since prior micro have been unable to identify specific organism. 02/08: sputum still growing GNR. wbc dowtrending, however today, and he continues to remain afebrile. still no real improvements in mental status. 02/09: Sputum culture also growing pansensitive E. coli. Off all pressors but no improvement in neuro exam. Severely encephalopathic, and for this reason unable to extubate Objective Vital Signs Date Time Temp Pulse Resp B/P (MAP) Pulse Ox O2 Delivery O2 Flow Rate FiO2 02/09/18 12:13 97 40 02/09/18 12:00 97.6 85 118/56 (76) 0/0 (0) 02/09/18 04:00 16 Intake and Output 02/09/18 02/09/18 02/09/18 07:59 15:59 23:59 Intake Total 321 ml Output Total 600 ml Balance -279 ml Result Diagram: 02/08/18 0400 02/08/18 0400 Other Results Microbiology Date/Time Source Procedure Growth Status 02/07/18 10:45 Sputum Endotracheal Gram Stain - Final Complete 02/07/18 10:45 Sputum Culture - Final Escherichia Coli Complete Objective Remarks gen: cachetic male, lying in bed, intubated, encephalopathy, appears older than stated age, critically ill heent: nc. at. pupils 4mm, sluggishly reactive, partial eye opening neck: trachea midline. JVD 2 cm above clavicle. chest: equal chest rise. prvc. 40% fio2. peep 5. cv: normal rate, regular rhythm. remains in shock on levophed abd: scaphoid. soft, nontender, nondistended. no guarding. extr: no peripheral edema. distal pulses 2+. neuro: Pupils as above. +corneals. RASS -2 off all sedation. Not following commands today, slightly withdraws to pain. A/P Assessment and Plan Assessment: 67yM with cirrhosis and recent multiple complaints of syncope presents after leaving AMA from a syncopal episode and found in [id number] PEA arrest. very cachectic likely secondary to chronic etoh use. remain off sedatives and watch neuro exam. remains in shock. CT chest/abd/pelvis with only RLL pneumonia. sputum culture with rare yeast: will await speciation. plan on diagnostic bronch with BAL tomorrow. Will keep meropenem since patient is afebrile until we have better culture data. although not improving, he is also not declining and not spiking fevers, so unlikely to require re-broadening at this point of his abx. If he clinically declines, would broaden his abx to Vanc , Cefepime, Flagyl and Diflucan. remains critically ill and off pathway, not improving as we would expect. Neuro: Hypoxic Ischemic Encephalopathy Metabolic encephalopathy secondary to sepsis Recurrent Syncope - frequent neuro checks - Use sedation only for ventilatory synchrony. Currently off sedation for several days - avoid hyperthermia - EEG: generalized slowing 02/01. - Keppra 500mg iv q12h. DC today 02/09 - MRI brain: no abnormalities 02/02 - Persistent encephalopathy may be secondary to anoxia and now with a metabolic component Resp: Acute hypoxic and hypercarbic respiratory failure Right lower lobe pneumonia/E Coli in sputum - wean fio2 for goal spo2 > 90% - SBT without extubation due to severe encephalopathy - vent bundle, hob elevated, nebs - serial ABG -Sputum culture, started on vancomycin and Zosyn 02/03. Changed to Meropenem empirically. Narrow ABX to Rocephin only due to harvey sensitive E. coli CV: Septic Shock-resolved Lactic acidosis Recurrent Syncope Out of hospital PEA arrest -Currently off Levophed to keep map above 65 -Started on lasix. appears to be volume overloaded despite shock. - 2d echo 02/01: moderate aortic regurgitation. EF 60%. - close uop monitoring, trend lactates, trend abg - low suspicion for ACS - cardiac enzymes downtrending. - stress dose steroids-reduce to 50 q8 Renal: - continue reed - strict i/o's FEN/GI: Cirrhosis Failure to thrive severe hypokalemia Acute protein calorie malnutrition - severe and worsening. Hyperammonemia Elevated alk phos - likely cause of poor nutrition is etoh - trend pre-Ab qweek: worsening. - aggressive K replacement - NGT and tube feeds. - iv thiamine and MVI - lactulose and daily ammonia checks - ICU electrolyte protocol - Daily CMP - Reglan Heme/ID: E. coli bacteremia Gram-negative pneumonia Coagulopathy secondary to end-stage liver disease - started on vancomycin and Zosyn 02/03. Changed to Meropenem empirically. Narrow ABX to Rocephin only due to harvey sensitive E. coli - Sputum culture E coli, blood culture E. coli. Both harvey sensitive - INR 1.3 which is stable from prior admissions, likely secondary to cirrhosis Endocrine: Hypothyroidism Hyperglycemia of critical illness - SSI, med scale, q6h - home Synthroid - Stress dose steroids as above-reduce to 50 q8 Prophylaxis: - SCDs - iv pepcid - lovenox sq Lines: - right radial art line 02/01-was dcd, placed new left femoral art line 02/04/18 - right femoral cvl 02/01-DC 02/04/18, New left subclavian central line placed - reed Dispo: remain in ICU. very critically ill. Palliative care following. Severe encephalopathy which is multifactorial will not permit extubation, if family wants to continue aggressive care will need to decide on trach and PEG. Will discuss with palliative care to address goals of care. Today is 10 Yue Stallworth MD Feb 09, 2018 13:01
[2018-02-09] MEDS: cefTRIAXone INJ 2,000 MG in SODIUM CHLORIDE 0.9% INJ 100 ML IV SCH (13:49)
[2018-02-10] VITALS (17 sets, daily range): BP systolic 122–163; BP diastolic 63–75; PULSE 78–108; RESP 16; TEMP 97.6–98.4; O2SAT 93–100
[2018-02-10] MEDS: MIDODRINE 5 MG TAB PO SCH ×3 (02:30→17:50)
[2018-02-10] MEDS: HYDROCORTISONE SOD SUCCINATE 100 MG VIAL IV SCH ×3 (03:34→22:08)
[2018-02-10] MEDS: METOCLOPRAMIDE HCL 10 MG/2 ML VIAL IV PUSH SCH ×3 (03:36→17:51)
[2018-02-10] MEDS: CHLORHEXIDINE GLUCONATE 2 % 1 PACK (2 CLOTHS) TOP SCH (03:36)
--- NOTE | 2018-02-10 05:46 | RADRPT ---
EXAM DATE/TIME: 02/10/2018 02:41 [facility] COMPARISON: CHEST SINGLE AP, February 06, 2018, 3:18. INDICATIONS : Shortness of breath, possible pulmonary disease. MEDICAL HISTORY : Chronic obstructive pulmonary disease. Cirrhosis. SURGICAL HISTORY : Tonsillectomy. Inguinal hernia repair. ENCOUNTER: Subsequent ACUITY: 1 week PAIN SCORE: Non-responsive. LOCATION: Bilateral chest FINDINGS: Endotracheal tube, nasogastric tube and left subclavian central line are present in good position. Ren zy bilateral predominantly basilar pleuroparenchymal opacities are unchanged. Cardiac contours are st able. CONCLUSION: No significant change Basim Busch MD on February 10, 2018 at 5:43 Board Certified Radiologist. This report was verified electronically.
[2018-02-10] MEDS: INSULIN NovoLIN REGULAR SUPPLEMENTAL SCALE SQ SCH ×4 (06:00→17:54)
[2018-02-10] MEDS: LEVOTHYROXINE SODIUM 75 MCG TAB PO SCH (06:00)
[2018-02-10 07:05] LABS: AUTOMATED NEUTROPHIL # 11.6 TH/MM3 (1.8-7.7); BASOPHIL % 0.2 % (0.0-2.0); HEMATOCRIT 34.1 % (39.0-51.0); HEMOGLOBIN 11.6 GM/DL (13.0-17.0); LYMPH % 4.3 % (9.0-44.0); LYMPHOCYTE # 0.6 TH/MM3 (1.0-4.8); MEAN CELL VOLUME 99.8 FL (80.0-100.0); MEAN CORPUSCULAR HEMOGLOBIN 33.9 PG (27.0-34.0); MEAN PLATELET VOLUME 9.5 FL (7.0-11.0); MONO % 7.5 % (0.0-8.0); PLATELET COUNT 113 TH/MM3 (150-450); RED BLOOD COUNT 3.42 MIL/MM3 (4.50-5.90); RED CELL DISTRIBUTION WIDTH 12.9 % (11.6-17.2); WHITE BLOOD COUNT 13.2 TH/MM3 (4.0-11.0)
[2018-02-10 07:21] LABS: ALBUMIN 2.1 GM/DL (3.4-5.0); ALT (GPT) 82 U/L (12-78); AST (GOT) 66 U/L (15-37); BICARBONATE 36.3 MEQ/L (21.0-32.0); BLOOD UREA NITROGEN 36 MG/DL (7-18); CALCIUM 9.1 MG/DL (8.5-10.1); CHLORIDE 105 MEQ/L (98-107); CREATININE 0.63 MG/DL (0.60-1.30); GLOMERULAR FILTRATION RATE 126 ML/MIN (>89); GLUCOSE,RANDOM 108 MG/DL (74-106); MAGNESIUM 1.7 MG/DL (1.5-2.5); SODIUM (NA) 147 MEQ/L (136-145)
[2018-02-10 07:23] LABS: ALKALINE PHOSPHATASE 344 U/L (45-117); TOTAL BILIRUBIN ADULT 0.5 MG/DL (0.2-1.0); TOTAL PROTEIN 5.2 GM/DL (6.4-8.2)
[2018-02-10] MEDS: THIAMINE HCL 100 MG TAB PO SCH (07:46)
[2018-02-10] MEDS: MULTIVITAMIN TAB PO SCH (07:46)
[2018-02-10] MEDS: CHLORHEXIDINE 0.12% (ORAL KIT) 15 ML CUP MT SCH ×2 (07:50→20:27)
[2018-02-10] MEDS: POTASSIUM CHLOR 40 MEQ PREMIX 100 ML IV PRN ×4 (08:40→20:27)
--- NOTE | 2018-02-10 11:10 | HHI.CCPN ---
Subjective Remarks/Hospital Course Hospital Course: This is 67yM with history per prior records of cirrhosis who presented to the [facility] with [id number] PEA arrest. Per our documentation, He was seen on complaining of syncope and had a negative head CT at that time. He was discharged home. He represented 02/01 to [facility] with similar complaints of syncope , however the patient himself denied any complaints. In the waiting room, reports state he became unresponsive and cyanotic and was resuscitated with bag- valve-mask. He regained consciousness and refused additional care, signing out AMA before any work-up could be done. Per EMS report, when he was in the cab on the way home, he became unresponsive. presenting rhythm was PEA. ROSC was successfully obtained and he was stabilized in the [facility] ED before being transferred to [facility]. I evaluated the patient immediately upon arrival to the ICU. He is comatose and intubated, and no information can be obtained from him. He is on levophed at 15mcg/min. His pupils are 4mm, sluggishly reactive with roving eye movements. He is extensor posturing in the upper extremities and flexor posturing in the lower extremities. he has +cough but negative gag. + corneals. No additional information is obtainable from the patient and ROS is unobtainable. Laboratory evidence from [facility] demonstrates lactate of 9, trop 0.02, sodium 138, K 2.8, ammonia 46. Subjective: 02/02: no significant improvements. GCS remains 4 despite off sedation x 24h. trops downtrending, likely secondary to CPR and not primary ACS. MRI today without overt evidence of anoxia. remains critically ill and comatose. 02/03: Opens eyes today to persistent stimulation. Appears to track do not follow commands. MRI done yesterday no acute findings. Too weak to attempt spontaneous breathing trial or extubation 02/04: Developed severe septic shock yesterday evening. Was placed on Levophed maxed to 20 mcg/min, Aniceto-Synephrine was also added currently at 120 mcg/min. initially was DNR per palliative care, but the daughter rescinded it later. Currently patient remains unresponsive. Source of sepsis appears to be right lower lobe pneumonia, I have placed a new left subclavian central line will discontinue the right femoral central line 02/05: Remains in severe septic shock. Sputum culture with gram-negative rods, blood culture with E. coli. Will change to meropenem to cover for ESBL E. coli , currently on Zosyn. Also start stress dose steroids 02/06: remains in shock on vasopressors. sputum culture with pansensitive e. coli , but wbc uptrending and in shock despite meropenem. awake and following commands, although very encephalopathic. 02/07: remains on vasopressors. wbc elevated. procalcitonin elevated as well. sputum culture with rare yeasts on gram stain. CT chest/abd/pelvis ordered to eval for other sources of infection: dense RLL consolidation c/w pneumonia. will likely need to bronch and get diagnostic BAL since prior micro have been unable to identify specific organism. 02/08: sputum still growing GNR. wbc dowtrending, however today, and he continues to remain afebrile. still no real improvements in mental status. 02/09: Sputum culture also growing pansensitive E. coli. Off all pressors but no improvement in neuro exam. Severely encephalopathic, and for this reason unable to extubate 02/10: No improvement in neurological function, remains severely debilitated. Increasing base excess but still has acceptable respiratory drive. Off vasopressors still. Poor prognosis due to anoxic brain injury. Consider trach and placement as family wants continued aggressive support. Objective Vital Signs Date Time Temp Pulse Resp B/P (MAP) Pulse Ox O2 Delivery O2 Flow Rate FiO2 02/10/18 10:30 40 02/10/18 10:00 91 02/10/18 08:00 98.0 16 145/71 (95) 99 Intake and Output 02/10/18 02/10/18 02/11/18 08:00 16:00 00:00 Intake Total 785 ml Output Total 500.0 ml Balance 285.0 ml Result Diagram: 02/10/18 0635 02/10/18634 Objective Remarks gen: cachetic male, lying in bed, intubated, encephalopathy, appears older than stated age, critically ill heent: nc. at. pupils 3 mm, sluggishly reactive, eye opening neck: trachea midline. JVD 2 cm above clavicle. chest: equal chest rise. prvc. 40% fio2. peep 5. Start SBTs cv: normal rate, regular rhythm. No JVD. abd: scaphoid. soft, nontender, nondistended. no guarding. extr: no peripheral edema. distal pulses 2+. neuro: Pupils as above. +corneals. Not following commands today, slightly withdraws lowers to noxious stimulation. ? tracks with eyes intermittently. Unresponsive mostly. A/P Assessment and Plan Assessment: 67yM with cirrhosis and recent multiple complaints of syncope presents after leaving AMA from a syncopal episode and found in [id number] PEA arrest. very cachectic likely secondary to chronic etoh use. remain off sedatives and watch neuro exam. remains in shock. CT chest/abd/pelvis with only RLL pneumonia. sputum culture with rare yeast: will await speciation. plan on diagnostic bronch with BAL tomorrow. Will keep meropenem since patient is afebrile until we have better culture data. although not improving, he is also not declining and not spiking fevers, so unlikely to require re-broadening at this point of his abx. If he clinically declines, would broaden his abx to Vanc , Cefepime, Flagyl and Diflucan. remains critically ill and off pathway, not improving after anoxic brain injury. Neuro: Hypoxic Ischemic Encephalopathy Metabolic encephalopathy secondary to sepsis Recurrent Syncope - frequent neuro checks - Use sedation only for ventilatory synchrony. Currently off sedation for several days - avoid hyperthermia - EEG: generalized slowing 02/01. - Keppra 500mg iv q12h. DC today 02/09 - MRI brain: no abnormalities 02/02 - Persistent encephalopathy may be secondary to anoxia and now with a metabolic component Resp: Acute hypoxic and hypercarbic respiratory failure Right lower lobe pneumonia/E Coli in sputum - wean fio2 for goal spo2 > 90% - SBT without extubation due to severe encephalopathy - vent bundle, hob elevated, nebs - serial ABG -Sputum culture, started on vancomycin and Zosyn 02/03. Changed to Meropenem empirically. Narrow ABX to Rocephin only due to harvey sensitive E. coli - Add diamox today X 1, review bicarb in a.m. CV: Septic Shock-resolved Lactic acidosis Recurrent Syncope Out of hospital PEA arrest -Currently off Levophed to keep map above 65 -Started on lasix. appears to be volume overloaded despite shock. - 2d echo 02/01: moderate aortic regurgitation. EF 60%. - close uop monitoring, trend lactates, trend abg - low suspicion for ACS - cardiac enzymes downtrending. - stress dose steroids-reduce to 50 q12 Renal: - continue reed - strict i/o's FEN/GI: Cirrhosis Failure to thrive severe hypokalemia Acute protein calorie malnutrition - severe and worsening (temporal muscle wasting, calf muscle atrophy, weight loss). Hyperammonemia Elevated alk phos - likely cause of poor nutrition is etoh - trend pre-Ab qweek: worsening. - aggressive K replacement - NGT and tube feeds. - iv thiamine and MVI - lactulose and daily ammonia checks - ICU electrolyte protocol - Daily CMP - Reglan Heme/ID: E. coli bacteremia Gram-negative pneumonia Coagulopathy secondary to end-stage liver disease - started on vancomycin and Zosyn 02/03. Changed to Meropenem empirically. Narrow ABX to Rocephin only due to harvey sensitive E. coli - Sputum culture E coli, blood culture E. coli. Both harvey sensitive - INR 1.3 which is stable from prior admissions, likely secondary to cirrhosis Endocrine: Hypothyroidism Hyperglycemia of critical illness - SSI, med scale, q6h - home Synthroid - Stress dose steroids as above-reduce to 50 q8 Prophylaxis: - SCDs - iv pepcid - lovenox sq Lines: - right radial art line 02/01-was dcd, placed new left femoral art line 02/04/18 - right femoral cvl 02/01-DC 02/04/18, New left subclavian central line placed - reed Dispo: remain in ICU. very critically ill. Severe encephalopathy which is multifactorial will not permit extubation, if family wants to continue aggressive care will need to decide on trach and PEG. Will discuss with palliative care to address goals of care. Today is . Overall prognosis is poor due to brain injury and co-morbidities. Harry Hi MD Feb 10, 2018 11:10
[2018-02-10] MEDS: ENOXAPARIN SODIUM 40 MG/0.4 ML SYRINGE SQ SCH (11:45)
[2018-02-10] MEDS: cefTRIAXone INJ 2,000 MG in SODIUM CHLORIDE 0.9% INJ 100 ML IV SCH (13:31)
[2018-02-11] VITALS (19 sets, daily range): BP systolic 132–145; BP diastolic 62–71; PULSE 96–118; RESP 14–16; TEMP 97.6–98.8; O2SAT 91–100
[2018-02-11] MEDS: DEXTROSE 50% IN WATER 50 ML VIAL(D50) IV PUSH PRN ×2 (00:22→01:56)
[2018-02-11] MEDS: MIDODRINE 5 MG TAB PO SCH ×3 (02:07→18:15)
[2018-02-11] MEDS: METOCLOPRAMIDE HCL 10 MG/2 ML VIAL IV PUSH SCH ×3 (02:07→18:14)
[2018-02-11] MEDS: CHLORHEXIDINE GLUCONATE 2 % 1 PACK (2 CLOTHS) TOP SCH (04:00)
[2018-02-11 05:01] LABS: AUTOMATED NEUTROPHIL # 21.6 TH/MM3 (1.8-7.7); HEMATOCRIT 37.1 % (39.0-51.0); HEMOGLOBIN 12.2 GM/DL (13.0-17.0); LYMPH % 1.3 % (9.0-44.0); LYMPHOCYTE # 0.3 TH/MM3 (1.0-4.8); MEAN CELL VOLUME 101.7 FL (80.0-100.0); MEAN CORPUSCULAR HEMOGLOBIN 33.5 PG (27.0-34.0); MEAN CORPUSCULAR HGB CONC 32.9 % (32.0-36.0); MEAN PLATELET VOLUME 9.8 FL (7.0-11.0); MONOCYTE # 0.7 TH/MM3 (0-0.9); NEUT % 95.7 % (16.0-70.0); PLATELET COUNT 123 TH/MM3 (150-450); RED BLOOD COUNT 3.65 MIL/MM3 (4.50-5.90); RED CELL DISTRIBUTION WIDTH 13.4 % (11.6-17.2); WHITE BLOOD COUNT 22.5 TH/MM3 (4.0-11.0)
[2018-02-11 05:22] LABS: BICARBONATE 33.8 MEQ/L (21.0-32.0); CALCIUM 9.3 MG/DL (8.5-10.1); CREATININE 0.62 MG/DL (0.60-1.30); PHOSPHORUS 3.1 MG/DL (2.5-4.9)
[2018-02-11] MEDS: INSULIN NovoLIN REGULAR SUPPLEMENTAL SCALE SQ SCH ×5 (06:00→23:44)
[2018-02-11] MEDS: LEVOTHYROXINE SODIUM 75 MCG TAB PO SCH (06:01)
[2018-02-11] MEDS: CHLORHEXIDINE 0.12% (ORAL KIT) 15 ML CUP MT SCH ×2 (08:00→22:59)
[2018-02-11] MEDS: HYDROCORTISONE SOD SUCCINATE 100 MG VIAL IV SCH ×2 (08:59→22:59)
[2018-02-11] MEDS: THIAMINE HCL 100 MG TAB PO SCH (08:59)
[2018-02-11] MEDS: MULTIVITAMIN TAB PO SCH (08:59)
--- NOTE | 2018-02-11 10:17 | HHI.CCPN ---
Subjective Remarks/Hospital Course Hospital Course: This is 67yM with history per prior records of cirrhosis who presented to the [facility] with [id number] PEA arrest. Per our documentation, He was seen on complaining of syncope and had a negative head CT at that time. He was discharged home. He represented 02/01 to [facility] with similar complaints of syncope , however the patient himself denied any complaints. In the waiting room, reports state he became unresponsive and cyanotic and was resuscitated with bag- valve-mask. He regained consciousness and refused additional care, signing out AMA before any work-up could be done. Per EMS report, when he was in the cab on the way home, he became unresponsive. presenting rhythm was PEA. ROSC was successfully obtained and he was stabilized in the [facility] before being transferred to [facility]. I evaluated the patient immediately upon arrival to the ICU. He is comatose and intubated, and no information can be obtained from him. He is on levophed at 15mcg/min. His pupils are 4mm, sluggishly reactive with roving eye movements. He is extensor posturing in the upper extremities and flexor posturing in the lower extremities. he has +cough but negative gag. + corneals. No additional information is obtainable from the patient and ROS is unobtainable. Laboratory evidence from [facility] demonstrates lactate of 9, trop 0.02, sodium 138, K 2.8, ammonia 46. Subjective: 02/02: no significant improvements. GCS remains 4 despite off sedation x 24h. trops downtrending, likely secondary to CPR and not primary ACS. MRI today without overt evidence of anoxia. remains critically ill and comatose. 02/03: Opens eyes today to persistent stimulation. Appears to track do not follow commands. MRI done yesterday no acute findings. Too weak to attempt spontaneous breathing trial or extubation 02/04: Developed severe septic shock yesterday evening. Was placed on Levophed maxed to 20 mcg/min, Aniceto-Synephrine was also added currently at 120 mcg/min. initially was DNR per palliative care, but the daughter rescinded it later. Currently patient remains unresponsive. Source of sepsis appears to be right lower lobe pneumonia, I have placed a new left subclavian central line will discontinue the right femoral central line 02/05: Remains in severe septic shock. Sputum culture with gram-negative rods, blood culture with E. coli. Will change to meropenem to cover for ESBL E. coli , currently on Zosyn. Also start stress dose steroids 02/06: remains in shock on vasopressors. sputum culture with pansensitive e. coli , but wbc uptrending and in shock despite meropenem. awake and following commands, although very encephalopathic. 02/07: remains on vasopressors. wbc elevated. procalcitonin elevated as well. sputum culture with rare yeasts on gram stain. CT chest/abd/pelvis ordered to eval for other sources of infection: dense RLL consolidation c/w pneumonia. will likely need to bronch and get diagnostic BAL since prior micro have been unable to identify specific organism. 02/08: sputum still growing GNR. wbc dowtrending, however today, and he continues to remain afebrile. still no real improvements in mental status. 02/09: Sputum culture also growing pansensitive E. coli. Off all pressors but no improvement in neuro exam. Severely encephalopathic, and for this reason unable to extubate 02/10: No improvement in neurological function, remains severely debilitated. Increasing base excess but still has acceptable respiratory drive. Off vasopressors still. Poor prognosis due to anoxic brain injury. Consider trach and placement as family wants continued aggressive support. 02/11: Very lethargic, unable to tolerate spontaneous breathing trials. If family needs continued aggressive care, needs tracheostomy and PEG tube placement. Palliative will meet with family today. WBC count increasing today 22.5 Objective Vital Signs Date Time Temp Pulse Resp B/P (MAP) Pulse Ox O2 Delivery O2 Flow Rate FiO2 02/11/18 07:19 100 40 02/11/18 06:00 118 02/11/18 04:00 97.9 14 134/67 (89) Intake and Output 02/11/18 02/11/18 02/12/18 08:00 16:00 00:00 Intake Total 711 ml Output Total 800 ml Balance -89 ml Result Diagram: 02/11/18 03402/11/18 034 Objective Remarks gen: cachetic male, lying in bed, intubated, encephalopathic, appears older than stated age, critically ill heent: nc. at. pupils 3 mm, sluggishly reactive, eye opening neck: trachea midline. JVD 2 cm above clavicle. chest: equal chest rise. prvc. 40% fio2. peep 5. cv: normal rate, regular rhythm. No JVD. abd: scaphoid. soft, nontender, nondistended. no guarding. extr: no peripheral edema. distal pulses 2+. neuro: Pupils as above. +corneals. Not following commands, slightly withdraws lowers to noxious stimulation. ? tracks with eyes intermittently. A/P Assessment and Plan Assessment: 67yM with cirrhosis and recent multiple complaints of syncope presents after leaving AMA from a syncopal episode and found in [id number] PEA arrest. very cachectic likely secondary to chronic etoh use. remain off sedatives and watch neuro exam. Remains severely encephalopathy. CT chest/abd/ pelvis with only RLL pneumonia. sputum culture with E Coli. If he clinically declines, would broaden his abx. remains critically ill and off pathway, not improving after anoxic brain injury. Neuro: Hypoxic Ischemic Encephalopathy Metabolic encephalopathy secondary to sepsis History of recurrent Syncope - Use sedation only for ventilatory synchrony. Currently off sedation for several days - avoid hyperthermia - EEG: generalized slowing 02/01. - Keppra 500mg iv q12h. DCd 02/09 - MRI brain: no abnormalities 02/02 - Persistent encephalopathy may be secondary to anoxia and now with a metabolic component Resp: Acute hypoxic and hypercarbic respiratory failure Right lower lobe pneumonia/E Coli in sputum - wean fio2 for goal spo2 > 90% - SBT without extubation due to severe encephalopathy, low tidal volume - vent bundle, hob elevated, nebs - serial ABG - Sputum culture, started on vancomycin and Zosyn 02/03. Changed to Meropenem empirically. Narrowed ABX to Rocephin only due to harvey sensitive E. coli - Got diamox 02/10 X 1 CV: Septic Shock-resolved Lactic acidosis Recurrent Syncope Out of hospital PEA arrest -Currently off Levophed -Started on lasix. appears to be volume overloaded despite shock. - 2d echo 02/01: moderate aortic regurgitation. EF 60%. - close uop monitoring, trend lactates, trend abg - low suspicion for ACS - cardiac enzymes downtrending. - stress dose steroids-reduce to 25 q12, DC in 3 days Renal: - continue reed - strict i/o's FEN/GI: Cirrhosis Failure to thrive severe hypokalemia Acute protein calorie malnutrition - severe and worsening (temporal muscle wasting, calf muscle atrophy, weight loss). Hyperammonemia Elevated alk phos - likely cause of poor nutrition is etoh - trend pre-Ab qweek: worsening. - aggressive K replacement - NGT and tube feeds. - iv thiamine and MVI - lactulose and daily ammonia checks - ICU electrolyte protocol - Daily CMP - Reglan Heme/ID: E. coli bacteremia Gram-negative pneumonia Coagulopathy secondary to end-stage liver disease - started on vancomycin and Zosyn 02/03. Changed to Meropenem empirically. Narrow ABX to Rocephin only due to harvey sensitive E. coli - Sputum culture E coli, blood culture E. coli. Both harvey sensitive - INR 1.3 which is stable from prior admissions, likely secondary to cirrhosis - WBC count increasing, but no hemodynamic change may be steroid related - Trend white count continue Rocephin for now, check repeat sputum culture Endocrine: Hypothyroidism Hyperglycemia of critical illness - SSI, med scale, q6h - home Synthroid - Stress dose steroids as above-reduce to 25 q12 and stop in 3 days Prophylaxis: - SCDs - iv pepcid - lovenox sq Lines: - right radial art line 02/01-was dcd, placed new left femoral art line 02/04/18 - right femoral cvl 02/01-DC 02/04/18, New left subclavian central line placed - reed Dispo: remain in ICU. very critically ill. Severe encephalopathy which is multifactorial will not permit extubation, if family wants to continue aggressive care will need to decide on trach and PEG. Palliative care to address goals of care. Today is vent day 12. Overall prognosis is poor due to brain injury and co-morbidities. Level 3 Yue Stallworth MD Feb 11, 2018 10:17
[2018-02-11] MEDS: ENOXAPARIN SODIUM 40 MG/0.4 ML SYRINGE SQ SCH (12:00)
--- NOTE | 2018-02-11 12:34 | HHI.HCPN ---
Reason for visit a. To assist with evaluation and management of symptoms including: Encephalopathy, dyspnea, debility b. To assist medical decision maker(s) with: better understanding of current medical conditions; weighing benefits/burdens of medical treatment options; making medical treatment decisions. (Tamica Akbar) Subjective/Interval History Follow-up visit to further clarify medical treatment goals and symptom management. Patient seen and examined in ICU room 514. Patient remains intubated on mechanical ventilation, unable to tolerate spontaneous breathing trails. Patient remains encephalopathic which is multifactorial and will not permit extubation. Patient is not capacitated to participate in medical decision making; it is unclear if he will regain this capacity in the future. If family desires ongoing aggressive care, the patient will need tracheostomy and PEG tube placement. Palliative care spoke to both daughters via speaker phone, Malia and Ambar. Malia opted out of medical decision-making this morning - this conversation was witnessed by both Marylu Garnica (Palliative UNIT SUPERVISOR ) and Shirley Johnston ([facility]). Now decision making falls to daughter, Ambar. Ambar verbalizes uncertainty on whether to proceed with ongoing aggressive interventions or transition to comfort; she does not believe her father would want his life prolonged artificially for any length of time. We discussed what each path might looked like (aggressive care vs. comfort focused care); she was encouraged to consider what her father would tell say if he were able to participate in medical decision-making conversations. Palliative care offered to facilitate a family meeting, but Ambar wants to talk with the rest of her family privately first. . Family/friend interactions Refer to interval history . (Tamica Akbar) Advance Directives Advance Directive Specifics Health Care Surrogate(s): Per [place] statutes, in the absence of written advanced directives healthcare proxy decision making would fall to the patient's 2 adult daughters. . Documented care wishes: No written advanced directives have been completed. . (Tamica Akbar) Objective Vital Signs Date Time Temp Pulse Resp B/P (MAP) Pulse Ox O2 Delivery O2 Flow Rate FiO2 02/11/18 12:00 98.0 102 139/63 (88) 100 02/11/18 12:00 40 02/11/18 12:00 102 02/11/18 10:10 100 40 02/11/18 10:00 100 02/11/18 08:00 110 02/11/18 08:00 97.6 110 14 145/67 (93) 100 02/11/18 08:00 40 02/11/18 07:19 100 40 02/11/18 06:00 118 02/11/18 04:14 100 40 02/11/18 04:00 97.9 109 14 134/67 (89) 100 02/11/18 04:00 40 02/11/18 04:00 109 02/11/18 02:00 109 02/11/18 01:30 40 02/11/18 01:15 100 40 02/11/18 00:00 50 02/11/18 00:00 98 02/11/18 00:00 97.8 98 16 136/71 (92) 98 02/10/18 22:00 87 02/10/18 20:00 97.6 78 16 163/70 (101) 100 02/10/18 20:00 78 02/10/18 20:00 50 02/10/18 19:36 100 50 02/10/18 18:00 90 02/10/18 16:00 65 02/10/18 16:00 93 02/10/18 16:00 98.4 93 136/75 (95) 100 02/10/18 15:59 100 55 02/10/18 14:00 83 Intake & Output 02/11/18 02/11/18 07:00 19:00 Intake Total 911 ml Output Total 800 ml Balance 111 ml Intake IV Total 200 ml Tube Feeding 471 ml Other 240 ml Output Urine Total 725 ml Stool Total 75 ml . Physical Exam CONSTITUTIONAL/GENERAL: Patient is a frail, elderly male patient currently intubated on mechanical ventilation. TUBES/LINES/DRAINS: PIV 2, CVL, arterial line, ETT, NGT, rectal tube, [place] SKIN: No jaundice, rashes, or lesions. Ecchymoses on upper extremities. Skin temperature appropriate. Not diaphoretic. HEAD: Atraumatic. Normocephalic. EYES: Pupils equal and round, reactive Extraocular motions intact. No injection or drainage. Fundi not examined. ENT: Hearing appears normal. Nose without bleeding or purulent drainage. NECK: Trachea midline. CARDIOVASCULAR: Regular rate and rhythm without murmurs, gallops, or rubs. No JVD. Peripheral pulses symmetric. RESPIRATORY/CHEST: Intubated on mechanical ventilator. Coarse rhonchi throughout. GASTROINTESTINAL: Abdomen soft, flat. Bowel sounds present. GENITOURINARY: Without palpable bladder distension. [place] catheter in place. MUSCULOSKELETAL: Extremities without clubbing, cyanosis. + Edema in upper and lower extremities bilaterally, upper extremities improving LYMPHATICS: No palpable cervical or supraclavicular adenopathy. NEUROLOGICAL: Encephalopathic. Intermittently tracks with eyes. Does not follow commands. PSYCHIATRIC: No apparent anxiety/agitation noted .. . (Tamica Akbar) Diagnostic Tests Laboratory Laboratory Tests Test 02/10/18 06:35 02/10/18 15:53 02/11/18 03:47 White Blood Count 13.2 TH/MM3 (4.0-11.0) 22.5 TH/MM3 (4.0-11.0) Red Blood Count 3.42 MIL/MM3 (4.50-5.90) 3.65 MIL/MM3 (4.50-5.90) Hemoglobin 11.6 GM/DL (13.0-17.0) 12.2 GM/DL (13.0-17.0) Hematocrit 34.1 % (39.0-51.0) 37.1 % (39.0-51.0) Mean Corpuscular Volume 99.8 FL (80.0-100.0) 101.7 FL (80.0-100.0) Mean Corpuscular Hemoglobin 33.9 PG (27.0-34.0) 33.5 PG (27.0-34.0) Mean Corpuscular Hemoglobin Concent 34.0 % (32.0-36.0) 32.9 % (32.0-36.0) Red Cell Distribution Width 12.9 % (11.6-17.2) 13.4 % (11.6-17.2) Platelet Count 113 TH/MM3 (150-450) 123 TH/MM3 (150-450) Mean Platelet Volume 9.5 FL (7.0-11.0) 9.8 FL (7.0-11.0) Neutrophils (%) (Auto) 88.0 % (16.0-70.0) 95.7 % (16.0-70.0) Lymphocytes (%) (Auto) 4.3 % (9.0-44.0) 1.3 % (9.0-44.0) Monocytes (%) (Auto) 7.5 % (0.0-8.0) 3.0 % (0.0-8.0) Eosinophils (%) (Auto) 0.0 % (0.0-4.0) 0.0 % (0.0-4.0) Basophils (%) (Auto) 0.2 % (0.0-2.0) 0.0 % (0.0-2.0) Neutrophils # (Auto) 11.6 TH/MM3 (1.8-7.7) 21.6 TH/MM3 (1.8-7.7) Lymphocytes # (Auto) 0.6 TH/MM3 (1.0-4.8) 0.3 TH/MM3 (1.0-4.8) Monocytes # (Auto) 1.0 TH/MM3 (0-0.9) 0.7 TH/MM3 (0-0.9) Eosinophils # (Auto) 0.0 TH/MM3 (0-0.4) 0.0 TH/MM3 (0-0.4) Basophils # (Auto) 0.0 TH/MM3 (0-0.2) 0.0 TH/MM3 (0-0.2) CBC Comment DIFF FINAL DIFF FINAL Differential Comment Blood Urea Nitrogen 36 MG/DL (7-18) 34 MG/DL (7-18) Creatinine 0.63 MG/DL (0.60-1.30) 0.62 MG/DL (0.60-1.30) Random Glucose 108 MG/DL (74-106) 144 MG/DL (74-106) Total Protein 5.2 GM/DL (6.4-8.2) Albumin 2.1 GM/DL (3.4-5.0) Calcium Level 9.1 MG/DL (8.5-10.1) 9.3 MG/DL (8.5-10.1) Magnesium Level 1.7 MG/DL (1.5-2.5) Alkaline Phosphatase 344 U/L (45-117) Aspartate Amino Transf (AST/SGOT) 66 U/L (15-37) Alanine Aminotransferase (ALT/SGPT) 82 U/L (12-78) Total Bilirubin 0.5 MG/DL (0.2-1.0) Sodium Level 147 MEQ/L (136-145) 150 MEQ/L (136-145) Potassium Level 2.7 MEQ/L (3.5-5.1) 3.2 MEQ/L (3.5-5.1) 3.8 MEQ/L (3.5-5.1) Chloride Level 105 MEQ/L (98-107) 111 MEQ/L (98-107) Carbon Dioxide Level 36.3 MEQ/L (21.0-32.0) 33.8 MEQ/L (21.0-32.0) Anion Gap 6 MEQ/L (5-15) 5 MEQ/L (5-15) Estimat Glomerular Filtration Rate 126 ML/MIN (>89) 129 ML/MIN (>89) Phosphorus Level 3.1 MG/DL (2.5-4.9) . (Tamica Akbar) Result Diagram: 02/11/18 0347 02/11/18 0347 Imaging Last 72 hours Impressions Chest X-Ray 02/10/18 0600 Signed Impressions: Service Date/Time: Saturday, February 10, 2018 02:41 - CONCLUSION: No significant change Basim Busch MD . Procedures 02/01/18: Right femoral CVL placed 02/01/18: Intubation 02/01/18: Right radial arterial line placement 02/04/18: Left subclavian central line placement 02/04/18: Left femoral arterial line placement . (Tamica Akbar) Assessment and Plan Disease Oriented Problem List: (1) Hypoxic ischemic encephalopathy (2) Acute respiratory failure with hypoxia and hypercarbia (3) Cardiogenic shock (4) PEA (Pulseless electrical activity) (5) Cirrhosis (6) Failure to thrive in adult (7) Hyperammonemia (8) Coagulopathy (9) Hypothyroidism Symptom Scale: Pertinent Non-Medical Issues Psychosocial: Patient is originally from [place]. He met his ex- in [facility] which is where he had his 2 daughters. They returned to [place] for approximately 10 years and then moved back to [place] again. Patient is . He currently lives with his brother. He lost his sister approximately 5 years ago due to complications related to COPD Spiritual: Islam honorio Legal: Per [place] statutes, in the absence of written advanced directives healthcare proxy decision making falls to the patient's 2 daughters Ethical issues impacting care: No known ethical issues impacting care at this time. . Important Contacts Malia Baires, daughter: [phone] Ambar Lizarraga, daughter: [phone] Prognosis Patient is a 67 yo male s/p out of hospital PEA arrest Code Status: Full Code Plan * FULL CODE * Decision-making: Per [place] statutes, in the absence of written advanced directives healthcare proxy decision making falls to the patient's 2 adult daughters. Daughter (Malia) opted out of the role of medical decision-maker this morning which leaves medical decision making to daughter, Ambar. This conversation was witnessed via speaker phone by Marylu Garnica (palliative UNIT SUPERVISOR) and Shirley Johnston (palliative FOOD TESTER). * Goals remain aggressive at this time. If family desires ongoing aggressive care, the patient will need tracheostomy and PEG tube placement. * Malia opted out of medical decision-making this morning (conversation witnessed by both Marylu Garnica and Shirley Johnston). Now decision making falls to daughter, Ambar. Ambar verbalizes uncertainty on whether to proceed with ongoing aggressive interventions or transition to comfort; she does not believe her father would want his life prolonged artificially for any length of time. We discussed what each path might looked like (aggressive care vs. comfort focused care); she was encouraged to consider what her father would tell say if he were able to participate in medical decision-making conversations. Palliative care offered to facilitate a family meeting, but Ambar wants to talk with the rest of her family privately first. * Discussed patient with nurse (Giuseppe) as well as lead coater, Dr. Stallworth. * Symptom management: = Encephalopathy: Patient remains encephalopathic which is multifactorial and will not permit extubation. Patient is not capacitated to participate in medical decision making; it is unclear if he will regain this capacity in the future. MRI of the brain on 02/01/18 showed no acute intracranial. abnormalities, no overt evidence of anoxia. EEG shows generalized slowing. We will continue to monitor. = Dyspnea: Patient remains intubated on mechanical ventilation, not tolerating spontaneous breathing trails. CT chest 02/07/18 showed diffuse anasarca with fluid density throughout the subcutaneous and intra-abdominal fat and apparent ascites; dense consolidation in both lung bases with small amounts of pleural fluid. sputum culture from 02/07/2018 growing E.Coli. = Debility: Patient has been hospitalized twice during 01/2018, having frequent episodes of syncope. Patient family reports an acute decline with > 25 + weight loss reported in the past year. Multiple areas of impaired skin integrity, wound consult pending. Would recommend getting physical therapy involved when the patient is stable. * Palliative care will continue to follow this patient throughout his hospitalization to establish trust, assist with symptom management and clarification of medical treatment goals. . (Tamica Akbar) Attestation To help prompt me to consider important information that might be impacting today's encounter and assessment, information from prior notes written by myself or my colleagues may have been "brought forward" into today's note. My signature on this note, however, is an attestation that I personally performed the exam, history, and/or decision-making noted today, and, unless otherwise indicated, the interactions with patient, family, and staff as well as the review of records all occurred today. I also attest that the listed assessment and stated plan reflect my best clinical judgment today based on the combination of historical information, prior notes, and today's exam/ interactions. When time spent is documented, it refers only to time spent today by the signer, or if indicated, combined time spent today by collaborating physician/nurse practitioner. . (Tamica Akbar) Collaborating MD Comments Chart reviewed. Case discussed with palliative care UNIT SUPERVISOR. Above UNIT SUPERVISOR note reviewed and I concur. . (Amor Galloway MD) Tamica Akbar Feb 11, 2018 12:34 Amor Galloway MD Feb 17, 2018 05:38
[2018-02-11] MEDS: cefTRIAXone INJ 2,000 MG in SODIUM CHLORIDE 0.9% INJ 100 ML IV SCH (14:25)
[2018-02-12] VITALS (18 sets, daily range): BP systolic 109–135; BP diastolic 59–67; PULSE 93–125; RESP 14; TEMP 98–98.8; O2SAT 95–100
[2018-02-12] MEDS: METOCLOPRAMIDE HCL 10 MG/2 ML VIAL IV PUSH SCH ×3 (02:23→17:21)
[2018-02-12] MEDS: MIDODRINE 5 MG TAB PO SCH ×3 (02:23→17:21)
[2018-02-12] MEDS: CHLORHEXIDINE GLUCONATE 2 % 1 PACK (2 CLOTHS) TOP SCH (04:00)
[2018-02-12] MEDS: LEVOTHYROXINE SODIUM 75 MCG TAB PO SCH (05:33)
[2018-02-12] MEDS: INSULIN NovoLIN REGULAR SUPPLEMENTAL SCALE SQ SCH ×4 (05:36→23:47)
[2018-02-12] MEDS: THIAMINE HCL 100 MG TAB PO SCH (07:39)
[2018-02-12] MEDS: MULTIVITAMIN TAB PO SCH (07:39)
[2018-02-12] MEDS: CHLORHEXIDINE 0.12% (ORAL KIT) 15 ML CUP MT SCH ×2 (07:47→20:19)
--- NOTE | 2018-02-12 09:13 | HHI.CCPN ---
Subjective Remarks/Hospital Course Hospital Course: This is 67yM with history per prior records of cirrhosis who presented to the [facility] with [id number] PEA arrest. Per our documentation, He was seen on complaining of syncope and had a negative head CT at that time. He was discharged home. He represented 02/01 to [facility] with similar complaints of syncope , however the patient himself denied any complaints. In the waiting room, reports state he became unresponsive and cyanotic and was resuscitated with bag- valve-mask. He regained consciousness and refused additional care, signing out AMA before any work-up could be done. Per EMS report, when he was in the cab on the way home, he became unresponsive. presenting rhythm was PEA. ROSC was successfully obtained and he was stabilized in the [facility] before being transferred to [facility]. I evaluated the patient immediately upon arrival to the ICU. He is comatose and intubated, and no information can be obtained from him. He is on levophed at 15mcg/min. His pupils are 4mm, sluggishly reactive with roving eye movements. He is extensor posturing in the upper extremities and flexor posturing in the lower extremities. he has +cough but negative gag. + corneals. No additional information is obtainable from the patient and ROS is unobtainable. Laboratory evidence from [facility] demonstrates lactate of 9, trop 0.02, sodium 138, K 2.8, ammonia 46. Subjective: 02/02: no significant improvements. GCS remains 4 despite off sedation x 24h. trops downtrending, likely secondary to CPR and not primary ACS. MRI today without overt evidence of anoxia. remains critically ill and comatose. 02/03: Opens eyes today to persistent stimulation. Appears to track do not follow commands. MRI done yesterday no acute findings. Too weak to attempt spontaneous breathing trial or extubation 02/04: Developed severe septic shock yesterday evening. Was placed on Levophed maxed to 20 mcg/min, Aniceto-Synephrine was also added currently at 120 mcg/min. initially was DNR per palliative care, but the daughter rescinded it later. Currently patient remains unresponsive. Source of sepsis appears to be right lower lobe pneumonia, I have placed a new left subclavian central line will discontinue the right femoral central line 02/05: Remains in severe septic shock. Sputum culture with gram-negative rods, blood culture with E. coli. Will change to meropenem to cover for ESBL E. coli , currently on Zosyn. Also start stress dose steroids 02/06: remains in shock on vasopressors. sputum culture with pansensitive e. coli , but wbc uptrending and in shock despite meropenem. awake and following commands, although very encephalopathic. 02/07: remains on vasopressors. wbc elevated. procalcitonin elevated as well. sputum culture with rare yeasts on gram stain. CT chest/abd/pelvis ordered to eval for other sources of infection: dense RLL consolidation c/w pneumonia. will likely need to bronch and get diagnostic BAL since prior micro have been unable to identify specific organism. 02/08: sputum still growing GNR. wbc dowtrending, however today, and he continues to remain afebrile. still no real improvements in mental status. 02/09: Sputum culture also growing pansensitive E. coli. Off all pressors but no improvement in neuro exam. Severely encephalopathic, and for this reason unable to extubate 02/10: No improvement in neurological function, remains severely debilitated. Increasing base excess but still has acceptable respiratory drive. Off vasopressors still. Poor prognosis due to anoxic brain injury. Consider trach and placement as family wants continued aggressive support. 02/11: Very lethargic, unable to tolerate spontaneous breathing trials. If family needs continued aggressive care, needs tracheostomy and PEG tube placement. Palliative will meet with family today. WBC count increasing today 22.5 02/12: Slightly more awake today spontaneous eye opening still not following commands. Family has not made a decision about tracheostomy or PEG tube placement. I will attempt to talk to the family today. CBC CMP pending today Objective Vital Signs Date Time Temp Pulse Resp B/P (MAP) Pulse Ox O2 Delivery O2 Flow Rate FiO2 02/12/18 07:31 99 35 02/12/18 06:00 113 02/12/18 04:00 98.4 14 111/67 (82) Intake and Output 02/12/18 02/12/18 02/12/18 07:59 15:59 23:59 Intake Total 427 ml Output Total 550 ml Balance -123 ml Result Diagram: 02/11/18 0347 02/11/18 0347 Objective Remarks gen: cachetic male, lying in bed, intubated, encephalopathic, appears older than stated age, critically ill HEENT: nc. at. pupils 3 mm, sluggishly reactive, eye opening neck: trachea midline. JVD 2 cm above clavicle. chest: equal chest rise. prvc. 40% fio2. peep 5. Not tolerating PSV due to low tidal volume cv: normal rate, regular rhythm. No JVD. abd: scaphoid. soft, nontender, nondistended. no guarding. extr: no peripheral edema. distal pulses 2+. neuro: Pupils as above. +corneals. Not following commands, slightly withdraws lowers to noxious stimulation. ? tracks with eyes intermittently. Appears more awake today A/P Assessment and Plan Assessment: 67yM with cirrhosis and recent multiple complaints of syncope presents after leaving AMA from a syncopal episode and found in [id number] PEA arrest. Cachectic likely secondary to chronic etoh use. remain off sedatives and watch neuro exam. Remains encephalopathic, but there may be very slight improvement today. CT chest/abd/pelvis with only RLL pneumonia. sputum culture with E Coli. If he clinically declines, would broaden his abx. remains critically ill and off pathway, not improving after anoxic brain injury. Neuro: Hypoxic Ischemic Encephalopathy Metabolic encephalopathy secondary to sepsis History of recurrent Syncope - Use sedation only for ventilatory synchrony. Currently off sedation for several days - Patient appears more awake today even though not following commands - Avoid hyperthermia - EEG: generalized slowing 02/01. MRI brain: no abnormalities 02/02 - Keppra 500mg iv q12h. DCd 02/09 - Persistent encephalopathy may be secondary to anoxia and now with a metabolic component Resp: Acute hypoxic and hypercarbic respiratory failure Right lower lobe pneumonia/E Coli in sputum - wean fio2 for goal spo2 > 90% - SBT without extubation due to severe encephalopathy, low tidal volume - vent bundle, hob elevated, nebs - Sputum culture, started on vancomycin and Zosyn 02/03. Changed to Meropenem empirically. Narrowed ABX to Rocephin only, due to harvey sensitive E. coli - Got Diamox 02/10 X 1 - Family has not decided on Trach/PEG CV: Septic Shock-resolved Lactic acidosis Recurrent Syncope Out of hospital PEA arrest -Currently off all pressors -Started on lasix. appears to be volume overloaded despite shock. 11/12 NS to correct hypernatremia - 2d echo 02/01: moderate aortic regurgitation. EF 60%. - close uop monitoring, trend lactates, trend abg - low suspicion for ACS. cardiac enzymes downtrended - stress dose steroids-reduced to 25 q12, DC in 3 days Renal: - continue reed - strict i/o's FEN/GI: Cirrhosis Failure to thrive severe hypokalemia Acute protein calorie malnutrition - severe and worsening (temporal muscle wasting, calf muscle atrophy, weight loss). Hyperammonemia Elevated alk phos - likely cause of poor nutrition is etoh - trend pre-Ab qweek - aggressive K replacement - NGT and tube feeds. Need PEG tube if family wants to continue aggressive care - iv thiamine and MVI - lactulose and daily ammonia checks - ICU electrolyte protocol - Reglan Heme/ID: E. coli bacteremia E Coli pneumonia Coagulopathy secondary to end-stage liver disease - started on vancomycin and Zosyn 02/03. Changed to Meropenem empirically. Narrowed ABX to Rocephin only due to harvey sensitive E. coli 02/09 - Sputum culture E coli, blood culture E. coli. Both harvey sensitive - INR 1.3 which is stable from prior admissions, likely secondary to cirrhosis - WBC count increasing, but no hemodynamic change may be steroid related. Check repeat sputum culture - Trend white count continue Rocephin for now Endocrine: Hypothyroidism Hyperglycemia of critical illness - SSI, med scale, q6h - home Synthroid - Stress dose steroids as above-reduce to 25 q12 and stop in 2 days Prophylaxis: - SCDs - iv pepcid - lovenox sq Lines: - right radial art line 02/01-was dcd, placed new left femoral art line 02/04/18- will DC - right femoral cvl 02/01-DCd 02/04/18, New left subclavian central line placed - reed Dispo: remain in ICU. Critically ill. Severe encephalopathy which is multifactorial will not permit extubation, if family wants to continue aggressive care will need to decide on trach and PEG. Palliative care following. Today is vent day 13. Overall prognosis is poor due to brain injury and co-morbidities, but slightly more awake today. Level 3 Yue Stallworth MD Feb 12, 2018 09:13
[2018-02-12 10:13] LABS: AUTOMATED NEUTROPHIL # 31.3 TH/MM3 (1.8-7.7); HEMATOCRIT 36.9 % (39.0-51.0); HEMOGLOBIN 12.2 GM/DL (13.0-17.0); LYMPH % 0.9 % (9.0-44.0); LYMPHOCYTE # 0.3 TH/MM3 (1.0-4.8); MEAN CELL VOLUME 101.5 FL (80.0-100.0); MEAN CORPUSCULAR HEMOGLOBIN 33.4 PG (27.0-34.0); MEAN CORPUSCULAR HGB CONC 32.9 % (32.0-36.0); MEAN PLATELET VOLUME 10.1 FL (7.0-11.0); MONO % 1.9 % (0.0-8.0); MONOCYTE # 0.6 TH/MM3 (0-0.9); NEUT % 97.2 % (16.0-70.0); PLATELET COUNT 123 TH/MM3 (150-450); RED BLOOD COUNT 3.64 MIL/MM3 (4.50-5.90); RED CELL DISTRIBUTION WIDTH 13.4 % (11.6-17.2); WHITE BLOOD COUNT 32.3 TH/MM3 (4.0-11.0)
[2018-02-12 10:33] LABS: ALBUMIN 1.9 GM/DL (3.4-5.0); ALT (GPT) 104 U/L (12-78); AST (GOT) 75 U/L (15-37); BICARBONATE 35.5 MEQ/L (21.0-32.0); BLOOD UREA NITROGEN 36 MG/DL (7-18); CALCIUM 9.4 MG/DL (8.5-10.1); CHLORIDE 110 MEQ/L (98-107); CREATININE 0.58 MG/DL (0.60-1.30); GLOMERULAR FILTRATION RATE 139 ML/MIN (>89); GLUCOSE,RANDOM 127 MG/DL (74-106); MAGNESIUM 1.8 MG/DL (1.5-2.5); SODIUM (NA) 150 MEQ/L (136-145)
[2018-02-12 10:36] LABS: ALKALINE PHOSPHATASE 345 U/L (45-117); PHOSPHORUS 3.4 MG/DL (2.5-4.9); TOTAL BILIRUBIN ADULT 0.4 MG/DL (0.2-1.0); TOTAL PROTEIN 5.5 GM/DL (6.4-8.2)
[2018-02-12 10:47] LABS: BANDS 11 % (0-6); LYMPHOCYTES 2 % (9-44); MONOCYTES 2 % (0-8); POLYS (SEG NEUTROPHILS) 85 % (16-70); TOXIC GRANULATION 1+ (NORMAL)
[2018-02-12] MEDS: HYDROCORTISONE SOD SUCCINATE 100 MG VIAL IV SCH ×2 (11:44→21:34)
[2018-02-12] MEDS: ENOXAPARIN SODIUM 40 MG/0.4 ML SYRINGE SQ SCH (12:00)
--- NOTE | 2018-02-12 13:29 | HHI.HCPN ---
Reason for visit a. To assist with evaluation and management of symptoms including: Encephalopathy, dyspnea, debility b. To assist medical decision maker(s) with: better understanding of current medical conditions; weighing benefits/burdens of medical treatment options; making medical treatment decisions. Subjective/Interval History Follow-up visit to further clarify medical treatment goals and symptom management. Patient seen and examined in ICU room 514. Patient remains intubated on mechanical ventilation, unable to tolerate spontaneous breathing trails. Patient remains encephalopathic which is multifactorial and will not permit extubation. Eyes are open; patient does not follow commands. Patient is not capacitated to participate in medical decision making; it is unclear if he will regain this capacity in the future. Patient appears frail, cachectic. Sputum culture growing E. coli, follow-up sputum culture pending. Afebrile. Tachycardic with heart rate in the 110s- 120s. WBC increasing to WBC:32.3. Today. If family desires ongoing aggressive care, the patient will need tracheostomy and PEG tube placement. Palliative care spoke with the daughter (Ambar) who is the health care proxy decision-maker since the patient's other daughter ( Malia) opted out of the role of healthcare decision-making yesterday 2017. At that time Ambar stated she wanted to speak with her family privately to discuss whether they should continue with aggressive interventions or transition to comfort focused care. Palliative care attempted to follow-up with Ambar later in the day yesterday and a message was left on her voicemail. This morning palliative care left 2 messages on Ambar's voicemail ; bedside nurse (Giuseppe) also attempted to contact Ambar and left a message on her voicemail as well. Awaiting return phone call. . Advance Directives Advance Directive Specifics Health Care Surrogate(s): Per [place] statutes, in the absence of written advanced directives healthcare proxy decision making would fall to the patient's 2 adult daughters. . Documented care wishes: No written advanced directives have been completed. . Objective Vital Signs Date Time Temp Pulse Resp B/P (MAP) Pulse Ox O2 Delivery O2 Flow Rate FiO2 02/12/18 10:53 100 35 02/12/18 10:00 120 02/12/18 08:20 40 02/12/18 08:00 40 02/12/18 08:00 98.8 125 126/64 (84) 98 02/12/18 08:00 125 02/12/18 07:31 99 35 02/12/18 06:00 113 02/12/18 04:10 95 40 02/12/18 04:00 114 02/12/18 04:00 98.4 114 14 111/67 (82) 98 02/12/18 04:00 40 02/12/18 02:00 112 02/12/18 00:21 97 40 02/12/18 00:00 98.3 113 14 130/65 (86) 97 02/12/18 00:00 40 02/12/18 00:00 113 02/11/18 22:00 101 02/11/18 20:00 97 02/11/18 20:00 40 02/11/18 20:00 98.6 97 14 132/62 (85) 91 02/11/18 19:24 96 40 02/11/18 18:00 100 02/11/18 16:00 98.8 96 140/67 (91) 98 02/11/18 16:00 96 02/11/18 16:00 40 02/11/18 15:50 95 40 02/11/18 14:00 97 Intake & Output 02/12/18 02/12/18 07:00 19:00 Intake Total 427 ml Output Total 550 ml Balance -123 ml Tube Feeding 307 ml Other 120 ml Output Urine Total 550 ml # Bowel Movements 1 . Physical Exam CONSTITUTIONAL/GENERAL: Patient is a frail, cachectic, elderly male patient currently intubated on mechanical ventilation. TUBES/LINES/DRAINS: PIV 2, CVL, arterial line, ETT, NGT, rectal tube, [place] SKIN: No jaundice, rashes, or lesions. Ecchymoses on upper extremities. Wound on upper lip appears necrotic skin temperature appropriate. Not diaphoretic. HEAD: Atraumatic. Normocephalic. EYES: Pupils equal and round, reactive Extraocular motions intact. No injection or drainage. Fundi not examined. ENT: Hearing appears normal. Nose without bleeding or purulent drainage. NECK: Trachea midline. CARDIOVASCULAR: Regular rate and rhythm without murmurs, gallops, or rubs. No JVD. Peripheral pulses symmetric. RESPIRATORY/CHEST: Intubated on mechanical ventilator. Coarse rhonchi throughout. GASTROINTESTINAL: Abdomen soft, flat. Bowel sounds present. GENITOURINARY: Without palpable bladder distension. [place] catheter in place. MUSCULOSKELETAL: Extremities without clubbing, cyanosis. + Edema in upper and lower extremities bilaterally, upper extremities improving LYMPHATICS: No palpable cervical or supraclavicular adenopathy. NEUROLOGICAL: Encephalopathic. Intermittently tracks with eyes. Does not follow commands. PSYCHIATRIC: No apparent anxiety/agitation noted .. . Diagnostic Tests Laboratory . Laboratory Tests Test 02/10/18 06:35 02/10/18 15:53 02/11/18 03:47 02/12/18 09:25 White Blood Count 13.2 TH/MM3 (4.0-11.0) 22.5 TH/MM3 (4.0-11.0) 32.3 TH/MM3 (4.0-11.0) Red Blood Count 3.42 MIL/MM3 (4.50-5.90) 3.65 MIL/MM3 (4.50-5.90) 3.64 MIL/MM3 (4.50-5.90) Hemoglobin 11.6 GM/DL (13.0-17.0) 12.2 GM/DL (13.0-17.0) 12.2 GM/DL (13.0-17.0) Hematocrit 34.1 % (39.0-51.0) 37.1 % (39.0-51.0) 36.9 % (39.0-51.0) Mean Corpuscular Volume 99.8 FL (80.0-100.0) 101.7 FL (80.0-100.0) 101.5 FL (80.0-100.0) Mean Corpuscular Hemoglobin 33.9 PG (27.0-34.0) 33.5 PG (27.0-34.0) 33.4 PG (27.0-34.0) Mean Corpuscular Hemoglobin Concent 34.0 % (32.0-36.0) 32.9 % (32.0-36.0) 32.9 % (32.0-36.0) Red Cell Distribution Width 12.9 % (11.6-17.2) 13.4 % (11.6-17.2) 13.4 % (11.6-17.2) Platelet Count 113 TH/MM3 (150-450) 123 TH/MM3 (150-450) 123 TH/MM3 (150-450) Mean Platelet Volume 9.5 FL (7.0-11.0) 9.8 FL (7.0-11.0) 10.1 FL (7.0-11.0) Neutrophils (%) (Auto) 88.0 % (16.0-70.0) 95.7 % (16.0-70.0) 97.2 % (16.0-70.0) Lymphocytes (%) (Auto) 4.3 % (9.0-44.0) 1.3 % (9.0-44.0) 0.9 % (9.0-44.0) Monocytes (%) (Auto) 7.5 % (0.0-8.0) 3.0 % (0.0-8.0) 1.9 % (0.0-8.0) Eosinophils (%) (Auto) 0.0 % (0.0-4.0) 0.0 % (0.0-4.0) 0.0 % (0.0-4.0) Basophils (%) (Auto) 0.2 % (0.0-2.0) 0.0 % (0.0-2.0) 0.0 % (0.0-2.0) Neutrophils # (Auto) 11.6 TH/MM3 (1.8-7.7) 21.6 TH/MM3 (1.8-7.7) 31.3 TH/MM3 (1.8-7.7) Lymphocytes # (Auto) 0.6 TH/MM3 (1.0-4.8) 0.3 TH/MM3 (1.0-4.8) 0.3 TH/MM3 (1.0-4.8) Monocytes # (Auto) 1.0 TH/MM3 (0-0.9) 0.7 TH/MM3 (0-0.9) 0.6 TH/MM3 (0-0.9) Eosinophils # (Auto) 0.0 TH/MM3 (0-0.4) 0.0 TH/MM3 (0-0.4) 0.0 TH/MM3 (0-0.4) Basophils # (Auto) 0.0 TH/MM3 (0-0.2) 0.0 TH/MM3 (0-0.2) 0.0 TH/MM3 (0-0.2) CBC Comment DIFF FINAL DIFF FINAL AUTO DIFF Differential Comment FINAL DIFF MANUAL Blood Urea Nitrogen 36 MG/DL (7-18) 34 MG/DL (7-18) 36 MG/DL (7-18) Creatinine 0.63 MG/DL (0.60-1.30) 0.62 MG/DL (0.60-1.30) 0.58 MG/DL (0.60-1.30) Random Glucose 108 MG/DL (74-106) 144 MG/DL (74-106) 127 MG/DL (74-106) Total Protein 5.2 GM/DL (6.4-8.2) 5.5 GM/DL (6.4-8.2) Albumin 2.1 GM/DL (3.4-5.0) 1.9 GM/DL (3.4-5.0) Calcium Level 9.1 MG/DL (8.5-10.1) 9.3 MG/DL (8.5-10.1) 9.4 MG/DL (8.5-10.1) Magnesium Level 1.7 MG/DL (1.5-2.5) 1.8 MG/DL (1.5-2.5) Alkaline Phosphatase 344 U/L (45-117) 345 U/L (45-117) Aspartate Amino Transf (AST/SGOT) 66 U/L (15-37) 75 U/L (15-37) Alanine Aminotransferase (ALT/SGPT) 82 U/L (12-78) 104 U/L (12-78) Total Bilirubin 0.5 MG/DL (0.2-1.0) 0.4 MG/DL (0.2-1.0) Sodium Level 147 MEQ/L (136-145) 150 MEQ/L (136-145) 150 MEQ/L (136-145) Potassium Level 2.7 MEQ/L (3.5-5.1) 3.2 MEQ/L (3.5-5.1) 3.8 MEQ/L (3.5-5.1) 3.4 MEQ/L (3.5-5.1) Chloride Level 105 MEQ/L (98-107) 111 MEQ/L (98-107) 110 MEQ/L (98-107) Carbon Dioxide Level 36.3 MEQ/L (21.0-32.0) 33.8 MEQ/L (21.0-32.0) 35.5 MEQ/L (21.0-32.0) Anion Gap 6 MEQ/L (5-15) 5 MEQ/L (5-15) 5 MEQ/L (5-15) Estimat Glomerular Filtration Rate 126 ML/MIN (>89) 129 ML/MIN (>89) 139 ML/MIN (>89) Phosphorus Level 3.1 MG/DL (2.5-4.9) 3.4 MG/DL (2.5-4.9) Differential Total Cells Counted 100 Neutrophils % (Manual) 85 % (16-70) Band Neutrophils % 11 % (0-6) Lymphocytes % 2 % (9-44) Monocytes % 2 % (0-8) Neutrophils # (Manual) 31.0 TH/MM3 (1.8-7.7) Toxic Granulation 1+ (NORMAL) Platelet Estimate LOW (NORMAL) Platelet Morphology Comment NORMAL (NORMAL) . Result Diagram: 02/12/1892402/12/18 09 Microbiology Microbiology Date/Time Source Procedure Growth Status 02/12/18 12:15 Sputum Endotracheal Gram Stain Pending Received 02/12/18 12:15 Sputum Endotracheal Sputum Culture Pending Received . Imaging . Last 72 hours Impressions Chest X-Ray 02/10/18 0600 Signed Impressions: Service Date/Time: Saturday, February 10, 2018 02:41 - CONCLUSION: No significant change Basim Busch MD . Procedures 02/01/18: Right femoral CVL placed 02/01/18: Intubation 02/01/18: Right radial arterial line placement 02/04/18: Left subclavian central line placement 02/04/18: Left femoral arterial line placement . Assessment and Plan Disease Oriented Problem List: (1) Hypoxic ischemic encephalopathy (2) Acute respiratory failure with hypoxia and hypercarbia (3) Cardiogenic shock (4) PEA (Pulseless electrical activity) (5) Cirrhosis (6) Failure to thrive in adult (7) Hyperammonemia (8) Coagulopathy (9) Hypothyroidism Symptom Scale: Pertinent Non-Medical Issues Psychosocial: Patient is originally from [place]. He met his ex- in [facility] which is where he had his 2 daughters. They returned to [place] for approximately 10 years and then moved back to [place] again. Patient is . He currently lives with his brother. He lost his sister approximately 5 years ago due to complications related to COPD Spiritual: Taoist honorio Legal: Per [place] statutes, in the absence of written advanced directives healthcare proxy decision making falls to the patient's 2 daughters Ethical issues impacting care: No known ethical issues impacting care at this time. . Important Contacts Malia Baires, daughter: [phone] Ambar Lizarraga, daughter: [phone] Prognosis Patient is a 67 yo male s/p out of hospital PEA arrest Code Status: Full Code Plan * FULL CODE * Decision-making: Per [place] statutes, in the absence of written advanced directives healthcare proxy decision making falls to the patient's 2 adult daughters. Daughter (Malia) opted out of the role of medical decision-maker on 02/11/2018, which leaves medical decision making to daughter (Ambar). This conversation was witnessed via speaker phone by Marylu Garnica (palliative [employer]) and Shirley Johnston (palliative OUTSIDE MACHINIST HELPER). * Goals remain aggressive at this time. * If family desires ongoing aggressive care, the patient will need tracheostomy and PEG tube placement. Discussed with daughter (Ambar) on 02/11/18 who stated she wanted to speak with her family privately to discuss whether they should continue with aggressive interventions or transition to comfort focused care. Palliative care attempted to follow-up with Ambar later in the day yesterday and a message was left on her voicemail. This morning palliative care left 2 messages on Ambar's voicemail; bedside nurse (Giuseppe) also attempted to contact Ambar and left a message on her voicemail as well. Awaiting return phone call . * Discussed patient with nurse (Giuseppe) as well as offset plate preparation supervisor, Dr. Stallworth. * Symptom management: = Encephalopathy: Patient remains encephalopathic which is multifactorial and will not permit extubation. Patient is not capacitated to participate in medical decision making; it is unclear if he will regain this capacity in the future. MRI of the brain on 02/01/18 showed no acute intracranial. abnormalities, no overt evidence of anoxia. EEG shows generalized slowing. We will continue to monitor. = Dyspnea: Patient remains intubated on mechanical ventilation, not tolerating spontaneous breathing trails. CT chest 02/07/18 showed diffuse anasarca with fluid density throughout the subcutaneous and intra-abdominal fat and apparent ascites; dense consolidation in both lung bases with small amounts of pleural fluid. sputum culture from 02/07/2018 growing E.Coli. = Debility: Patient has been hospitalized twice during 01/2018, having frequent episodes of syncope. Patient family reports an acute decline with > 25 + weight loss reported in the past year. Multiple areas of impaired skin integrity, wound consult pending. Would recommend getting physical therapy involved when the patient is stable. * Palliative care will continue to follow this patient throughout his hospitalization to establish trust, assist with symptom management and clarification of medical treatment goals. . Attestation To help prompt me to consider important information that might be impacting today's encounter and assessment, information from prior notes written by myself or my colleagues may have been "brought forward" into today's note. My signature on this note, however, is an attestation that I personally performed the exam, history, and/or decision-making noted today, and, unless otherwise indicated, the interactions with patient, family, and staff as well as the review of records all occurred today. I also attest that the listed assessment and stated plan reflect my best clinical judgment today based on the combination of historical information, prior notes, and today's exam/ interactions. When time spent is documented, it refers only to time spent today by the signer, or if indicated, combined time spent today by collaborating physician/nurse practitioner. . Tamica Akbar Feb 12, 2018 13:29
[2018-02-12] MEDS: cefTRIAXone INJ 2,000 MG in SODIUM CHLORIDE 0.9% INJ 100 ML IV SCH (14:53)
[2018-02-13] VITALS (19 sets, daily range): BP systolic 120–164; BP diastolic 56–86; PULSE 76–114; RESP 14–24; TEMP 97.4–98.4; O2SAT 95–100
[2018-02-13] MEDS: MIDODRINE 5 MG TAB PO SCH ×3 (01:39→18:20)
[2018-02-13] MEDS: METOCLOPRAMIDE HCL 10 MG/2 ML VIAL IV PUSH SCH ×3 (01:39→18:14)
[2018-02-13] MEDS: LEVOTHYROXINE SODIUM 75 MCG TAB PO SCH (05:12)
[2018-02-13] MEDS: CHLORHEXIDINE GLUCONATE 2 % 1 PACK (2 CLOTHS) TOP SCH (05:13)
[2018-02-13] MEDS: INSULIN NovoLIN REGULAR SUPPLEMENTAL SCALE SQ SCH ×3 (05:13→18:00)
[2018-02-13] MEDS: HYDROCORTISONE SOD SUCCINATE 100 MG VIAL IV SCH (09:33)
[2018-02-13] MEDS: CHLORHEXIDINE 0.12% (ORAL KIT) 15 ML CUP MT SCH ×2 (09:35→22:17)
[2018-02-13] MEDS: THIAMINE HCL 100 MG TAB PO SCH (09:35)
[2018-02-13] MEDS: MULTIVITAMIN TAB PO SCH (09:35)
[2018-02-13] MEDS ORDERED: Vancomycin Consult Pharmacy 1 EA OTHER SCH (10:30)
--- NOTE | 2018-02-13 10:35 | HHI.CCPN ---
Subjective Remarks/Hospital Course Hospital Course: This is 67yM with history per prior records of cirrhosis who presented to the [facility] with [id number] PEA arrest. Per our documentation, He was seen on complaining of syncope and had a negative head CT at that time. He was discharged home. He represented 02/01 to [facility] with similar complaints of syncope , however the patient himself denied any complaints. In the waiting room, reports state he became unresponsive and cyanotic and was resuscitated with bag- valve-mask. He regained consciousness and refused additional care, signing out AMA before any work-up could be done. Per EMS report, when he was in the cab on the way home, he became unresponsive. presenting rhythm was PEA. ROSC was successfully obtained and he was stabilized in the [facility] ED before being transferred to [facility]. I evaluated the patient immediately upon arrival to the ICU. He is comatose and intubated, and no information can be obtained from him. He is on levophed at 15mcg/min. His pupils are 4mm, sluggishly reactive with roving eye movements. He is extensor posturing in the upper extremities and flexor posturing in the lower extremities. he has +cough but negative gag. + corneals. No additional information is obtainable from the patient and ROS is unobtainable. Laboratory evidence from [facility] demonstrates lactate of 9, trop 0.02, sodium 138, K 2.8, ammonia 46. Subjective: 02/02: no significant improvements. GCS remains 4 despite off sedation x 24h. trops downtrending, likely secondary to CPR and not primary ACS. MRI today without overt evidence of anoxia. remains critically ill and comatose. 02/03: Opens eyes today to persistent stimulation. Appears to track do not follow commands. MRI done yesterday no acute findings. Too weak to attempt spontaneous breathing trial or extubation 02/04: Developed severe septic shock yesterday evening. Was placed on Levophed maxed to 20 mcg/min, Aniceto-Synephrine was also added currently at 120 mcg/min. initially was DNR per palliative care, but the daughter rescinded it later. Currently patient remains unresponsive. Source of sepsis appears to be right lower lobe pneumonia, I have placed a new left subclavian central line will discontinue the right femoral central line 02/05: Remains in severe septic shock. Sputum culture with gram-negative rods, blood culture with E. coli. Will change to meropenem to cover for ESBL E. coli , currently on Zosyn. Also start stress dose steroids 02/06: remains in shock on vasopressors. sputum culture with pansensitive e. coli , but wbc uptrending and in shock despite meropenem. awake and following commands, although very encephalopathic. 02/07: remains on vasopressors. wbc elevated. procalcitonin elevated as well. sputum culture with rare yeasts on gram stain. CT chest/abd/pelvis ordered to eval for other sources of infection: dense RLL consolidation c/w pneumonia. will likely need to bronch and get diagnostic BAL since prior micro have been unable to identify specific organism. 02/08: sputum still growing GNR. wbc dowtrending, however today, and he continues to remain afebrile. still no real improvements in mental status. 02/09: Sputum culture also growing pansensitive E. coli. Off all pressors but no improvement in neuro exam. Severely encephalopathic, and for this reason unable to extubate 02/10: No improvement in neurological function, remains severely debilitated. Increasing base excess but still has acceptable respiratory drive. Off vasopressors still. Poor prognosis due to anoxic brain injury. Consider trach and placement as family wants continued aggressive support. 02/11: Very lethargic, unable to tolerate spontaneous breathing trials. If family needs continued aggressive care, needs tracheostomy and PEG tube placement. Palliative will meet with family today. WBC count increasing today 22.5 02/12: Slightly more awake today spontaneous eye opening still not following commands. Family has not made a decision about tracheostomy or PEG tube placement. I will attempt to talk to the family today. CBC CMP pending today 02/13: Neurologically showing some signs of improvement, tracking better ischial spontaneously open. Very weakly followed commands in all extremity. WBC count increased to 32.3 with predominantly neutrophils and bandemia. Repeat panculture sputum culture with GPC, added vancomycin IV. Rule out C. difficile colitis, add p.o. Flagyl. GB US to rule out cholecystitis. Got consent from Ambar, patient's daughter for tracheostomy and PEG tube placement Objective Vital Signs Date Time Temp Pulse Resp B/P (MAP) Pulse Ox O2 Delivery O2 Flow Rate FiO2 02/13/18 09:51 35 02/13/18 08:55 95 02/13/18 06:00 109 02/13/18 04:00 98.4 134/86 (102) 02/12/18 04:00 14 Intake and Output 02/13/18 02/13/18 02/14/18 08:00 16:00 00:00 Intake Total 511 ml Output Total 450 ml Balance 61 ml Result Diagram: 02/12/1892402/12/18924 Objective Remarks gen: cachetic male, lying in bed, intubated, encephalopathic, appears older than stated age, critically ill HEENT: nc. at. pupils 3 mm, sluggishly reactive, eye opening neck: trachea midline. JVD 2 cm above clavicle. chest: equal chest rise. prvc. 40% fio2. peep 5. Not tolerating PSV due to low tidal volume. Moderate hernandez secretions cv: normal rate, regular rhythm. No JVD. abd: scaphoid. soft, nontender, nondistended. no guarding. extr: no peripheral edema. distal pulses 2+. neuro: Pupils as above. Spontaneous eye opening tracking more today. Very weakly follows commands 4. Slightly improved neuro exam today A/P Assessment and Plan Assessment: 67yM with cirrhosis and recent multiple complaints of syncope presents after leaving AMA from a syncopal episode and found in [id number] PEA arrest. Cachectic likely secondary to chronic etoh use. remain off sedatives and watch neuro exam. Remains encephalopathic, but there may be very slight improvement in neuro exam. CT chest/abd/pelvis with only RLL pneumonia. sputum culture with E Coli. Given improvement in neurology physical status, but continued failure to wean from ventilator patient is appropriate candidate for tracheostomy. Becoming more septic probable C. difficile colitis. Plan for tracheostomy today Neuro: Hypoxic Ischemic Encephalopathy Metabolic encephalopathy secondary to sepsis History of recurrent Syncope - Use sedation only for ventilatory synchrony. Currently off sedation for several days - Patient appears more awake, improving neuro exam but significant weakness persist - Avoid hyperthermia - EEG: generalized slowing 02/01. MRI brain: no abnormalities 02/02 - Nakul DCd 02/09 - Persistent encephalopathy may be secondary to anoxia and now with a metabolic component - PT/OT Resp: Acute hypoxic and hypercarbic respiratory failure Right lower lobe pneumonia/E Coli in sputum - wean fio2 for goal spo2 > 90% -Continues to fail SBT due to encephalopathy, neuromuscular weakness, low tidal volume - vent bundle, hob elevated, nebs. Plan for tracheostomy today - Sputum culture, started on vancomycin and Zosyn 02/03. Changed to Meropenem empirically. Narrowed ABX to Rocephin only, due to harvey sensitive E. coli - Restart vancomycin today - Got Diamox 02/10 X 1 - Obtained consent for trach from Ambar today CV: Severe sepsis Lactic acidosis Recurrent Syncope Out of hospital PEA arrest -Currently off all pressors -Started on lasix. appears to be volume overloaded despite shock. 2 NS to correct hypernatremia - 2d echo 02/01: moderate aortic regurgitation. EF 60%. - close uop monitoring, trend lactates, trend abg - low suspicion for ACS. cardiac enzymes downtrended - stress dose steroids-reduced to 25 q12, DC in 2 days Renal: - continue reed - strict i/o's FEN/GI: Cirrhosis Failure to thrive severe hypokalemia Acute protein calorie malnutrition - severe and worsening (temporal muscle wasting, calf muscle atrophy, weight loss). Hyperammonemia Elevated alk phos - likely cause of poor nutrition is etoh - trend pre-Ab qweek - aggressive K replacement - NGT and tube feeds. Need PEG tube if family wants to continue aggressive care , GI consulted - Check C. difficile colitis - Check gallbladder ultrasound to rule out acute cholecystitis - iv thiamine and MVI - lactulose and daily ammonia checks - ICU electrolyte protocol - Reglan Heme/ID: Severe worsening sepsis Rule out C. difficile colitis E. coli bacteremia E Coli pneumonia Coagulopathy secondary to end-stage liver disease - Continue Rocephin, and IV vancomycin for GPC and sputum, add p.o. Flagyl to cover for C. difficile colitis - Check for C. difficile, check gallbladder ultrasound, repeat panculture - Previously started on vancomycin and Zosyn 02/03. Changed to Meropenem empirically. Narrowed ABX to Rocephin only due to harvey sensitive E. coli 02/09 - Sputum culture E coli, blood culture E. coli. Both harvey sensitive - INR 1.3 which is stable from prior admissions, likely secondary to cirrhosis Endocrine: Hypothyroidism Hyperglycemia of critical illness - SSI, med scale, q6h - home Synthroid - Stress dose steroids as above-reduce to 25 q12 and stop in 2 days Prophylaxis: - SCDs - iv pepcid - lovenox sq Lines: - right radial art line 02/01-was dcd, placed new left femoral art line 02/04/18- will DC - right femoral cvl 02/01-DCd 02/04/18, New left subclavian central line placed - reed Dispo: remain in ICU. Critically ill. Severe encephalopathy which is multifactorial will not permit extubation, now with worsening sepsis Palliative care following. Trach today, plan for PEG CCT 35 min Yue Stallworth MD Feb 13, 2018 10:35
[2018-02-13] MEDS: ENOXAPARIN SODIUM 40 MG/0.4 ML SYRINGE SQ SCH (11:23)
--- NOTE | 2018-02-13 11:24 | RADRPT ---
EXAM DATE/TIME: 02/13/2018 10:40 [facility] COMPARISON: CHEST SINGLE AP, February 10, 2018, 2:41. INDICATIONS : Evaluate for respiratory disease. MEDICAL HISTORY : Cirrhosis. Hernia SURGICAL HISTORY : Tonsillectomy. ENCOUNTER: Subsequent ACUITY: 1 week PAIN SCORE: 0/10 LOCATION: Bilateral chest FINDINGS: ET tube tip well above the ben. Gastric tube traverses the [id number]. Left subclavian cathet er tip in the proximal superior vena cava. Patchy areas of opacity in the right lower lung are simil ar to prior. Some minimal blunting of the costophrenic angles bilaterally is also stable. CONCLUSION: Stable bilateral pleural-parenchymal opacities. Shawn Rose MD on February 13, 2018 at 11:20 Board Certified Radiologist. This report was verified electronically.
[2018-02-13 11:47] LABS: BASOPHIL % 0.2 % (0.0-2.0); HEMATOCRIT 35.7 % (39.0-51.0); HEMOGLOBIN 11.9 GM/DL (13.0-17.0); LYMPH % 1.2 % (9.0-44.0); LYMPHOCYTE # 0.2 TH/MM3 (1.0-4.8); MEAN CELL VOLUME 100.8 FL (80.0-100.0); MEAN CORPUSCULAR HEMOGLOBIN 33.6 PG (27.0-34.0); MEAN CORPUSCULAR HGB CONC 33.3 % (32.0-36.0); MONO % 3.7 % (0.0-8.0); MONOCYTE # 0.7 TH/MM3 (0-0.9); NEUT % 94.9 % (16.0-70.0); PLATELET COUNT 132 TH/MM3 (150-450); RED BLOOD COUNT 3.54 MIL/MM3 (4.50-5.90); RED CELL DISTRIBUTION WIDTH 13.6 % (11.6-17.2); WHITE BLOOD COUNT 20.1 TH/MM3 (4.0-11.0)
[2018-02-13 12:05] LABS: BACTERIA, URINE RARE /hpf; BILIRUBIN, URINE NEG (NEG); BLOOD, URINE NEG (NEG); GLUCOSE,URINE NEG (NEG); HYALINE CAST, URINE 28 /lpf (RARE); KETONE, URINE NEG (NEG); MUCUS URINE FEW /lpf (OCC); NITRITE,URINE NEG (NEG); SQUAMOUS EPITHELIAL CELL URINE 2 /hpf (0-5); URINE COLOR YELLOW (YELLW/STRAW); URINE LEUKOCYTE ESTERASE NEG (NEG)
[2018-02-13 12:06] LABS: ALBUMIN 1.8 GM/DL (3.4-5.0); ALT (GPT) 141 U/L (12-78); AST (GOT) 140 U/L (15-37); BICARBONATE 36.7 MEQ/L (21.0-32.0); BLOOD UREA NITROGEN 37 MG/DL (7-18); CHLORIDE 110 MEQ/L (98-107); CREATININE 0.53 MG/DL (0.60-1.30); GLOMERULAR FILTRATION RATE 154 ML/MIN (>89); GLUCOSE,RANDOM 99 MG/DL (74-106); MAGNESIUM 1.8 MG/DL (1.5-2.5); SODIUM (NA) 151 MEQ/L (136-145)
[2018-02-13 12:09] LABS: ALKALINE PHOSPHATASE 586 U/L (45-117); TOTAL BILIRUBIN ADULT 0.5 MG/DL (0.2-1.0); TOTAL PROTEIN 5.6 GM/DL (6.4-8.2)
[2018-02-13] MEDS: metroNIDAZOLE 500 MG TAB PO SCH ×3 (12:17→22:17)
[2018-02-13] MEDS ORDERED: VANCOMYCIN INJ 1,000 MG in SODIUM CHLOR 0.9% 250 ML INJ 250 ML IV ONE (12:30)
--- NOTE | 2018-02-13 13:07 | PD.CONS ---
HPI History of Present Illness This is a 67 year old M who is currently admitted to ICU at [facility] after a cardiac arrest. Pt is currently on sedation and mechanically intubated so history was obtained through chart review. Pt apparently left [facility] AMA and became unresponsive in the [place] on his way home and therefore was transported back to the hospital via [facility]. Pt has been unable to be weaned off the ventilator and our service has been consulted for PEG placement. Our service has previously followed pt for cirrhosis secondary to ETOH abuse and had paracentesis in the past. CT abdomen and pelvis (02/07) --> Diffuse severe anasarca with fluid density throughout the subcutaneous and intra-abdominal fat and apparent ascites. Dense consolidation in both lung bases with small amounts of pleural fluid. LFTs are elevated. (Kaylie Parnell) PFSH Past Medical History Cirrhosis Chronic hyponatremia Hypothyroidism COPD Past Surgical History Tonsillectomy Hiatal hernia repair Paracentesis . (Kaylie Parnell) Coded Allergies: No Known Allergies (Unverified Adverse Reaction, Unknown, 01/31/18) Family History Pending conversations with patient's family. . Social History Unable to obtain Based off of previous records does admit to ETOH use (Kaylie Parnell) Review of Systems Unable to obtain (Kaylie Parnell) GI Exam Vitals I&O Vital Signs Date Time Temp Pulse Resp B/P (MAP) Pulse Ox O2 Delivery O2 Flow Rate FiO2 02/13/18 12:00 100 02/13/18 12:00 98.0 100 150/67 (94) 96 02/13/18 12:00 35 02/13/18 10:00 112 02/13/18 09:51 35 02/13/18 08:55 95 35 02/13/18 08:00 35 02/13/18 08:00 97.5 114 24 152/68 (96) 95 02/13/18 08:00 114 02/13/18 06:00 109 02/13/18 04:02 96 35 02/13/18 04:00 35 02/13/18 04:00 102 02/13/18 04:00 98.4 102 134/86 (102) 97 02/13/18 02:00 100 02/13/18 00:08 100 35 02/13/18 00:00 35 02/13/18 00:00 91 02/13/18 00:00 98.2 91 120/56 (77) 97 02/12/18 22:00 93 02/12/18 20:00 98.6 96 135/60 (85) 100 02/12/18 20:00 35 02/12/18 20:00 96 02/12/18 19:31 100 35 02/12/18 18:00 99 02/12/18 16:00 40 02/12/18 16:00 98.0 94 111/59 (76) 100 02/12/18 16:00 94 02/12/18 14:50 100 35 02/12/18 14:00 94 I/O 02/12/18 02/12/18 02/12/18 02/13/18 02/13/18 02/13/18 07:00 15:00 23:00 07:00 15:00 23:00 Intake Total 427 ml 604 ml 511 ml Output Total 550 ml 325 ml 450 ml Balance -123 ml 279 ml 61 ml Intake IV Total 100 ml Tube Feeding 307 ml 404 ml 391 ml Other 120 ml 100 ml 120 ml Output Urine Total 550 ml 325 ml 450 ml Stool Total 0 ml # Bowel Movements 1 2 Imaging Last Impressions Chest X-Ray 02/13/18 0000 Signed Impressions: Service Date/Time: February 10:40 - CONCLUSION: Stable bilateral pleural-parenchymal opacities. Shawn Rose MD Chest CT 02/07/18 0000 Signed Impressions: Service Date/Time: Wednesday, February 07, 2018 15:56 - CONCLUSION: 1. Diffuse anasarca. 2. Dense consolidation right lower lobe with air bronchograms which could represent aspiration pneumonia. 3. Small area of consolidative opacity in the left lower lobe which appears to represent a previously noted area of rounded atelectasis mild surrounding infiltrate. 4. Small pleural fluid collections are present. 5. Underlying emphysema. 6. 1 cm noncalcified pulmonary nodule now noted in the right upper lobe which is new from the prior study. A three-month followup noncontrast chest CT is recommended. Rik Villarreal MD Abdomen/Pelvis CT 02/07/18 0000 Signed Impressions: Service Date/Time: Wednesday, February 07, 2018 15:56 - CONCLUSION: 1. Diffuse severe anasarca with fluid density throughout the subcutaneous and intra-abdominal fat and apparent ascites. 2. Dense consolidation in both lung bases with small amounts of pleural fluid. Rik Villarreal MD Gall Bladder Ultrasound 02/06/18 0000 Signed Impressions: Service Date/Time: January 21:47 - CONCLUSION: 1. Diffusely coarsened echotexture to the liver likely from underlying diffuse hepatic disease. 2. Mild ascites likely from the hepatic disease. 3. Mild thickening of the gallbladder without stones. This can be seen with hepatic disease. Basim Keene MD Abdomen X-Ray 02/05/18 0000 Signed Impressions: Service Date/Time: Monday, February 05, 2018 10:08 - CONCLUSION: 1. Nonspecific bowel gas pattern with no abnormal dilatation of the large or small bowel. 2. NG tube in the stomach. Justin Jorgensen MD Brain MRI 02/02/18 0000 Signed Impressions: Service Date/Time: Friday, February 02, 2018 10:53 - CONCLUSION: No acute intracranial abnormality. Mild mucosal thickening involving bilateral ethmoid and sphenoid sinuses. 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 Anuel Dueñas MD Head CT 02/01/18 0453 Signed Impressions: Service Date/Time: Thursday, February 01, 2018 07:28 - CONCLUSION: No acute disease. Anuel Dueñas MD Cervical Spine CT 02/01/18 0000 Signed Impressions: Service Date/Time: Thursday, February 01, 2018 07:28 - CONCLUSION: 1. No acute fracture or prevertebral soft tissue swelling. 2. Diffuse cervical spondylosis. 3. Mild bilateral foraminal narrowing at C3-4 and C4-5 and mild left neural foraminal narrowing at C6-7. 4. Mild scoliosis. 5. Biapical emphysema and fibrotic scarring are noted. Anuel Dueñas MD Laboratory Test 02/13/18 11:20 White Blood Count 20.1 TH/MM3 Red Blood Count 3.54 MIL/MM3 Hemoglobin 11.9 GM/DL Hematocrit 35.7 % Mean Corpuscular Volume 100.8 FL Mean Corpuscular Hemoglobin 33.6 PG Mean Corpuscular Hemoglobin Concent 33.3 % Red Cell Distribution Width 13.6 % Platelet Count 132 TH/MM3 Mean Platelet Volume 10.0 FL Neutrophils (%) (Auto) 94.9 % Lymphocytes (%) (Auto) 1.2 % Monocytes (%) (Auto) 3.7 % Eosinophils (%) (Auto) 0.0 % Basophils (%) (Auto) 0.2 % Neutrophils # (Auto) 19.0 TH/MM3 Lymphocytes # (Auto) 0.2 TH/MM3 Monocytes # (Auto) 0.7 TH/MM3 Eosinophils # (Auto) 0.0 TH/MM3 Basophils # (Auto) 0.0 TH/MM3 CBC Comment DIFF FINAL Differential Comment Urine Color YELLOW Urine Turbidity HAZY Urine pH 5.0 Urine Specific [place] 1.022 Urine Protein 30 mg/dL Urine Glucose (UA) NEG mg/dL Urine Ketones NEG mg/dL Urine Occult Blood NEG Urine Nitrite NEG Urine Bilirubin NEG Urine Urobilinogen LESS THAN 2.0 MG/DL Urine Leukocyte Esterase NEG Urine RBC 5 /hpf Urine WBC 5 /hpf Urine Squamous Epithelial Cells 2 /hpf Urine Uric Acid Crystals /hpf Urine Bacteria RARE /hpf Urine Hyaline Casts 28 /lpf Urine Mucus FEW /lpf Urine Yeast (Budding) OCC Microscopic Urinalysis Comment CULT NOT INDICATED Blood Urea Nitrogen 37 MG/DL Creatinine 0.53 MG/DL Random Glucose 99 MG/DL Total Protein 5.6 GM/DL Albumin 1.8 GM/DL Calcium Level 10.0 MG/DL Magnesium Level 1.8 MG/DL Alkaline Phosphatase 586 U/L Aspartate Amino Transf (AST/SGOT) 140 U/L Alanine Aminotransferase (ALT/SGPT) 141 U/L Total Bilirubin 0.5 MG/DL Sodium Level 151 MEQ/L Potassium Level 3.6 MEQ/L Chloride Level 110 MEQ/L Carbon Dioxide Level 36.7 MEQ/L Anion Gap 4 MEQ/L Estimat Glomerular Filtration Rate 154 ML/MIN Date/Time Source Procedure Growth Status 02/13/18 11:20 Blood Peripheral Aerobic Blood Culture Pending Received 02/13/18 11:20 Blood Peripheral Anaerobic Blood Culture Pending Received 02/12/18 12:15 Sputum Endotracheal Gram Stain - Final Resulted 02/12/18 12:15 Sputum Endotracheal Sputum Culture Pending Resulted 02/03/18 20:55 Urine Catheterized Urine Urine Culture - Final NO GROWTH IN 48 HOURS. Complete Physical Examination HEENT: Normocephalic; scab to upper lip CHEST: Respirations synchronized with vent CARDIAC: RRR ABDOMEN: Soft, nondistended, bowel sounds active LOCAL BULK DRIVER: Awake, eyes open, nonverbal (Kaylie Parnell) Assessment and Plan Plan Assessment: - Consult for PEG placement- unable to be weaned off the vent S/P arrest. Currently receiving nutrition through OG tube. Limited information, pt currently intubated via ETT - Cirrhosis secondary to ETOH- previously seen by our service in 2011- elevated in LFTs noted- AST-140 ALT_141 Alk phos-586 T bili-0.5 CT abdomen and pelvis (02/07) --> Diffuse severe anasarca with fluid density throughout the subcutaneous and intra-abdominal fat and apparent ascites. Dense consolidation in both lung bases with small amounts of pleural fluid. US gallbladder (02/06) --> . Diffusely coarsened echotexture to the liver likely from underlying diffuse hepatic disease. Mild ascites likely from the hepatic disease. Mild thickening of the gallbladder without stones. This can be seen with hepatic disease. Hypoalbuminemia, thrombocytopenia, no coagulopathy noted - Thrombocytopenia- platelets 132 - Anemia H/H currently 11.9/35.7 Plan: EGD with PEG placement tomorrow Obtain consent Hold TF after MN Hold Lovenox on 02/14 Rocephin for abx coverage TF recommendations per nutrition PT/INR in AM Monitor LFTs Further recommendations based on findings of above Pt has been seen and examined by myself and Dr. Castro and this note is written on his behalf (Kaylie Parnell) Physician Comments Seen and examined with SUZANNA, sedated/intubated. EGD/PEG planned for tomorrow. Thank you (Helga Castro MD) Kaylie Parnell Feb 13, 2018 13:07 Helga Castro MD Feb 13, 2018 13:58
[2018-02-13] MEDS: cefTRIAXone INJ 2,000 MG in SODIUM CHLORIDE 0.9% INJ 100 ML IV SCH (13:38)
[2018-02-13] MEDS ORDERED: PROPOFOL 500 MG/50 ML INJ 50 ML ONE (14:17)
[2018-02-13] MEDS ORDERED: fentaNYL CITRATE 250 MCG/5 ML AMP IV PUSH ONE (14:45)
[2018-02-13] MEDS ORDERED: ROCURONIUM INJ 50 MG/5 ML VIAL IV ONE (14:45)
[2018-02-13] MEDS ORDERED: MIDAZOLAM HCL 5 MG/5 ML VIAL IV PUSH ONE (14:45)
[2018-02-13] MEDS ORDERED: NOREPINEPHRINE-DEXTROSE DRIP 250 ML IV ONE (15:07)
--- NOTE | 2018-02-13 15:43 | PD.PROCEDR ---
Procedure Note Procedure Procedure: Percutaneous tracheostomy with bronchoscopic guidance Operators: Dr. Yue Stallworth for percutaneous tracheostomy, Dr. Hi for bronchoscopy Informed consent obtained from family and documented on chart Preoperative diagnosis: Acute respiratory failure on mechanical ventilation, unable to wean, Anoxic encephalopathy Postoperative diagnosis: Same Anesthesia used: Versed 5 mg IV, fentanyl 100 g IV, Rocuronium 50 mg IV for neuromuscular blockade. 1% lidocaine for local infiltration anesthesia. Propofol gtt Procedure: After ensuring adequate sedation/analgesia neuromuscular blockade, patient was positioned appropriately. After sterile prepping and draping, 1% lidocaine was used for local infiltration anesthesia. Dr. Hi proceeded with bronchoscopy and withdrawing ET tube. Introducer Angiocath was inserted into the trachea under bronchoscopic guidance and Angiocath was advanced into the trachea following which needle was removed. A guidewire was passed via Angiocath and was visualized passing down the trachea following which Angiocath was then removed. Punch dilator was used to dilate the tracheal ring; following which tracheostomy dilator assembly was mounted over the guidewire and advanced to dilate the tracheal opening. The dilator was visualized on screen entering the trachea without injuring the posterior tracheal wall. Following this dilator assembly was removed and percutaneous tracheostomy mounted over dilator was advanced over the guidewire into the trachea under direct visualization following which guidewire/dilator were removed. Bronchoscope was inserted at this point by Dr. Hi via newly inserted tracheostomy and appropriate placement was confirmed by visualizing tracheal rings, main ben. Bronchoscope was withdrawn and inner cannula was placed via tracheostomy. After inflating cuff patient was connected to mechanical ventilation via tracheostomy. Four interrupted sutures were used to secure tracheostomy to neck. Patient tolerated the procedure well with no immediate complications noted. Good hemostasis was achieved at the end of procedure. Postprocedure chest x-ray was ordered and was pending at the time. Yue Stallworth MD Feb 13, 2018 15:42
--- NOTE | 2018-02-13 15:48 | PD.PROCEDR ---
Procedure Note Procedure Diagnosis: Hypoxemic respiratory failure Operation: Flexible fiberoptic bronchoscopy Procedure: Timeout performed and patient properly identified. The usual intensive care unit monitoring was in place including mechanical ventilation through orotracheal intubation. The flexible bronchoscope was delivered through a sealed side-port of the ventilator circuit and delivered into the main trachea. The tracheobronchial tree was inspected and found to be normal aside from some minor secretions in the left lower lobe. The mucosa of the bronchi were not inflamed. The branching segments of the secondary bronchi were normal without anatomic variation. The indwelling orotracheal tube was pulled back simultaneously with the flexible bronchoscope. This was positioned at the level of the cricoid cartilage and used for visualization and guidance for the percutaneous tracheostomy dictated under separate note by another team. Immediately following insertion of the percutaneous tracheostomy to the flexible bronchoscope was delivered through the new tube to verify satisfactory position in the mid trachea, safely above the ben. The inner cannula was then placed and the ventilator circuit was connected to the new tracheostomy tube. Good breath sounds were observed and capnography demonstrated appropriate CO2 removal. Airway pressures were normal. Oxygen saturation remained greater than 95% throughout the procedure. The regional orotracheal tube and nasogastric tubes were then removed. Harry Hi MD Feb 13, 2018 15:48
--- NOTE | 2018-02-13 16:16 | RADRPT ---
EXAM DATE/TIME: 02/13/2018 15:58 [facility] COMPARISON: CHEST SINGLE AP, February 13, 2018, 10:40. INDICATIONS : Post trach placement. MEDICAL HISTORY : Cirrhosis. Hernia SURGICAL HISTORY : None. ENCOUNTER: Subsequent ACUITY: 1 day PAIN SCORE: Non-responsive. LOCATION: Bilateral chest FINDINGS: Interval placement of tracheostomy, in good position. Left subclavian catheter tip projects over the mid superior vena cava. There is blunting of both costophrenic angles characteristic of small pleur al effusions, stable from prior. Some patchy areas of opacity in the lower lungs are also stable. T he side port of the gastric tube has changed in position and is now located 2.8 cm above the level of the hemidiaphragm; the tube needs to be advanced. CONCLUSION: 1. Tracheostomy good position. 2. Side port of the gastric tube is now above the level the diaphragm and the tube needs to be advanc ed at least 3 cm. 3. Stable bilateral small pleural effusions. Shawn Rose MD on February 13, 2018 at 16:12 Board Certified Radiologist. This report was verified electronically.
--- NOTE | 2018-02-13 17:06 | RADRPT ---
EXAM DATE/TIME: 02/13/2018 17:23 [facility] COMPARISON: US ABDOMEN - GALLBLADDER, February 06, 2018, 21:47. INDICATIONS : Right upper quadrant pain. MEDICAL HISTORY : Cirrhosis. Syncope. Dyspnea. Hiatal hernia. Measles. Blood transfusions. SURGICAL HISTORY : Tonsillectomy. Hernia surgery. Paracentesis. ENCOUNTER: Initial ACUITY: 1 day PAIN SCORE: 0/10 LOCATION: Right upper quadrant MEASUREMENTS: LIVER: 16.2 cm length COMMON DUCT: 5 mm RIGHT KIDNEY: 12.3 x 5.6 x 4.8 cm FINDINGS: LIVER: Heterogeneous echotexture without focal lesion or ductal dilatation. COMMON DUCT: No intraluminal mass or stone visualized. GALLBLADDER: Contains no stones, demonstrates no wall thickening or pericholecystic fluid. PANCREAS: The visualized portions are within normal limits. RIGHT KIDNEY: No evidence of hydronephrosis, stone, or mass. CONCLUSION: 1. There is minimal ascites in the upper abdomen. The exam is otherwise within normal limits. Haile Londono MD on February 13, 2018 at 17:01 Board Certified Radiologist. This report was verified electronically.
--- NOTE | 2018-02-13 17:21 | HHI.HCPN ---
Reason for visit a. To assist with evaluation and management of symptoms including: Encephalopathy, dyspnea, debility b. To assist medical decision maker(s) with: better understanding of current medical conditions; weighing benefits/burdens of medical treatment options; making medical treatment decisions. (Tamica Akbar) Subjective/Interval History Follow-up visit to further clarify medical treatment goals and symptom management. Patient seen and examined in ICU room 514 status post percutaneous tracheostomy placement with bronchoscopy. Follow-up chest x-ray showing stable bilateral pleural-parenchymal opacities. GI was consulted for PEG tube placement -tentatively tomorrow 02/14/2018. Patient appears frail, cachectic. Afebrile. WBC 20.1; neutrophils 94.9%. Thrombocytopenia-platelets 132. H/H currently 11.9/35.7 Repeat panculture sputum culture 02/12/18 with GPC - added vancomycin IV. Stool culture pending to rule out C. difficile colitis - added oral Flagyl. LFTs elevated. AST: 140; ALT 141; alkaline phosphatase 586; total bilirubin 0.5 Ultrasound of the gallbladder pending - rule out cholecystitis. CT abdomen/pelvis on 02/07/18 showed diffuse, severe anasarca with fluid density throughout the subcutaneous and intra-abdominal fat and apparent ascites. Dense consolidation of both lung bases with small amounts of pleural fluid. manager floor, Shanta Gaviria, coordinating discharge planning. Patient has been referred to [facility] for vent rehab. Patient authorization has been started; patient has well care for insurance . Family/friend interactions . Palliative care met with patient's daughters (Malia and Ambar) status post tracheostomy this afternoon. Update provided on patient's clinical condition. They had many questions regarding possible discharge to SNF in the upcoming days ; questions answered to the best of my ability. We discussed that the patient patient will require extensive rehab for an undetermined amount of time, complications and setbacks that may arise were addressed. They verbalized understanding that the patient will have "some good days and some bad." They feel that if anyone can make it through this, it's their father. . (Tamica Akbar) Advance Directives Advance Directive Specifics Health Care Surrogate(s): Per [place] statutes, in the absence of written advanced directives healthcare proxy decision making falls to the patient's 2 adult daughters. Daughter ( Malia) opted out of the role of medical decision-maker on 02/11/2018, which leaves medical decision making to daughter (Ambar). This conversation was witnessed via speaker phone by Marylu Garnica (palliative STORAGE BATTERY CHARGER) and Shirley Johnston ( palliative POULTRY FARMER). . Documented care wishes: No written advanced directives have been completed. . (Tamica Akbar) Objective Vital Signs Date Time Temp Pulse Resp B/P (MAP) Pulse Ox O2 Delivery O2 Flow Rate FiO2 02/13/18 16:00 76 02/13/18 15:10 100 100 02/13/18 14:00 96 02/13/18 13:01 95 35 02/13/18 12:00 100 02/13/18 12:00 98.0 100 150/67 (94) 96 02/13/18 12:00 35 02/13/18 10:00 112 02/13/18 09:51 35 02/13/18 08:55 95 35 02/13/18 08:00 35 02/13/18 08:00 97.5 114 24 152/68 (96) 95 02/13/18 08:00 114 02/13/18 06:00 109 02/13/18 04:02 96 35 02/13/18 04:00 35 02/13/18 04:00 102 02/13/18 04:00 98.4 102 134/86 (102) 97 02/13/18 02:00 100 02/13/18 00:08 100 35 02/13/18 00:00 35 02/13/18 00:00 91 02/13/18 00:00 98.2 91 120/56 (77) 97 02/12/18 22:00 93 02/12/18 20:00 98.6 96 135/60 (85) 100 02/12/18 20:00 35 02/12/18 20:00 96 02/12/18 19:31 100 35 02/12/18 18:00 99 Intake & Output 02/13/18 02/13/18 07:00 19:00 Intake Total 511 ml 350 ml Output Total 450 ml Balance 61 ml 350 ml Intake IV Total 350 ml Tube Feeding 391 ml Other 120 ml Output Urine Total 450 ml # Bowel Movements 2 . Physical Exam CONSTITUTIONAL/GENERAL: Patient is a frail, cachectic, elderly male patient s/p tracheostomy placement in no acute distress TUBES/LINES/DRAINS: PIV 2, CVL, arterial line, tracheostomy NGT, rectal tube, [place] SKIN: No jaundice, rashes, or lesions. Ecchymoses on upper extremities. Wound on upper lip. HEAD: Atraumatic. Normocephalic. EYES: Pupils equal and round, reactive Extraocular motions intact. No injection or drainage. Fundi not examined. ENT: Hearing appears normal. Nose without bleeding or purulent drainage. NECK: Trachea midline. CARDIOVASCULAR: Regular rate and rhythm without murmurs, gallops, or rubs. No JVD. Peripheral pulses symmetric. RESPIRATORY/CHEST: Tracheostomy tube mechanical vent. GASTROINTESTINAL: Abdomen soft, flat. Bowel sounds present. GENITOURINARY: Without palpable bladder distension. [place] catheter in place. MUSCULOSKELETAL: Extremities without clubbing, cyanosis. + Edema in upper and lower extremities bilaterally. LYMPHATICS: No palpable cervical or supraclavicular adenopathy. NEUROLOGICAL: Eyes closed, sedated status post tracheostomy with bronchoscopy PSYCHIATRIC: No apparent anxiety/agitation noted .. . (Tamica Akbar) Diagnostic Tests Laboratory Laboratory Tests Test 02/11/18 03:47 02/12/18 09:25 02/13/18 11:20 White Blood Count 22.5 TH/MM3 (4.0-11.0) 32.3 TH/MM3 (4.0-11.0) 20.1 TH/MM3 (4.0-11.0) Red Blood Count 3.65 MIL/MM3 (4.50-5.90) 3.64 MIL/MM3 (4.50-5.90) 3.54 MIL/MM3 (4.50-5.90) Hemoglobin 12.2 GM/DL (13.0-17.0) 12.2 GM/DL (13.0-17.0) 11.9 GM/DL (13.0-17.0) Hematocrit 37.1 % (39.0-51.0) 36.9 % (39.0-51.0) 35.7 % (39.0-51.0) Mean Corpuscular Volume 101.7 FL (80.0-100.0) 101.5 FL (80.0-100.0) 100.8 FL (80.0-100.0) Mean Corpuscular Hemoglobin 33.5 PG (27.0-34.0) 33.4 PG (27.0-34.0) 33.6 PG (27.0-34.0) Mean Corpuscular Hemoglobin Concent 32.9 % (32.0-36.0) 32.9 % (32.0-36.0) 33.3 % (32.0-36.0) Red Cell Distribution Width 13.4 % (11.6-17.2) 13.4 % (11.6-17.2) 13.6 % (11.6-17.2) Platelet Count 123 TH/MM3 (150-450) 123 TH/MM3 (150-450) 132 TH/MM3 (150-450) Mean Platelet Volume 9.8 FL (7.0-11.0) 10.1 FL (7.0-11.0) 10.0 FL (7.0-11.0) Neutrophils (%) (Auto) 95.7 % (16.0-70.0) 97.2 % (16.0-70.0) 94.9 % (16.0-70.0) Lymphocytes (%) (Auto) 1.3 % (9.0-44.0) 0.9 % (9.0-44.0) 1.2 % (9.0-44.0) Monocytes (%) (Auto) 3.0 % (0.0-8.0) 1.9 % (0.0-8.0) 3.7 % (0.0-8.0) Eosinophils (%) (Auto) 0.0 % (0.0-4.0) 0.0 % (0.0-4.0) 0.0 % (0.0-4.0) Basophils (%) (Auto) 0.0 % (0.0-2.0) 0.0 % (0.0-2.0) 0.2 % (0.0-2.0) Neutrophils # (Auto) 21.6 TH/MM3 (1.8-7.7) 31.3 TH/MM3 (1.8-7.7) 19.0 TH/MM3 (1.8-7.7) Lymphocytes # (Auto) 0.3 TH/MM3 (1.0-4.8) 0.3 TH/MM3 (1.0-4.8) 0.2 TH/MM3 (1.0-4.8) Monocytes # (Auto) 0.7 TH/MM3 (0-0.9) 0.6 TH/MM3 (0-0.9) 0.7 TH/MM3 (0-0.9) Eosinophils # (Auto) 0.0 TH/MM3 (0-0.4) 0.0 TH/MM3 (0-0.4) 0.0 TH/MM3 (0-0.4) Basophils # (Auto) 0.0 TH/MM3 (0-0.2) 0.0 TH/MM3 (0-0.2) 0.0 TH/MM3 (0-0.2) CBC Comment DIFF FINAL AUTO DIFF DIFF FINAL Differential Comment FINAL DIFF MANUAL Blood Urea Nitrogen 34 MG/DL (7-18) 36 MG/DL (7-18) 37 MG/DL (7-18) Creatinine 0.62 MG/DL (0.60-1.30) 0.58 MG/DL (0.60-1.30) 0.53 MG/DL (0.60-1.30) Random Glucose 144 MG/DL (74-106) 127 MG/DL (74-106) 99 MG/DL (74-106) Calcium Level 9.3 MG/DL (8.5-10.1) 9.4 MG/DL (8.5-10.1) 10.0 MG/DL (8.5-10.1) Phosphorus Level 3.1 MG/DL (2.5-4.9) 3.4 MG/DL (2.5-4.9) Sodium Level 150 MEQ/L (136-145) 150 MEQ/L (136-145) 151 MEQ/L (136-145) Potassium Level 3.8 MEQ/L (3.5-5.1) 3.4 MEQ/L (3.5-5.1) 3.6 MEQ/L (3.5-5.1) Chloride Level 111 MEQ/L (98-107) 110 MEQ/L (98-107) 110 MEQ/L (98-107) Carbon Dioxide Level 33.8 MEQ/L (21.0-32.0) 35.5 MEQ/L (21.0-32.0) 36.7 MEQ/L (21.0-32.0) Anion Gap 5 MEQ/L (5-15) 5 MEQ/L (5-15) 4 MEQ/L (5-15) Estimat Glomerular Filtration Rate 129 ML/MIN (>89) 139 ML/MIN (>89) 154 ML/MIN (>89) Differential Total Cells Counted 100 Neutrophils % (Manual) 85 % (16-70) Band Neutrophils % 11 % (0-6) Lymphocytes % 2 % (9-44) Monocytes % 2 % (0-8) Neutrophils # (Manual) 31.0 TH/MM3 (1.8-7.7) Toxic Granulation 1+ (NORMAL) Platelet Estimate LOW (NORMAL) Platelet Morphology Comment NORMAL (NORMAL) Total Protein 5.5 GM/DL (6.4-8.2) 5.6 GM/DL (6.4-8.2) Albumin 1.9 GM/DL (3.4-5.0) 1.8 GM/DL (3.4-5.0) Magnesium Level 1.8 MG/DL (1.5-2.5) 1.8 MG/DL (1.5-2.5) Alkaline Phosphatase 345 U/L (45-117) 586 U/L (45-117) Aspartate Amino Transf (AST/SGOT) 75 U/L (15-37) 140 U/L (15-37) Alanine Aminotransferase (ALT/SGPT) 104 U/L (12-78) 141 U/L (12-78) Total Bilirubin 0.4 MG/DL (0.2-1.0) 0.5 MG/DL (0.2-1.0) Urine Color YELLOW (YELLW/STRAW) Urine Turbidity HAZY (CLEAR) Urine pH 5.0 (5.0-8.5) Urine Specific [place] 1.022 (1.002-1.035) Urine Protein 30 mg/dL (NEG-TRACE) Urine Glucose (UA) NEG mg/dL (NEG) Urine Ketones NEG mg/dL (NEG) Urine Occult Blood NEG (NEG) Urine Nitrite NEG (NEG) Urine Bilirubin NEG (NEG) Urine Urobilinogen LESS THAN 2.0 MG/DL (LESS Urine Leukocyte Esterase NEG (NEG) Urine RBC 5 /hpf (0-3) Urine WBC 5 /hpf (0-5) Urine Squamous Epithelial Cells 2 /hpf (0-5) Urine Uric Acid Crystals /hpf (NONE) Urine Bacteria RARE /hpf (NONE) Urine Hyaline Casts 28 /lpf (RARE) Urine Mucus FEW /lpf (OCC) Urine Yeast (Budding) OCC (NONE) Microscopic Urinalysis Comment CULT NOT INDICATED . (Tamica Akbar) Result Diagram: 02/13/18 1120 02/13/18 1120 Microbiology Microbiology Date/Time Source Procedure Growth Status 02/13/18 11:20 Blood Peripheral Aerobic Blood Culture Pending Received 02/13/18 11:20 Blood Peripheral Anaerobic Blood Culture Pending Received 02/12/18 12:15 Sputum Endotracheal Gram Stain - Final Resulted 02/12/18 12:15 Sputum Endotracheal Sputum Culture - Preliminary Resulted . Imaging Last 72 hours Impressions Chest X-Ray 02/13/18 0000 Signed Impressions: Service Date/Time: February 15:58 - CONCLUSION: 1. Tracheostomy good position. 2. Side port of the gastric tube is now above the level the diaphragm and the tube needs to be advanced at least 3 cm. 3. Stable bilateral small pleural effusions. Shawn Rose MD Chest X-Ray 02/13/18 0000 Signed Impressions: Service Date/Time: February 10:40 - CONCLUSION: Stable bilateral pleural-parenchymal opacities. Shawn Rose MD . Procedures 02/01/18: Right femoral CVL placed 02/01/18: Intubation 02/01/18: Right radial arterial line placement 02/04/18: Right femoral CVL discontinued. New left subclavian central line placed 02/04/18: Right radial arterial line was discontinued. New left femoral arterial line placed 02/13/18: Tracheostomy placement with bronchoscopy . (Tamica Akbar) Assessment and Plan Disease Oriented Problem List: (1) Hypoxic ischemic encephalopathy (2) Acute respiratory failure with hypoxia and hypercarbia (3) Cardiogenic shock (4) PEA (Pulseless electrical activity) (5) Cirrhosis (6) Failure to thrive in adult (7) Hyperammonemia (8) Coagulopathy (9) Hypothyroidism Symptom Scale: (1) Dyspnea 0-10 Scale: Unable to quantify (2) Encephalopathy 0-10 Scale: Unable to quantify (3) Debility 0-10 Scale: Unable to quantify Pertinent Non-Medical Issues Psychosocial: Patient is originally from [place]. He met his ex- in [facility] which is where he had his 2 daughters. They returned to [place] for approximately 10 years and then moved back to [place] again. Patient is . He currently lives with his brother. He lost his sister approximately 5 years ago due to complications related to COPD Spiritual: [employer] Legal:Per [place] statutes, in the absence of written advanced directives healthcare proxy decision making falls to the patient's 2 adult daughters. Daughter (Malia) opted out of the role of medical decision-maker on 02/11/2018, which leaves medical decision making to daughter (Ambar). This conversation was witnessed via speaker phone by Marylu Garnica (palliative STORAGE BATTERY CHARGER) and Shirley Johnston (palliative POULTRY FARMER). Ethical issues impacting care: No known ethical issues impacting care at this time. . Important Contacts Malia Baires, daughter: [phone] Ambar Lizarraga, daughter: [phone] Prognosis Patient is a 67 yo male s/p out of hospital PEA arrest Code Status: Full Code Plan * FULL CODE * Decision-making: Per [place] statutes, in the absence of written advanced directives healthcare proxy decision making falls to the patient's 2 adult daughters. Daughter (Malia) opted out of the role of medical decision-maker on 02/11/2018, which leaves medical decision making to daughter (Ambar). This conversation was witnessed via speaker phone by Marylu Garnica (palliative STORAGE BATTERY CHARGER) and Shirley Johnston (palliative POULTRY FARMER). * Goals remain aggressive at this time. * Palliative care met with patient's daughters (Malia and Ambar) status post tracheostomy this afternoon. Update provided on patient's clinical condition. They had many questions regarding possible discharge to SNF in the upcoming days; questions answered to the best of my ability. We discussed that the patient patient will require extensive rehab for an undetermined amount of time, complications and setbacks that may arise were addressed. They verbalized understanding that the patient will have "some good days and some bad." They feel that if anyone can make it through this, it's their father. * Discussed patient with nurse (Latonia) as well as manager compliance, Dr. Stallworth. * Symptom management: = Encephalopathy: Patient remains encephalopathic which is multifactorial and will not permit extubation. Patient is not capacitated to participate in medical decision making; it is unclear if he will regain this capacity in the future. MRI of the brain on 02/01/18 showed no acute intracranial. abnormalities, no overt evidence of anoxia. EEG shows generalized slowing. We will continue to monitor. = Dyspnea: Patient remains intubated on mechanical ventilation, not tolerating spontaneous breathing trails. CT chest 02/07/18 showed diffuse anasarca with fluid density throughout the subcutaneous and intra-abdominal fat and apparent ascites; dense consolidation in both lung bases with small amounts of pleural fluid. Follow-up sputum culture growing GPC = Debility: Patient has been hospitalized twice during 01/2018, having frequent episodes of syncope. Patient family reports an acute decline with > 25 + weight loss reported in the past year. Multiple areas of impaired skin integrity, wound care following. Would recommend getting physical therapy involved when the patient is stable. Referral to [facility] pending. * Palliative care will continue to follow this patient throughout his hospitalization to establish trust, assist with symptom management and clarification of medical treatment goals. . (Tamica Akbar) Attestation To help prompt me to consider important information that might be impacting today's encounter and assessment, information from prior notes written by myself or my colleagues may have been "brought forward" into today's note. My signature on this note, however, is an attestation that I personally performed the exam, history, and/or decision-making noted today, and, unless otherwise indicated, the interactions with patient, family, and staff as well as the review of records all occurred today. I also attest that the listed assessment and stated plan reflect my best clinical judgment today based on the combination of historical information, prior notes, and today's exam/ interactions. When time spent is documented, it refers only to time spent today by the signer, or if indicated, combined time spent today by collaborating physician/nurse practitioner. . (Tamica Akbar) Collaborating MD Comments Chart reviewed. Case discussed with palliative care STORAGE BATTERY CHARGER. Above STORAGE BATTERY CHARGER note reviewed and I concur. . (Amor Galloway MD) Tamica Akbar Feb 13, 2018 17:21 Amor Galloway MD Feb 17, 2018 05:50
[2018-02-13] MEDS: PROPOFOL 1000 MG/100 ML INJ 100 ML IV PRN (18:25)
[2018-02-14] VITALS (17 sets, daily range): BP systolic 82–135; BP diastolic 53–64; PULSE 96–131; RESP 14–16; TEMP 97.6–100.1; O2SAT 93–100
[2018-02-14] MEDS: DEXTROSE 50% IN WATER 50 ML VIAL(D50) IV PUSH PRN ×3 (00:22→11:55)
[2018-02-14] MEDS: VANCOMYCIN 1,000 MG/NS 250 ML IV SCH ×4 (00:23→11:50)
[2018-02-14] MEDS: METOCLOPRAMIDE HCL 10 MG/2 ML VIAL IV PUSH SCH ×3 (01:37→17:52)
[2018-02-14] MEDS: MIDODRINE 5 MG TAB PO SCH ×3 (01:38→17:52)
[2018-02-14] MEDS: CHLORHEXIDINE GLUCONATE 2 % 1 PACK (2 CLOTHS) TOP SCH (04:00)
[2018-02-14 04:51] LABS: INTERNATIONAL NORMALIZED RATIO 1.4 RATIO; PROTHROMBIN TIME - PATIENT 14.2 SEC (9.8-11.6)
[2018-02-14 04:57] LABS: ALBUMIN 1.8 GM/DL (3.4-5.0); AST (GOT) 67 U/L (15-37); BICARBONATE 34.2 MEQ/L (21.0-32.0); BLOOD UREA NITROGEN 37 MG/DL (7-18); CALCIUM 9.3 MG/DL (8.5-10.1); CHLORIDE 111 MEQ/L (98-107); CREATININE 0.54 MG/DL (0.60-1.30); GLOMERULAR FILTRATION RATE 151 ML/MIN (>89); GLUCOSE,RANDOM 69 MG/DL (74-106); MAGNESIUM 1.6 MG/DL (1.5-2.5); SODIUM (NA) 151 MEQ/L (136-145)
[2018-02-14 04:59] LABS: ALT (GPT) 113 U/L (12-78)
[2018-02-14 05:00] LABS: AUTOMATED NEUTROPHIL # 17.4 TH/MM3 (1.8-7.7); HEMOGLOBIN 11.6 GM/DL (13.0-17.0); LYMPH % 1.5 % (9.0-44.0); LYMPHOCYTE # 0.3 TH/MM3 (1.0-4.8); MEAN CELL VOLUME 100.8 FL (80.0-100.0); MEAN CORPUSCULAR HEMOGLOBIN 33.5 PG (27.0-34.0); MEAN CORPUSCULAR HGB CONC 33.3 % (32.0-36.0); MEAN PLATELET VOLUME 10.3 FL (7.0-11.0); MONO % 4.2 % (0.0-8.0); MONOCYTE # 0.8 TH/MM3 (0-0.9); NEUT % 94.3 % (16.0-70.0); PLATELET COUNT 130 TH/MM3 (150-450); RED BLOOD COUNT 3.47 MIL/MM3 (4.50-5.90); RED CELL DISTRIBUTION WIDTH 13.3 % (11.6-17.2); WHITE BLOOD COUNT 18.5 TH/MM3 (4.0-11.0)
[2018-02-14 05:01] LABS: ALKALINE PHOSPHATASE 493 U/L (45-117); TOTAL BILIRUBIN ADULT 0.8 MG/DL (0.2-1.0); TOTAL PROTEIN 5.5 GM/DL (6.4-8.2)
[2018-02-14] MEDS: POTASSIUM CHLOR 20 MEQ PREMIX 100 ML IV PRN ×2 (05:23→07:38)
[2018-02-14] MEDS: INSULIN NovoLIN REGULAR SUPPLEMENTAL SCALE SQ SCH ×4 (05:30→17:52)
[2018-02-14] MEDS: LEVOTHYROXINE SODIUM 75 MCG TAB PO SCH (05:36)
[2018-02-14] MEDS: metroNIDAZOLE 500 MG TAB PO SCH ×3 (05:36→21:40)
--- NOTE | 2018-02-14 05:58 | RADRPT ---
EXAM DATE/TIME: 02/14/2018 04:38 [facility] COMPARISON: CHEST SINGLE AP, February 13, 2018, 15:58. INDICATIONS : Respiratory disease. MEDICAL HISTORY : Cirrhosis. Syncope. Dyspnea. Hiatal hernia. Measles. Blood transfusions. SURGICAL HISTORY : Tonsillectomy. Hernia surgery. Paracentesis. ENCOUNTER: Subsequent ACUITY: 1 day PAIN SCORE: Non-responsive. LOCATION: Bilateral chest FINDINGS: 2 AP views of the chest. Tracheostomy tube, nasogastric tube, left subclavian central venous cathete r remain in place. Nasogastric tube side port now below the diaphragm. Mild mid to lower lung zone op acity bilaterally unchanged. Hyperaeration suggesting emphysema. Possible small bilateral pleural eff usions. CONCLUSION: Mild bilateral lower lung zone opacity and small bilateral pleural effusions unchanged. Farooq Wolfe MD on February 14, 2018 at 5:54 Board Certified Radiologist. This report was verified electronically.
[2018-02-14] MEDS: CHLORHEXIDINE 0.12% (ORAL KIT) 15 ML CUP MT SCH ×2 (08:00→21:40)
[2018-02-14] MEDS: THIAMINE HCL 100 MG TAB PO SCH (09:21)
[2018-02-14] MEDS: MULTIVITAMIN TAB PO SCH (09:21)
--- NOTE | 2018-02-14 13:09 | HHI.CCPN ---
Subjective Remarks/Hospital Course Hospital Course: This is 67yM with history per prior records of cirrhosis who presented to the [facility] with [id number] PEA arrest. Per our documentation, He was seen on complaining of syncope and had a negative head CT at that time. He was discharged home. He represented 02/01 to [facility] with similar complaints of syncope , however the patient himself denied any complaints. In the waiting room, reports state he became unresponsive and cyanotic and was resuscitated with bag- valve-mask. He regained consciousness and refused additional care, signing out AMA before any work-up could be done. Per EMS report, when he was in the cab on the way home, he became unresponsive. presenting rhythm was PEA. ROSC was successfully obtained and he was stabilized in the [facility] ED before being transferred to [facility]. I evaluated the patient immediately upon arrival to the ICU. He is comatose and intubated, and no information can be obtained from him. He is on levophed at 15mcg/min. His pupils are 4mm, sluggishly reactive with roving eye movements. He is extensor posturing in the upper extremities and flexor posturing in the lower extremities. he has +cough but negative gag. + corneals. No additional information is obtainable from the patient and ROS is unobtainable. Laboratory evidence from [facility] demonstrates lactate of 9, trop 0.02, sodium 138, K 2.8, ammonia 46. Subjective: 02/02: no significant improvements. GCS remains 4 despite off sedation x 24h. trops downtrending, likely secondary to CPR and not primary ACS. MRI today without overt evidence of anoxia. remains critically ill and comatose. 02/03: Opens eyes today to persistent stimulation. Appears to track do not follow commands. MRI done yesterday no acute findings. Too weak to attempt spontaneous breathing trial or extubation 02/04: Developed severe septic shock yesterday evening. Was placed on Levophed maxed to 20 mcg/min, Aniceto-Synephrine was also added currently at 120 mcg/min. initially was DNR per palliative care, but the daughter rescinded it later. Currently patient remains unresponsive. Source of sepsis appears to be right lower lobe pneumonia, I have placed a new left subclavian central line will discontinue the right femoral central line 02/05: Remains in severe septic shock. Sputum culture with gram-negative rods, blood culture with E. coli. Will change to meropenem to cover for ESBL E. coli , currently on Zosyn. Also start stress dose steroids 02/06: remains in shock on vasopressors. sputum culture with pansensitive e. coli , but wbc uptrending and in shock despite meropenem. awake and following commands, although very encephalopathic. 02/07: remains on vasopressors. wbc elevated. procalcitonin elevated as well. sputum culture with rare yeasts on gram stain. CT chest/abd/pelvis ordered to eval for other sources of infection: dense RLL consolidation c/w pneumonia. will likely need to bronch and get diagnostic BAL since prior micro have been unable to identify specific organism. 02/08: sputum still growing GNR. wbc dowtrending, however today, and he continues to remain afebrile. still no real improvements in mental status. 02/09: Sputum culture also growing pansensitive E. coli. Off all pressors but no improvement in neuro exam. Severely encephalopathic, and for this reason unable to extubate 02/10: No improvement in neurological function, remains severely debilitated. Increasing base excess but still has acceptable respiratory drive. Off vasopressors still. Poor prognosis due to anoxic brain injury. Consider trach and placement as family wants continued aggressive support. 02/11: Very lethargic, unable to tolerate spontaneous breathing trials. If family needs continued aggressive care, needs tracheostomy and PEG tube placement. Palliative will meet with family today. WBC count increasing today 22.5 02/12: Slightly more awake today spontaneous eye opening still not following commands. Family has not made a decision about tracheostomy or PEG tube placement. I will attempt to talk to the family today. CBC CMP pending today 02/13: Neurologically showing some signs of improvement, tracking better spontaneously open. Very weakly followed commands in all extremity. WBC count increased to 32.3 with predominantly neutrophils and bandemia. Repeat panculture sputum culture with GPC, added vancomycin IV. Rule out C. difficile colitis, add p.o. Flagyl. GB US to rule out cholecystitis. Got consent from Ambar, patient's daughter for tracheostomy and PEG tube placement 02/14: Status post tracheostomy today. Awaiting PEG tube placement. WBC count trending down today 18.5. Continues to have low-grade fever. IV vancomycin for GPC and sputum. Need LTAC after PEG Objective Vital Signs Date Time Temp Pulse Resp B/P (MAP) Pulse Ox O2 Delivery O2 Flow Rate FiO2 02/14/18 12:00 111 02/14/18 12:00 100.1 105/63 (77) 94 02/14/18 12:00 35 02/14/18 08:00 14 Intake and Output 02/14/18 02/14/18 02/15/18 08:00 16:00 00:00 Intake Total 300 ml 100 ml Output Total 450 ml Balance -150 ml 100 ml Result Diagram: 02/14/185 02/14/185 Objective Remarks Gen: cachetic male, lying in bed, intubated, encephalopathic, appears older than stated age, critically ill HEENT: nc. at. pupils 3 mm, sluggishly reactive, eye opening neck: trachea midline. New tracheostomy with minimal dried blood around chest: equal chest rise. prvc. 40% fio2. peep 5. \Moderate hernandez secretions cv: normal rate, regular rhythm. No JVD. abd: scaphoid. soft, nontender, nondistended. no guarding. extr: no peripheral edema. distal pulses 2+. neuro: Pupils as above. Spontaneous eye opening tracking more today. Very weakly follows commands 4, then off sedation. A/P Assessment and Plan Assessment: 67yM with cirrhosis and recent multiple complaints of syncope presents after leaving AMA from a syncopal episode and found in [id number] PEA arrest. Cachectic likely secondary to chronic etoh use. remain off sedatives and watch neuro exam. Remains encephalopathic, slight improvement in neuro exam. CT chest/abd/pelvis with only RLL pneumonia. sputum culture with E Coli. Given improvement in neurological status, but continued failure to wean from ventilator, tracheostomy performed 02/13/18. PEG today. Neuro: Hypoxic Ischemic Encephalopathy Metabolic encephalopathy secondary to sepsis History of recurrent Syncope - Use sedation only for ventilatory synchrony. Currently sedated for anticipated PEG tube procedure - Improving neuro exam but significant weakness persist - Avoid hyperthermia - EEG: generalized slowing 02/01. MRI brain: no abnormalities 02/02 - Keppra DCd 02/09 - Persistent encephalopathy may be secondary to anoxia and metabolic - PT/OT Resp: Acute hypoxic and hypercarbic respiratory failure Right lower lobe pneumonia/E Coli in sputum - wean fio2 for goal spo2 > 90% - Status post tracheostomy02/13/18. CPAP trial and attempt T-piece after PEG tube placement - vent bundle, hob elevated, nebs. - Sputum culture, started on vancomycin and Zosyn 02/03. Changed to Meropenem empirically. Narrowed ABX to Rocephin only, due to harvey sensitive E. coli - Restarted vancomycin 02/13 - Got Diamox 02/10 X 1 for metabolic alkalosis CV: Severe sepsis Lactic acidosis Recurrent Syncope Out of hospital PEA arrest - Currently off all pressors - Lasix discontinued due to contraction alkalosis. 11/14 normal saline to correct hyponatremia - Diamox 1 - 2d echo 02/01: moderate aortic regurgitation. EF 60%. - close uop monitoring, trend lactates, trend abg - low suspicion for ACS. cardiac enzymes downtrended - stress dose steroids-reduced to 25 q12, completed Renal: - continue reed - strict i/o's - Diamox as above - 11/14 normal saline for free water replacement FEN/GI: Cirrhosis Failure to thrive severe hypokalemia Acute protein calorie malnutrition - severe and worsening (temporal muscle wasting, calf muscle atrophy, weight loss). Hyperammonemia Elevated alk phos - likely cause of poor nutrition is etoh, trend pre-Ab qweek - aggressive K replacement - PEG today - Check C. difficile colitis, now patient has no diarrhea - Essentially normal gallbladder ultrasound - iv thiamine and MVI - lactulose and daily ammonia checks - ICU electrolyte protocol - Reglan Heme/ID: Severe worsening sepsis Rule out C. difficile colitis E. coli bacteremia E Coli pneumonia Coagulopathy secondary to end-stage liver disease - Continue Rocephin, and IV vancomycin for GPC and sputum, add p.o. Flagy empirically l to cover for C. difficile colitis - Previously started on vancomycin and Zosyn 02/03. Changed to Meropenem empirically. Narrowed ABX to Rocephin only due to harvey sensitive E. coli 02/09 - Sputum culture E coli, blood culture E. coli. Both harvey sensitive - INR 1.3 which is stable from prior admissions, likely secondary to cirrhosis Endocrine: Hypothyroidism Hyperglycemia of critical illness - SSI, med scale, q6h - home Synthroid - Stress dose steroids as above-reduce to 25 q12 and now has completed course Prophylaxis: - SCDs - iv pepcid - lovenox sq Lines: - right radial art line 02/01-was dcd, placed new left femoral art line 02/04/18- DCd - right femoral cvl 02/01-DCd 02/04/18, New left subclavian central line placed - reed Dispo: remain in ICU. Severe encephalopathy which is multifactorial did not permit extubation, Trach 02/13, plan for PEG today 02/14 Level 2 Yue Stallworth MD Feb 14, 2018 13:09
[2018-02-14] MEDS: cefTRIAXone INJ 2,000 MG in SODIUM CHLORIDE 0.9% INJ 100 ML IV SCH (13:50)
--- NOTE | 2018-02-14 15:38 | GIPROC ---
[facility] [address] [facility]. [facility], [id number] EGD WITH PEG PROCEDURE REPORT EXAM DATE: 02/14/2018 PATIENT NAME: Anuel Lizarraga MR#: [id number] BIRTHDATE: 1950 ATTENDING: Helag Castro MD ORDER #: [id number] [employer] MACHINE OPERATOR: David Fonseca and Thais Redding STATUS: inpatient INDICATIONS: The patient is a 67 yr old male here for an EGD with PEG due to dysphagia PROCEDURE PERFORMED: EGD with PEG placement MEDICATIONS: Per Anesthesia and None. TOPICAL ANESTHETIC: CONSENT: The patient understands the risks and benefits of the procedure and understands that these risks include, but are not limited to: sedation, allergic reaction, infection, perforation and/or bleeding. Alternative means of evaluation and treatment include, among others: physical exam, x-rays, and/or surgical intervention. The patient elects to proceed with this endoscopic procedure. medical equipment was checked for proper function. Hand hygiene and appropriate measures for infection prevention was taken. After the risks, benefits and alternatives of the procedure were thoroughly explained, Informed consent was verified, confirmed and timeout was successfully executed by the treatment team. The patient was anesthetized with topical anesthesia and the Pentax [id number] endoscope was introduced through the mouth and advanced to the third portion of the duodenum. The instrument was slowly withdrawn as the mucosa was fully examined. Multiple ulcers were found in the bulb and descending duodenum. shallow, biopsied The stomach was then inflated with air, and by a combination of transillumination and manual palpation, the site for the gastrostomy tube placement was selected and marked on the anterior abdominal wall. The skin of the anterior abdomen was surgically prepped and draped with sterile towels. Utilizing strict sterile technique, the selected site was then anesthetized with 1% xylocaine by injection into the skin and subcutaneous tissue. A 1 cm incision was made through the skin and subcutaneous tissue, and the needle/cannula assembly was then passed through the abdominal wall and through the anterior wall of the stomach, maintaining visualization with the endoscope. A snare device previously placed through the instrument channel was then opened and placed around the cannula, the needle was removed, and the insertion wire was passed through the cannula and into the stomach lumen. The snare was then loosened from the cannula, and repositioned to snare the insertion wire. The snare was then pulled up to the endoscope distal tip, and the scope was then withdrawn bringing with it the snare and insertion wire. The insertion wire was then released from the snare, and then loop-attached to the Bard 20 Fr gastrostomy tube. Using the "pull technique", the G-tube was then pulled into place by traction on the insertion wire at the abdominal wall end. The G-tube insertion site was then cleansed once again, and the external bolster was placed over the tube to secure it to the abdominal wall. A sterile dressing was then applied, and the procedure terminated. no abnormalities The gastroscope was then slowly withdrawn and removed. ADVERSE EVENT: There were no complications. IMPRESSIONS: 1. Multiple ulcers were found in the bulb and descending duodenum 2. No abnormalities RECOMMENDATIONS: 1. PEG recomendations: 1- NPO for 6 hours except for meds 2- Flush PEG tube every 6 hours with water and after each PEG feeding 3- May resume regular diet in the morning 4- May use Ensure or Boost etc. for PEG tube feeding 2. Protonix 40mg Q AM REPEAT EXAM: Return as needed for EGD Helga Castro MD eSigned: Helga Castro MD 02/14/2018 3:38 PM cc: PATIENT NAME: Anuel Lizarraga MR#: [id number]
--- NOTE | 2018-02-14 15:54 | HHI.HCPN ---
Reason for visit a. To assist with evaluation and management of symptoms including: Encephalopathy, dyspnea, debility b. To assist medical decision maker(s) with: better understanding of current medical conditions; weighing benefits/burdens of medical treatment options; making medical treatment decisions. Subjective/Interval History Follow-up visit to further clarify medical treatment goals and symptom management. Patient seen and examined in ICU room 514 status post percutaneous tracheostomy placement with bronchoscopy yesterday 02/13/2018. Follow-up chest x-ray this morning showed mild bilateral lower lung zone opacity and small bilateral pleural effusions unchanged. GI was consulted and there is a tentative plan for PEG tube placement later today. Patient appears frail, cachectic. T-max 100.1 today. WBC: 18.5, neutrophils 94.3%. Thrombocytopenia-platelets 130. H/H currently 11.6/35.0 Repeat panculture sputum culture 02/12/18 with GPC - added vancomycin IV. Stool culture pending to rule out C. difficile colitis - added oral Flagyl. LFTs elevated. AST: 67; ALT 113; alkaline phosphatase 493; total bilirubin 0.8 CT abdomen/pelvis on 02/07/18 showed diffuse, severe anasarca with fluid density throughout the subcutaneous and intra-abdominal fat and apparent ascites. Dense consolidation of both lung bases with small amounts of pleural fluid. Ultrasound of the gallbladder on 02/13/2018 showed minimal ascites in the upper abdomen; exam was otherwise within normal limits. nursery manager, Shanta Gaviria, coordinating discharge planning. Patient has been referred to [facility] for vent rehab. Patient authorization has been started; patient has well care for insurance . Advance Directives Advance Directive Specifics Health Care Surrogate(s): Per [place] statutes, in the absence of written advanced directives healthcare proxy decision making falls to the patient's 2 adult daughters. Daughter ( Malia) opted out of the role of medical decision-maker on 02/11/2018, which leaves medical decision making to daughter (Ambar). This conversation was witnessed via speaker phone by Marylu Garnica (palliative JAVA LEAD ARCHITECT) and Shirley Johnston ( palliative CURRENCY MACHINE OPERATOR). . Documented care wishes: No written advanced directives have been completed. . Objective Vital Signs Date Time Temp Pulse Resp B/P (MAP) Pulse Ox O2 Delivery O2 Flow Rate FiO2 02/14/18 14:00 96 02/14/18 12:00 111 02/14/18 12:00 100.1 111 105/63 (77) 94 02/14/18 12:00 35 02/14/18 11:14 94 35 02/14/18 10:00 120 02/14/18 08:00 35 02/14/18 08:00 108 02/14/18 08:00 99.8 108 14 87/57 (67) 96 02/14/18 07:21 94 35 02/14/18 06:00 119 02/14/18 04:37 94 35 02/14/18 04:00 35 02/14/18 04:00 98.3 113 16 135/61 (85) 93 02/14/18 04:00 114 02/14/18 02:00 101 02/14/18 00:00 102 02/14/18 00:00 35 02/14/18 00:00 97.6 102 16 124/64 (84) 95 02/13/18 23:43 95 35 02/13/18 22:00 100 02/13/18 20:00 99 02/13/18 20:00 97.4 99 14 164/71 (102) 95 02/13/18 20:00 35 02/13/18 19:31 100 35 02/13/18 18:00 80 02/13/18 16:00 76 02/13/18 16:00 98.2 76 24 150/79 (102) 100 02/13/18 16:00 75 Intake & Output 02/14/18 02/14/18 07:00 19:00 Intake Total 200 ml 550 ml Output Total 450 ml Balance -250 ml 550 ml IV Total 550 ml Other 200 ml Output Urine Total 450 ml # Bowel Movements 0 . Physical Exam CONSTITUTIONAL/GENERAL: Patient is a frail, cachectic, elderly male patient s/p tracheostomy placement in no acute distress TUBES/LINES/DRAINS: PIV 2, CVL, arterial line, tracheostomy, NGT, rectal tube, [place] SKIN: No jaundice, rashes, or lesions. Ecchymoses on upper extremities. Wound on upper lip. HEAD: Atraumatic. Normocephalic. EYES: Pupils equal and round, reactive Extraocular motions intact. No injection or drainage. Fundi not examined. ENT: Hearing appears normal. Nose without bleeding or purulent drainage. NECK: Trachea midline. CARDIOVASCULAR: Regular rate and rhythm without murmurs, gallops, or rubs. No JVD. Peripheral pulses symmetric. RESPIRATORY/CHEST: Tracheostomy tube mechanical vent. GASTROINTESTINAL: Abdomen soft, flat. Bowel sounds present. GENITOURINARY: Without palpable bladder distension. [place] catheter in place. MUSCULOSKELETAL: Extremities without clubbing, cyanosis. + Edema in upper and lower extremities bilaterally. LYMPHATICS: No palpable cervical or supraclavicular adenopathy. NEUROLOGICAL: Eyes closed, sedated status post tracheostomy with bronchoscopy PSYCHIATRIC: No apparent anxiety/agitation noted .. . Diagnostic Tests Laboratory Laboratory Tests Test 02/12/18 09:25 02/13/18 11:20 02/14/18 04:15 White Blood Count 32.3 TH/MM3 (4.0-11.0) 20.1 TH/MM3 (4.0-11.0) 18.5 TH/MM3 (4.0-11.0) Red Blood Count 3.64 MIL/MM3 (4.50-5.90) 3.54 MIL/MM3 (4.50-5.90) 3.47 MIL/MM3 (4.50-5.90) Hemoglobin 12.2 GM/DL (13.0-17.0) 11.9 GM/DL (13.0-17.0) 11.6 GM/DL (13.0-17.0) Hematocrit 36.9 % (39.0-51.0) 35.7 % (39.0-51.0) 35.0 % (39.0-51.0) Mean Corpuscular Volume 101.5 FL (80.0-100.0) 100.8 FL (80.0-100.0) 100.8 FL (80.0-100.0) Mean Corpuscular Hemoglobin 33.4 PG (27.0-34.0) 33.6 PG (27.0-34.0) 33.5 PG (27.0-34.0) Mean Corpuscular Hemoglobin Concent 32.9 % (32.0-36.0) 33.3 % (32.0-36.0) 33.3 % (32.0-36.0) Red Cell Distribution Width 13.4 % (11.6-17.2) 13.6 % (11.6-17.2) 13.3 % (11.6-17.2) Platelet Count 123 TH/MM3 (150-450) 132 TH/MM3 (150-450) 130 TH/MM3 (150-450) Mean Platelet Volume 10.1 FL (7.0-11.0) 10.0 FL (7.0-11.0) 10.3 FL (7.0-11.0) Neutrophils (%) (Auto) 97.2 % (16.0-70.0) 94.9 % (16.0-70.0) 94.3 % (16.0-70.0) Lymphocytes (%) (Auto) 0.9 % (9.0-44.0) 1.2 % (9.0-44.0) 1.5 % (9.0-44.0) Monocytes (%) (Auto) 1.9 % (0.0-8.0) 3.7 % (0.0-8.0) 4.2 % (0.0-8.0) Eosinophils (%) (Auto) 0.0 % (0.0-4.0) 0.0 % (0.0-4.0) 0.0 % (0.0-4.0) Basophils (%) (Auto) 0.0 % (0.0-2.0) 0.2 % (0.0-2.0) 0.0 % (0.0-2.0) Neutrophils # (Auto) 31.3 TH/MM3 (1.8-7.7) 19.0 TH/MM3 (1.8-7.7) 17.4 TH/MM3 (1.8-7.7) Lymphocytes # (Auto) 0.3 TH/MM3 (1.0-4.8) 0.2 TH/MM3 (1.0-4.8) 0.3 TH/MM3 (1.0-4.8) Monocytes # (Auto) 0.6 TH/MM3 (0-0.9) 0.7 TH/MM3 (0-0.9) 0.8 TH/MM3 (0-0.9) Eosinophils # (Auto) 0.0 TH/MM3 (0-0.4) 0.0 TH/MM3 (0-0.4) 0.0 TH/MM3 (0-0.4) Basophils # (Auto) 0.0 TH/MM3 (0-0.2) 0.0 TH/MM3 (0-0.2) 0.0 TH/MM3 (0-0.2) CBC Comment AUTO DIFF DIFF FINAL DIFF FINAL Differential Total Cells Counted 100 Neutrophils % (Manual) 85 % (16-70) Band Neutrophils % 11 % (0-6) Lymphocytes % 2 % (9-44) Monocytes % 2 % (0-8) Neutrophils # (Manual) 31.0 TH/MM3 (1.8-7.7) Differential Comment FINAL DIFF MANUAL Toxic Granulation 1+ (NORMAL) Platelet Estimate LOW (NORMAL) Platelet Morphology Comment NORMAL (NORMAL) Blood Urea Nitrogen 36 MG/DL (7-18) 37 MG/DL (7-18) 37 MG/DL (7-18) Creatinine 0.58 MG/DL (0.60-1.30) 0.53 MG/DL (0.60-1.30) 0.54 MG/DL (0.60-1.30) Random Glucose 127 MG/DL (74-106) 99 MG/DL (74-106) 69 MG/DL (74-106) Total Protein 5.5 GM/DL (6.4-8.2) 5.6 GM/DL (6.4-8.2) 5.5 GM/DL (6.4-8.2) Albumin 1.9 GM/DL (3.4-5.0) 1.8 GM/DL (3.4-5.0) 1.8 GM/DL (3.4-5.0) Calcium Level 9.4 MG/DL (8.5-10.1) 10.0 MG/DL (8.5-10.1) 9.3 MG/DL (8.5-10.1) Phosphorus Level 3.4 MG/DL (2.5-4.9) 3.0 MG/DL (2.5-4.9) Magnesium Level 1.8 MG/DL (1.5-2.5) 1.8 MG/DL (1.5-2.5) 1.6 MG/DL (1.5-2.5) Alkaline Phosphatase 345 U/L (45-117) 586 U/L (45-117) 493 U/L (45-117) Aspartate Amino Transf (AST/SGOT) 75 U/L (15-37) 140 U/L (15-37) 67 U/L (15-37) Alanine Aminotransferase (ALT/SGPT) 104 U/L (12-78) 141 U/L (12-78) 113 U/L (12-78) Total Bilirubin 0.4 MG/DL (0.2-1.0) 0.5 MG/DL (0.2-1.0) 0.8 MG/DL (0.2-1.0) Sodium Level 150 MEQ/L (136-145) 151 MEQ/L (136-145) 151 MEQ/L (136-145) Potassium Level 3.4 MEQ/L (3.5-5.1) 3.6 MEQ/L (3.5-5.1) 3.3 MEQ/L (3.5-5.1) Chloride Level 110 MEQ/L (98-107) 110 MEQ/L (98-107) 111 MEQ/L (98-107) Carbon Dioxide Level 35.5 MEQ/L (21.0-32.0) 36.7 MEQ/L (21.0-32.0) 34.2 MEQ/L (21.0-32.0) Anion Gap 5 MEQ/L (5-15) 4 MEQ/L (5-15) 6 MEQ/L (5-15) Estimat Glomerular Filtration Rate 139 ML/MIN (>89) 154 ML/MIN (>89) 151 ML/MIN (>89) Urine Color YELLOW (YELLW/STRAW) Urine Turbidity HAZY (CLEAR) Urine pH 5.0 (5.0-8.5) Urine Specific [place] 1.022 (1.002-1.035) Urine Protein 30 mg/dL (NEG-TRACE) Urine Glucose (UA) NEG mg/dL (NEG) Urine Ketones NEG mg/dL (NEG) Urine Occult Blood NEG (NEG) Urine Nitrite NEG (NEG) Urine Bilirubin NEG (NEG) Urine Urobilinogen LESS THAN 2.0 MG/DL (LESS Urine Leukocyte Esterase NEG (NEG) Urine RBC 5 /hpf (0-3) Urine WBC 5 /hpf (0-5) Urine Squamous Epithelial Cells 2 /hpf (0-5) Urine Uric Acid Crystals /hpf (NONE) Urine Bacteria RARE /hpf (NONE) Urine Hyaline Casts 28 /lpf (RARE) Urine Mucus FEW /lpf (OCC) Urine Yeast (Budding) OCC (NONE) Microscopic Urinalysis Comment CULT NOT INDICATED Prothrombin Time 14.2 SEC (9.8-11.6) Prothromb Time International Ratio 1.4 RATIO . Result Diagram: 02/14/185 02/14/185 Microbiology Microbiology Date/Time Source Procedure Growth Status 02/13/18 17:50 Blood Peripheral Aerobic Blood Culture - Preliminary NO GROWTH IN 1 DAY Resulted 02/13/18 17:50 Blood Peripheral Anaerobic Blood Culture - Preliminary NO GROWTH IN 1 DAY Resulted 02/13/18 11:20 Blood Peripheral Aerobic Blood Culture - Preliminary NO GROWTH IN 1 DAY Resulted 02/13/18 11:20 Blood Peripheral Anaerobic Blood Culture - Preliminary NO GROWTH IN 1 DAY Resulted 02/12/18 12:15 Sputum Endotracheal Gram Stain - Final Resulted 02/12/18 12:15 Sputum Endotracheal Sputum Culture - Preliminary Resulted . Imaging Last 72 hours Impressions Chest X-Ray 02/14/18 0600 Signed Impressions: Service Date/Time: Wednesday, February 14, 2018 04:38 - CONCLUSION: Mild bilateral lower lung zone opacity and small bilateral pleural effusions unchanged. Farooq Wolfe MD Gall Bladder Ultrasound 02/13/18 0000 Signed Impressions: Service Date/Time: February 17:23 - CONCLUSION: 1. There is minimal ascites in the upper abdomen. The exam is otherwise within normal limits. Haile Londono MD Chest X-Ray 02/13/18 0000 Signed Impressions: Service Date/Time: February 15:58 - CONCLUSION: 1. Tracheostomy good position. 2. Side port of the gastric tube is now above the level the diaphragm and the tube needs to be advanced at least 3 cm. 3. Stable bilateral small pleural effusions. Shawn Rose MD Chest X-Ray 02/13/18 0000 Signed Impressions: Service Date/Time: February 10:40 - CONCLUSION: Stable bilateral pleural-parenchymal opacities. Shawn Rose MD . Procedures 02/01/18: Right femoral CVL placed 02/01/18: Intubation 02/01/18: Right radial arterial line placement 02/04/18: Right femoral CVL discontinued. New left subclavian central line placed 02/04/18: Right radial arterial line was discontinued. New left femoral arterial line placed 02/13/18: Tracheostomy placement with bronchoscopy . Assessment and Plan Disease Oriented Problem List: (1) Hypoxic ischemic encephalopathy (2) Acute respiratory failure with hypoxia and hypercarbia (3) Cardiogenic shock (4) PEA (Pulseless electrical activity) (5) Cirrhosis (6) Failure to thrive in adult (7) Hyperammonemia (8) Coagulopathy (9) Hypothyroidism Symptom Scale: (1) Dyspnea 0-10 Scale: Unable to quantify (2) Encephalopathy 0-10 Scale: Unable to quantify (3) Debility 0-10 Scale: Unable to quantify Pertinent Non-Medical Issues Psychosocial: Patient is originally from [place]. He met his ex- in [facility] which is where he had his 2 daughters. They returned to [place] for approximately 10 years and then moved back to [place] again. Patient is . He currently lives with his brother. He lost his sister approximately 5 years ago due to complications related to COPD Spiritual: Druze honorio Legal:Per [place] statutes, in the absence of written advanced directives healthcare proxy decision making falls to the patient's 2 adult daughters. Daughter (Malia) opted out of the role of medical decision-maker on 02/11/2018, which leaves medical decision making to daughter (Ambar). This conversation was witnessed via speaker phone by Marylu Garnica (palliative JAVA LEAD ARCHITECT) and Shirley Johnston (palliative CURRENCY MACHINE OPERATOR). Ethical issues impacting care: No known ethical issues impacting care at this time. . Important Contacts Malia Baires, daughter: [phone] Ambar Lizarraga, daughter: [phone] Prognosis Patient is a 67 yo male s/p out of hospital PEA arrest Code Status: Full Code Plan * FULL CODE * Decision-making: Per [place] statutes, in the absence of written advanced directives healthcare proxy decision making falls to the patient's 2 adult daughters. Daughter (Malia) opted out of the role of medical decision-maker on 02/11/2018, which leaves medical decision making to daughter (Ambar). This conversation was witnessed via speaker phone by Marylu Garnica (palliative JAVA LEAD ARCHITECT) and Shirley Johnston (palliative CURRENCY MACHINE OPERATOR). * Goals remain aggressive at this time. * Palliative care met with patient's daughters (Mamie) status post tracheostomy 02/13/2018. They had many questions regarding possible discharge to SNF in the upcoming days; questions answered to the best of my ability. We discussed that the patient patient will require extensive rehab for an undetermined amount of time, complications and setbacks that may arise were addressed. They verbalized understanding that the patient will have "some good days and some bad." They feel that if anyone can make it through this, it' s their father. * Discussed patient with director of casework, Shanta Gaviria. * Symptom management: = Encephalopathy: Patient remains encephalopathic which is multifactorial and will not permit extubation. Patient is not capacitated to participate in medical decision making; it is unclear if he will regain this capacity in the future. MRI of the brain on 02/01/18 showed no acute intracranial. abnormalities, no overt evidence of anoxia. EEG shows generalized slowing. We will continue to monitor. = Dyspnea: Patient remains intubated on mechanical ventilation, not tolerating spontaneous breathing trails. CT chest 02/07/18 showed diffuse anasarca with fluid density throughout the subcutaneous and intra-abdominal fat and apparent ascites; dense consolidation in both lung bases with small amounts of pleural fluid. Follow-up sputum culture growing GPC. Status post tracheostomy on 02/13/2018 = Debility: Patient has been hospitalized twice during 01/2018, having frequent episodes of syncope. Patient family reports an acute decline with > 25 + weight loss reported in the past year. Multiple areas of impaired skin integrity, wound care following. Would recommend getting physical therapy involved when the patient is stable. Referral to [facility] pending. * Palliative care will continue to follow this patient throughout his hospitalization to establish trust, assist with symptom management and clarification of medical treatment goals. . Attestation To help prompt me to consider important information that might be impacting today's encounter and assessment, information from prior notes written by myself or my colleagues may have been "brought forward" into today's note. My signature on this note, however, is an attestation that I personally performed the exam, history, and/or decision-making noted today, and, unless otherwise indicated, the interactions with patient, family, and staff as well as the review of records all occurred today. I also attest that the listed assessment and stated plan reflect my best clinical judgment today based on the combination of historical information, prior notes, and today's exam/ interactions. When time spent is documented, it refers only to time spent today by the signer, or if indicated, combined time spent today by collaborating physician/nurse practitioner. . Tamica Akbar Feb 14, 2018 15:54
[2018-02-14] MEDS: SODIUM CHLORIDE 23.4% INJ 38.5 MEQ in WATER STERILE FOR INJ 1,000 ML IV SCH (16:21)
[2018-02-14] MEDS: PROPOFOL 1000 MG/100 ML INJ 100 ML IV PRN (18:34)
[2018-02-14] MEDS ORDERED: TERBUTALINE INJ 1 MG/ML AMP SQ PRN (21:30)
[2018-02-14] MEDS ORDERED: NOREPINEPHRINE-DEXTROSE DRIP 250 ML IV PRN (21:30)
[2018-02-14] MEDS ORDERED: LACTATED RINGER'S 1000 ML INJ 1,000 ML IV ONE (21:30)
[2018-02-14] MEDS: HYDROCORTISONE SOD SUCCINATE 100 MG VIAL IV SCH (21:45)
[2018-02-15] VITALS (22 sets, daily range): BP systolic 97–147; BP diastolic 55–88; PULSE 70–92; RESP 18–21; TEMP 97.4–98.8; O2SAT 85–100
[2018-02-15] MEDS: METOCLOPRAMIDE HCL 10 MG/2 ML VIAL IV PUSH SCH ×3 (00:49→18:44)
[2018-02-15] MEDS: VANCOMYCIN 1,000 MG/NS 250 ML IV SCH ×4 (00:49→13:09)
[2018-02-15] MEDS: DEXTROSE 50% IN WATER 50 ML VIAL(D50) IV PUSH PRN ×2 (00:50→04:29)
[2018-02-15] MEDS: MIDODRINE 5 MG TAB PO SCH ×3 (03:18→18:44)
[2018-02-15] MEDS: SODIUM CHLORIDE 23.4% INJ 38.5 MEQ in WATER STERILE FOR INJ 1,000 ML IV SCH (03:18)
[2018-02-15 03:41] LABS: BASOPHIL % 0.1 % (0.0-2.0); HEMATOCRIT 31.8 % (39.0-51.0); HEMOGLOBIN 10.5 GM/DL (13.0-17.0); LYMPH % 2.1 % (9.0-44.0); LYMPHOCYTE # 0.3 TH/MM3 (1.0-4.8); MEAN CELL VOLUME 101.5 FL (80.0-100.0); MEAN CORPUSCULAR HEMOGLOBIN 33.7 PG (27.0-34.0); MEAN CORPUSCULAR HGB CONC 33.2 % (32.0-36.0); MEAN PLATELET VOLUME 10.5 FL (7.0-11.0); MONO % 4.2 % (0.0-8.0); MONOCYTE # 0.6 TH/MM3 (0-0.9); NEUT % 93.6 % (16.0-70.0); PLATELET COUNT 132 TH/MM3 (150-450); RED BLOOD COUNT 3.13 MIL/MM3 (4.50-5.90); RED CELL DISTRIBUTION WIDTH 13.4 % (11.6-17.2)
[2018-02-15 04:14] LABS: ALBUMIN 1.5 GM/DL (3.4-5.0); ALT (GPT) 79 U/L (12-78); AST (GOT) 46 U/L (15-37); BICARBONATE 31.7 MEQ/L (21.0-32.0); BLOOD UREA NITROGEN 43 MG/DL (7-18); CALCIUM 8.8 MG/DL (8.5-10.1); CHLORIDE 109 MEQ/L (98-107); CREATININE 0.74 MG/DL (0.60-1.30); GLOMERULAR FILTRATION RATE 105 ML/MIN (>89); GLUCOSE,RANDOM 100 MG/DL (74-106); MAGNESIUM 1.6 MG/DL (1.5-2.5); SODIUM (NA) 148 MEQ/L (136-145)
[2018-02-15 04:15] LABS: ALKALINE PHOSPHATASE 398 U/L (45-117); TOTAL BILIRUBIN ADULT 0.7 MG/DL (0.2-1.0); TOTAL PROTEIN 4.9 GM/DL (6.4-8.2)
[2018-02-15] MEDS: CHLORHEXIDINE GLUCONATE 2 % 1 PACK (2 CLOTHS) TOP SCH (04:27)
[2018-02-15] MEDS: metroNIDAZOLE 500 MG TAB PO SCH ×3 (04:28→20:36)
[2018-02-15] MEDS: LEVOTHYROXINE SODIUM 75 MCG TAB PO SCH (04:28)
[2018-02-15] MEDS: INSULIN NovoLIN REGULAR SUPPLEMENTAL SCALE SQ SCH ×5 (04:28→23:49)
--- NOTE | 2018-02-15 06:46 | RADRPT ---
EXAM DATE/TIME: 02/15/2018 05:09 [facility] COMPARISON: CHEST SINGLE AP, February 14, 2018, 4:38. INDICATIONS : Shortness of breath, possible pulmonary disease. MEDICAL HISTORY : Cirrhosis. Hiatal hernia. SURGICAL HISTORY : Tonsillectomy. Hernia repair Paracentesis ENCOUNTER: Subsequent ACUITY: 2 weeks PAIN SCORE: Non-responsive. LOCATION: Bilateral chest FINDINGS: Single AP view of the chest. Tracheostomy tube and left subclavian central venous catheter remain in place. Nasogastric tube no longer seen. Small bilateral pleural effusions unchanged. Right greater th an the left lower lung zone opacity unchanged. CONCLUSION: No significant interval change with persistent right greater the left lung base opacity and small lydia ateral pleural effusions. Farooq Wolfe MD on February 15, 2018 at 6:43 Board Certified Radiologist. This report was verified electronically.
[2018-02-15] MEDS: CHLORHEXIDINE 0.12% (ORAL KIT) 15 ML CUP MT SCH ×2 (08:00→20:00)
[2018-02-15] MEDS: HYDROCORTISONE SOD SUCCINATE 100 MG VIAL IV SCH ×2 (08:10→20:36)
[2018-02-15] MEDS: THIAMINE HCL 100 MG TAB PO SCH (08:11)
[2018-02-15] MEDS: MULTIVITAMIN TAB PO SCH (08:11)
[2018-02-15] MEDS: SODIUM CHLORIDE 0.9% FLUSH 10 ML FLUSH IVF PRN (08:11)
[2018-02-15] MEDS ORDERED: PHARMACY ORDERED LAB ONE (11:45)
[2018-02-15] MEDS: POTASSIUM CHLOR 40 MEQ PREMIX 100 ML IV PRN ×2 (12:19→15:32)
[2018-02-15] MEDS: cefTRIAXone INJ 2,000 MG in SODIUM CHLORIDE 0.9% INJ 100 ML IV SCH (13:12)
--- NOTE | 2018-02-15 13:54 | HHI.GIFU ---
GI Follow-up Note Consult Follow-up Subjective: Patient laying in bed comfortably, no new complaints except sedated /intubated Objective: PHYSICAL EXAMINATION: Vitals signs stable No fever HEENT: Pupils round and reactive to light; normocephalic; atraumatic; no jaundice. Throat is clear. NECK: Neck is supple, no JVD, no lymphadenopathy. CHEST: Chest is clear to auscultation and percussion. CARDIAC: Regular rate and rhythm with no murmur gallop or rubs. ABDOMEN: Soft, nondistended, nontender; no hepatosplenomegaly; bowel sounds are present in all four quadrants. EXTREMITIES: No clubbing, cyanosis, or edema. SKIN: Normal; no rash; no jaundice. CASEY SAW OPERATOR: No focal deficits; alert and oriented times three. Available Data (labs, X- Rays, Procedues) : Last Impressions Chest X-Ray 02/15/18 0600 Signed Impressions: Service Date/Time: Thursday, February 15, 2018 05:09 - CONCLUSION: No significant interval change with persistent right greater the left lung base opacity and small bilateral pleural effusions. Farooq Wolfe MD Gall Bladder Ultrasound 02/13/18 0000 Signed Impressions: Service Date/Time: February 17:23 - CONCLUSION: 1. There is minimal ascites in the upper abdomen. The exam is otherwise within normal limits. Haile Londono MD Chest CT 02/07/18 0000 Signed Impressions: Service Date/Time: Wednesday, February 07, 2018 15:56 - CONCLUSION: 1. Diffuse anasarca. 2. Dense consolidation right lower lobe with air bronchograms which could represent aspiration pneumonia. 3. Small area of consolidative opacity in the left lower lobe which appears to represent a previously noted area of rounded atelectasis mild surrounding infiltrate. 4. Small pleural fluid collections are present. 5. Underlying emphysema. 6. 1 cm noncalcified pulmonary nodule now noted in the right upper lobe which is new from the prior study. A three-month followup noncontrast chest CT is recommended. Rik Villarreal MD Abdomen/Pelvis CT 02/07/18 0000 Signed Impressions: Service Date/Time: Wednesday, February 07, 2018 15:56 - CONCLUSION: 1. Diffuse severe anasarca with fluid density throughout the subcutaneous and intra-abdominal fat and apparent ascites. 2. Dense consolidation in both lung bases with small amounts of pleural fluid. Rik Villarreal MD Abdomen X-Ray 02/05/18 0000 Signed Impressions: Service Date/Time: Monday, February 05, 2018 10:08 - CONCLUSION: 1. Nonspecific bowel gas pattern with no abnormal dilatation of the large or small bowel. 2. NG tube in the stomach. Justin Jorgensen MD Brain MRI 02/02/18 0000 Signed Impressions: Service Date/Time: Friday, February 02, 2018 10:53 - CONCLUSION: No acute intracranial abnormality. Mild mucosal thickening involving bilateral ethmoid and sphenoid sinuses. 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 Anuel Dueñas MD Head CT 02/01/18 0453 Signed Impressions: Service Date/Time: Thursday, February 01, 2018 07:28 - CONCLUSION: No acute disease. Anuel Dueñas MD Cervical Spine CT 02/01/18 0000 Signed Impressions: Service Date/Time: Thursday, February 01, 2018 07:28 - CONCLUSION: 1. No acute fracture or prevertebral soft tissue swelling. 2. Diffuse cervical spondylosis. 3. Mild bilateral foraminal narrowing at C3-4 and C4-5 and mild left neural foraminal narrowing at C6-7. 4. Mild scoliosis. 5. Biapical emphysema and fibrotic scarring are noted. Anuel Dueñas MD Laboratory Tests Test 02/14/18 04:15 02/14/18 17:50 02/15/18 03:26 White Blood Count 18.5 TH/MM3 15.0 TH/MM3 Red Blood Count 3.47 MIL/MM3 3.13 MIL/MM3 Hemoglobin 11.6 GM/DL 10.5 GM/DL Hematocrit 35.0 % 31.8 % Mean Corpuscular Volume 100.8 FL 101.5 FL Mean Corpuscular Hemoglobin 33.5 PG 33.7 PG Mean Corpuscular Hemoglobin Concent 33.3 % 33.2 % Red Cell Distribution Width 13.3 % 13.4 % Platelet Count 130 TH/MM3 132 TH/MM3 Mean Platelet Volume 10.3 FL 10.5 FL Neutrophils (%) (Auto) 94.3 % 93.6 % Lymphocytes (%) (Auto) 1.5 % 2.1 % Monocytes (%) (Auto) 4.2 % 4.2 % Eosinophils (%) (Auto) 0.0 % 0.0 % Basophils (%) (Auto) 0.0 % 0.1 % Neutrophils # (Auto) 17.4 TH/MM3 14.0 TH/MM3 Lymphocytes # (Auto) 0.3 TH/MM3 0.3 TH/MM3 Monocytes # (Auto) 0.8 TH/MM3 0.6 TH/MM3 Eosinophils # (Auto) 0.0 TH/MM3 0.0 TH/MM3 Basophils # (Auto) 0.0 TH/MM3 0.0 TH/MM3 CBC Comment DIFF FINAL DIFF FINAL Differential Comment Prothrombin Time 14.2 SEC Prothromb Time International Ratio 1.4 RATIO Blood Urea Nitrogen 37 MG/DL 43 MG/DL Creatinine 0.54 MG/DL 0.74 MG/DL Random Glucose 69 MG/DL 100 MG/DL Total Protein 5.5 GM/DL 4.9 GM/DL Albumin 1.8 GM/DL 1.5 GM/DL Calcium Level 9.3 MG/DL 8.8 MG/DL Magnesium Level 1.6 MG/DL 1.6 MG/DL Alkaline Phosphatase 493 U/L 398 U/L Aspartate Amino Transf (AST/SGOT) 67 U/L 46 U/L Alanine Aminotransferase (ALT/SGPT) 113 U/L 79 U/L Total Bilirubin 0.8 MG/DL 0.7 MG/DL Sodium Level 151 MEQ/L 148 MEQ/L Potassium Level 3.3 MEQ/L 3.2 MEQ/L Chloride Level 111 MEQ/L 109 MEQ/L Carbon Dioxide Level 34.2 MEQ/L 31.7 MEQ/L Anion Gap 6 MEQ/L 7 MEQ/L Estimat Glomerular Filtration Rate 151 ML/MIN 105 ML/MIN Phosphorus Level 3.0 MG/DL Stool C. difficile Toxin (PCR) NEGATIVE Stl C. difficile Toxin Epiderm 027 PRESUMPTIVE NEGATIVE Lactic Acid Level 1.3 mmol/L Allergies Coded Allergies Type Severity Reaction Last Updated Verified No Known Allergies Adverse Reaction Unknown 01/31/18 No Active Scripts Medications Dose Route/Sig Max Daily Dose Days Date Category Levothyroxine (Levothyroxine Sodium) 75 Mcg Tab 75 Mcg PO DAILY 01/20/18 Rx ASSESSMENT/PLAN:Seen and examined, s/p egd/peg placement yesterday. TF as tolerated. Flush with water Q shift. GI will sign off. Thank you It was a pleasure seeing Anuel Lizarraga. Thank you for this consult. Entered by: Helga Griffith MD Feb 15, 2018 13:54
--- NOTE | 2018-02-15 16:37 | HHI.CCPN ---
Subjective Remarks/Hospital Course Hospital Course: This is 67yM with history per prior records of cirrhosis who presented to the [facility] with [id number] PEA arrest. Per our documentation, He was seen on complaining of syncope and had a negative head CT at that time. He was discharged home. He represented 02/01 to [facility] with similar complaints of syncope , however the patient himself denied any complaints. In the waiting room, reports state he became unresponsive and cyanotic and was resuscitated with bag- valve-mask. He regained consciousness and refused additional care, signing out AMA before any work-up could be done. Per EMS report, when he was in the cab on the way home, he became unresponsive. presenting rhythm was PEA. ROSC was successfully obtained and he was stabilized in the [facility] ED before being transferred to [facility]. I evaluated the patient immediately upon arrival to the ICU. He is comatose and intubated, and no information can be obtained from him. He is on levophed at 15mcg/min. His pupils are 4mm, sluggishly reactive with roving eye movements. He is extensor posturing in the upper extremities and flexor posturing in the lower extremities. he has +cough but negative gag. + corneals. No additional information is obtainable from the patient and ROS is unobtainable. Laboratory evidence from [facility] demonstrates lactate of 9, trop 0.02, sodium 138, K 2.8, ammonia 46. Subjective: 02/02: no significant improvements. GCS remains 4 despite off sedation x 24h. trops downtrending, likely secondary to CPR and not primary ACS. MRI today without overt evidence of anoxia. remains critically ill and comatose. 02/03: Opens eyes today to persistent stimulation. Appears to track do not follow commands. MRI done yesterday no acute findings. Too weak to attempt spontaneous breathing trial or extubation 02/04: Developed severe septic shock yesterday evening. Was placed on Levophed maxed to 20 mcg/min, Aniceto-Synephrine was also added currently at 120 mcg/min. initially was DNR per palliative care, but the daughter rescinded it later. Currently patient remains unresponsive. Source of sepsis appears to be right lower lobe pneumonia, I have placed a new left subclavian central line will discontinue the right femoral central line 02/05: Remains in severe septic shock. Sputum culture with gram-negative rods, blood culture with E. coli. Will change to meropenem to cover for ESBL E. coli , currently on Zosyn. Also start stress dose steroids 02/06: remains in shock on vasopressors. sputum culture with pansensitive e. coli , but wbc uptrending and in shock despite meropenem. awake and following commands, although very encephalopathic. 02/07: remains on vasopressors. wbc elevated. procalcitonin elevated as well. sputum culture with rare yeasts on gram stain. CT chest/abd/pelvis ordered to eval for other sources of infection: dense RLL consolidation c/w pneumonia. will likely need to bronch and get diagnostic BAL since prior micro have been unable to identify specific organism. 02/08: sputum still growing GNR. wbc dowtrending, however today, and he continues to remain afebrile. still no real improvements in mental status. 02/09: Sputum culture also growing pansensitive E. coli. Off all pressors but no improvement in neuro exam. Severely encephalopathic, and for this reason unable to extubate 02/10: No improvement in neurological function, remains severely debilitated. Increasing base excess but still has acceptable respiratory drive. Off vasopressors still. Poor prognosis due to anoxic brain injury. Consider trach and placement as family wants continued aggressive support. 02/11: Very lethargic, unable to tolerate spontaneous breathing trials. If family needs continued aggressive care, needs tracheostomy and PEG tube placement. Palliative will meet with family today. WBC count increasing today 22.5 02/12: Slightly more awake today spontaneous eye opening still not following commands. Family has not made a decision about tracheostomy or PEG tube placement. I will attempt to talk to the family today. CBC CMP pending today 02/13: Neurologically showing some signs of improvement, tracking better spontaneously open. Very weakly followed commands in all extremity. WBC count increased to 32.3 with predominantly neutrophils and bandemia. Repeat panculture sputum culture with GPC, added vancomycin IV. Rule out C. difficile colitis, add p.o. Flagyl. GB US to rule out cholecystitis. Got consent from Ambar, patient's daughter for tracheostomy and PEG tube placement 02/14: Status post tracheostomy today. Awaiting PEG tube placement. WBC count trending down today 18.5. Continues to have low-grade fever. IV vancomycin for GPC and sputum. Need LTAC after PEG 02/15: awaiting LTAC. change to PO free water for persistent hypernatremia. wean steroids. severe protein calorie malnutrition with preAlb 3. start vital high protein and await nutrition recs. Objective Vital Signs Date Time Temp Pulse Resp B/P (MAP) Pulse Ox O2 Delivery O2 Flow Rate FiO2 02/15/18 15:25 100 35 02/15/18 08:00 98.8 86 21 115/57 (76) Intake and Output 02/15/18 02/15/18 02/16/18 08:00 16:00 00:00 Intake Total 2251 ml Output Total 225 ml Balance 2025 ml Result Diagram: 02/15/18 0326 02/15/18 0326 Objective Remarks Gen: cachetic male, lying in bed, intubated, encephalopathic, appears older than stated age, critically ill HEENT: nc. at. pupils 3 mm, sluggishly reactive, eye opening neck: trachea midline. New tracheostomy with minimal dried blood around chest: equal chest rise. prvc. 40% fio2. peep 5. Moderate hernandez secretions cv: normal rate, regular rhythm. No JVD. abd: scaphoid. soft, nontender, nondistended. no guarding. extr: no peripheral edema. distal pulses 2+. neuro: Pupils as above. Spontaneous eye opening tracking more today. Very weakly follows commands 4, then off sedation. A/P Assessment and Plan Assessment: 67yM with cirrhosis and recent multiple complaints of syncope presents after leaving AMA from a syncopal episode and found in [id number] PEA arrest. Cachectic likely secondary to chronic etoh use. remain off sedatives and watch neuro exam. Remains encephalopathic, slight improvement in neuro exam. Given improvement in neurological status, but continued failure to wean from ventilator, tracheostomy performed 02/13/18. PEG 02/14. needs LTAC placement: multiple dysfunctional organs still present. highly complex. Neuro: Hypoxic Ischemic Encephalopathy Metabolic encephalopathy secondary to sepsis History of recurrent Syncope - Use sedation only for ventilatory synchrony. Currently sedated for anticipated PEG tube procedure - Improving neuro exam but significant weakness persist - Avoid hyperthermia - EEG: generalized slowing 02/01. MRI brain: no abnormalities 02/02 - Keppra DCd 02/09 - Persistent encephalopathy may be secondary to anoxia and metabolic - PT/OT Resp: Acute hypoxic and hypercarbic respiratory failure Right lower lobe pneumonia/E Coli in sputum - wean fio2 for goal spo2 > 90% - Status post tracheostomy02/13/18. CPAP trial and attempt T-piece after PEG tube placement - vent bundle, hob elevated, nebs. - Sputum culture, started on vancomycin and Zosyn 02/03. Changed to Meropenem empirically. Narrowed ABX to Rocephin only, due to harvey sensitive E. coli - Restarted vancomycin 02/13 - Got Diamox 02/10 X 1 for metabolic alkalosis CV: Severe sepsis Lactic acidosis Recurrent Syncope Out of hospital PEA arrest - Currently off all pressors - Lasix discontinued due to contraction alkalosis. change to PO free water for hypernatremia. - 2d echo 02/01: moderate aortic regurgitation. EF 60%. - close uop monitoring, trend lactates, trend abg - low suspicion for ACS. cardiac enzymes downtrended - continue to wean stress dose steroids. Renal: - strict i/o's - d/c 11/14 NS and start free water per tube. FEN/GI: Cirrhosis Failure to thrive severe hypokalemia Acute protein calorie malnutrition - severe and worsening (temporal muscle wasting, calf muscle atrophy, weight loss). Hyperammonemia Elevated alk phos - likely cause of poor nutrition is etoh, trend pre-Ab qweek - aggressive K replacement - PEG 02/14 - Check C. difficile colitis, now patient has no diarrhea - Essentially normal gallbladder ultrasound - iv thiamine and MVI - lactulose and daily ammonia checks - ICU electrolyte protocol - Reglan - restart tube feeds. nutrition consult. Heme/ID: Severe worsening sepsis Rule out C. difficile colitis E. coli bacteremia E Coli pneumonia Coagulopathy secondary to end-stage liver disease - Continue Rocephin, and IV vancomycin for GPC and sputum, add p.o. Flagy empirically l to cover for C. difficile colitis - Previously started on vancomycin and Zosyn 02/03. Changed to Meropenem empirically. Narrowed ABX to Rocephin only due to harvey sensitive E. coli 02/09 - Sputum culture E coli, blood culture E. coli. Both harvey sensitive - INR 1.3 which is stable from prior admissions, likely secondary to cirrhosis Endocrine: Hypothyroidism Hyperglycemia of critical illness - SSI, med scale, q6h - home Synthroid - Stress dose steroids as above-reduce to 25 q12 and now has completed course Prophylaxis: - SCDs - iv pepcid - lovenox sq Lines: - right radial art line 02/01-was dcd, placed new left femoral art line 02/04/18- DCd - right femoral cvl 02/01-DCd 02/04/18, New left subclavian central line placed - reed Dispo: remain in ICU. Severe encephalopathy which is multifactorial did not permit extubation, Trach 4/5, PEG 4/6 Curtis Anderson MD Feb 15, 2018 16:37
[2018-02-15] MEDS: FREE WATER G-TUBE SCH ×2 (20:00→23:48)
[2018-02-16] VITALS (20 sets, daily range): BP systolic 100–146; BP diastolic 57–64; PULSE 72–97; RESP 16–20; TEMP 97–98.4; O2SAT 99–100
[2018-02-16] MEDS: MIDODRINE 5 MG TAB PO SCH ×3 (02:15→18:30)
[2018-02-16] MEDS: METOCLOPRAMIDE HCL 10 MG/2 ML VIAL IV PUSH SCH ×3 (02:15→19:16)
[2018-02-16] MEDS: FREE WATER G-TUBE SCH ×4 (04:00→18:00)
[2018-02-16] MEDS: CHLORHEXIDINE GLUCONATE 2 % 1 PACK (2 CLOTHS) TOP SCH (04:00)
[2018-02-16 04:21] LABS: HEMOGLOBIN 10.1 GM/DL (13.0-17.0); MEAN CELL VOLUME 100.4 FL (80.0-100.0); MEAN CORPUSCULAR HEMOGLOBIN 33.8 PG (27.0-34.0); MEAN CORPUSCULAR HGB CONC 33.6 % (32.0-36.0); MEAN PLATELET VOLUME 10.6 FL (7.0-11.0); PLATELET COUNT 137 TH/MM3 (150-450); RED BLOOD COUNT 2.98 MIL/MM3 (4.50-5.90); RED CELL DISTRIBUTION WIDTH 13.4 % (11.6-17.2); WHITE BLOOD COUNT 15.8 TH/MM3 (4.0-11.0)
[2018-02-16 04:44] LABS: BICARBONATE 29.3 MEQ/L (21.0-32.0); CALCIUM 8.8 MG/DL (8.5-10.1); CREATININE 0.96 MG/DL (0.60-1.30)
[2018-02-16] MEDS: metroNIDAZOLE 500 MG TAB PO SCH ×3 (05:54→21:03)
[2018-02-16] MEDS: LEVOTHYROXINE SODIUM 75 MCG TAB PO SCH (05:54)
[2018-02-16] MEDS: INSULIN NovoLIN REGULAR SUPPLEMENTAL SCALE SQ SCH ×3 (05:55→18:00)
[2018-02-16] MEDS: HYDROCORTISONE SOD SUCCINATE 100 MG VIAL IV SCH (10:43)
[2018-02-16] MEDS: CHLORHEXIDINE 0.12% (ORAL KIT) 15 ML CUP MT SCH ×2 (10:44→21:03)
[2018-02-16] MEDS: THIAMINE HCL 100 MG TAB PO SCH (10:44)
[2018-02-16] MEDS: MULTIVITAMIN TAB PO SCH (10:44)
[2018-02-16] MEDS: cefTRIAXone INJ 2,000 MG in SODIUM CHLORIDE 0.9% INJ 100 ML IV SCH (14:12)
[2018-02-16] MEDS: ENOXAPARIN SODIUM 40 MG/0.4 ML SYRINGE SQ SCH (14:20)
--- NOTE | 2018-02-16 15:57 | HHI.CCPN ---
Subjective Remarks/Hospital Course Hospital Course: This is 67yM with history per prior records of cirrhosis who presented to the [facility] with [id number] PEA arrest. Per our documentation, He was seen on complaining of syncope and had a negative head CT at that time. He was discharged home. He represented 02/01 to [facility] with similar complaints of syncope , however the patient himself denied any complaints. In the waiting room, reports state he became unresponsive and cyanotic and was resuscitated with bag- valve-mask. He regained consciousness and refused additional care, signing out AMA before any work-up could be done. Per EMS report, when he was in the cab on the way home, he became unresponsive. presenting rhythm was PEA. ROSC was successfully obtained and he was stabilized in the [facility] ED before being transferred to [facility]. I evaluated the patient immediately upon arrival to the ICU. He is comatose and intubated, and no information can be obtained from him. He is on levophed at 15mcg/min. His pupils are 4mm, sluggishly reactive with roving eye movements. He is extensor posturing in the upper extremities and flexor posturing in the lower extremities. he has +cough but negative gag. + corneals. No additional information is obtainable from the patient and ROS is unobtainable. Laboratory evidence from [facility] demonstrates lactate of 9, trop 0.02, sodium 138, K 2.8, ammonia 46. 02/02: no significant improvements. GCS remains 4 despite off sedation x 24h. trops downtrending, likely secondary to CPR and not primary ACS. MRI today without overt evidence of anoxia. remains critically ill and comatose. 02/03: Opens eyes today to persistent stimulation. Appears to track do not follow commands. MRI done yesterday no acute findings. Too weak to attempt spontaneous breathing trial or extubation 02/04: Developed severe septic shock yesterday evening. Was placed on Levophed maxed to 20 mcg/min, Aniceto-Synephrine was also added currently at 120 mcg/min. initially was DNR per palliative care, but the daughter rescinded it later. Currently patient remains unresponsive. Source of sepsis appears to be right lower lobe pneumonia, I have placed a new left subclavian central line will discontinue the right femoral central line 02/05: Remains in severe septic shock. Sputum culture with gram-negative rods, blood culture with E. coli. Will change to meropenem to cover for ESBL E. coli , currently on Zosyn. Also start stress dose steroids 02/06: remains in shock on vasopressors. sputum culture with pansensitive e. coli , but wbc uptrending and in shock despite meropenem. awake and following commands, although very encephalopathic. 02/07: remains on vasopressors. wbc elevated. procalcitonin elevated as well. sputum culture with rare yeasts on gram stain. CT chest/abd/pelvis ordered to eval for other sources of infection: dense RLL consolidation c/w pneumonia. will likely need to bronch and get diagnostic BAL since prior micro have been unable to identify specific organism. 02/08: sputum still growing GNR. wbc dowtrending, however today, and he continues to remain afebrile. still no real improvements in mental status. 02/09: Sputum culture also growing pansensitive E. coli. Off all pressors but no improvement in neuro exam. Severely encephalopathic, and for this reason unable to extubate 02/10: No improvement in neurological function, remains severely debilitated. Increasing base excess but still has acceptable respiratory drive. Off vasopressors still. Poor prognosis due to anoxic brain injury. Consider trach and placement as family wants continued aggressive support. 02/11: Very lethargic, unable to tolerate spontaneous breathing trials. If family needs continued aggressive care, needs tracheostomy and PEG tube placement. Palliative will meet with family today. WBC count increasing today 22.5 02/12: Slightly more awake today spontaneous eye opening still not following commands. Family has not made a decision about tracheostomy or PEG tube placement. I will attempt to talk to the family today. CBC CMP pending today 02/13: Neurologically showing some signs of improvement, tracking better spontaneously open. Very weakly followed commands in all extremity. WBC count increased to 32.3 with predominantly neutrophils and bandemia. Repeat panculture sputum culture with GPC, added vancomycin IV. Rule out C. difficile colitis, add p.o. Flagyl. GB US to rule out cholecystitis. Got consent from Ambar, patient's daughter for tracheostomy and PEG tube placement 02/14: Status post tracheostomy today. Awaiting PEG tube placement. WBC count trending down today 18.5. Continues to have low-grade fever. IV vancomycin for GPC and sputum. Need LTAC after PEG 02/15: awaiting LTAC. change to PO free water for persistent hypernatremia. wean steroids. severe protein calorie malnutrition with preAlb 3. start vital high protein and await nutrition recs. Subjective: 02/16: Afebrile. Currently on PSV trial 10/5 and 40%. Tolerating trach and PEG.. Eyes are open and weakly follows commands upper extremities. Objective Vital Signs Date Time Temp Pulse Resp B/P (MAP) Pulse Ox O2 Delivery O2 Flow Rate FiO2 02/16/18 14:06 100 35 02/16/18 06:00 72 02/16/18 04:00 97.0 16 110/57 (74) Intake and Output 02/16/18 02/16/18 02/16/18 07:59 15:59 23:59 Intake Total 1303 ml Output Total 250 ml Balance 1053 ml Result Diagram: 02/16/18 0400 02/16/18 0400 Other Results Microbiology Date/Time Source Procedure Growth Status 02/13/18 17:50 Blood Peripheral Aerobic Blood Culture - Preliminary NO GROWTH IN 3 DAYS Resulted 02/13/18 17:50 Blood Peripheral Anaerobic Blood Culture - Preliminary NO GROWTH IN 3 DAYS Resulted 02/12/18 12:15 Sputum Endotracheal Gram Stain - Final Complete 02/12/18 12:15 Sputum Endotracheal Sputum Culture - Final Complete 02/03/18 20:55 Urine Catheterized Urine Urine Culture - Final NO GROWTH IN 48 HOURS. Complete Imaging Last Impressions Chest X-Ray 02/15/18 0600 Signed Impressions: Service Date/Time: Thursday, February 15, 2018 05:09 - CONCLUSION: No significant interval change with persistent right greater the left lung base opacity and small bilateral pleural effusions. Farooq Wolfe MD Gall Bladder Ultrasound 02/13/18 0000 Signed Impressions: Service Date/Time: February 17:23 - CONCLUSION: 1. There is minimal ascites in the upper abdomen. The exam is otherwise within normal limits. Haile Londono MD Chest CT 02/07/18 0000 Signed Impressions: Service Date/Time: Wednesday, February 07, 2018 15:56 - CONCLUSION: 1. Diffuse anasarca. 2. Dense consolidation right lower lobe with air bronchograms which could represent aspiration pneumonia. 3. Small area of consolidative opacity in the left lower lobe which appears to represent a previously noted area of rounded atelectasis mild surrounding infiltrate. 4. Small pleural fluid collections are present. 5. Underlying emphysema. 6. 1 cm noncalcified pulmonary nodule now noted in the right upper lobe which is new from the prior study. A three-month followup noncontrast chest CT is recommended. Rik Villarreal MD Abdomen/Pelvis CT 02/07/18 0000 Signed Impressions: Service Date/Time: Wednesday, February 07, 2018 15:56 - CONCLUSION: 1. Diffuse severe anasarca with fluid density throughout the subcutaneous and intra-abdominal fat and apparent ascites. 2. Dense consolidation in both lung bases with small amounts of pleural fluid. Rik Villarreal MD Abdomen X-Ray 02/05/18 0000 Signed Impressions: Service Date/Time: Monday, February 05, 2018 10:08 - CONCLUSION: 1. Nonspecific bowel gas pattern with no abnormal dilatation of the large or small bowel. 2. NG tube in the stomach. Justin Jorgensen MD Brain MRI 02/02/18 0000 Signed Impressions: Service Date/Time: Friday, February 02, 2018 10:53 - CONCLUSION: No acute intracranial abnormality. Mild mucosal thickening involving bilateral ethmoid and sphenoid sinuses. 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 Anuel Dueñas MD Head CT 02/01/18 0453 Signed Impressions: Service Date/Time: Thursday, February 01, 2018 07:28 - CONCLUSION: No acute disease. Anuel Dueñas MD Cervical Spine CT 02/01/18 0000 Signed Impressions: Service Date/Time: Thursday, February 01, 2018 07:28 - CONCLUSION: 1. No acute fracture or prevertebral soft tissue swelling. 2. Diffuse cervical spondylosis. 3. Mild bilateral foraminal narrowing at C3-4 and C4-5 and mild left neural foraminal narrowing at C6-7. 4. Mild scoliosis. 5. Biapical emphysema and fibrotic scarring are noted. Anuel Dueñas MD Objective Remarks Gen: 67-year-old cachetic male, lying in bed status post tracheostomy encephalopathic, appears older than stated age, critically ill HEENT: nc. at. pupils 3 mm, sluggishly reactive, eye opening neck: trachea midline. New tracheostomy with minimal dried blood around chest: Symmetrical excursion. Equal chest rise. Essentially clear. cv: RRR. S1, S2 no S4. Without murmur abd: scaphoid. soft, nontender, nondistended. no guarding. PEG tube site is clean dry and intact extr: no peripheral edema. distal pulses 2+. neuro: Pupils as above. Spontaneous eye opening tracking more today. Very weakly follows commands 4, off sedation. Vascular Central Line Catheter: Yes Assessment to: Continue Date of Insertion: Mar 07, 2008 Line: Central Venous Catheter Side: Left Location: Subclavian A/P Assessment and Plan Neuro/Psych: Hypoxic Ischemic Encephalopathy Metabolic encephalopathy secondary to sepsis History of recurrent Syncope Acetaminophen 650 mg every 6 hours by PEG as needed fever Oxycodone liquid 5 mg by tube every 4 hours as needed pain 1 through 10 - Improving neuro exam but significant weakness persist - EEG: generalized slowing 02/01. MRI brain: no abnormalities 02/02 Resp: Acute now chronic hypoxic and hypercarbic respiratory failure Right lower lobe pneumonia/E Coli in sputum Status post percutaneous tracheostomy 02/[address] Stallwroth Currently on PSVT trial 08/15 and 40% - wean fio2 for goal spo2 > 90% Continue intermittent CPAP trial and attempt T-piece as tolerated Albuterol/ipratropium aerosols every 6 hours with albuterol aerosols every 2 hours as needed for dyspnea Chest x-ray in a.m. 02/17 CV: Severe sepsis due to E. coli Recurrent Syncope Out of hospital PEA arrest - Currently off all pressors - Lasix discontinued due to contraction alkalosis. change to PO free water 200 every 6 hours for hypernatremia. - 2d echo 02/01: moderate aortic regurgitation. EF 60%. - low suspicion for ACS. cardiac enzymes downtrended Currently hydrocortisone at 25 mg 2 days. Stop 02/17 Renal: Monitor urine output Accurate I's and O's FEN/GI: Cirrhosis Failure to thrive severe hypokalemia Acute protein calorie malnutrition - severe and worsening (temporal muscle wasting, calf muscle atrophy, weight loss). Hyperammonemia Elevated alk phos Nutrition recommends tube feeding with Jevity 1.5 goal 65 cc an hour Famotidine for GI prophylaxis Plan lactulose 30 mg every 6 hours as scheduled If negative - Essentially normal gallbladder ultrasound Continue thiamine, multivitamin folate daily Check ammonia level in a.m. - ICU electrolyte protocol -Metoclopramide 5 mg every 8 hours prokinetic - restart tube feeds. nutrition consult. Heme/ID: Leukocytosis Macrocytosis Thrombocytopenia E. 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 metoclopramide C. difficile colitis. Likely will de-escalate in a.m. 02/17 - Previously started on vancomycin and Zosyn 02/03. Changed to Meropenem empirically. Narrowed ABX to Rocephin only due to harvey sensitive E. coli 02/09 - Sputum culture E coli, blood culture E. coli. Both harvey sensitive - INR 1.3 which is stable from prior admissions, likely secondary to cirrhosis Blood cultures -02/13. Sputum -02/12. E. coli in urine 02/07. Blood 02/03 Endocrine: Hypothyroidism Hyperglycemia of critical illness - SSI, med scale, q6h - levothyroxine 75 mg daily. TSH - Stress dose steroids as above-reduce to 25 q12 and now has completed course Prophylaxis: - SCDs -Famotidine - l enoxaparin Lines: - right radial art line 02/01-was dcd, placed new left femoral art line 02/04/18- DCd - right femoral cvl 02/01-DCd 02/04/18, New left subclavian central line placed - reed Level 2 follow-up Dirk Streeter MD Feb 16, 2018 15:57
[2018-02-16] MEDS ORDERED: RESP: ALBUTEROL 2.5 MG/3 ML NEB (PRN) NEB (16:15)
[2018-02-16] MEDS ORDERED: ALBUMIN 5% INJ 500 ML IV ONE (16:15)
[2018-02-16] MEDS ORDERED: VANCOMYCIN 1,000 MG/NS 250 ML IV SCH ×2 (18:00)
[2018-02-16] MEDS: FAMOTIDINE 20 MG TAB NG SCH (21:03)
[2018-02-16] MEDS: ARTIFICIAL TEARS OPTH SOLN 15 ML BTL EACH EYE SCH (21:04)
[2018-02-16] MEDS: RESP: ALBUTEROL 2.5 MG/IPRATROPIUM 0.5 MG NEB (SCH) INH (21:25)
[2018-02-17] VITALS (32 sets, daily range): BP systolic 78–133; BP diastolic 52–70; PULSE 77–123; RESP 15–28; TEMP 97.5–98.8; O2SAT 75–100
[2018-02-17] MEDS: MIDODRINE 5 MG TAB PO SCH ×3 (01:27→17:51)
[2018-02-17] MEDS: METOCLOPRAMIDE HCL 10 MG/2 ML VIAL IV PUSH SCH ×4 (01:27→23:32)
[2018-02-17] MEDS: CHLORHEXIDINE GLUCONATE 2 % 1 PACK (2 CLOTHS) TOP SCH (01:27)
[2018-02-17] MEDS: RESP: ALBUTEROL 2.5 MG/IPRATROPIUM 0.5 MG NEB (SCH) INH ×4 (03:39→19:19)
[2018-02-17] MEDS ORDERED: EPINEPHrine HCL (1:10,000) 1 MG/10 ML SYRINGE ONE (04:49)
--- NOTE | 2018-02-17 05:07 | RADRPT ---
EXAM DATE/TIME: 02/17/2018 03:29 [facility] COMPARISON: CHEST SINGLE AP, February 15, 2018, 5:09. INDICATIONS : Shortness of breath,possible pulmonary disease. MEDICAL HISTORY : Cirrhosis. Hiatal hernia. SURGICAL HISTORY : Tonsillectomy. Hernia repair Paracentesis ENCOUNTER: Subsequent ACUITY: 2 weeks PAIN SCORE: Non-responsive. LOCATION: Bilateral chest FINDINGS: A single view of the chest demonstrates bibasilar densities and small pleural effusions. Scattered in terstitial densities. Endotracheal tube and left subclavian central line stable in position. Heart no rmal in size. Osseous structures are intact. CONCLUSION: Stable chest. Amaury Francisoc MD on February 17, 2018 at 5:05 Board Certified Radiologist. This report was verified electronically.
[2018-02-17] MEDS: ARTIFICIAL TEARS OPTH SOLN 15 ML BTL EACH EYE SCH ×3 (06:00→21:35)
[2018-02-17] MEDS: FREE WATER G-TUBE SCH ×5 (06:00→23:32)
[2018-02-17] MEDS: INSULIN NovoLIN REGULAR SUPPLEMENTAL SCALE SQ SCH ×5 (06:00→23:42)
[2018-02-17 06:31] LABS: PHOSPHORUS 3.8 MG/DL (2.5-4.9)
[2018-02-17 06:41] LABS: RANDOM VANCOMYCIN 20.1 COMMENT; TOTAL BILIRUBIN ADULT 0.3 MG/DL (0.2-1.0); TOTAL PROTEIN 5.5 GM/DL (6.4-8.2)
[2018-02-17] MEDS: metroNIDAZOLE 500 MG TAB PO SCH ×3 (06:48→21:34)
[2018-02-17] MEDS: LEVOTHYROXINE SODIUM 75 MCG TAB PO SCH (06:48)
[2018-02-17 06:57] LABS: HEMATOCRIT 31.9 % (39.0-51.0); HEMOGLOBIN 10.9 GM/DL (13.0-17.0); MEAN CELL VOLUME 101.3 FL (80.0-100.0); MEAN CORPUSCULAR HEMOGLOBIN 34.6 PG (27.0-34.0); MEAN CORPUSCULAR HGB CONC 34.1 % (32.0-36.0); MEAN PLATELET VOLUME 11.4 FL (7.0-11.0); PLATELET COUNT 98 TH/MM3 (150-450); RED BLOOD COUNT 3.15 MIL/MM3 (4.50-5.90); RED CELL DISTRIBUTION WIDTH 13.7 % (11.6-17.2); WHITE BLOOD COUNT 13.5 TH/MM3 (4.0-11.0)
[2018-02-17 07:14] LABS: ALBUMIN 2.1 GM/DL (3.4-5.0); BICARBONATE 25.5 MEQ/L (21.0-32.0); CALCIUM 8.6 MG/DL (8.5-10.1); CREATININE 1.06 MG/DL (0.60-1.30); DIRECT BILIRUBIN ADULT 0.1 MG/DL (0.0-0.2); INDIRECT BILIRUBIN 0.2 MG/DL (0.0-0.8); MAGNESIUM 1.6 MG/DL (1.5-2.5)
[2018-02-17] MEDS: FAMOTIDINE 20 MG TAB NG SCH ×2 (09:43→21:34)
[2018-02-17] MEDS: HYDROCORTISONE SOD SUCCINATE 100 MG VIAL IV SCH (09:43)
[2018-02-17] MEDS: CHLORHEXIDINE 0.12% (ORAL KIT) 15 ML CUP MT SCH ×2 (09:43→20:22)
[2018-02-17] MEDS: MULTIVITAMIN TAB PO SCH (09:43)
[2018-02-17] MEDS: FOLIC ACID 1 MG TAB PO SCH (09:43)
[2018-02-17] MEDS: THIAMINE HCL 100 MG TAB PO SCH (09:43)
--- NOTE | 2018-02-17 10:12 | HHI.CCPN ---
Subjective Remarks/Hospital Course Hospital Course: This is 67yM with history per prior records of cirrhosis who presented to the [facility] with [id number] PEA arrest. Per our documentation, He was seen on complaining of syncope and had a negative head CT at that time. He was discharged home. He represented 02/01 to [facility] with similar complaints of syncope , however the patient himself denied any complaints. In the waiting room, reports state he became unresponsive and cyanotic and was resuscitated with bag- valve-mask. He regained consciousness and refused additional care, signing out AMA before any work-up could be done. Per EMS report, when he was in the cab on the way home, he became unresponsive. presenting rhythm was PEA. ROSC was successfully obtained and he was stabilized in the [facility] before being transferred to [facility]. I evaluated the patient immediately upon arrival to the ICU. He is comatose and intubated, and no information can be obtained from him. He is on levophed at 15mcg/min. His pupils are 4mm, sluggishly reactive with roving eye movements. He is extensor posturing in the upper extremities and flexor posturing in the lower extremities. he has +cough but negative gag. + corneals. No additional information is obtainable from the patient and ROS is unobtainable. Laboratory evidence from [facility] demonstrates lactate of 9, trop 0.02, sodium 138, K 2.8, ammonia 46. 02/02: no significant improvements. GCS remains 4 despite off sedation x 24h. trops downtrending, likely secondary to CPR and not primary ACS. MRI today without overt evidence of anoxia. remains critically ill and comatose. 02/03: Opens eyes today to persistent stimulation. Appears to track do not follow commands. MRI done yesterday no acute findings. Too weak to attempt spontaneous breathing trial or extubation 02/04: Developed severe septic shock yesterday evening. Was placed on Levophed maxed to 20 mcg/min, Aniceto-Synephrine was also added currently at 120 mcg/min. initially was DNR per palliative care, but the daughter rescinded it later. Currently patient remains unresponsive. Source of sepsis appears to be right lower lobe pneumonia, I have placed a new left subclavian central line will discontinue the right femoral central line 02/05: Remains in severe septic shock. Sputum culture with gram-negative rods, blood culture with E. coli. Will change to meropenem to cover for ESBL E. coli , currently on Zosyn. Also start stress dose steroids 02/06: remains in shock on vasopressors. sputum culture with pansensitive e. coli , but wbc uptrending and in shock despite meropenem. awake and following commands, although very encephalopathic. 02/07: remains on vasopressors. wbc elevated. procalcitonin elevated as well. sputum culture with rare yeasts on gram stain. CT chest/abd/pelvis ordered to eval for other sources of infection: dense RLL consolidation c/w pneumonia. will likely need to bronch and get diagnostic BAL since prior micro have been unable to identify specific organism. 02/08: sputum still growing GNR. wbc dowtrending, however today, and he continues to remain afebrile. still no real improvements in mental status. 02/09: Sputum culture also growing pansensitive E. coli. Off all pressors but no improvement in neuro exam. Severely encephalopathic, and for this reason unable to extubate 02/10: No improvement in neurological function, remains severely debilitated. Increasing base excess but still has acceptable respiratory drive. Off vasopressors still. Poor prognosis due to anoxic brain injury. Consider trach and placement as family wants continued aggressive support. 02/11: Very lethargic, unable to tolerate spontaneous breathing trials. If family needs continued aggressive care, needs tracheostomy and PEG tube placement. Palliative will meet with family today. WBC count increasing today 22.5 02/12: Slightly more awake today spontaneous eye opening still not following commands. Family has not made a decision about tracheostomy or PEG tube placement. I will attempt to talk to the family today. CBC CMP pending today 02/13: Neurologically showing some signs of improvement, tracking better spontaneously open. Very weakly followed commands in all extremity. WBC count increased to 32.3 with predominantly neutrophils and bandemia. Repeat panculture sputum culture with GPC, added vancomycin IV. Rule out C. difficile colitis, add p.o. Flagyl. GB US to rule out cholecystitis. Got consent from Ambar, patient's daughter for tracheostomy and PEG tube placement 02/14: Status post tracheostomy today. Awaiting PEG tube placement. WBC count trending down today 18.5. Continues to have low-grade fever. IV vancomycin for GPC and sputum. Need LTAC after PEG 02/15: awaiting LTAC. change to PO free water for persistent hypernatremia. wean steroids. severe protein calorie malnutrition with preAlb 3. start vital high protein and await nutrition recs. 02/16: Afebrile. Currently on PSV trial 10/5 and 40%. Tolerating trach and PEG.. Eyes are open and weakly follows commands upper extremities. Subjective: 02/17: Lasted on CPAP trials 3 hours today. Continues to open eyes and weakly follows commands the upper extremities. Tolerating tube feeding. Objective Vital Signs Date Time Temp Pulse Resp B/P (MAP) Pulse Ox O2 Delivery O2 Flow Rate FiO2 02/17/18 09:27 96 35 02/17/18 06:00 107 02/17/18 04:00 97.8 18 133/59 (83) 02/16/18 19:20 T-piece 5.00 Intake and Output 02/17/18 02/17/18 02/17/18 07:59 15:59 23:59 Intake Total 1415 ml Output Total 550 ml Balance 865 ml Result Diagram: 02/17/18 0541 02/17/18 0541 Other Results Microbiology Date/Time Source Procedure Growth Status 02/13/18 17:50 Blood Peripheral Aerobic Blood Culture - Preliminary NO GROWTH IN 3 DAYS Resulted 02/13/18 17:50 Blood Peripheral Anaerobic Blood Culture - Preliminary NO GROWTH IN 3 DAYS Resulted 02/12/18 12:15 Sputum Endotracheal Gram Stain - Final Complete 02/12/18 12:15 Sputum Endotracheal Sputum Culture - Final Complete 02/03/18 20:55 Urine Catheterized Urine Urine Culture - Final NO GROWTH IN 48 HOURS. Complete Imaging Last Impressions Chest X-Ray 02/17/18 0600 Signed Impressions: Service Date/Time: Saturday, February 17, 2018 03:29 - CONCLUSION: Stable chest. Amaury Francisco MD Gall Bladder Ultrasound 02/13/18 0000 Signed Impressions: Service Date/Time: February 17:23 - CONCLUSION: 1. There is minimal ascites in the upper abdomen. The exam is otherwise within normal limits. Haile Londono MD Chest CT 02/07/18 0000 Signed Impressions: Service Date/Time: Wednesday, February 07, 2018 15:56 - CONCLUSION: 1. Diffuse anasarca. 2. Dense consolidation right lower lobe with air bronchograms which could represent aspiration pneumonia. 3. Small area of consolidative opacity in the left lower lobe which appears to represent a previously noted area of rounded atelectasis mild surrounding infiltrate. 4. Small pleural fluid collections are present. 5. Underlying emphysema. 6. 1 cm noncalcified pulmonary nodule now noted in the right upper lobe which is new from the prior study. A three-month followup noncontrast chest CT is recommended. Rik Villarreal MD Abdomen/Pelvis CT 02/07/18 0000 Signed Impressions: Service Date/Time: Wednesday, February 07, 2018 15:56 - CONCLUSION: 1. Diffuse severe anasarca with fluid density throughout the subcutaneous and intra-abdominal fat and apparent ascites. 2. Dense consolidation in both lung bases with small amounts of pleural fluid. Rik Villarreal MD Abdomen X-Ray 02/05/18 0000 Signed Impressions: Service Date/Time: Monday, February 05, 2018 10:08 - CONCLUSION: 1. Nonspecific bowel gas pattern with no abnormal dilatation of the large or small bowel. 2. NG tube in the stomach. Justin Jorgensen MD Brain MRI 02/02/18 0000 Signed Impressions: Service Date/Time: Friday, February 02, 2018 10:53 - CONCLUSION: No acute intracranial abnormality. Mild mucosal thickening involving bilateral ethmoid and sphenoid sinuses. 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 Anuel Dueñas MD Head CT 02/01/18 0453 Signed Impressions: Service Date/Time: Thursday, February 01, 2018 07:28 - CONCLUSION: No acute disease. Anuel Dueñas MD Cervical Spine CT 02/01/18 0000 Signed Impressions: Service Date/Time: Thursday, February 01, 2018 07:28 - CONCLUSION: 1. No acute fracture or prevertebral soft tissue swelling. 2. Diffuse cervical spondylosis. 3. Mild bilateral foraminal narrowing at C3-4 and C4-5 and mild left neural foraminal narrowing at C6-7. 4. Mild scoliosis. 5. Biapical emphysema and fibrotic scarring are noted. Anuel Dueñas MD Objective Remarks Gen: 67-year-old cachetic male, lying in bed status post tracheostomy encephalopathic, appears older than stated age, critically ill HEENT: nc. at. pupils 3 mm, sluggishly reactive, eye opening neck: trachea midline. New tracheostomy with minimal dried blood around chest: Symmetrical excursion. Equal chest rise. Essentially clear. cv: RRR. S1, S2 no S4. Without murmur abd: scaphoid. soft, nontender, nondistended. no guarding. PEG tube site is clean dry and intact extr: no peripheral edema. distal pulses 2+. neuro: Pupils as above. Spontaneous eye opening tracking more today. Very weakly follows commands 4, off sedation. Urinary Catheter: No Assessment to: Continue Vascular Central Line Catheter: Yes Assessment to: Remove Date of Insertion: Feb 05, 2008 Date of Removal: Feb 17, 2018 Line: Central Venous Catheter Side: Left Location: Subclavian A/P Assessment and Plan Neuro/Psych: Hypoxic Ischemic Encephalopathy Metabolic encephalopathy secondary to sepsis History of recurrent Syncope Acetaminophen 650 mg every 6 hours by PEG as needed fever Oxycodone liquid 5 mg by tube every 4 hours as needed pain 1 through 10 - Improving neuro exam but significant weakness persist - EEG: generalized slowing 02/01. MRI brain: no abnormalities 02/02 Resp: Acute now chronic hypoxic and hypercarbic respiratory failure Right lower lobe pneumonia/E Coli in sputum Status post percutaneous tracheostomy 02/[address] Stallworth Currently on PSVT trial 08/15 and 40% - wean fio2 for goal spo2 > 90% Continue intermittent CPAP trial and attempt T-piece as tolerated Albuterol/ipratropium aerosols every 6 hours with albuterol aerosols every 2 hours as needed for dyspnea Chest x-ray in a.m. 02/18 CV: Severe sepsis due to E. coli Recurrent Syncope Out of hospital PEA arrest - Currently off all pressors - Lasix discontinued due to contraction alkalosis. change to PO free water 200 every 6 hours for hypernatremia. - 2d echo 02/01: moderate aortic regurgitation. EF 60%. - low suspicion for ACS. cardiac enzymes downtrended Currently hydrocortisone at 25 mg 2 days. Stop 02/17 Start Flagyl cortisone 04 mg by mouth daily Renal: Monitor urine output Accurate I's and O's FEN/GI: Cirrhosis Failure to thrive severe hypokalemia Acute protein calorie malnutrition - severe and worsening (temporal muscle wasting, calf muscle atrophy, weight loss). Hyperammonemia Elevated alk phos Nutrition recommends tube feeding with Jevity 1.5 goal 65 cc an hour Famotidine for GI prophylaxis Plan lactulose 30 mg every 6 hours as scheduled If negative - Essentially normal gallbladder ultrasound Continue thiamine, multivitamin folate daily Check ammonia level in a.m. - ICU electrolyte protocol -Metoclopramide 5 mg every 8 hours prokinetic - restart tube feeds. nutrition consult. Heme/ID: Leukocytosis Macrocytosis Thrombocytopenia E. 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 metoclopramide C. difficile colitis. Likely will de-escalate in a.m. 02/17 - Previously started on vancomycin and Zosyn 02/03. Changed to Meropenem empirically. Narrowed ABX to Rocephin only due to harvey sensitive E. coli 02/09 - Sputum culture E coli, blood culture E. coli. Both harvey sensitive - INR 1.3 which is stable from prior admissions, likely secondary to cirrhosis Blood cultures -02/13. Sputum -02/12. E. coli in urine 02/07. Blood 02/03 Endocrine: Hypothyroidism Hyperglycemia of critical illness - SSI, med scale, q6h - levothyroxine increased from 75 to 88 mcg daily. TSH was elevated at 15 - Stress dose steroids as above-reduce to 25 q12 and now has completed course on 02/17 Prophylaxis: - SCDs -Famotidine - enoxaparin Lines: - right radial art line 02/01-was dcd, placed new left femoral art line 02/04/18- DCd - right femoral cvl 02/01-DCd 02/04/18, New left subclavian central line placed and will discontinue 02/17 - reed Level 2 follow-up Dirk Streeter MD Feb 17, 2018 10:12
[2018-02-17] MEDS ORDERED: FLUDROCORTISONE ACETATE 0.1 MG TAB PO ONE (10:15)
[2018-02-17] MEDS: MAGNESIUM SULFATE 1 GM PREMIX 100 ML IV SCH ×2 (11:18→14:04)
[2018-02-17] MEDS: ENOXAPARIN SODIUM 40 MG/0.4 ML SYRINGE SQ SCH (14:03)
[2018-02-17] MEDS: cefTRIAXone INJ 2,000 MG in SODIUM CHLORIDE 0.9% INJ 100 ML IV SCH (14:04)
--- NOTE | 2018-02-17 15:52 | HHI.HCPN ---
Reason for visit a. To assist with evaluation and management of symptoms including: Encephalopathy, dyspnea, debility b. To assist medical decision maker(s) with: better understanding of current medical conditions; weighing benefits/burdens of medical treatment options; making medical treatment decisions. Subjective/Interval History Follow-up visit to further clarify medical treatment goals and symptom management. Patient seen and examined in ICU room 514 status post tracheostomy and PEG tube placement. Follow-up chest x-ray this morning showed basilar densities and small pleural effusions. Scattered interstitial densities. Heart normal in size. Osseous structures are intact. Patient appears extremely frail, cachectic. Eyes are opened, does not follow commands for me. Mouthing unintelligible words. Afebrile. WBC: 13.5 Thrombocytopenia -platelets 98. H/H currently 10.9/31.9. Total bilirubin: 0.3 , AST 78, ALT 77, alkaline phosphatase 506 Case management is assisting with discharge planning. Patient has been referred to [facility] for vent rehab. Patient authorization has been started; patient has well care for insurance. Attempted to speak with patient's daughter, Ambar. Message left on her voicemail with palliative care contact information; awaiting return phone call. . Advance Directives Advance Directive Specifics Health Care Surrogate(s): Per [place] statutes, in the absence of written advanced directives healthcare proxy decision making falls to the patient's 2 adult daughters. Daughter ( Malia) opted out of the role of medical decision-maker on 02/11/2018, which leaves medical decision making to daughter (Ambar). This conversation was witnessed via speaker phone by Marylu Garnica (palliative LENS GRINDER APPRENTICE) and Shirley Johnston ( palliative GEAR HOBBER OPERATOR). . Documented care wishes: No written advanced directives have been completed. . Objective Vital Signs Date Time Temp Pulse Resp B/P (MAP) Pulse Ox O2 Delivery O2 Flow Rate FiO2 02/17/18 14:30 115 02/17/18 14:30 115 96/56 (69) 98 02/17/18 14:00 109 92/58 (69) 100 02/17/18 14:00 109 02/17/18 13:36 108 02/17/18 13:36 108 94/59 (71) 100 02/17/18 13:00 108 02/17/18 13:00 108 104/56 (72) 100 02/17/18 12:44 100 35 02/17/18 12:30 106 111/65 (80) 100 02/17/18 12:30 106 02/17/18 12:00 109 02/17/18 12:00 35 02/17/18 12:00 109 103/68 (80) 100 02/17/18 11:30 112 103/65 (78) 100 02/17/18 11:30 112 02/17/18 11:00 110 02/17/18 11:00 110 102/63 (76) 100 02/17/18 10:30 111 102/62 (75) 100 02/17/18 10:30 111 02/17/18 10:00 121 02/17/18 10:00 121 99/70 (80) 100 02/17/18 09:30 108 108/61 (77) 75 02/17/18 09:30 108 02/17/18 09:27 96 35 02/17/18 09:00 108 116/64 (81) 100 02/17/18 09:00 108 02/17/18 08:30 107 02/17/18 08:30 107 123/62 (82) 100 02/17/18 08:00 111 02/17/18 08:00 98.1 111 126/63 (84) 100 02/17/18 08:00 35 02/17/18 06:00 107 02/17/18 04:30 100 35 02/17/18 04:00 97.8 79 18 133/59 (83) 100 02/17/18 04:00 79 02/17/18 04:00 35 02/17/18 02:00 77 02/17/18 00:20 100 35 02/17/18 00:00 97.5 80 28 129/63 (85) 100 02/17/18 00:00 80 02/17/18 00:00 35 02/16/18 22:30 100 35 02/16/18 22:00 95 02/16/18 20:00 97.7 76 20 146/62 (90) 100 02/16/18 20:00 76 02/16/18 19:20 100 T-piece 5.00 40 02/16/18 18:00 85 02/16/18 16:30 100 T-piece 6.00 40 02/16/18 16:00 97 02/16/18 16:00 98.4 97 115/64 (81) 100 Intake & Output 02/17/18 02/17/18 07:00 19:00 Intake Total 1915 ml 200 ml Output Total 550 ml Balance 1365 ml 200 ml IV Total 500 ml 200 ml Tube Feeding 1215 ml Other 200 ml Output Urine Total 550 ml # Bowel Movements 3 . Physical Exam CONSTITUTIONAL/GENERAL: Patient is a frail, cachectic, elderly male patient s/p tracheostomy and PEG tube placement TUBES/LINES/DRAINS: PIV 2, CVL, arterial line, tracheostomy,PEG, [place] SKIN: No jaundice, rashes, or lesions. Ecchymoses on upper extremities. Wound on upper lip. HEAD: Atraumatic. Normocephalic. EYES: Pupils equal and round, reactive Extraocular motions intact. No injection or drainage. Fundi not examined. ENT: Hearing appears normal. Nose without bleeding or purulent drainage. NECK: Trachea midline. CARDIOVASCULAR: Tachycardic murmurs, gallops, or rubs. No JVD. Peripheral pulses symmetric. RESPIRATORY/CHEST: Tracheostomy tube mechanical vent; tolerating short periods of CPAP GASTROINTESTINAL: Abdomen soft, flat. Bowel sounds present. GENITOURINARY: Without palpable bladder distension. [place] catheter in place. MUSCULOSKELETAL: Extremities without clubbing, cyanosis. + Edema in upper and lower extremities bilaterally. LYMPHATICS: No palpable cervical or supraclavicular adenopathy. NEUROLOGICAL: Eyes open, not following commands at the time of exam. Attempting to mouth words but unable to understand what the patient is attempting to say. PSYCHIATRIC: No apparent anxiety/agitation noted .. . Diagnostic Tests Laboratory Laboratory Tests Test 02/14/18 17:50 02/15/18 03:26 02/15/18 12:50 02/15/18 20:30 Stool C. difficile Toxin (PCR) NEGATIVE (NEGATIVE) Stl C. difficile Toxin Epiderm 027 PRESUMPTIVE NEGATIVE White Blood Count 15.0 TH/MM3 (4.0-11.0) Red Blood Count 3.13 MIL/MM3 (4.50-5.90) Hemoglobin 10.5 GM/DL (13.0-17.0) Hematocrit 31.8 % (39.0-51.0) Mean Corpuscular Volume 101.5 FL (80.0-100.0) Mean Corpuscular Hemoglobin 33.7 PG (27.0-34.0) Mean Corpuscular Hemoglobin Concent 33.2 % (32.0-36.0) Red Cell Distribution Width 13.4 % (11.6-17.2) Platelet Count 132 TH/MM3 (150-450) Mean Platelet Volume 10.5 FL (7.0-11.0) Neutrophils (%) (Auto) 93.6 % (16.0-70.0) Lymphocytes (%) (Auto) 2.1 % (9.0-44.0) Monocytes (%) (Auto) 4.2 % (0.0-8.0) Eosinophils (%) (Auto) 0.0 % (0.0-4.0) Basophils (%) (Auto) 0.1 % (0.0-2.0) Neutrophils # (Auto) 14.0 TH/MM3 (1.8-7.7) Lymphocytes # (Auto) 0.3 TH/MM3 (1.0-4.8) Monocytes # (Auto) 0.6 TH/MM3 (0-0.9) Eosinophils # (Auto) 0.0 TH/MM3 (0-0.4) Basophils # (Auto) 0.0 TH/MM3 (0-0.2) CBC Comment DIFF FINAL Differential Comment Blood Urea Nitrogen 43 MG/DL (7-18) Creatinine 0.74 MG/DL (0.60-1.30) Random Glucose 100 MG/DL (74-106) Total Protein 4.9 GM/DL (6.4-8.2) Albumin 1.5 GM/DL (3.4-5.0) Calcium Level 8.8 MG/DL (8.5-10.1) Magnesium Level 1.6 MG/DL (1.5-2.5) Alkaline Phosphatase 398 U/L (45-117) Aspartate Amino Transf (AST/SGOT) 46 U/L (15-37) Alanine Aminotransferase (ALT/SGPT) 79 U/L (12-78) Total Bilirubin 0.7 MG/DL (0.2-1.0) Sodium Level 148 MEQ/L (136-145) Potassium Level 3.2 MEQ/L (3.5-5.1) 4.7 MEQ/L (3.5-5.1) Chloride Level 109 MEQ/L (98-107) Carbon Dioxide Level 31.7 MEQ/L (21.0-32.0) Anion Gap 7 MEQ/L (5-15) Estimat Glomerular Filtration Rate 105 ML/MIN (>89) Lactic Acid Level 1.3 mmol/L (0.4-2.0) Prealbumin 3 MG/DL (20-40) Vancomycin Level Trough 21.4 MCG/ML (5.0-10.0) Test 02/16/18 04:00 02/16/18 17:10 02/17/18 05:41 White Blood Count 15.8 TH/MM3 (4.0-11.0) 13.5 TH/MM3 (4.0-11.0) Red Blood Count 2.98 MIL/MM3 (4.50-5.90) 3.15 MIL/MM3 (4.50-5.90) Hemoglobin 10.1 GM/DL (13.0-17.0) 10.9 GM/DL (13.0-17.0) Hematocrit 30.0 % (39.0-51.0) 31.9 % (39.0-51.0) Mean Corpuscular Volume 100.4 FL (80.0-100.0) 101.3 FL (80.0-100.0) Mean Corpuscular Hemoglobin 33.8 PG (27.0-34.0) 34.6 PG (27.0-34.0) Mean Corpuscular Hemoglobin Concent 33.6 % (32.0-36.0) 34.1 % (32.0-36.0) Red Cell Distribution Width 13.4 % (11.6-17.2) 13.7 % (11.6-17.2) Platelet Count 137 TH/MM3 (150-450) 98 TH/MM3 (150-450) Mean Platelet Volume 10.6 FL (7.0-11.0) 11.4 FL (7.0-11.0) Blood Urea Nitrogen 56 MG/DL (7-18) 63 MG/DL (7-18) Creatinine 0.96 MG/DL (0.60-1.30) 1.06 MG/DL (0.60-1.30) Random Glucose 120 MG/DL (74-106) 125 MG/DL (74-106) Calcium Level 8.8 MG/DL (8.5-10.1) 8.6 MG/DL (8.5-10.1) Sodium Level 143 MEQ/L (136-145) 140 MEQ/L (136-145) Potassium Level 4.1 MEQ/L (3.5-5.1) 4.1 MEQ/L (3.5-5.1) Chloride Level 107 MEQ/L (98-107) 106 MEQ/L (98-107) Carbon Dioxide Level 29.3 MEQ/L (21.0-32.0) 25.5 MEQ/L (21.0-32.0) Anion Gap 7 MEQ/L (5-15) 9 MEQ/L (5-15) Estimat Glomerular Filtration Rate 78 ML/MIN (>89) 69 ML/MIN (>89) Random Vancomycin Level 22.0 COMMENT 20.1 COMMENT Total Protein 5.5 GM/DL (6.4-8.2) Albumin 2.1 GM/DL (3.4-5.0) Phosphorus Level 3.8 MG/DL (2.5-4.9) Magnesium Level 1.6 MG/DL (1.5-2.5) Alkaline Phosphatase 506 U/L (45-117) Aspartate Amino Transf (AST/SGOT) 78 U/L (15-37) Alanine Aminotransferase (ALT/SGPT) 77 U/L (12-78) Total Bilirubin 0.3 MG/DL (0.2-1.0) Direct Bilirubin 0.1 MG/DL (0.0-0.2) Indirect Bilirubin 0.2 MG/DL (0.0-0.8) Thyroid Stimulating Hormone 3rd Gen 15.700 uIU/ML (0.358-3.740) . Result Diagram: 02/17/1854002/17/18540 Imaging Last 72 hours Impressions Chest X-Ray 02/17/18 06 Signed Impressions: Service Date/Time: Saturday, February 17, 2018 03:29 - CONCLUSION: Stable chest. Amaury Francisco MD Chest X-Ray 02/15/18 06 Signed Impressions: Service Date/Time: Thursday, February 15, 2018 05:09 - CONCLUSION: No significant interval change with persistent right greater the left lung base opacity and small bilateral pleural effusions. Farooq Wolfe MD . Procedures 02/01/18: Right femoral CVL placed 02/01/18: Intubation 02/01/18: Right radial arterial line placement 02/04/18: Right femoral CVL discontinued. New left subclavian central line placed 02/04/18: Right radial arterial line was discontinued. New left femoral arterial line placed 02/13/18: Tracheostomy placement with bronchoscopy . Assessment and Plan Disease Oriented Problem List: (1) Hypoxic ischemic encephalopathy (2) Acute respiratory failure with hypoxia and hypercarbia (3) Cardiogenic shock (4) PEA (Pulseless electrical activity) (5) Cirrhosis (6) Failure to thrive in adult (7) Hyperammonemia (8) Coagulopathy (9) Hypothyroidism Symptom Scale: (1) Dyspnea 0-10 Scale: Unable to quantify (2) Encephalopathy 0-10 Scale: Unable to quantify (3) Debility 0-10 Scale: Unable to quantify Pertinent Non-Medical Issues Psychosocial: Patient is originally from [place]. He met his ex- in [facility] which is where he had his 2 daughters. They returned to [place] for approximately 10 years and then moved back to [place] again. Patient is . He currently lives with his brother. He lost his sister approximately 5 years ago due to complications related to COPD Spiritual: [employer] honor[employer] Legal:Per [place] statutes, in the absence of written advanced directives healthcare proxy decision making falls to the patient's 2 adult daughters. Daughter (Malia) opted out of the role of medical decision-maker on 02/11/2018, which leaves medical decision making to daughter (Ambar). This conversation was witnessed via speaker phone by Marylu Garnica (palliative [facility]) and Shirley Johnston (palliative [facility]). Ethical issues impacting care: No known ethical issues impacting care at this time. . Important Contacts Malia Baires, daughter: [phone] Ambar Lizarraga, daughter: [phone] Prognosis Patient is a 67 yo male s/p out of hospital PEA arrest Code Status: Full Code Plan * FULL CODE * Decision-making: Per [place] statutes, in the absence of written advanced directives healthcare proxy decision making falls to the patient's 2 adult daughters. Daughter (Malia) opted out of the role of medical decision-maker on 02/11/2018, which leaves medical decision making to daughter (Ambar). This conversation was witnessed via speaker phone by Marylu Garnica (palliative LENS GRINDER APPRENTICE) and Shirley Johnston (palliative GEAR HOBBER OPERATOR). * Goals remain aggressive at this time. * Palliative care met with patient's daughters (Mamie) status post tracheostomy 02/13/2018. They had many questions regarding possible discharge to SNF in the upcoming days; questions answered to the best of my ability. We discussed that the patient patient will require extensive rehab for an undetermined amount of time, complications and setbacks that may arise were addressed. They verbalized understanding that the patient will have "some good days and some bad." They feel that if anyone can make it through this, it' s their father. * Discussed patient with nurse, Sangeetha. * Symptom management: = Encephalopathy: Patient remains encephalopathic which is multifactorial and will not permit extubation. Patient is not capacitated to participate in medical decision making; it is unclear if he will regain this capacity in the future. MRI of the brain on 02/01/18 showed no acute intracranial. abnormalities, no overt evidence of anoxia. EEG shows generalized slowing. We will continue to monitor. = Dyspnea: Tolerating short CPAP trials status post tracheostomy on 2017. CT chest 02/07/18 showed diffuse anasarca with fluid density throughout the subcutaneous and intra-abdominal fat and apparent ascites; dense consolidation in both lung bases with small amounts of pleural fluid. On ceftriaxone. = Debility: Patient has been hospitalized twice during 01/2018, having frequent episodes of syncope. Patient family reports an acute decline with > 25 + weight loss reported in the past year. Multiple areas of impaired skin integrity, wound care following. Would recommend getting physical therapy involved when the patient is stable. Referral to [facility] pending. * Palliative care will continue to follow this patient throughout his hospitalization to establish trust, assist with symptom management and clarification of medical treatment goals. . Attestation To help prompt me to consider important information that might be impacting today's encounter and assessment, information from prior notes written by myself or my colleagues may have been "brought forward" into today's note. My signature on this note, however, is an attestation that I personally performed the exam, history, and/or decision-making noted today, and, unless otherwise indicated, the interactions with patient, family, and staff as well as the review of records all occurred today. I also attest that the listed assessment and stated plan reflect my best clinical judgment today based on the combination of historical information, prior notes, and today's exam/ interactions. When time spent is documented, it refers only to time spent today by the signer, or if indicated, combined time spent today by collaborating physician/nurse practitioner. . Tamica Akbar LENS GRINDER APPRENTICE Feb 17, 2018 15:51
[2018-02-17] MEDS: ACETAMINOPHEN 650 MG/20.3 ML UDC PO PRN (18:20)
[2018-02-18] VITALS (18 sets, daily range): BP systolic 99–111; BP diastolic 55–59; PULSE 96–123; RESP 16; TEMP 97.4–98.4; O2SAT 92–100
[2018-02-18] MEDS: MIDODRINE 5 MG TAB PO SCH ×3 (02:27→17:20)
[2018-02-18] MEDS: CHLORHEXIDINE GLUCONATE 2 % 1 PACK (2 CLOTHS) TOP SCH (02:28)
[2018-02-18] MEDS: RESP: ALBUTEROL 2.5 MG/IPRATROPIUM 0.5 MG NEB (SCH) INH ×3 (02:58→15:41)
[2018-02-18] MEDS: INSULIN NovoLIN REGULAR SUPPLEMENTAL SCALE SQ SCH ×3 (05:22→17:19)
[2018-02-18] MEDS: FREE WATER G-TUBE SCH ×3 (05:22→17:20)
[2018-02-18] MEDS: metroNIDAZOLE 500 MG TAB PO SCH ×2 (05:23→13:33)
[2018-02-18] MEDS: ARTIFICIAL TEARS OPTH SOLN 15 ML BTL EACH EYE SCH ×2 (05:23→13:33)
[2018-02-18] MEDS ORDERED: PHARMACY ORDERED LAB ONE (05:45)
[2018-02-18] MEDS ORDERED: LEVOTHYROXINE SODIUM 88 MCG TAB PO SCH (06:00)
[2018-02-18 07:06] LABS: BICARBONATE 26.6 MEQ/L (21.0-32.0); CALCIUM 8.7 MG/DL (8.5-10.1); CREATININE 1.14 MG/DL (0.60-1.30)
[2018-02-18 07:12] LABS: RANDOM VANCOMYCIN 16.2 COMMENT
[2018-02-18 07:22] LABS: AUTOMATED NEUTROPHIL # 9.6 TH/MM3 (1.8-7.7); BASOPHIL % 0.3 % (0.0-2.0); EOSINOPHIL % 0.1 % (0.0-4.0); HEMATOCRIT 34.2 % (39.0-51.0); HEMOGLOBIN 11.4 GM/DL (13.0-17.0); LYMPHOCYTE # 0.4 TH/MM3 (1.0-4.8); MEAN CELL VOLUME 100.3 FL (80.0-100.0); MEAN CORPUSCULAR HEMOGLOBIN 33.5 PG (27.0-34.0); MEAN CORPUSCULAR HGB CONC 33.4 % (32.0-36.0); MONO % 4.1 % (0.0-8.0); MONOCYTE # 0.4 TH/MM3 (0-0.9); NEUT % 91.5 % (16.0-70.0); PLATELET COUNT 81 TH/MM3 (150-450); RED BLOOD COUNT 3.41 MIL/MM3 (4.50-5.90); RED CELL DISTRIBUTION WIDTH 13.4 % (11.6-17.2); WHITE BLOOD COUNT 10.5 TH/MM3 (4.0-11.0)
[2018-02-18 07:49] LABS: BANDS 21 % (0-6); LYMPHOCYTES 5 % (9-44); MONOCYTES 5 % (0-8); NEUTROPHIL # MANUAL DIFF 9.5 TH/MM3 (1.8-7.7); POLYS (SEG NEUTROPHILS) 69 % (16-70)
[2018-02-18] MEDS: CHLORHEXIDINE 0.12% (ORAL KIT) 15 ML CUP MT SCH (08:32)
[2018-02-18] MEDS: FAMOTIDINE 20 MG TAB NG SCH (08:33)
[2018-02-18] MEDS: ACETAMINOPHEN 650 MG/20.3 ML UDC PO PRN (08:33)
[2018-02-18] MEDS: THIAMINE HCL 100 MG TAB PO SCH (08:33)
[2018-02-18] MEDS: MULTIVITAMIN TAB PO SCH (08:33)
[2018-02-18] MEDS: FOLIC ACID 1 MG TAB PO SCH (08:33)
[2018-02-18] MEDS ORDERED: FLUDROCORTISONE ACETATE 0.1 MG TAB PO SCH (09:00)
--- NOTE | 2018-02-18 09:22 | HHI.CCPN ---
Subjective Remarks/Hospital Course Hospital Course: This is 67yM with history per prior records of cirrhosis who presented to the [facility] with [id number] PEA arrest. Per our documentation, He was seen on complaining of syncope and had a negative head CT at that time. He was discharged home. He represented 02/01 to [facility] with similar complaints of syncope , however the patient himself denied any complaints. In the waiting room, reports state he became unresponsive and cyanotic and was resuscitated with bag- valve-mask. He regained consciousness and refused additional care, signing out AMA before any work-up could be done. Per EMS report, when he was in the cab on the way home, he became unresponsive. presenting rhythm was PEA. ROSC was successfully obtained and he was stabilized in the [facility] ED before being transferred to [facility]. I evaluated the patient immediately upon arrival to the ICU. He is comatose and intubated, and no information can be obtained from him. He is on levophed at 15mcg/min. His pupils are 4mm, sluggishly reactive with roving eye movements. He is extensor posturing in the upper extremities and flexor posturing in the lower extremities. he has +cough but negative gag. + corneals. No additional information is obtainable from the patient and ROS is unobtainable. Laboratory evidence from [facility] demonstrates lactate of 9, trop 0.02, sodium 138, K 2.8, ammonia 46. 02/02: no significant improvements. GCS remains 4 despite off sedation x 24h. trops downtrending, likely secondary to CPR and not primary ACS. MRI today without overt evidence of anoxia. remains critically ill and comatose. 02/03: Opens eyes today to persistent stimulation. Appears to track do not follow commands. MRI done yesterday no acute findings. Too weak to attempt spontaneous breathing trial or extubation 02/04: Developed severe septic shock yesterday evening. Was placed on Levophed maxed to 20 mcg/min, Aniceto-Synephrine was also added currently at 120 mcg/min. initially was DNR per palliative care, but the daughter rescinded it later. Currently patient remains unresponsive. Source of sepsis appears to be right lower lobe pneumonia, I have placed a new left subclavian central line will discontinue the right femoral central line 02/05: Remains in severe septic shock. Sputum culture with gram-negative rods, blood culture with E. coli. Will change to meropenem to cover for ESBL E. coli , currently on Zosyn. Also start stress dose steroids 02/06: remains in shock on vasopressors. sputum culture with pansensitive e. coli , but wbc uptrending and in shock despite meropenem. awake and following commands, although very encephalopathic. 02/07: remains on vasopressors. wbc elevated. procalcitonin elevated as well. sputum culture with rare yeasts on gram stain. CT chest/abd/pelvis ordered to eval for other sources of infection: dense RLL consolidation c/w pneumonia. will likely need to bronch and get diagnostic BAL since prior micro have been unable to identify specific organism. 02/08: sputum still growing GNR. wbc dowtrending, however today, and he continues to remain afebrile. still no real improvements in mental status. 02/09: Sputum culture also growing pansensitive E. coli. Off all pressors but no improvement in neuro exam. Severely encephalopathic, and for this reason unable to extubate 02/10: No improvement in neurological function, remains severely debilitated. Increasing base excess but still has acceptable respiratory drive. Off vasopressors still. Poor prognosis due to anoxic brain injury. Consider trach and placement as family wants continued aggressive support. 02/11: Very lethargic, unable to tolerate spontaneous breathing trials. If family needs continued aggressive care, needs tracheostomy and PEG tube placement. Palliative will meet with family today. WBC count increasing today 22.5 02/12: Slightly more awake today spontaneous eye opening still not following commands. Family has not made a decision about tracheostomy or PEG tube placement. I will attempt to talk to the family today. CBC CMP pending today 02/13: Neurologically showing some signs of improvement, tracking better spontaneously open. Very weakly followed commands in all extremity. WBC count increased to 32.3 with predominantly neutrophils and bandemia. Repeat panculture sputum culture with GPC, added vancomycin IV. Rule out C. difficile colitis, add p.o. Flagyl. GB US to rule out cholecystitis. Got consent from Ambar, patient's daughter for tracheostomy and PEG tube placement 02/14: Status post tracheostomy today. Awaiting PEG tube placement. WBC count trending down today 18.5. Continues to have low-grade fever. IV vancomycin for GPC and sputum. Need LTAC after PEG 02/15: awaiting LTAC. change to PO free water for persistent hypernatremia. wean steroids. severe protein calorie malnutrition with preAlb 3. start vital high protein and await nutrition recs. 02/16: Afebrile. Currently on PSV trial 10/5 and 40%. Tolerating trach and PEG.. Eyes are open and weakly follows commands upper extremities. 02/17: Lasted on CPAP trials 3 hours today. Continues to open eyes and weakly follows commands the upper extremities. Tolerating tube feeding. Subjective: 02/18: Resting comfortably in bed on CPAP trial. Afebrile. Tolerating tube feeds. Pain medication initiated. Objective Vital Signs Date Time Temp Pulse Resp B/P (MAP) Pulse Ox O2 Delivery O2 Flow Rate FiO2 02/18/18 08:00 35 02/18/18 08:00 120 02/18/18 08:00 97.4 111/59 (76) 92 02/18/18 04:00 16 02/16/18 19:20 T-piece 5.00 Intake and Output 02/18/18 02/18/18 02/19/18 08:00 16:00 00:00 Intake Total 933 ml Output Total 250 ml Balance 683 ml Result Diagram: 02/18/1822 02/18/18 05 Other Results Microbiology Date/Time Source Procedure Growth Status 02/13/18 17:50 Blood Peripheral Aerobic Blood Culture - Preliminary NO GROWTH IN 4 DAYS Resulted 02/13/18 17:50 Blood Peripheral Anaerobic Blood Culture - Preliminary NO GROWTH IN 4 DAYS Resulted 02/12/18 12:15 Sputum Endotracheal Gram Stain - Final Complete 02/12/18 12:15 Sputum Endotracheal Sputum Culture - Final Complete 02/03/18 20:55 Urine Catheterized Urine Urine Culture - Final NO GROWTH IN 48 HOURS. Complete Imaging Last Impressions Chest X-Ray 02/17/18 0600 Signed Impressions: Service Date/Time: Saturday, February 17, 2018 03:29 - CONCLUSION: Stable chest. Amaury Francisco MD Gall Bladder Ultrasound 02/13/18 0000 Signed Impressions: Service Date/Time: February 17:23 - CONCLUSION: 1. There is minimal ascites in the upper abdomen. The exam is otherwise within normal limits. Haile Londono MD Chest CT 3/30/18 0000 Signed Impressions: Service Date/Time: Wednesday, February 07, 2018 15:56 - CONCLUSION: 1. Diffuse anasarca. 2. Dense consolidation right lower lobe with air bronchograms which could represent aspiration pneumonia. 3. Small area of consolidative opacity in the left lower lobe which appears to represent a previously noted area of rounded atelectasis mild surrounding infiltrate. 4. Small pleural fluid collections are present. 5. Underlying emphysema. 6. 1 cm noncalcified pulmonary nodule now noted in the right upper lobe which is new from the prior study. A three-month followup noncontrast chest CT is recommended. Rik Villarreal MD Abdomen/Pelvis CT 02/07/18 0000 Signed Impressions: Service Date/Time: Wednesday, February 07, 2018 15:56 - CONCLUSION: 1. Diffuse severe anasarca with fluid density throughout the subcutaneous and intra-abdominal fat and apparent ascites. 2. Dense consolidation in both lung bases with small amounts of pleural fluid. Rik Villarreal MD Abdomen X-Ray 02/05/18 0000 Signed Impressions: Service Date/Time: Monday, February 05, 2018 10:08 - CONCLUSION: 1. Nonspecific bowel gas pattern with no abnormal dilatation of the large or small bowel. 2. NG tube in the stomach. Justin Jorgensen MD Brain MRI 02/02/18 0000 Signed Impressions: Service Date/Time: Friday, February 02, 2018 10:53 - CONCLUSION: No acute intracranial abnormality. Mild mucosal thickening involving bilateral ethmoid and sphenoid sinuses. 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 Anuel Dueñas MD Head CT 02/01/18 0453 Signed Impressions: Service Date/Time: Thursday, February 01, 2018 07:28 - CONCLUSION: No acute disease. Anuel Dueñas MD Cervical Spine CT 02/01/18 0000 Signed Impressions: Service Date/Time: Thursday, February 01, 2018 07:28 - CONCLUSION: 1. No acute fracture or prevertebral soft tissue swelling. 2. Diffuse cervical spondylosis. 3. Mild bilateral foraminal narrowing at C3-4 and C4-5 and mild left neural foraminal narrowing at C6-7. 4. Mild scoliosis. 5. Biapical emphysema and fibrotic scarring are noted. Anuel Dueñas MD Objective Remarks Gen: 67-year-old cachetic male, lying in bed status post tracheostomy encephalopathic, appears older than stated age, critically ill HEENT: nc. at. pupils 3 mm, sluggishly reactive, eye opening neck: trachea midline. New tracheostomy with minimal dried blood around chest: Symmetrical excursion. Equal chest rise. Essentially clear. cv: Tachycardic, RR.. S1, S2 no S4. Without murmur abd: scaphoid. soft, nontender, nondistended. no guarding. PEG tube site is clean dry and intact extr: no peripheral edema. distal pulses 2+. neuro: Pupils as above. Spontaneous eye opening tracking more today. Very weakly follows commands 4, off sedation. Urinary Catheter: No Assessment to: Continue Vascular Central Line Catheter: No Assessment to: Continue Date of Insertion: Feb 05, 2008 Date of Removal: Feb 17, 2018 Line: Central Venous Catheter Side: Left Location: Subclavian A/P Assessment and Plan Neuro/Psych: Hypoxic Ischemic Encephalopathy Metabolic encephalopathy secondary to sepsis History of recurrent Syncope Acetaminophen 650 mg every 6 hours by PEG as needed fever Hydrocodone/acetaminophen 7.5/325 mg by tube every 4 hours as needed pain 1 through 10 - Improving neuro exam but significant weakness persist - EEG: generalized slowing 02/01. MRI brain: no abnormalities 02/02 Resp: Acute now chronic hypoxic and hypercarbic respiratory failure Right lower lobe pneumonia/E Coli in sputum Status post percutaneous tracheostomy 02/[address] Stallworth Currently on PSVT trial 10/5 and 40% - wean fio2 for goal spo2 > 90% Continue intermittent CPAP trial and attempt T-piece as tolerated Albuterol/ipratropium aerosols every 6 hours with albuterol aerosols every 2 hours as needed for dyspnea Chest x-ray in a.m. 02/18 CV: Severe sepsis due to E. coli Recurrent Syncope Out of hospital PEA arrest - Currently off all pressors - Lasix discontinued due to contraction alkalosis. change to PO free water 200 every 6 hours for hypernatremia. - 2d echo 02/01: moderate aortic regurgitation. EF 60%. - low suspicion for ACS. cardiac enzymes downtrended Currently hydrocortisone at 25 mg 2 days. Stop 02/17 Start Flagyl cortisone 04 mg by mouth daily Renal: Monitor urine output Accurate I's and O's FEN/GI: Cirrhosis Failure to thrive severe hypokalemia Acute protein calorie malnutrition - severe and worsening (temporal muscle wasting, calf muscle atrophy, weight loss). Hyperammonemia Elevated alk phos Nutrition recommends tube feeding with Jevity 1.5 goal 65 cc an hour Famotidine for GI prophylaxis Plan lactulose 30 mg every 6 hours as scheduled If negative - Essentially normal gallbladder ultrasound Continue thiamine, multivitamin folate daily Check ammonia level in a.m. - ICU electrolyte protocol -Metoclopramide 5 mg every 8 hours prokinetic - restart tube feeds. nutrition consult. Heme/ID: Leukocytosis Macrocytosis Thrombocytopenia E. 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 metoclopramide C. difficile colitis. Discontinue IV vancomycin 02/18 - Previously started on vancomycin and piperacillin/tazobactam 02/03. Changed to Meropenem empirically. Narrowed ABX to ceftriaxone only due to harvey sensitive E. coli 02/09. Stop date 02/21 for both ceftriaxone and metronidazole - Sputum culture E coli, blood culture E. coli. Both harvey sensitive - INR 1.3 which is stable from prior admissions, likely secondary to cirrhosis Blood cultures 2 -02/13. Sputum -02/12. E. coli in urine 02/07. Blood 02/03 Endocrine: Hypothyroidism Hyperglycemia of critical illness - SSI, med scale, q6h - levothyroxine increased from 75 to 88 mcg daily. TSH was elevated at 15 - Stress dose steroids as above-reduce to 25 q12 and now has completed course on 02/17 Prophylaxis: - SCDs -Famotidine - enoxaparin Lines: - right radial art line 02/01-was dcd, placed new left femoral art line 02/04/18- DCd - right femoral cvl 02/01-DCd 02/04/18, New left subclavian central line placed and will discontinue 02/17 - reed Level 2 follow-up Dirk Streeter MD Feb 18, 2018 09:22
[2018-02-18] MEDS ORDERED: ACETAMINOPHEN 325MG/HYDROcodone 7.5MG/15ML UDC PO PRN (10:00)
[2018-02-18] MEDS: METOCLOPRAMIDE HCL 10 MG/2 ML VIAL IV PUSH SCH ×2 (10:18→17:20)
[2018-02-18] MEDS: cefTRIAXone INJ 2,000 MG in SODIUM CHLORIDE 0.9% INJ 100 ML IV SCH (13:33)
[2018-02-18] MEDS: ENOXAPARIN SODIUM 40 MG/0.4 ML SYRINGE SQ SCH (13:36)
[2018-02-18] MEDS ORDERED: oxyCODONE HCL ORAL CONC 5 MG/0.25 ML SYRINGE G-TUBE PRN (15:00)
[2018-02-18] MEDS ORDERED: Albuterol-Ipratropium Neb INH (15:32)
[2018-02-18] MEDS ORDERED: MIDO5TAB PO (15:32)
[2018-02-18] MEDS ORDERED: THIA100 PO (15:32)
[2018-02-18] MEDS ORDERED: SYNT88TA PO (15:32)
[2018-02-18] MEDS ORDERED: FAMO20TA2 NG (15:32)
[2018-02-18] MEDS ORDERED: Albuterol Neb NEB (15:32)
[2018-02-18] MEDS ORDERED: FLUD.1 PO (15:32)
[2018-02-18] MEDS ORDERED: THERTAB15 PO (15:32)
--- NOTE | 2018-02-18 15:34 | HHI.DS ---
Discharge Summary Admission Date Feb 01, 2018 at 05:20 Discharge Date: Feb 18, 2018 Admitting Diagnosis Post cardiac arrest; coma; arrhythmia; COPD Brief History This is 67yM with history per prior records of cirrhosis who presented to the ED with [id number] PEA arrest. Per our documentation, He was seen on complaining of syncope and had a negative head CT at that time. He was discharged home. He represented 02/01 to [facility] with similar complaints of syncope , however the patient himself denied any complaints. In the waiting room, reports state he became unresponsive and cyanotic and was resuscitated with bag- valve-mask. He regained consciousness and refused additional care, signing out AMA before any work-up could be done. Per EMS report, when he was in the cab on the way home, he became unresponsive. presenting rhythm was PEA. ROSC was successfully obtained and he was stabilized in the ED before being transferred to [facility]. I evaluated the patient immediately upon arrival to the ICU. He is comatose and intubated, and no information can be obtained from him. He is on levophed at 15mcg/min. His pupils are 4mm, sluggishly reactive with roving eye movements. He is extensor posturing in the upper extremities and flexor posturing in the lower extremities. he has +cough but negative gag. + corneals. No additional information is obtainable from the patient and ROS is unobtainable. Laboratory evidence from demonstrates lactate of 9, trop 0.02, sodium 138, K 2.8, ammonia 46. CBC/BMP: 02/18/18 0522 02/18/18 0522 Significant Findings Laboratory Tests Test 02/15/18 20:30 02/16/18 04:00 02/16/18 17:10 02/17/18 05:41 White Blood Count 15.8 TH/MM3 (4.0-11.0) 13.5 TH/MM3 (4.0-11.0) Red Blood Count 2.98 MIL/MM3 (4.50-5.90) 3.15 MIL/MM3 (4.50-5.90) Hemoglobin 10.1 GM/DL (13.0-17.0) 10.9 GM/DL (13.0-17.0) Hematocrit 30.0 % (39.0-51.0) 31.9 % (39.0-51.0) Mean Corpuscular Volume 100.4 FL (80.0-100.0) 101.3 FL (80.0-100.0) Platelet Count 137 TH/MM3 (150-450) 98 TH/MM3 (150-450) Blood Urea Nitrogen 56 MG/DL (7-18) 63 MG/DL (7-18) Random Glucose 120 MG/DL (74-106) 125 MG/DL (74-106) Estimat Glomerular Filtration Rate 78 ML/MIN (>89) 69 ML/MIN (>89) Mean Corpuscular Hemoglobin 34.6 PG (27.0-34.0) Mean Platelet Volume 11.4 FL (7.0-11.0) Total Protein 5.5 GM/DL (6.4-8.2) Albumin 2.1 GM/DL (3.4-5.0) Alkaline Phosphatase 506 U/L (45-117) Aspartate Amino Transf (AST/SGOT) 78 U/L (15-37) Thyroid Stimulating Hormone 3rd Gen 15.700 uIU/ML (0.358-3.740) Test 02/18/18 05:22 02/18/18 15:00 Red Blood Count 3.41 MIL/MM3 (4.50-5.90) Hemoglobin 11.4 GM/DL (13.0-17.0) Hematocrit 34.2 % (39.0-51.0) Mean Corpuscular Volume 100.3 FL (80.0-100.0) Platelet Count 81 TH/MM3 (150-450) Mean Platelet Volume 12.0 FL (7.0-11.0) Neutrophils (%) (Auto) 91.5 % (16.0-70.0) Lymphocytes (%) (Auto) 4.0 % (9.0-44.0) Neutrophils # (Auto) 9.6 TH/MM3 (1.8-7.7) Lymphocytes # (Auto) 0.4 TH/MM3 (1.0-4.8) Band Neutrophils % 21 % (0-6) Lymphocytes % 5 % (9-44) Neutrophils # (Manual) 9.5 TH/MM3 (1.8-7.7) Platelet Estimate LOW (NORMAL) Platelet Morphology Comment ENLARGED (NORMAL) Blood Urea Nitrogen 66 MG/DL (7-18) Random Glucose 123 MG/DL (74-106) Estimat Glomerular Filtration Rate 64 ML/MIN (>89) Imaging Last Impressions Chest X-Ray 02/17/18 0600 Signed Impressions: Service Date/Time: Saturday, February 17, 2018 03:29 - CONCLUSION: Stable chest. Amaury Francisco MD Gall Bladder Ultrasound 02/13/18 0000 Signed Impressions: Service Date/Time: February 17:23 - CONCLUSION: 1. There is minimal ascites in the upper abdomen. The exam is otherwise within normal limits. Haile Londono MD Chest CT 02/07/18 0000 Signed Impressions: Service Date/Time: Wednesday, February 07, 2018 15:56 - CONCLUSION: 1. Diffuse anasarca. 2. Dense consolidation right lower lobe with air bronchograms which could represent aspiration pneumonia. 3. Small area of consolidative opacity in the left lower lobe which appears to represent a previously noted area of rounded atelectasis mild surrounding infiltrate. 4. Small pleural fluid collections are present. 5. Underlying emphysema. 6. 1 cm noncalcified pulmonary nodule now noted in the right upper lobe which is new from the prior study. A three-month followup noncontrast chest CT is recommended. Rik Villarreal MD Abdomen/Pelvis CT 02/07/18 0000 Signed Impressions: Service Date/Time: Wednesday, February 07, 2018 15:56 - CONCLUSION: 1. Diffuse severe anasarca with fluid density throughout the subcutaneous and intra-abdominal fat and apparent ascites. 2. Dense consolidation in both lung bases with small amounts of pleural fluid. Rik Villarreal MD Abdomen X-Ray 02/05/18 0000 Signed Impressions: Service Date/Time: Monday, February 05, 2018 10:08 - CONCLUSION: 1. Nonspecific bowel gas pattern with no abnormal dilatation of the large or small bowel. 2. NG tube in the stomach. Justin Jorgensen MD Brain MRI 02/02/18 0000 Signed Impressions: Service Date/Time: Friday, February 02, 2018 10:53 - CONCLUSION: No acute intracranial abnormality. Mild mucosal thickening involving bilateral ethmoid and sphenoid sinuses. 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 Anuel Dueñas MD Head CT 02/01/18 0453 Signed Impressions: Service Date/Time: Thursday, February 01, 2018 07:28 - CONCLUSION: No acute disease. Anuel Dueñas MD Cervical Spine CT 02/01/18 0000 Signed Impressions: Service Date/Time: Thursday, February 01, 2018 07:28 - CONCLUSION: 1. No acute fracture or prevertebral soft tissue swelling. 2. Diffuse cervical spondylosis. 3. Mild bilateral foraminal narrowing at C3-4 and C4-5 and mild left neural foraminal narrowing at C6-7. 4. Mild scoliosis. 5. Biapical emphysema and fibrotic scarring are noted. Anuel Dueñas MD PE at Discharge Gen: 67-year-old cachetic male, lying in bed status post tracheostomy encephalopathic, appears older than stated age, critically ill HEENT: nc. at. pupils 3 mm, sluggishly reactive, eye opening neck: trachea midline. New tracheostomy with minimal dried blood around chest: Symmetrical excursion. Equal chest rise. Essentially clear. cv: Tachycardic, RR.. S1, S2 no S4. Without murmur abd: scaphoid. soft, nontender, nondistended. no guarding. PEG tube site is clean dry and intact extr: no peripheral edema. distal pulses 2+. neuro: Pupils as above. Spontaneous eye opening tracking more today. Very weakly follows commands 4, off sedation. Transfer Summary Neuro/Psych: Hypoxic Ischemic Encephalopathy Metabolic encephalopathy secondary to sepsis History of recurrent Syncope Acetaminophen 650 mg every 6 hours by PEG as needed fever Hydrocodone/acetaminophen 7.5/325 mg by tube every 4 hours as needed pain 1 through 10 - Improving neuro exam but significant weakness persist - EEG: generalized slowing 02/01. MRI brain: no abnormalities 02/02 Resp: Acute now chronic hypoxic and hypercarbic respiratory failure Right lower lobe pneumonia/E Coli in sputum Status post percutaneous tracheostomy 02/[address] Stallworth Currently on PSVT trial / and 40% - wean fio2 for goal spo2 > 90% Continue intermittent CPAP trial and attempt T-piece as tolerated Albuterol/ipratropium aerosols every 6 hours with albuterol aerosols every 2 hours as needed for dyspnea Chest x-ray in a.m. 02/18 CV: Severe sepsis due to E. coli Recurrent Syncope Out of hospital PEA arrest - Currently off all pressors - Lasix discontinued due to contraction alkalosis. change to PO free water 200 every 6 hours for hypernatremia. - 2d echo 02/01: moderate aortic regurgitation. EF 60%. - low suspicion for ACS. cardiac enzymes downtrended Currently hydrocortisone at 25 mg 2 days. Stop 02/17 Start Flagyl cortisone 04 mg by mouth daily Renal: Monitor urine output Accurate I's and O's FEN/GI: Cirrhosis Failure to thrive severe hypokalemia Acute protein calorie malnutrition - severe and worsening (temporal muscle wasting, calf muscle atrophy, weight loss). Hyperammonemia Elevated alk phos Nutrition recommends tube feeding with Jevity 1.5 goal 65 cc an hour Famotidine for GI prophylaxis Plan lactulose 30 mg every 6 hours as scheduled If negative - Essentially normal gallbladder ultrasound Continue thiamine, multivitamin folate daily Check ammonia level in a.m. - ICU electrolyte protocol -Metoclopramide 5 mg every 8 hours prokinetic - restart tube feeds. nutrition consult. Heme/ID: Leukocytosis Macrocytosis Thrombocytopenia E. 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 metoclopramide C. difficile colitis. Discontinue IV vancomycin 02/18 - Previously started on vancomycin and piperacillin/tazobactam 02/03. Changed to Meropenem empirically. Narrowed ABX to ceftriaxone only due to harvey sensitive E. coli 02/09. Stop date 02/21 for both ceftriaxone and metronidazole - Sputum culture E coli, blood culture E. coli. Both harvey sensitive - INR 1.3 which is stable from prior admissions, likely secondary to cirrhosis Blood cultures 2 -02/13. Sputum -02/12. E. coli in urine 02/07. Blood 02/03 Endocrine: Hypothyroidism Hyperglycemia of critical illness - SSI, med scale, q6h - levothyroxine increased from 75 to 88 mcg daily. TSH was elevated at 15 - Stress dose steroids as above-reduce to 25 q12 and now has completed course on 02/17 Prophylaxis: - SCDs -Famotidine - enoxaparin Lines: - right radial art line 02/01-was dcd, placed new left femoral art line 02/04/18- DCd - right femoral cvl 02/01-DCd 02/04/18, New left subclavian central line placed and will discontinue 02/17 - reed Level 2 follow-up Hospital Course Hospital Course: This is 67yM with history per prior records of cirrhosis who presented to the [facility] with [id number] PEA arrest. Per our documentation, He was seen on complaining of syncope and had a negative head CT at that time. He was discharged home. He represented 02/01 to [facility] with similar complaints of syncope , however the patient himself denied any complaints. In the waiting room, reports state he became unresponsive and cyanotic and was resuscitated with bag- valve-mask. He regained consciousness and refused additional care, signing out AMA before any work-up could be done. Per EMS report, when he was in the cab on the way home, he became unresponsive. presenting rhythm was PEA. ROSC was successfully obtained and he was stabilized in the ED before being transferred to [facility]. I evaluated the patient immediately upon arrival to the ICU. He is comatose and intubated, and no information can be obtained from him. He is on levophed at 15mcg/min. His pupils are 4mm, sluggishly reactive with roving eye movements. He is extensor posturing in the upper extremities and flexor posturing in the lower extremities. he has +cough but negative gag. + corneals. No additional information is obtainable from the patient and ROS is unobtainable. Laboratory evidence from [facility] demonstrates lactate of 9, trop 0.02, sodium 138, K 2.8, ammonia 46. 02/02: no significant improvements. GCS remains 4 despite off sedation x 24h. trops downtrending, likely secondary to CPR and not primary ACS. MRI today without overt evidence of anoxia. remains critically ill and comatose. 02/03: Opens eyes today to persistent stimulation. Appears to track do not follow commands. MRI done yesterday no acute findings. Too weak to attempt spontaneous breathing trial or extubation 02/04: Developed severe septic shock yesterday evening. Was placed on Levophed maxed to 20 mcg/min, Aniceto-Synephrine was also added currently at 120 mcg/min. initially was DNR per palliative care, but the daughter rescinded it later. Currently patient remains unresponsive. Source of sepsis appears to be right lower lobe pneumonia, I have placed a new left subclavian central line will discontinue the right femoral central line 02/05: Remains in severe septic shock. Sputum culture with gram-negative rods, blood culture with E. coli. Will change to meropenem to cover for ESBL E. coli , currently on Zosyn. Also start stress dose steroids 02/06: remains in shock on vasopressors. sputum culture with pansensitive e. coli , but wbc uptrending and in shock despite meropenem. awake and following commands, although very encephalopathic. 02/07: remains on vasopressors. wbc elevated. procalcitonin elevated as well. sputum culture with rare yeasts on gram stain. CT chest/abd/pelvis ordered to eval for other sources of infection: dense RLL consolidation c/w pneumonia. will likely need to bronch and get diagnostic BAL since prior micro have been unable to identify specific organism. 02/08: sputum still growing GNR. wbc dowtrending, however today, and he continues to remain afebrile. still no real improvements in mental status. 02/09: Sputum culture also growing pansensitive E. coli. Off all pressors but no improvement in neuro exam. Severely encephalopathic, and for this reason unable to extubate 02/10: No improvement in neurological function, remains severely debilitated. Increasing base excess but still has acceptable respiratory drive. Off vasopressors still. Poor prognosis due to anoxic brain injury. Consider trach and placement as family wants continued aggressive support. 02/11: Very lethargic, unable to tolerate spontaneous breathing trials. If family needs continued aggressive care, needs tracheostomy and PEG tube placement. Palliative will meet with family today. WBC count increasing today 22.5 02/12: Slightly more awake today spontaneous eye opening still not following commands. Family has not made a decision about tracheostomy or PEG tube placement. I will attempt to talk to the family today. CBC CMP pending today 02/13: Neurologically showing some signs of improvement, tracking better spontaneously open. Very weakly followed commands in all extremity. WBC count increased to 32.3 with predominantly neutrophils and bandemia. Repeat panculture sputum culture with GPC, added vancomycin IV. Rule out C. difficile colitis, add p.o. Flagyl. GB US to rule out cholecystitis. Got consent from Ambar, patient's daughter for tracheostomy and PEG tube placement 02/14: Status post tracheostomy today. Awaiting PEG tube placement. WBC count trending down today 18.5. Continues to have low-grade fever. IV vancomycin for GPC and sputum. Need LTAC after PEG 02/15: awaiting LTAC. change to PO free water for persistent hypernatremia. wean steroids. severe protein calorie malnutrition with preAlb 3. start vital high protein and await nutrition recs. 02/16: Afebrile. Currently on PSV trial 10/5 and 40%. Tolerating trach and PEG.. Eyes are open and weakly follows commands upper extremities. 02/17: Lasted on CPAP trials 3 hours today. Continues to open eyes and weakly follows commands the upper extremities. Tolerating tube feeding. 02/18: Resting comfortably in bed on CPAP trial. Afebrile. Tolerating tube feeds. Pain medication initiated. Pt Condition on Discharge: Stable Discharge Disposition: Disch to Another Hospital Discharge Instructions DIET: Follow Instructions for: On Tube Feeding Activities you can perform: Continue Edwinrest Dirk Streeter MD Feb 18, 2018 15:34
[2018-02-18 16:00] LABS: INTERNATIONAL NORMALIZED RATIO 1.8 RATIO; PROTHROMBIN TIME - PATIENT 17.9 SEC (9.8-11.6)
== END 2018-02-18 17:50 | DRG 4 ==
LOC: PHED 04:48 → PHEDA 05:20 → HIME 10:00
PROVIDERS: ADMIT Internal Medicine Critical Care Medicine; ATTEND Internal Medicine Critical Care Medicine
PROC: 5A1955Z Respiratory Ventilation, Greater than 96 Consecutive Hours (ICD-10-PCS; principal; 2018-02-01)
PROC: 03HY32Z Insertion of Monitoring Device into Upper Artery, Percutaneous Approach (ICD-10-PCS; 2018-02-01)
PROC: 06HM33Z Insertion of Infusion Device into Right Femoral Vein, Percutaneous Approach (ICD-10-PCS; 2018-02-01)
PROC: 02HV33Z Insertion of Infusion Device into Superior Vena Cava, Percutaneous Approach (ICD-10-PCS; 2018-02-04)
PROC: 04HY32Z Insertion of Monitoring Device into Lower Artery, Percutaneous Approach (ICD-10-PCS; 2018-02-04)
PROC: 0B113F4 Bypass Trachea to Cutaneous with Tracheostomy Device, Percutaneous Approach (ICD-10-PCS; 2018-02-13)
PROC: 0BJ08ZZ Inspection of Tracheobronchial Tree, Via Natural or Artificial Opening Endoscopic (ICD-10-PCS; 2018-02-13)
PROC: 0DH63UZ Insertion of Feeding Device into Stomach, Percutaneous Approach (ICD-10-PCS; 2018-02-14)
PROC: 0DB98ZX Excision of Duodenum, Via Natural or Artificial Opening Endoscopic, Diagnostic (ICD-10-PCS; 2018-02-14)
DX: J96.21 Acute and chronic respiratory failure with hypoxia (principal); A41.51 Sepsis due to Escherichia coli [E. coli]; E43 Unspecified severe protein-calorie malnutrition; G93.41 Metabolic encephalopathy; J15.5 Pneumonia due to Escherichia coli; R57.0 Cardiogenic shock; R65.21 Severe sepsis with septic shock; G93.1 Anoxic brain damage, not elsewhere classified; E87.0 Hyperosmolality and hypernatremia; K26.9 Duodenal ulcer, unspecified as acute or chronic, without hemorrhage or perforation; E87.4 Mixed disorder of acid-base balance; D68.9 Coagulation defect, unspecified; R64 Cachexia; J44.0 Chronic obstructive pulmonary disease with (acute) lower respiratory infection; Z68.1 Body mass index [BMI] 19.9 or less, adult; E87.1 Hypo-osmolality and hyponatremia; J96.22 Acute and chronic respiratory failure with hypercapnia; R13.10 Dysphagia, unspecified; D69.6 Thrombocytopenia, unspecified; K70.31 Alcoholic cirrhosis of liver with ascites; K72.90 Hepatic failure, unspecified without coma; E03.9 Hypothyroidism, unspecified; F17.210 Nicotine dependence, cigarettes, uncomplicated; R62.7 Adult failure to thrive; E87.6 Hypokalemia; R73.9 Hyperglycemia, unspecified; R00.0 Tachycardia, unspecified; F10.20 Alcohol dependence, uncomplicated; I35.1 Nonrheumatic aortic (valve) insufficiency; Z51.5 Encounter for palliative care; D64.9 Anemia, unspecified; D75.89 Other specified diseases of blood and blood-forming organs; Z66 Do not resuscitate; Z79.899 Other long term (current) drug therapy; Z82.5 Family history of asthma and other chronic lower respiratory diseases; S41.112A Laceration without foreign body of left upper arm, initial encounter; Y90.9 Presence of alcohol in blood, level not specified; F19.10 Other psychoactive substance abuse, uncomplicated
CPT/HCPCS: 31600; 31624; 36556; 36600; 70450; 70551; 71045; 71260; 72125; 74018; 74177; 76705; 76937; 80048; 80053; 80076; 80202; 80307; 81001; 82140; 82550; 82552; 82805; 82948; 82977; 83605; 83735; 84100; 84132; 84134; 84145; 84443; 84484; 85007; 85025; 85027; 85610; 85730; 87040; 87070; 87077; 87086; 87186; 87205; 87493; 87641; 88305; 90714; 92950; 93005; 93306; 94002; 94003; 94640; 94664; 95819; 99284; J0171; J0690; J0696; J1120; J1265; J1644; J1650; J1720; J1940; J1953; J2185; J2250; J2370; J2543; J2765; J3010; J3370; J3411; J3475; J3480; J7030; J7050; J7060; J7120; J7613; P9045; P9047; Q2009; Q9963; Q9967